=== PATIENT | male | born 1960 | race Caucasian/White ===

== ENCOUNTER 2017-10-14 11:35 | Emergency (ER) | payer MEDICAID, SELFPAY ==
[2017-10-14 11:38] VITALS: BP 161/102; PULSE 88; RESP 16; TEMP 36.8; O2SAT 97; BMI 25.9
[2017-10-14 11:49] VITALS: BP 137/112; PULSE 74; RESP 18; O2SAT 97
--- NOTE | 2017-10-14 11:53 | CT_ITS ---
STUDY: CT BRAIN WITHOUT CONTRAST REASON FOR EXAM: Male, 57 years old. Dyspnea. 3 month history of headaches and hypertension. RADIATION DOSAGE (If Supplied By Facility): CTDIvol = ( 44.99 ) mGy, DLP = ( 796.11 ) mGycm TECHNIQUE: Transaxial CT imaging of the brain was performed without administration of intravenous contrast material. Individualized dose optimization techniques were used for this CT. COMPARISON: None. FINDINGS: Normal soft tissue structures. Normal calvarium. Normal size ventricles and extra-axial spaces for the patient's age. Normal white matter tracts of the cerebral hemispheres. Normal basal ganglia and thalami. Normal brainstem. Normal cerebellum. There is no intracranial hemorrhage. There are no findings of an acute ischemic infarction. Small mucosal polyp or retention cyst in the anterior inferior aspect of the right maxillary sinus. CT/Brain/Head without Contrast IMPRESSION: Normal unenhanced CT scan of the brain. Electronically Signed: Kenrick Hector MD at 13:20 EST Tel [phone], Service support ,
[2017-10-14] MEDS: DiphenhydrAMINE 50 MG/ML Syringe 25 MG IV (12:11)
[2017-10-14] MEDS: Ketorolac 15 MG/ML Vial IV (12:11)
[2017-10-14] MEDS: proCHLORPERazine 10 MG/2 ML Vial IV (12:11)
[2017-10-14] MEDS: 0.9% Normal Saline 1,000 ML 1000 ML IV (12:11)
[2017-10-14 12:35] LABS: Carboxyhemoglobin Frac (CO) 1.3 % (0.0-1.5)
--- NOTE | 2017-10-14 14:29 | ED.DCSUM_ITS ---
- ER Visit Summary Date of Service: 10/14/17 Chief Complaint: [Headache] History of Present Illness: The patient is a 57 M [resents with a headache that started this morning. Patient currently rates his headache an 8 out of 10. Patient states that he has had similar headaches in the past. Patient states that he has been having headaches off and on for a couple years. Patient describes some nausea today and photophobia. Patient describes cough and feeling somewhat achy. Patient denies any fever. He denies any falls or head injuries. Denies any family history of brain tumors or aneurysms.] Physical Examination: [HEENT-PERRLA, EOMI. Cranial nerves II through XII grossly intact. TMs clear. Mucous membranes moist. No adenopathy. Cardiovascular-regular rate and rhythm without murmur or ectopy Lungs-clear to auscultation, chest wall stable without crepitus or subcu emphysema Abdomen-normoactive bowel sounds, soft, nontender, no rebound or rigidity, no peritoneal signs. Neuro lzgd-[id number]-npms and heel savage testing within normal limits, negative Romberg, negative pronator drift, fundi benign Extremities-intact ?4, normal range of motion, normal pulses, atraumatic] Test Results: [CT scan of the brain without contrast was normal. Influenza screen was negative. Carboxyhemoglobin was 1.3.] Emergency Department Course and Treatment: [Patient had a liter normal saline fluid bolus given as well as Compazine, Toradol, and Benadryl. His headache improved to a 2 out of 10.] Treatment Plan: [Patient will be referred to neurology on-call for follow-up.] Disposition: [Discharged to home in stable condition] Impression: [Headache-suspect migrainous cephalgia] This note was generated with [employer] dictation software. It may contain incorrect words, spelling, and punctuation that were not noted in review of the chart prior to signing ED Disposition - Plan for ED Patient: Chief Complaint: Headache Referrals: Carlos Asif MD [Primary Care Provider] -
--- NOTE | 2017-10-14 14:30 | ED.DEP ---
ED Disposition - Plan for ED Patient: Chief Complaint: Headache Instructions: ED Cephalgia Unspecified Referrals: Carlos Asif MD [Primary Care Provider] - 5-7 Days Kwadwo Jessica MD [STAFF PHYSICIAN] - 5-7 Days
[2017-10-14 14:41] VITALS: BP 143/107; PULSE 72; RESP 18; O2SAT 98
== END 2017-10-14 14:42 | disposition home or self-care (01) ==
LOC: ED 12:06
PROVIDERS: Emergency Provider Emergency Medicine; Family Provider Family Medicine; PCP Family Medicine
DX: G43.909 Migraine, unspecified, not intractable, without status migrainosus (principal); I10 Essential (primary) hypertension; R05 Cough; Z79.899 Other long term (current) drug therapy
CPT/HCPCS: 70450; 82375; 87804; 96361; 96374; 96375; 99284; J7030

== ENCOUNTER 2018-03-06 15:35 | Observation (INO) | payer MEDICAID, SELFPAY ==
[2018-03-06] VITALS (14 sets, daily range): BP systolic 105–165; BP diastolic 62–96; PULSE 54–79; RESP 16–22; TEMP 36.4–36.9; O2SAT 96–99; BMI 25.7; BMI 26.0
--- NOTE | 2018-03-06 15:47 | EKG12_ITS ---
Test Reason : CP Blood Pressure : / mmHG Vent. Rate : 062 BPM Atrial Rate : 062 BPM P-R Int : 152 ms QRS Dur : 088 ms QT Int : 420 ms P-R-T Axes : 047 -10 026 degrees QTc Int : 426 ms Normal sinus rhythm Inferior infarct , age undetermined Abnormal ECG Confirmed by JACKELINE VERMA, GEN ([id number]), clinical editor ZITA HENDRICKS ([id number]) on 03/12/2018 3:31:55 PM Referred By: NACHO Confirmed By:GEN VIVEROS MD
--- NOTE | 2018-03-06 15:50 | RAD_ITS ---
STUDY: X-RAY CHEST REASON FOR EXAM: Male, 57 years old. Acute onset chest pain and shortness of breath. Subsiding 30 minutes after use of inhaler for COPD. TECHNIQUE: Single AP portable upright view of the chest. COMPARISON: None. FINDINGS: The lungs are clear and expanded. There is no demonstrated pleural abnormality. Normal size heart. Normal mediastinum and taylor. Normal visualized pulmonary arteries. Normal visualized aortic arch. Mildly tortuous descending thoracic aorta. Normal visualized thoracic spine. Normal visualized ribs, clavicles, and shoulders. Soft tissue density superimposed on the lower thoracic spine and distal descending thoracic aorta may be a hiatal hernia. RAD/Chest 1 View (Portable) IMPRESSION: No acute cardiopulmonary disease. Question of small hiatal hernia. Electronically Signed: Yaw Palacio MD at 16:10 EDT , Service support ,
[2018-03-06 15:56] LABS: Absolute Lymphocyte Count 2.15 X10^3/ul (0.83-4.51); Basophil# 0.03 X10^3/uL; Basophil% 0.3 % (0-1); Eosinophils% 2.8 % (0-5); Hematocrit 43.1 % (40-54); Hemoglobin 14.9 g/dl (13.0-16.5); Lymphocyte # 2.15 X10^3/ul (4.0); Lymphocyte % 20.1 % (19-41); Mean Corp Hgb Conc 34.6 g/gl (32-36); Mean Corpuscular Hgb 31.9 pg (27.0-32.0); Mean Corpuscular Volume 92.3 fL (80-94); Mean Platelet Vol. 11.5 fl (6.2-12.0); Monocyte# 1.18 X10^3/uL; Neutrophil # 7.04 X10^3/uL (2.7-7.7); Neutrophil % 65.7 % (47-70); Platelet Count 181 K/mm3 (150-450); RBC Distribution Width CV 12.5 % (11.6-14.6); RBC Distribution Width SD 41.8 fl (35.1-43.9); Red Blood Count 4.67 M/mm3 (4.6-6.2); White Blood Count 10.7 K/mm3 (4.4-11.0)
[2018-03-06] MEDS: 0.9% Normal Saline 1,000 ML 150 ML IV ×2 (15:57→19:04)
[2018-03-06] MEDS: Aspirin 81 MG TAB.CHEW 324 MG PO (15:58)
[2018-03-06] MEDS: Ipratropium/Albuterol Sulfate 3 ML AMPUL.NEB INHALATION (15:59)
[2018-03-06 16:22] LABS: Anion Gap 8 (5-15); BUN 15 mg/dL (7-18); BUN/Creat Ratio 16.4 RATIO (10-20); Calcium,Total 8.2 mg/dL (8.5-10.1); Chloride 110 mmol/L (98-107); Creatinine, Serum 0.91 mg/dL (0.70-1.30); EST Glomerular Filtration Rate 90 mL/min (>60); Est Glom Filt Rate - Afr Amer 109 mL/min (>60); Estimated Creatinine Clearance 79.85 ml/min; Glucose 154 mg/dL (74-106); Potassium 3.9 mmol/L (3.5-5.1); Sodium Level 143 mmol/L (136-145)
[2018-03-06 16:30] LABS: POSITIVE COUNT NO; POSITIVE DIFFERENTIAL NO; POSITIVE MORPHOLOGY NO
--- NOTE | 2018-03-06 16:34 | ED.VISSUMM ---
- ER Visit Summary Date of Service: 03/06/18 Chief Complaint: [Chest pain] History of Present Illness: The patient is a 57 M [presents the emergency department chest discomfort that started 10 minutes prior to arrival in the emergency department. Patient states that he was at work standing in the shop when he developed chest discomfort that radiated into both arms. He describes it as achy. Patient states that the pain is actually started to improve a little bit and currently rates it a 3 out of 10. Patient did feel short of breath with it. He denies any nausea or vomiting. He denied any diaphoresis. Patient has not had discomfort like that before. Patient does have a history of COPD and hypertension however no cardiac history. Patient does not know his family history as he is a foster child.] Physical Examination: [HEENT-PERRLA, EOMI. Cranial nerves II through XII grossly intact. TMs clear. Mucous membranes moist. No adenopathy. Cardiovascular-regular rate and rhythm without murmur or ectopy Lungs-diminished breath sounds bilaterally which is some faint expiratory wheezes noted. No accessory muscle use or retractions. Abdomen-normoactive bowel sounds, soft, nontender, no rebound or rigidity, no peritoneal signs. Extremities-intact ?4, normal range of motion, normal pulses, atraumatic] Test Results: [EKG obtained on arrival shows sinus rhythm with ventricular rate of 62 bpm with old inferior wall infarct noted. CBC with differential was normal. Chemistries unremarkable. Troponin was less than 0.015. And chest x-ray showed nothing acute.] Emergency Department Course and Treatment: [Patient received aspirin in the emergency department as well as sublingual nitro which resolved his pain. Patient had an inch of Nitropaste placed to the anterior chest wall. Patient also received a DuoNeb aerosol.] Treatment Plan: [Patient will be admitted for further workup and evaluation of his chest pain] Disposition: [Admit] Impression: Chest pain-rule out acute coronary syndrome [] This note was generated with [employer] dictation software. It may contain incorrect words, spelling, and punctuation that were not noted in review of the chart prior to signing ED Disposition - Plan for ED Patient: Chief Complaint: Chest Pain Referrals: Carlos Asif MD [Primary Care Provider] -
[2018-03-06] MEDS: Nitroglycerin Oint 1 INCH PACKET TRANSDERM. (16:40)
--- NOTE | 2018-03-06 17:05 | HP.PCM_ITS ---
Problem List (1) Hypertension Status: Chronic (2) Depression Status: Acute History of Present Illness Date of Admission: 03/06/18 Chief Complaint: Chest pain This is a 57-year-old male with past medical history of essential hypertension and depression who presented to the emergency room due to midsternal chest pain that started while he was at work. He describes his pain as an ache , it did not radiate, it was associated with mild shortness of breath. He denies any palpitations, dizziness, rapid heartbeat, nausea or diaphoresis . He denies personal or family history of coronary artery disease. He states that he had a stress test several years ago and that was negative for ischemia. His workup in the emergency room is essentially unremarkable. We are placing him in the CDU to rule out acute coronary syndrome. Past Medical History Past Medical History (Chronic Problems): Chronic Problems Hypertension (Chronic) Allergies No Known Allergies Allergy (Verified 10/14/17 11:38) Home Medications: Ambulatory Orders Medication Instructions Recorded Metoprolol Tartrate [Lopressor 25 mg PO BID 10/14/17 (Beta Alma)] Duloxetine Hcl [Cymbalta] 20 mg PO DAILY 03/06/18 Smoking Status: Former smoker Review of Systems Comment: All Systems were reviewed with pertinent positives mentioned in the HPI above. VTE Information - Inpt Only VTE Present on Admission: No VTE Mechan Device Prophylaxis: SCD's VTE Pharm Prophylaxis ordered?: No Patient Problems: Active and Suspected Problems Depression (Acute) - Physical Exam General: Alert, Oriented x3 Oral: Moist Mucosa Neck: Supple, No JVD Lungs: Clear to auscultation, No wheeze, No rales Cardiovascular: Regular rate, Normal S1, Normal S2 Abdomen: Soft, Non Tender Extremities: No edema Neurological: Cranial nerves II-XII grossly intact, Motor Exam 5/5 strength throughout Vital Signs Temp Pulse Resp BP Pulse Ox 97.6 F L 73 16 127/87 H 96 03/06/18 15:36 03/06/18 16:42 03/06/18 16:42 03/06/18 16:42 03/06/18 16:42 Oxygen Delivery Method Room Air Weight: 72.121 kg Body Mass Index (BMI) 25.7 Laboratory Tests Past 24 Hrs 03/06/18 03/06/18 15:50 15:50 WBC 10.7 RBC 4.67 Hgb 14.9 Hct 43.1 MCV 92.3 MCH 31.9 MCHC 34.6 RDW 12.5 RDW Differential 41.8 Plt Count 181 MPV 11.5 Immature Gran % (Auto) 0.100 Neut % (Auto) 65.7 Lymph % (Auto) 20.1 [place] % (Auto) 11.0 H Eos % (Auto) 2.8 Baso % (Auto) 0.3 Absolute Neuts (auto) 7.0 Absolute Lymphs (auto) 2.15 Total Counted Not Reportable Sodium 143 Potassium 3.9 Chloride 110 H Carbon Dioxide 25.0 Anion Gap 8 BUN 15 Creatinine 0.91 Estim Creat Clear Calc 79.85 Est GFR (MDRD) Af Amer 109 Est GFR (MDRD) Non-Af 90 BUN/Creatinine Ratio 16.4 Glucose 154 H Calcium 8.2 L Troponin I < 0.015 Assessment/Plan All Active Problems Depression (Acute) 1. Chest pain; we will obtain serial cardiac enzymes and EKGs to rule out acute coronary syndrome, assuming negative cardiac enzymes we will schedule him for a stress test in the morning. 2. Hypertension; we will continue him on his metoprolol. 3. Depression; he is on Cymbalta which we will continue. 4. Obesity; weight loss recommended. 5. Early ambulation for DVT prophylaxis Code Visit OBSV E&M: 77398 Initial observation care L3
--- NOTE | 2018-03-06 17:48 | EKG12_ITS ---
Test Reason : CP Blood Pressure : / mmHG Vent. Rate : 066 BPM Atrial Rate : 066 BPM P-R Int : 166 ms QRS Dur : 086 ms QT Int : 428 ms P-R-T Axes : 056 -29 019 degrees QTc Int : 448 ms Normal sinus rhythm Low voltage QRS Borderline ECG Confirmed by JACKELINE VERMA, GEN ([id number]), editor index ZITA HENDRICKS ([id number]) on 03/12/2018 3:32:15 PM Referred By: NACHO Confirmed By:GEN VIVEROS MD
[2018-03-07] VITALS (8 sets, daily range): BP systolic 115–160; BP diastolic 68–91; PULSE 58–68; RESP 12–21; TEMP 36.7–37.2; O2SAT 97–98
[2018-03-07] MEDS: Metoprolol Tartrate 25 MG Tablet PO ×2 (00:10→09:57)
[2018-03-07] MEDS: 0.9% Normal Saline 1,000 ML 150 ML IV (01:56)
[2018-03-07] MEDS: Acetaminophen 325 MG Tablet 650 MG PO (03:38)
--- NOTE | 2018-03-07 05:55 | EKG12_ITS ---
Test Reason : AM EKG Blood Pressure : / mmHG Vent. Rate : 060 BPM Atrial Rate : 060 BPM P-R Int : 150 ms QRS Dur : 090 ms QT Int : 422 ms P-R-T Axes : 047 -10 031 degrees QTc Int : 422 ms Normal sinus rhythm Normal ECG When compared with ECG of 06-MAR-2018 15:41, MANUAL COMPARISON REQUIRED, DATA IS UNCONFIRMED Confirmed by JACKELINE VERMA, GEN ([id number]), sports editor ZITA HENDRICKS ([id number]) on 03/12/2018 3:58:52 PM Referred By: DR NOLASCO Confirmed By:GEN VIVEROS MD
[2018-03-07 07:11] LABS: Absolute Lymphocyte Count 2.22 X10^3/ul (0.83-4.51); Absolute Neutrophil Count 7.2 X10^3/uL (2.0-7.7); Basophil# 0.03 X10^3/uL; Basophil% 0.3 % (0-1); Eosinophil# 0.37 X10^3/uL; Eosinophils% 3.4 % (0-5); Hemoglobin 13.1 g/dl (13.0-16.5); Lymphocyte # 2.22 X10^3/ul (4.0); Lymphocyte % 20.2 % (19-41); Mean Corp Hgb Conc 34.5 g/gl (32-36); Mean Corpuscular Hgb 32.7 pg (27.0-32.0); Mean Corpuscular Volume 94.8 fL (80-94); Mean Platelet Vol. 11.8 fl (6.2-12.0); Monocyte# 1.11 X10^3/uL; Monocyte% 10.1 % (0-10); Neutrophil # 7.21 X10^3/uL (2.7-7.7); Neutrophil % 65.6 % (47-70); Platelet Count 153 K/mm3 (150-450); RBC Distribution Width CV 12.3 % (11.6-14.6); RBC Distribution Width SD 41.9 fl (35.1-43.9); Red Blood Count 4.01 M/mm3 (4.6-6.2)
[2018-03-07 07:15] LABS: POSITIVE COUNT NO; POSITIVE DIFFERENTIAL NO; POSITIVE MORPHOLOGY NO
[2018-03-07 07:18] LABS: International Normalized Ratio 1.1; Prothrombin Time (Protime)PT. 14.2 SECONDS (11.7-14.9)
[2018-03-07 07:19] LABS: Partial Thromboplast Time 31.5 Seconds (24.1-36.2)
[2018-03-07 07:51] LABS: Anion Gap 6 (5-15); BUN 14 mg/dL (7-18); Calcium,Total 7.9 mg/dL (8.5-10.1); Chloride 114 mmol/L (98-107); Creatinine, Serum 0.78 mg/dL (0.70-1.30); EST Glomerular Filtration Rate 109 mL/min (>60); Est Glom Filt Rate - Afr Amer 132 mL/min (>60); Estimated Creatinine Clearance 93.16 ml/min; Glucose 93 mg/dL (74-106); Potassium 3.6 mmol/L (3.5-5.1); Sodium Level 147 mmol/L (136-145)
--- NOTE | 2018-03-07 09:58 | STRESSREP ---
Stress Test Report Pharmacologic myocardial perfusion stress test. 57-year-old man with a history of chest pain. Stress protocol: Resting EKG demonstrates normal sinus rhythm with a rate of 56 bpm. Resting blood pressure is 168/90 mmHg. 0.4 mg of regadenoson was infused per usual protocol followed by rapid intravenous saline flush injection. Continuous EKG monitoring was performed. The patient maintained sinus rhythm throughout the recording. At rest there were no ST or T-wave changes noted suggest abnormal flow reserve at peak infusion no ST or T-wave changes were noted suggest abnormal flow reserve. The resting blood pressure was 176 of 100 mmHg with a final blood pressure 152/86 mmHg. No clinical angina was noted. Myocardial perfusion protocol. 12.0 mCi of technetium 99m sestamibi was injected at rest. 0.4 mg of regadenoson was infused per usual protocol peak infusion 36.0 mCi of technetium 99m sestamibi was injected stress images were obtained stress and rest images were reconstructed and compared in the short axis vertical long and horizontal long axis. Gated images were also obtained Perfusion SPECT analysis: Review of the stress images demonstrate normal uptake of tracer noted in all areas of myocardium. There is a small area however, of the distal anterior and apical wall with mild reduction in perfusion which appears to improve with rest suggesting a mild amount of distal anterior apical ischemia. Gated SPECT analysis: The gated ejection fraction is noted to be 74%. Conclusion: Resting hypertension. Mildly abnormal pharmacologic myocardial perfusion stress test with a small area of distal anterior apical ischemia. Preserved ejection fraction.
--- NOTE | 2018-03-07 11:11 | PCM.CONS.C ---
Reason for Consult Date of Consultation: 03/07/18 Reason for Consultation: Abnormal stress test and chest pain. History of Present Illness: The patient is a 57 year old M with no previous medical history but on anxiety disorder who presented to the emergency room with a complaint of chest discomfort. He says he was standing at his work room floor and then started experiencing some chest discomfort which went to both arms. He denies any nausea or diaphoresis though it was stated in the previous notes he has not had any palpitations he has had similar chest discomfort in the past. In the emergency room he was given sublingual nitroglycerin with improvement in the discomfort. He has otherwise not had any dizziness or diaphoresis near syncope or syncope he was scheduled for and underwent stress testing this morning his EKGs were noted to be normal but he had mild distal possible apical ischemia with no other territorial concern he was noted to be hypertensive as well. [] Past Medical History Allergies/Adverse Reactions: Allergies No Known Allergies Allergy (Verified 10/14/17 11:38) Home Medications: Ambulatory Orders Medication Instructions Recorded Metoprolol Tartrate [Lopressor 25 mg PO BID 10/14/17 (Beta Alma)] Duloxetine Hcl [Cymbalta] 20 mg PO DAILY 03/06/18 Past Medical History (Chronic Problems): Chronic Problems Hypertension (Chronic) Smoking Status: Former smoker Tobacco Use: Cigarettes Alcohol: None Drugs: None Review of Systems - Review of Systems General: Denies: Fever, Night Sweats, Fatigue Cardiovascular: Denies: Chest Discomfort, Shortness of Breath, Orthopnea, PND, Peripheral Edema, Palpitations, Lightheadedness, Dizziness, Near Syncope, Syncope Respiratory: Denies: Cough, Sputum Production, Hemoptysis Gastrointestinal: Denies: Hematemesis, Hematochezia, Melena Genitourinary: Denies: Dysuria, Hematuria Skin: Denies: Rash Subjectve: Pleasant gentleman in no apparent distress. Objective: Vital Signs Temp Pulse Resp BP Pulse Ox 98.0 F 67 12 160/91 H 98 03/07/18 09:53 03/07/18 09:57 03/07/18 09:53 03/07/18 09:53 03/07/18 09:53 Oxygen Delivery Method Room Air Weight: 162 lb 0.636 oz Body Mass Index (BMI) 26.0 Intake and Output for Last 24 Hours 03/05/18 03/06/1818 23:59 23:59 23:59 Intake Total 694 / 694 918 / 918 Balance 694 / 694 918 / 918 General: Awake, Alert, Oriented x 3 HEENT: PERRL, EOMI, Sclera Non Icteric Neck: Supple, Good ROM, No Lymph Node Enlargement Lungs: Clear to auscultation Cardiovascular: Regular Rhythm, Normal S1, Normal S2, No Murmurs, No Rubs, No Gallops Vascular: No Carotid Bruits, Normal Femoral Pulses, Normal Radial Pulses, Normal Dorsalis Pedal Pulse, Normal Posterior Tibial Pulses Abdomen: Bowel Sounds Present, Soft, Non Tender, No HSM, No Organomegaly Extremities: No Cyanosis, No Clubbing, No edema Neurological: No Focal Motor or Sensory Deficit 03/06/18 18:51: Troponin I < 0.015 03/06/18 21:48: Troponin I < 0.015 03/07/18 06:36: WBC 11.0, RBC 4.01 L, Hgb 13.1, Hct 38.0 L, MCV 94.8 H, MCH 32.7 H, MCHC 34.5, RDW 12.3, RDW Differential 41.9, Plt Count 153, MPV 11.8, Immature Gran % (Auto) 0.400, Neut % (Auto) 65.6, Lymph % (Auto) 20.2, [place] % (Auto) 10.1 H, Eos % (Auto) 3.4, Baso % (Auto) 0.3, Absolute Neuts (auto) 7.2, Total Counted Not Reportable 03/07/18 06:36: PT 14.2, INR 1.1, APTT 31.5 03/07/18 06:36: Sodium 147 H, Potassium 3.6, Chloride 114 H, Carbon Dioxide 27.0, Anion Gap 6, BUN 14, Creatinine 0.78, Est GFR (MDRD) Af Amer 132, Est GFR (MDRD) Non-Af 109, BUN/Creatinine Ratio 18.0, Glucose 93, Calcium 7.9 L Rhythm: EKG: ECHO: Stress Test: Cardiac Cath: PCI: CT Surgery: Holter monitor: EPS: PPM: CXR: Chest CT Scan: Assessment/Plan 1. Chest pain with abnormal stress test. He presents with chest pain with some atypical findings but not abnormal stress test which appears to be low risk. At this time he prefers to go home and be seen as an outpatient rather than wait 2 days to undergo a cardiac catheterization. My recommendation at this time would be as he is low risk to be put on aspirin, clopidogrel and a beta-alma and statin and he will have a follow-up evaluation in my office and further recommendations made. 2. Hypertension. He is likely hypertensive and we will start with the beta-alma and further recommendations made later on. Thank you for allowing me to participate in his care. A follow-up visit through my office will be arranged.
--- NOTE | 2018-03-07 11:25 | PCM.DC ---
- Discharge Diagnoses Current Active Problems: Current Active and Chronic Problems Hypertension (Chronic) Depression (Acute) You will use the following diet at home:: Cardiac Your food should be the consistency of: Regular Your liquids should be the consistency of: Regular/Thin Discharge Activity: - - activity as tolerated. Call your doctor if you observe: Shortness of breath, Chest pain Allergies/Adverse Reactions: Allergies No Known Allergies Allergy (Verified 10/14/17 11:38) Medications to take at Discharge Metoprolol Tartrate [Lopressor (beta liz)] 25 mg PO BID 10/14/17 Duloxetine Hcl [Cymbalta] 20 mg PO DAILY 03/06/18 Atorvastatin Calcium 80 mg PO DAILY #30 tab 03/07/18 Clopidogrel Bisulfate [Plavix] 75 mg PO DAILY #30 tab 03/07/18 The following prescriptions were given: Atorvastatin Calcium 80 mg PO DAILY #30 tab Clopidogrel Bisulfate [Plavix] 75 mg PO DAILY #30 tab Primary Care Physician: Carlos Asif MD [Primary Care Provider] - Within 2 Weeks Please Follow Up With: Mario Bartholomew MD - Cardiology When: 1-2 weeks Proposed Discharge Date: 03/07/18
--- NOTE | 2018-03-07 11:27 | PCM.DC.SUM ---
Discharge Date and Diagnosis - Problem List Patient Problems: Active and Suspected Problems Abnormal stress test (Acute) Chest pain (Acute) Depression (Acute) Date of Admission: 03/06/18 Date of Discharge: 03/07/18 - Primary Discharge Diagnosis Active and Suspected Problems Abnormal stress test (Acute) Chest pain (Acute) Depression (Acute) - Secondary Discharge Diagnosis Chronic Problems Hypertension (Chronic) Hospital Course and Treatment Imaging Results: 03/07/18 05:55 Nuclear Stress Test - Chemical [NM] Routine Procedures: Stress test Summary of Care Provided: The patient is a 57 year old M with midsternal chest pain. Patient said that he had the pain that became very anxious afterwards. Patient presented to the emergency room and his cardiac workup was performed. He underwent a chemical stress test that showed a small area of the distal anterior apical ischemia. Cardiology was consulted and patient expressed a desire to go home and follow up with cardiology as outpatient. Dr. Bartholomew was okay with that and I recommend patient continue with his metoprolol but also start Plavix and atorvastatin. Patient be discharged with a 75 mg Plavix as well as 80 mg of atorvastatin. Patient will follow up with cardiology next 1-2 weeks. Patient instructed to return to hospital if he has worsening chest pain or shortness of breath. [] Discharge Diet: Low fat/ Low Cholesterol Discharge Activity: - - activity as tolerated. Call your doctor if you observe: Shortness of breath, Chest pain Home Medications: Medications to take at Discharge Metoprolol Tartrate [Lopressor (beta liz)] 25 mg PO BID 10/14/17 Duloxetine Hcl [Cymbalta] 20 mg PO DAILY 03/06/18 Atorvastatin Calcium 80 mg PO DAILY #30 tab 03/07/18 Clopidogrel Bisulfate [Plavix] 75 mg PO DAILY #30 tab 03/07/18 Following Prescrptions Were Given to Patient: Atorvastatin Calcium 80 mg PO DAILY #30 tab Clopidogrel Bisulfate [Plavix] 75 mg PO DAILY #30 tab Primary Care Physician: Carlos Asif MD [Primary Care Provider] - Within 2 Weeks Please Follow Up With: Mario Bartholomew MD - Cardiology When: 1-2 weeks Disposition: Home Minutes spent on discharge:: 28 Patient Condition:: Fair Medical Necessity - Tobacco Use Smoking Status: Former smoker Tobacco Use: Cigarettes Meaningful Use Info Meaningful Use Diagnoses (Choose all that apply): None applicable Code Visit OBSV E&M: 27832 Observation care discharge
== END 2018-03-07 11:26 | disposition home or self-care (01) ==
LOC: ED 17:05 → PCU 17:46
PROVIDERS: Admitting Provider Internal Medicine; Emergency Provider Emergency Medicine; Family Provider Family Medicine; PCP Family Medicine
DX: R07.89 Other chest pain (principal); J44.9 Chronic obstructive pulmonary disease, unspecified; I10 Essential (primary) hypertension; Z79.899 Other long term (current) drug therapy; F32.9 Major depressive disorder, single episode, unspecified; Z87.891 Personal history of nicotine dependence; R94.39 Abnormal result of other cardiovascular function study; K21.9 Gastro-esophageal reflux disease without esophagitis
CPT/HCPCS: 36415; 71045; 78452; 80048; 84484; 85025; 85610; 85730; 93005; 93017; 94640; 96360; 96361; 99218; 99283; A9500; J7030; A4216; G0378; J2785

== ENCOUNTER 2018-06-08 22:50 | Emergency (ER) | payer MEDICAID, SELFPAY ==
[2018-06-08 22:50] VITALS: BP 125/91; PULSE 75; RESP 18; TEMP 36.6; O2SAT 97; BMI 25.8
--- NOTE | 2018-06-08 23:29 | EKG12_ITS ---
Test Reason : ABD PAIN Blood Pressure : / mmHG Vent. Rate : 065 BPM Atrial Rate : 065 BPM P-R Int : 170 ms QRS Dur : 096 ms QT Int : 418 ms P-R-T Axes : 085 -05 042 degrees QTc Int : 434 ms Normal sinus rhythm Normal ECG Confirmed by JACKELINE VERMA, GEN ([id number]), department editor ZITA HENDRICKS ([id number]) on 06/15/2018 3:24:55 PM Referred By: Radha Macario Confirmed By:GEN VIVEROS MD
--- NOTE | 2018-06-08 23:31 | ED.VISSUMM ---
- ER Visit Summary Date of Service: 06/08/18 Chief Complaint: Anxiety History of Present Illness: The patient is a 58 M who presents stating that he cannot cope anymore. Patient states these have always had depression and anxiety his entire life. 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 He states that about a month ago he was staying with a lady. He was under a great deal of stress and was hitting himself in the head with a hammer. He then took needles and tried to push them through his school only to find that the needles would bend. And then approximately 2 weeks ago out of desperation he took a bottle of aspirin. He states the next day he went to the crisis counseling center in light of them stating that he was feeling okay. He states he has been having some nausea and vomiting things that he eats except for oatmeal. He states that he has been seeing a counselor and has been set up to see psychiatry in a couple weeks. He finding that he cannot cope. He went to the [facility] and advised him to come here. He denies any change in urine production. He denies tinnitus. Physical Examination: Afebrile vital signs are stable Gen: Well-nourished well-developed Head: Normocephalic atraumatic Eyes: Perrl EOMI ENT: TMs clear no rhinorrhea moist mucous membranes Neck: Supple no lymphadenopathy no JVD nontender CVS: Regular rate rhythm no murmurs normal S1-S2 Respiratory: No distress clear to auscultation bilaterally chest nontender Abdomen: Soft nontender nondistended normal bowel sounds no masses Back: Nontender Extremity: Nontender no edema Skin: Normal color no rash Neuro: alert orientated ?3 CN II-XII intact normal strength sensation reflexes gait cerebellar Psych: Depressed and anxious Test Results: Psychiatric screening labs were obtained which were negative including salicylate level and a normal creatinine. Emergency Department Course and Treatment: Patient was assessed by crisis. He is not actively suicidal. He has multiple services including counseling job services and states he does have primary care. He states that he is taking an antidepressant and anxiolytic but cannot tell me what they are. Mr. Laboy from crisis has seen the patient. They are arranging close follow-up with him. Patient is adamant that he is not suicidal and that he is a Islam and that he does not wish to harm himself. Impression: 1. Depression and anxiety 2. Gastritis This note was generated with [employer] dictation software. It may contain incorrect words, spelling, and punctuation that were not noted in review of the chart prior to signing ED Disposition - Plan for ED Patient: Disposition: Home or Assisted Living Chief Complaint: Abd Pain Instructions: ED PUD Vs Gastritis Referrals: Isatu Anne [NON-STAFF] - Additional Instructions: New your omeprazole. Use Maalox for continued epigastric discomfort. Please arrange follow-up with your family doctor
--- NOTE | 2018-06-08 23:38 | ED.RN ---
pt denies suicide at this time. pt states I am depressed but not suicidal
[2018-06-09 00:23] LABS: Absolute Lymphocyte Count 2.59 X10^3/ul (0.83-4.51); Absolute Neutrophil Count 5.1 X10^3/uL (2.0-7.7); Basophil# 0.05 X10^3/uL; Basophil% 0.6 % (0-1); Eosinophil# 0.25 X10^3/uL; Eosinophils% 2.8 % (0-5); Hematocrit 40.4 % (40-54); Hemoglobin 14.5 g/dl (13.0-16.5); Lymphocyte # 2.59 X10^3/ul (4.0); Lymphocyte % 29.2 % (19-41); Mean Corp Hgb Conc 35.9 g/gl (32-36); Mean Corpuscular Hgb 32.6 pg (27.0-32.0); Mean Corpuscular Volume 90.8 fL (80-94); Monocyte# 0.89 X10^3/uL; Neutrophil # 5.08 X10^3/uL (2.7-7.7); Neutrophil % 57.3 % (47-70); Platelet Count 176 K/mm3 (150-450); RBC Distribution Width CV 12.4 % (11.6-14.6); Red Blood Count 4.45 M/mm3 (4.6-6.2); White Blood Count 8.9 K/mm3 (4.4-11.0)
[2018-06-09 00:24] LABS: POSITIVE COUNT NO; POSITIVE DIFFERENTIAL NO; POSITIVE MORPHOLOGY NO
[2018-06-09 00:46] LABS: ALB/GLOB Ratio 1.3 RATIO (0.9-2.4); AST(SGOT) 25 U/L (15-37); Alanine Aminotransfer ALT/SGPT 35 U/L (16-61); Albumin, Serum 3.9 g/dL (3.2-5.0); Alkaline Phosphatase 111 U/L (45-117); Anion Gap 8 (5-15); BUN 12 mg/dL (7-18); BUN/Creat Ratio 11.4 RATIO (10-20); Calcium,Total 8.5 mg/dL (8.5-10.1); Chloride 106 mmol/L (98-107); Creatinine, Serum 1.05 mg/dL (0.70-1.30); EST Glomerular Filtration Rate 77 mL/min (>60); Est Glom Filt Rate - Afr Amer 93 mL/min (>60); Estimated Creatinine Clearance 68.36 ml/min; Globulin 3.1 g/dL (2.2-4.2); Glucose 109 mg/dL (74-106); Potassium 3.1 mmol/L (3.5-5.1); Sodium Level 142 mmol/L (136-145); Thyroid Stim Hormone (TSH) 1.14 uIU/mL (0.358-3.74)
[2018-06-09 00:59] LABS: Acetaminophen (Tylenol) Level < 10.0 ug/mL (10.0-30.0); Alcohol, Blood (Medical)-Serum < 3.0 mg/dL; Salicylate < 1.7 mg/dL (2.8-20.0)
[2018-06-09 01:05] VITALS: RESP 18
[2018-06-09 01:06] LABS: Mucous, Urine 0 SEEN /hpf (<or=2+); Red Blood Cells-Urine 0 SEEN /hpf (0-5); Squamous Epithelial Cells - UA 0 SEEN /hpf (0-5)
[2018-06-09 01:07] LABS: Color, Urine Yellow (Yellow); Glucose, Dipstick Normal (Normal); Ketone-Dipstick Negative (Negative); Leukocyte Esterase-Dipstick 25 /ul (Negative); Nitrite-Dipstick Negative (Negative); Occult Blood-Urine Negative /ul (Negative); Protein-Dipstick Negative (Negative); Urine Bilirubin Dipstick Negative (Negative); Urine Clarity Clear (Clear); Urine Urobilinogen Normal (Normal)
[2018-06-09 01:18] LABS: Bacteria RARE /hpf (None Seen); White Blood Cells 0-5 SEEN /hpf (0-5)
[2018-06-09 01:28] LABS: Amphetamine Urine VISTA NEGATIVE (<1000 ng/mL); Barbiturate Urine VISTA NEGATIVE (< 200 ng/mL); Benzodiazepine Urine VISTA NEGATIVE (< 200 ng/mL); Cocaine Urine VISTA NEGATIVE (< 300 ng/mL); Ecstacy Urine VISTA NEGATIVE (< 500 ng/mL); Methadone Urine VISTA NEGATIVE (< 300 ng/mL); PCP Urine VISTA NEGATIVE (< 25 ng/mL); THC Urine VISTA NEGATIVE (< 50 ng/mL); Vista UDS pH Range 6
[2018-06-09 02:59] VITALS: RESP 18
== END 2018-06-09 03:00 | disposition home or self-care (01) ==
PROVIDERS: Emergency Provider Emergency Medicine; Referring Provider Nurse Practitioner Family
DX: F32.9 Major depressive disorder, single episode, unspecified (principal); F41.9 Anxiety disorder, unspecified; K29.70 Gastritis, unspecified, without bleeding; K21.9 Gastro-esophageal reflux disease without esophagitis; Z79.02 Long term (current) use of antithrombotics/antiplatelets; Z79.899 Other long term (current) drug therapy; Z87.891 Personal history of nicotine dependence
CPT/HCPCS: 36415; 80053; 80307; 80320; 80329; 81001; 84443; 85025; 93005; 99283; G0480

== ENCOUNTER 2018-09-18 01:58 | Emergency (ER) | payer MEDICAID, SELFPAY ==
[2018-09-18 01:58] VITALS: BMI 25.9
[2018-09-18 01:59] VITALS: BP 131/100; PULSE 90; RESP 19; TEMP 36.6; O2SAT 100; BMI 27.6
[2018-09-18 02:01] VITALS: BP 131/100; PULSE 98; RESP 20; TEMP 36.6; O2SAT 97
--- NOTE | 2018-09-18 02:08 | EKG12_ITS ---
Test Reason : SOB Blood Pressure : / mmHG Vent. Rate : 070 BPM Atrial Rate : 070 BPM P-R Int : 162 ms QRS Dur : 086 ms QT Int : 398 ms P-R-T Axes : 081 -28 043 degrees QTc Int : 429 ms Normal sinus rhythm Low voltage QRS Borderline ECG Confirmed by JACKELINE VERMA, GEN ([id number]), visual effects editor ZITA HENDRICKS ([id number]) on 09/22/2018 4:57:44 PM Referred By: MARCELO Confirmed By:GEN VIVEROS MD
--- NOTE | 2018-09-18 02:08 | RAD_ITS ---
HISTORY: PATIENT HAS A HX OF COPD AND IS SOB THAT WORSENED AT WORK THIS MORNING EXAM: XR Chest 2 Views: COMPARISON: 03/06/2018 FINDINGS: EKG leads in place. Mild hyperinflation. Right basilar asymmetric increased bronchovascular markings related to bronchitis or low-grade infiltrate. Normal heart size. Mild interstitial thickening compatible with chronic change. No vascular congestion or pleural effusion. No pneumothorax. The bony thorax appears intact. RAD/Chest PA and Lateral IMPRESSION: Mild hyperinflation. Right basilar asymmetric increased markings related to bronchitis, low-grade infiltrate, or possibly mild scarring. at 0255 Reported and signed by: Heri Maxwell MD Electronically Signed: Heri Maxwell, at 2:49 EST Tel , Service support ,
[2018-09-18 02:10] VITALS: O2SAT 98
--- NOTE | 2018-09-18 02:10 | ED.DCSUM_ITS ---
- ER Visit Summary Date of Service: 09/18/18 Chief Complaint: [] Shortness of breath with history of COPD History of Present Illness: The patient is a 58 M stated he was at [employer] scraping some tile at work. He got anxious when another 1 of his workers started throwing things. He said his anxiety kicks up he became more short of breath. He denies any fevers or coughs or other symptoms. He wanted to come in and get checked out. Denies any chest pain. History of atrial fibrillation in chest pain. He was seen in the emergency department and admitted in February of last year. He followed up with Dr. Bartholomew for chest pain. He decided not to have a heart cath. He has a chemical stress test that showed a distal anterior apical ischemic area that they are watching. He is on Plavix. Physical Examination: Vital signs reviewed General: Well-nourished well-developed Head: Normocephalic atraumatic Eyes: Pupils equal round and reactive to light extraocular movements intact ENT: TMs clear no hemotympanum no trauma Neck: Nontender full range of motion Cardiovascular: Regular rate rhythm no murmurs normal S1-S2 Respiratory: No distress clear to auscultation bilaterally chest nontender Abdomen: Soft nontender nondistended normal bowel sounds no masses Back: Nontender no CVA tenderness Extremities: Nontender active range of motion ?4 extremities no trauma Skin: Normal color no trauma Neuro alert oriented cranial nerves II through XII intact normal strength sensation reflexes Test Results: [] Emergency Department Course and Treatment: [] EKG chest x-ray and lab work obtained. Placed on nasal cannula oxygen. Lab work shows a CBC with a white count of 15.6 without left shift. Chemistry shows a chloride 108 creatinine 1.4. Troponin negative. Chest x-ray shows right basilar increased markings q uestionable bronchitis Treatment Plan: Discussed with the patient. He has no signs or symptoms really of a COPD exacerbation. He stated that he was bending over doing work and just became more short of breath as well as anxiety. He is resting comfortably currently. Satting normal with his pulse ox. I do not think he needs further treatments. Lungs are clear. I do not think he has had an acute coronary syndrome. His creatinine is slightly elevated. This could be from dehydration. He is going to drink more fluids today. I feel he can follow-up as an outpatient Disposition: [] Impression: [] Dyspnea?resolved This note was generated with [employer] dictation software. It may contain incorrect words, spelling, and punctuation that were not noted in review of the chart prior to signing ED Disposition - Plan for ED Patient: Chief Complaint: Shortness of Breath Referrals: [facility] Fidel,Isatu Anne [NON-STAFF] -
[2018-09-18 02:29] LABS: Absolute Lymphocyte Count 3.04 X10^3/ul (0.83-4.51); Absolute Neutrophil Count 10.7 X10^3/uL (2.0-7.7); Basophil# 0.04 X10^3/uL; Basophil% 0.3 % (0-1); Eosinophil# 0.35 X10^3/uL; Eosinophils% 2.2 % (0-5); Hematocrit 44.1 % (40-54); Lymphocyte # 3.04 X10^3/ul (4.0); Lymphocyte % 19.5 % (19-41); Mean Corpuscular Hgb 31.9 pg (27.0-32.0); Mean Corpuscular Volume 93.8 fL (80-94); Mean Platelet Vol. 11.3 fl (6.2-12.0); Monocyte# 1.42 X10^3/uL; Monocyte% 9.1 % (0-10); Neutrophil # 10.69 X10^3/uL (2.7-7.7); Neutrophil % 68.5 % (47-70); Platelet Count 192 K/mm3 (150-450); RBC Distribution Width CV 13.1 % (11.6-14.6); RBC Distribution Width SD 45.1 fl (35.1-43.9); White Blood Count 15.6 K/mm3 (4.4-11.0)
[2018-09-18 02:36] LABS: POSITIVE COUNT NO; POSITIVE DIFFERENTIAL NO; POSITIVE MORPHOLOGY NO
[2018-09-18 02:55] LABS: Anion Gap 10 (5-15); BUN 21 mg/dL (7-18); Calcium,Total 8.7 mg/dL (8.5-10.1); Chloride 108 mmol/L (98-107); EST Glomerular Filtration Rate 55 mL/min (>60); Est Glom Filt Rate - Afr Amer 67 mL/min (>60); Estimated Creatinine Clearance 51.27 ml/min; Glucose 116 mg/dL (74-106); Potassium 4.9 mmol/L (3.5-5.1); Sodium Level 142 mmol/L (136-145)
--- NOTE | 2018-09-18 03:13 | ED.DEP ---
ED Disposition - Plan for ED Patient: Disposition: Home or Assisted Living Chief Complaint: Shortness of Breath Instructions: ED Dyspnea Shortness of Breath Referrals: Isatu Hilario [NON-STAFF] -
[2018-09-18 03:21] VITALS: BP 128/60; PULSE 73; RESP 17; O2SAT 97
== END 2018-09-18 03:21 | disposition home or self-care (01) ==
PROVIDERS: Emergency Provider Emergency Medicine; Family Provider Family Medicine; PCP Family Medicine
DX: R06.00 Dyspnea, unspecified (principal); J44.9 Chronic obstructive pulmonary disease, unspecified; I10 Essential (primary) hypertension; F32.9 Major depressive disorder, single episode, unspecified; F41.9 Anxiety disorder, unspecified; Z79.02 Long term (current) use of antithrombotics/antiplatelets; Z79.899 Other long term (current) drug therapy; Z87.891 Personal history of nicotine dependence
CPT/HCPCS: 71046; 80048; 84484; 85025; 93005; 99285; A4216

== ENCOUNTER 2018-10-03 22:38 | Inpatient (IN) | payer MEDICAID, SELFPAY ==
[2018-10-03 22:39] VITALS: BP 144/100; PULSE 71; RESP 22; TEMP 36.1; O2SAT 96; BMI 27.8
--- NOTE | 2018-10-03 22:42 | ED.RN ---
CALLED FOR EKG PER RN REQUEST, PULLED OLD EKGS FOR
[2018-10-03 22:44] VITALS: O2SAT 99
--- NOTE | 2018-10-03 22:54 | EKG12_ITS ---
Test Reason : SOB Blood Pressure : / mmHG Vent. Rate : 069 BPM Atrial Rate : 069 BPM P-R Int : 174 ms QRS Dur : 084 ms QT Int : 438 ms P-R-T Axes : 090 071 151 degrees QTc Int : 469 ms Normal sinus rhythm Possible Left atrial enlargement Nonspecific ST abnormality Abnormal QRS-T angle, consider primary T wave abnormality Abnormal ECG Confirmed by GEN VIVEROS MD ([id number]), film editor ZITA HENDRICKS ([id number]) on 10/06/2018 2:08:05 PM Referred By: MINOR Confirmed By:GEN VIVEROS MD
[2018-10-03 22:55] VITALS: PULSE 71; RESP 25
--- NOTE | 2018-10-03 23:00 | RAD_ITS ---
STUDY: X-RAY CHEST REASON FOR EXAM: Male, 58 years old. Cough with shortness of breath TECHNIQUE: AP COMPARISON: 09/18/2018 FINDINGS: EKG leads project over the chest. The lungs are clear and expanded. There is no demonstrated pleural abnormality. Normal size heart. Normal mediastinum and taylor. Normal visualized pulmonary arteries. Normal visualized aortic arch and descending thoracic aorta. Normal visualized thoracic spine. Normal visualized ribs, clavicles, and shoulders. There is no demonstrated abnormality of the visualized soft tissue structures of the upper abdomen. RAD/Chest 1 View (Portable) IMPRESSION: Stable, nonacute portable x-ray examination of the chest. Electronically Signed: Joseph Hernandez MD at 23:18 EST , Service support ,
[2018-10-03] MEDS: Ipratropium/Albuterol Sulfate 3 ML AMPUL.NEB INHALATION (23:04)
[2018-10-03] MEDS: Albuterol 2.5 MG/3 ML VIAL.NEB. INHALATION (23:04)
[2018-10-03 23:05] VITALS: PULSE 70; RESP 22
[2018-10-03 23:11] LABS: Absolute Lymphocyte Count 3.15 X10^3/ul (0.83-4.51); Absolute Neutrophil Count 16.9 X10^3/uL (2.0-7.7); Basophil# 0.03 X10^3/uL; Basophil% 0.1 % (0-1); Eosinophil# 0.01 X10^3/uL; Hematocrit 45.8 % (40-54); Hemoglobin 15.1 g/dl (13.0-16.5); Lymphocyte # 3.15 X10^3/ul (4.0); Lymphocyte % 13.7 % (19-41); Mean Corpuscular Hgb 32.1 pg (27.0-32.0); Mean Corpuscular Volume 97.2 fL (80-94); Mean Platelet Vol. 11.7 fl (6.2-12.0); Monocyte% 12.6 % (0-10); Neutrophil # 16.89 X10^3/uL (2.7-7.7); Neutrophil % 73.2 % (47-70); Platelet Count 198 K/mm3 (150-450); RBC Distribution Width CV 13.3 % (11.6-14.6); RBC Distribution Width SD 46.5 fl (35.1-43.9); Red Blood Count 4.71 M/mm3 (4.6-6.2); White Blood Count 23.1 K/mm3 (4.4-11.0)
[2018-10-03 23:16] LABS: POSITIVE DIFFERENTIAL YES
[2018-10-03 23:17] LABS: Differential Indicated SCAN CRITERIA MET; POSITIVE COUNT NO; POSITIVE MORPHOLOGY NO
[2018-10-03] MEDS: 0.9% Normal Saline 1,000 ML 1000 ML IV (23:20)
[2018-10-03 23:21] VITALS: BP 137/79; PULSE 66; RESP 20; TEMP 36.7; O2SAT 97
[2018-10-03 23:27] LABS: Anion Gap 6 (5-15); BUN 21 mg/dL (7-18); BUN/Creat Ratio 18.9 RATIO (10-20); Chloride 112 mmol/L (98-107); Creatinine, Serum 1.11 mg/dL (0.70-1.30); EST Glomerular Filtration Rate 72 mL/min (>60); Est Glom Filt Rate - Afr Amer 87 mL/min (>60); Estimated Creatinine Clearance 64.66 ml/min; Glucose 81 mg/dL (74-106); Potassium 3.6 mmol/L (3.5-5.1); Sodium Level 146 mmol/L (136-145)
[2018-10-03 23:28] LABS: Lactic Acid 1.4 mmol/L (0.4-2.0)
--- NOTE | 2018-10-03 23:43 | ED.VISSUMM ---
- ER Visit Summary Date of Service: 10/03/18 Chief Complaint: Shortness of breath History of Present Illness: The patient is a 58 M who presents with shortness of breath and a bronchitis-like illness. He states symptoms initially began about 2 weeks ago with shortness of breath and productive cough congestion and rhinorrhea. He is no longer really producing much sputum. He states he acutely worsened tonight. He became diaphoretic felt hot his cheeks were red. He was coughing much harder and felt like he may vomit from coughing. He states his chest is sore with coughing but he does not otherwise have any chest pain. No vomiting. No diarrhea. Physical Examination: Blood pressure 144/100 respiratory rate 22 afebrile pulse ox 96% Patient is diaphoretic Moderate respiratory distress with increased work of breathing, speaking short sentences, severe inspiratory next Tory wheezing Heart regular rate and rhythm Abdomen soft nontender nondistended Alert Extremities nontender without edema Test Results: EKG shows normal sinus rhythm at a rate of 69 respiratory artifact. Chest x-ray was read as stable, nonacute. However recent x-ray was read as possible right basilar infiltrate. On my review of today's x-ray I am concerned for a right lower infiltrate. Labs notable for white blood cell count of 23.1. Lactic acid is normal. Blood cultures were sent. Troponin is 0.152. Emergency Department Course and Treatment: Workup as above. Patient was treated with albuterol and Atrovent aerosols placed on oxygen by nasal cannula. He is much improved on reevaluation. However he is still slightly tachypneic and has expiratory wheezing still. He denies any chest pain. His troponin is indeterminate. He denies any history of coronary disease. He does believe he has had a stress test in the past. He denies diabetes or hyperlipidemia. He is not a smoker. He was treated with IV Rocephin and azithromycin for the acquired pneumonia. Patient will be discussed with hospitalist and admitted. Treatment Plan: [] Disposition: Admit Impression: Community acquired pneumonia Indeterminate troponin This note was generated with [employer] dictation software. It may contain incorrect words, spelling, and punctuation that were not noted in review of the chart prior to signing ED Disposition - Plan for ED Patient: Chief Complaint: Shortness of Breath Referrals: Carlos Asif MD [Primary Care Provider] -
--- NOTE | 2018-10-03 23:49 | EKG12_ITS ---
Test Reason : REPEAT Blood Pressure : / mmHG Vent. Rate : 062 BPM Atrial Rate : 062 BPM P-R Int : 166 ms QRS Dur : 094 ms QT Int : 408 ms P-R-T Axes : 084 009 025 degrees QTc Int : 414 ms Normal sinus rhythm Normal ECG Confirmed by GEN VIVEROS MD ([id number]), general expeditor ZITA HENDRICKS ([id number]) on 10/06/2018 2:08:23 PM Referred By: NAKITA Confirmed By:GEN VIVEROS MD
[2018-10-03] MEDS: Ceftriaxone 1 GM/50 ML BAG IV (23:50)
[2018-10-03 23:51] VITALS: BP 118/80; PULSE 65; RESP 20; O2SAT 97
[2018-10-04] VITALS (22 sets, daily range): BP systolic 126–151; BP diastolic 70–96; PULSE 62–90; RESP 14–24; TEMP 36.5–37.3; O2SAT 95–100; BMI 26.4
[2018-10-04] MEDS: Aspirin 325 MG Tablet PO (00:21)
--- NOTE | 2018-10-04 00:55 | PCM.HP.STD ---
Problem List (1) COPD exacerbation Status: Acute (2) Acute bronchitis Status: Acute (3) History of cholecystectomy Status: Resolved (4) History of hernia surgery Status: Resolved (5) Abnormal stress test Status: Acute (6) Chest pain Status: Acute (7) Hypertension Status: Chronic (8) Depression Status: Chronic History of Present Illness Date of Admission: 10/04/18 Chief Complaint: Shortness of breath for 2 weeks fever today The patient is a 58 year old M with history of COPD about 40 years of smoking, 4 pack/day, not on home oxygen came to ER with progressive worsening of shortness of breath for 2 weeks to the point he is short of breath at rest. He also has wheezing, and had headache and subjective fever today. Patient denies chest pain but has mild chest congestion. In ED, found to have leukocytosis 23,000, lactic acid normal. Troponin 0 0.152. Vitals no fever. No tachycardia. Respiratory rate 20/min, pulse ox 97% on 2 L of oxygen. EKG shows normal sinus rhythm with possible left atrial enlargement and PVCs. Chest x-ray reported as no acute cardiopulmonary abnormality Past Medical History Past Medical History (Chronic Problems): Chronic Problems (Last Reviewed 03/13/18 @ 13:29 by Mario Bartholomew MD) Hypertension (Chronic) Depression (Chronic) Medical History: Medical History (Last Reviewed 03/13/18 @ 13:29 by Mario Bartholomew MD) Abnormal stress test (Acute) R94.39 Chest pain (Acute) R07.9 Hypertension (Chronic) I10 Depression (Acute) F32.9 Allergies No Known Allergies Allergy (Verified 10/03/18 22:38) Home Medications: Ambulatory Orders Medication Instructions Recorded propranolol 40 mg tablet 40 mg PO BID 03/13/18 Bupropion HCl [Bupropion HCl Sr] 300 mg PO DAILY 09/18/18 Mometasone/Formoterol [Dulera 200 13 gm IH DAILY 09/18/18 Mcg/5 Mcg Inhaler] Benzonatate [Tessalon Perle] 200 mg PO DAILY 10/03/18 Buspirone HCl 5 mg PO BID 10/03/18 Lansoprazole 15 mg PO BID 10/03/18 Oxcarbazepine 300 mg PO BID 10/03/18 Risperidone [Risperdal] 0.5 mg PO QHS 10/03/18 Surgical History: Surgical History (Last Reviewed 03/13/18 @ 13:29 by Mario Bartholomew MD) History of cholecystectomy (Resolved) Z90.49 History of hernia surgery (Resolved) Z98.890, Z87.19 Smoking Status: Former smoker - Quit in 2012. Started at the age of 16 and smoked 4 pack/day. Review of Systems Constitutional: Reports: Chills, Fever HEENT: Denies: Head Aches, Sinus Congestion, Sinus Drainage Cardiovascular: Reports: Chest Tightness. Denies: Chest Pain, Palpitations Respiratory: Reports: Shortness of Breath, Shortness of breath at rest, Shortness of breath upon exertion, Wheezing. Denies: Cough, Sputum production Gastrointestinal: Denies: Abdominal Pain, Nausea, Vomiting Genitourinary: Denies: Dysuria, Frequency, Hematuria, Hesitancy, Incontinence, Nocturia, Retention, Urgency Musculoskeletal: Denies: Joint Pain, Joint Tenderness Skin: Denies: Rash, Wounds Neurological: Denies: Numbness, Tingling, Focal weakness Psychiatric: Denies: Anxiety, Depression, Homicidal Ideations, Suicidal Ideations Hematologic/ Lymphatic: Denies: Easy Bruising, Easy Bleeding VTE Information - Inpt Only VTE Present on Admission: No VTE Mechan Device Prophylaxis: SCD's Patient Problems: Active and Suspected Problems (Last Reviewed 03/13/18 @ 13:29 by Mario Bartholomew MD) COPD exacerbation (Acute) Acute bronchitis (Acute) - Physical Exam General: Alert, Oriented x3, Cooperative HEENT: Atraumatic, PERRLA, EOMI, Normocephalic Oral: Dry Mucosa Neck: Supple, No JVD, Negative Carotid Bruits Lungs: Diminished - Air entry severely diminished, Rhonchi, Short of Breath, Tachypneic, Using Accessory Muscles, Wheezes Cardiovascular: Regular rate, Regular Rhythm, Normal S1, Normal S2, No murmurs Abdomen: Bowel Sounds Present, Soft, Non Tender Extremities: No edema, Capillary Refill Less than 3 Seconds Skin: No rashes, No breakdown Musculoskeletal: No Tenderness to Palpation of Joints or Extremities Neurological: Cranial nerves II-XII grossly intact Psych/Mental Status: Normal Affect, Appropriate Vital Signs Temp Pulse Resp BP Pulse Ox 97.7 F L 63 16 138/96 H 97 10/04/18 00:22 10/04/18 00:22 10/04/18 00:22 10/04/18 00:22 10/04/18 00:22 Oxygen Flow Rate (L/min) 2 Oxygen Delivery Method Nasal Cannula Weight: 172 lb 2.896 oz Body Mass Index (BMI) 27.8 Laboratory Tests Past 24 Hrs 10/03/18 10/03/18 10/03/18 22:45 22:45 22:45 WBC 23.1 H RBC 4.71 Hgb 15.1 Hct 45.8 MCV 97.2 H MCH 32.1 H MCHC 33.0 RDW 13.3 RDW Differential 46.5 H Plt Count 198 MPV 11.7 Immature Gran % (Auto) 0.400 Neut % (Auto) 73.2 H Lymph % (Auto) 13.7 L [place] % (Auto) 12.6 H Eos % (Auto) 0.0 Baso % (Auto) 0.1 Absolute Neuts (auto) 16.9 H Absolute Lymphs (auto) 3.15 Total Counted Not Reportable Diff Path Review January Sodium 146 H Potassium 3.6 Chloride 112 H Carbon Dioxide 28.0 Anion Gap 6 BUN 21 H Creatinine 1.11 Estim Creat Clear Calc 64.66 Est GFR (MDRD) Af Amer 87 Est GFR (MDRD) Non-Af 72 BUN/Creatinine Ratio 18.9 Glucose 81 Lactic Acid 1.4 Calcium 9.0 Troponin I 0.152 H Assessment/Plan All Active Problems (Last Reviewed 03/13/18 @ 13:29 by Mario Bartholomew MD) COPD exacerbation (Acute) Acute bronchitis (Acute) History of cholecystectomy (Resolved) History of hernia surgery (Resolved) Abnormal stress test (Acute) Chest pain (Acute) The patient is a 58 year old M with history of COPD about 40 years of smoking, 4 pack/day, not on home oxygen came to ER with progressive worsening of shortness of breath for 2 weeks to the point he is short of breath at rest. He also has wheezing, and had headache and subjective fever today. Patient denies chest pain but has mild chest congestion and URI with runny nose/coryza In ED, found to have leukocytosis 23,000, lactic acid normal. Troponin 0 0.152. Vitals no fever. No tachycardia. Respiratory rate 20/min, pulse ox 97% on 2 L of oxygen. EKG shows normal sinus rhythm with possible left atrial enlargement and PVCs. Chest x-ray reported as no acute cardiopulmonary abnormality 1. COPD exacerbation: Patient is being admitted in PCU. On COPD protocol with bronchodilator, Solu-Medrol, incentive spirometry and chest physiotherapy. 2. Acute bronchitis possible viral: Respiratory panel ordered. Sputum culture if he brings up phlegm. Urinary antigens ordered. Chest x-ray does not show consolidation. 3. Indeterminate troponin: Cycle cardiac enzymes. May be pulmonary in nature. Patient denies chest pain. Patient had a pharmacological nuclear stress test done in February 2018 reported as mildly abnormal with a small area of distal anterior apical ischemia. EF 74%. Stress test abnormality was thought to be low risk and patient was discharged home as per his preference and advised follow-up outpatient cardiac cath. Was discharged on aspirin, Plavix and beta-liz and statin. I do not see further cardiac cath in our records superolaterally patient in follow-up. 4. Other chronic comorbidities include hypertension, dyslipidemia and depression: Multiple comorbidities complicates the present care and expect difficult and delay recovery Home medication reconciliation done. This note was generated with [employer] dictation software. Every effort was made to ensure accuracy, however computerized optomechanical engineer mistakes may persist. Laboratory Results 10/03/18 22:45: WBC 23.1 H, RBC 4.71, Hgb 15.1, Hct 45.8, MCV 97.2 H, MCH 32.1 H, MCHC 33.0, RDW 13.3, RDW Differential 46.5 H, Plt Count 198, MPV 11.7, Immature Gran % (Auto) 0.400, Neut % (Auto) 73.2 H, Lymph % (Auto) 13.7 L, [place] % (Auto) 12.6 H, Eos % (Auto) 0.0, Baso % (Auto) 0.1, Absolute Neuts (auto) 16.9 H, Absolute Lymphs (auto) 3.15, Total Counted Not Reportable, Diff Path Review January10/03/18 22:45: Sodium 146 H, Potassium 3.6, Chloride 112 H, Carbon Dioxide 28.0, Anion Gap 6, BUN 21 H, Creatinine 1.11, Estim Creat Clear Calc 64.66, Est GFR (MDRD) Af Amer 87, Est GFR (MDRD) Non-Af 72, BUN/Creatinine Ratio 18.9, Glucose 81, Calcium 9.0, Troponin I 0.152 H 10/03/18 22:45: Lactic Acid 1.4 Clinical Impression(s) from Imaging Studies Chest X-Ray 10/03/18 23:00 IMPRESSION: Stable, nonacute portable x-ray examination of the chest. Code Visit Inpatient E&M: 14781 Init Hosp L3
--- NOTE | 2018-10-04 00:59 | HP.PCM_ITS ---
Problem List (1) COPD exacerbation Status: Acute (2) Acute bronchitis Status: Acute (3) History of cholecystectomy Status: Resolved (4) History of hernia surgery Status: Resolved (5) Abnormal stress test Status: Acute (6) Chest pain Status: Acute (7) Hypertension Status: Chronic (8) Depression Status: Chronic History of Present Illness Date of Admission: 10/04/18 Chief Complaint: Shortness of breath for 2 weeks fever today The patient is a 58 year old M with history of COPD about 40 years of smoking, 4 pack/day, not on home oxygen came to ER with progressive worsening of shortness of breath for 2 weeks to the point he is short of breath at rest. He also has wheezing, and had headache and subjective fever today. Patient denies chest pain but has mild chest congestion. In ED, found to have leukocytosis 23,000, lactic acid normal. Troponin 0 0.152. Vitals no fever. No tachycardia. Respiratory rate 20/min, pulse ox 97% on 2 L of oxygen. EKG shows normal sinus rhythm with possible left atrial enlargement and PVCs. Chest x-ray reported as no acute cardiopulmonary abnormality Past Medical History Past Medical History (Chronic Problems): Chronic Problems (Last Reviewed 03/13/18 @ 13:29 by Mario Bartholomew MD) Hypertension (Chronic) Depression (Chronic) Medical History: Medical History (Last Reviewed 03/13/18 @ 13:29 by Mario Bartholomew MD) Abnormal stress test (Acute) R94.39 Chest pain (Acute) R07.9 Hypertension (Chronic) I10 Depression (Acute) F32.9 Allergies No Known Allergies Allergy (Verified 10/03/18 22:38) Home Medications: Ambulatory Orders Medication Instructions Recorded propranolol 40 mg tablet 40 mg PO BID 03/13/18 Bupropion HCl [Bupropion HCl Sr] 300 mg PO DAILY 09/18/18 Mometasone/Formoterol [Dulera 200 13 gm IH DAILY 09/18/18 Mcg/5 Mcg Inhaler] Benzonatate [Tessalon Perle] 200 mg PO DAILY 10/03/18 Buspirone HCl 5 mg PO BID 10/03/18 Lansoprazole 15 mg PO BID 10/03/18 Oxcarbazepine 300 mg PO BID 10/03/18 Risperidone [Risperdal] 0.5 mg PO QHS 10/03/18 Surgical History: Surgical History (Last Reviewed 03/13/18 @ 13:29 by Mario Bartholomew MD) History of cholecystectomy (Resolved) Z90.49 History of hernia surgery (Resolved) Z98.890, Z87.19 Smoking Status: Former smoker - Quit in 2012. Started at the age of 16 and smoked 4 pack/day. Review of Systems Constitutional: Reports: Chills, Fever HEENT: Denies: Head Aches, Sinus Congestion, Sinus Drainage Cardiovascular: Reports: Chest Tightness. Denies: Chest Pain, Palpitations Respiratory: Reports: Shortness of Breath, Shortness of breath at rest, Shortness of breath upon exertion, Wheezing. Denies: Cough, Sputum production Gastrointestinal: Denies: Abdominal Pain, Nausea, Vomiting Genitourinary: Denies: Dysuria, Frequency, Hematuria, Hesitancy, Incontinence, Nocturia, Retention, Urgency Musculoskeletal: Denies: Joint Pain, Joint Tenderness Skin: Denies: Rash, Wounds Neurological: Denies: Numbness, Tingling, Focal weakness Psychiatric: Denies: Anxiety, Depression, Homicidal Ideations, Suicidal Ideations Hematologic/ Lymphatic: Denies: Easy Bruising, Easy Bleeding VTE Information - Inpt Only VTE Present on Admission: No VTE Mechan Device Prophylaxis: SCD's Patient Problems: Active and Suspected Problems (Last Reviewed 03/13/18 @ 13:29 by Mario Bartholomew MD) COPD exacerbation (Acute) Acute bronchitis (Acute) - Physical Exam General: Alert, Oriented x3, Cooperative HEENT: Atraumatic, PERRLA, EOMI, Normocephalic Oral: Dry Mucosa Neck: Supple, No JVD, Negative Carotid Bruits Lungs: Diminished - Air entry severely diminished, Rhonchi, Short of Breath, Tachypneic, Using Accessory Muscles, Wheezes Cardiovascular: Regular rate, Regular Rhythm, Normal S1, Normal S2, No murmurs Abdomen: Bowel Sounds Present, Soft, Non Tender Extremities: No edema, Capillary Refill Less than 3 Seconds Skin: No rashes, No breakdown Musculoskeletal: No Tenderness to Palpation of Joints or Extremities Neurological: Cranial nerves II-XII grossly intact Psych/Mental Status: Normal Affect, Appropriate Vital Signs Temp Pulse Resp BP Pulse Ox 97.7 F L 63 16 138/96 H 97 10/04/18 00:22 10/04/18 00:22 10/04/18 00:22 10/04/18 00:22 10/04/18 00:22 Oxygen Flow Rate (L/min) 2 Oxygen Delivery Method Nasal Cannula Weight: 172 lb 2.896 oz Body Mass Index (BMI) 27.8 Laboratory Tests Past 24 Hrs 10/03/18 10/03/18 10/03/18 22:45 22:45 22:45 WBC 23.1 H RBC 4.71 Hgb 15.1 Hct 45.8 MCV 97.2 H MCH 32.1 H MCHC 33.0 RDW 13.3 RDW Differential 46.5 H Plt Count 198 MPV 11.7 Immature Gran % (Auto) 0.400 Neut % (Auto) 73.2 H Lymph % (Auto) 13.7 L [place] % (Auto) 12.6 H Eos % (Auto) 0.0 Baso % (Auto) 0.1 Absolute Neuts (auto) 16.9 H Absolute Lymphs (auto) 3.15 Total Counted Not Reportable Diff Path Review January Sodium 146 H Potassium 3.6 Chloride 112 H Carbon Dioxide 28.0 Anion Gap 6 BUN 21 H Creatinine 1.11 Estim Creat Clear Calc 64.66 Est GFR (MDRD) Af Amer 87 Est GFR (MDRD) Non-Af 72 BUN/Creatinine Ratio 18.9 Glucose 81 Lactic Acid 1.4 Calcium 9.0 Troponin I 0.152 H Assessment/Plan All Active Problems (Last Reviewed 03/13/18 @ 13:29 by Mario Bartholomew MD) COPD exacerbation (Acute) Acute bronchitis (Acute) History of cholecystectomy (Resolved) History of hernia surgery (Resolved) Abnormal stress test (Acute) Chest pain (Acute) The patient is a 58 year old M with history of COPD about 40 years of smoking, 4 pack/day, not on home oxygen came to ER with progressive worsening of shortness of breath for 2 weeks to the point he is short of breath at rest. He also has wheezing, and had headache and subjective fever today. Patient denies chest pain but has mild chest congestion and URI with runny nose/coryza In ED, found to have leukocytosis 23,000, lactic acid normal. Troponin 0 0.152. Vitals no fever. No tachycardia. Respiratory rate 20/min, pulse ox 97% on 2 L of oxygen. EKG shows normal sinus rhythm with possible left atrial enlargement and PVCs. Chest x-ray reported as no acute cardiopulmonary abnormality 1. COPD exacerbation: Patient is being admitted in PCU. On COPD protocol with bronchodilator, Solu-Medrol, incentive spirometry and chest physiotherapy. 2. Acute bronchitis possible viral: Respiratory panel ordered. Sputum culture if he brings up phlegm. Urinary antigens ordered. Chest x-ray does not show consolidation. 3. Indeterminate troponin: Cycle cardiac enzymes. May be pulmonary in nature. Patient denies chest pain. Patient had a pharmacological nuclear stress test done in February 2018 reported as mildly abnormal with a small area of distal anterior apical ischemia. EF 74%. Stress test abnormality was thought to be low risk and patient was discharged home as per his preference and advised follow-up outpatient cardiac cath. Was discharged on aspirin, Plavix and beta- liz and statin. I do not see further cardiac cath in our records superolaterally patient in follow-up. 4. Other chronic comorbidities include hypertension, dyslipidemia and depression: Multiple comorbidities complicates the present care and expect difficult and delay recovery Home medication reconciliation done. This note was generated with [employer] dictation software. Every effort was made to ensure accuracy, however computerized workers compensation claims assistant mistakes may persist. Laboratory Results 10/03/18 22:45: WBC 23.1 H, RBC 4.71, Hgb 15.1, Hct 45.8, MCV 97.2 H, MCH 32.1 H , MCHC 33.0, RDW 13.3, RDW Differential 46.5 H, Plt Count 198, MPV 11.7, Immature Gran % (Auto) 0.400, Neut % (Auto) 73.2 H, Lymph % (Auto) 13.7 L, [place] % (Auto) 12.6 H, Eos % (Auto) 0.0, Baso % (Auto) 0.1, Absolute Neuts (auto) 16.9 H, Absolute Lymphs (auto) 3.15, Total Counted Not Reportable, Diff Path Review January10/03/18 22:45: Sodium 146 H, Potassium 3.6, Chloride 112 H, Carbon Dioxide 28.0, Anion Gap 6, BUN 21 H, Creatinine 1.11, Estim Creat Clear Calc 64.66, Est GFR (MDRD) Af Amer 87, Est GFR (MDRD) Non-Af 72, BUN/Creatinine Ratio 18.9, Glucose 81, Calcium 9.0, Troponin I 0.152 H 10/03/18 22:45: Lactic Acid 1.4 Clinical Impression(s) from Imaging Studies Chest X-Ray 10/03/18 23:00 IMPRESSION: Stable, nonacute portable x-ray examination of the chest. Code Visit Inpatient E&M: 96942 Init Hosp L3
[2018-10-04] MEDS: 0.9% Normal Saline 1,000 ML 100 ML IV (02:26)
[2018-10-04] MEDS: Enoxaparin 40 MG/0.4 ML Syringe SC (02:26)
[2018-10-04] MEDS: Ipratropium/Albuterol Sulfate 3 ML AMPUL.NEB INHALATION ×6 (03:04→22:45)
[2018-10-04] MEDS: Benzonatate 100 MG Capsule 200 MG PO ×3 (06:59→21:01)
[2018-10-04] MEDS: Famotidine 20 MG Tablet PO (07:05)
[2018-10-04] MEDS: buPROPion (XL) 300 MG TABLET.XL PO (08:13)
[2018-10-04] MEDS: Propranolol 40 MG Tablet PO ×2 (08:13→20:59)
[2018-10-04] MEDS: OXcarbazepine 300 MG Tablet PO ×2 (08:13→21:01)
[2018-10-04] MEDS: Pantoprazole Sodium 20 MG Tablet PO ×2 (08:13→21:00)
[2018-10-04] MEDS: busPIRone 5 MG Tablet PO ×2 (08:13→20:59)
[2018-10-04] MEDS: guaiFENesin 1,200 MG Tablet 1200 MG PO ×2 (08:14→21:00)
[2018-10-04 10:55] LABS: D-Dimer Quantitative (DVT/PE) 0.31 FEU/ug/m (0.27-0.49)
--- NOTE | 2018-10-04 12:20 | PCM.CONS.C ---
Problem List (1) Abnormal cardiac enzyme level Status: Acute (2) Chest pain Status: Acute (3) Hypertension Status: Chronic (4) Acute bronchitis Status: Acute Reason for Consult Date of Consultation: 10/04/18 History of Present Illness: The patient is a 58 year old White male who was referred for evaluation of abnormal cardiac enzymes, chest discomfort, superimposed upon hypertension, and concerns of acute bronchitis. He has been previously evaluated by Mario Bartholomew MD, of the [facility]. He has had evaluation in the past which has included a pharmacologic stress nuclear imaging study. This was performed on 03/07/2018. At that time per the report he had a mildly abnormal pharmacologic myocardial perfusion stress test with a small area of distal anterior apical ischemia was the gated LVEF of 74%. The patient elected not to proceed at that time with further evaluation with diagnostic cardiac catheterization. Thus he was treated medically. He had returned in March of 2018 for concerns of chest discomfort. Again he underwent cardiovascular evaluation/consultation. Again he wanted to continue medical management. He was asked have outpatient cardiovascular followup to consider cardiac catheterization. At the present time the patient states that he has been doing reasonably well until recently. He notes that he has had a cough without significant sputum production. He states he has had concerns of chest discomfort as well as being short of breath and dyspneic. He has had no obvious nausea, emesis, or diaphoresis. There has been no near syncope or syncope. He notes in the past he has had chest discomfort. In the past he has also had chest discomfort with involvement of both upper extremities. He was brought into the hospital for further evaluation. He has undergone troponin I levels which had been indeterminate. His ECG demonstrated sinus rhythm with low voltage QRS. He had no acute ECG changes. His chest x-ray reported no acute cardiopulmonary disease process. Based upon his recurrent symptoms and his indeterminate troponin I levels superimposed upon his previous abnormal pharmacologic stress nuclear imaging study cardiology was consulted to evaluate the patient for consideration of diagnostic cardiac catheterization. In the interim the patient has been placed on IV antibiotic therapy. [] Past Medical History Allergies/Adverse Reactions: Allergies No Known Allergies Allergy (Verified 10/03/18 22:38) Home Medications: Ambulatory Orders Medication Instructions Recorded propranolol 40 mg tablet 40 mg PO BID 03/13/18 Bupropion HCl [Bupropion HCl Sr] 300 mg PO DAILY 09/18/18 Mometasone/Formoterol [Dulera 200 13 gm IH DAILY 09/18/18 Mcg/5 Mcg Inhaler] Benzonatate [Tessalon Perle] 200 mg PO DAILY 10/03/18 Buspirone HCl 5 mg PO BID 10/03/18 Lansoprazole 15 mg PO BID 10/03/18 Oxcarbazepine 300 mg PO BID 10/03/18 Risperidone [Risperdal] 0.5 mg PO QHS 10/03/18 Past Medical History (Chronic Problems): Chronic Problems (Last Reviewed 03/13/18 @ 13:29 by Mario Bartholomew MD) Hypertension (Chronic) Depression (Chronic) Smoking Status: Former smoker - Quit in 2013. Started at the age of 16 and smoked 4 pack/day. Alcohol: None Drugs: None Review of Systems - Review of Systems General: Denies: Fever, Night Sweats, Fatigue Cardiovascular: Reports: Chest Discomfort, Shortness of Breath. Denies: Orthopnea, PND, Peripheral Edema, Palpitations, Lightheadedness, Dizziness, Near Syncope, Syncope Respiratory: Reports: Cough, Shortness of Breath. Denies: Sputum Production, Hemoptysis Gastrointestinal: Denies: Hematemesis, Hematochezia, Melena Genitourinary: Denies: Dysuria, Hematuria Skin: Denies: Rash Subjectve: This is a 58-year-old white male who appears to be resting reasonably comfortably at the moment in no acute distress. Objective: Vital Signs Temp Pulse Resp BP Pulse Ox 99.1 F 68 20 H 151/86 H 97 10/04/18 08:06 10/04/18 11:07 10/04/18 11:07 10/04/18 08:06 10/04/18 08:06 Oxygen Flow Rate (L/min) 1 Oxygen Delivery Method Nasal Cannula Weight: 163 lb 9.328 oz Body Mass Index (BMI) 26.4 Intake and Output for Last 24 Hours 10/02/18 10/03/18 10/04/18 23:59 23:59 23:59 Intake Total 810 / 810 Balance 810 / 810 General: Awake, Alert, Oriented x 3, Cooperative, No Acute Distress HEENT: Atraumatic, Normocephalic, PERRL, EOMI, Sclera Non Icteric Oral: Moist Mucosa Neck: Supple, Good ROM, No JVD Lungs: Rhonchi - Scattered Cardiovascular: Regular Rhythm, Normal S1, Normal S2 Abdomen: Bowel Sounds Present, Soft, Non Tender Extremities: No edema Psych/Mental Status: Appropriate 10/03/18 22:45: WBC 23.1 H, RBC 4.71, Hgb 15.1, Hct 45.8, MCV 97.2 H, MCH 32.1 H, MCHC 33.0, RDW 13.3, RDW Differential 46.5 H, Plt Count 198, MPV 11.7, Immature Gran % (Auto) 0.400, Neut % (Auto) 73.2 H, Lymph % (Auto) 13.7 L, [place] % (Auto) 12.6 H, Eos % (Auto) 0.0, Baso % (Auto) 0.1, Absolute Neuts (auto) 16.9 H, Total Counted Not Reportable 10/03/18 22:45: Sodium 146 H, Potassium 3.6, Chloride 112 H, Carbon Dioxide 28.0, Anion Gap 6, BUN 21 H, Creatinine 1.11, Est GFR (MDRD) Af Amer 87, Est GFR (MDRD) Non-Af 72, BUN/Creatinine Ratio 18.9, Glucose 81, Calcium 9.0, Troponin I 0.152 H 10/03/18 22:45: Lactic Acid 1.4 10/04/18 01:30: Troponin I 0.160 H 10/04/18 04:47: Troponin I 0.149 H 10/04/18 08:34: D-Dimer Quant (PE/DVT) 0.31 Rhythm:Sinus rhythm EKG:Sinus rhythm; low voltage QRS; no acute ECG changes Stress Test:As noted above CXR:As noted above Assessment/Plan 1. Abnormal troponin I levels At the present time the patient does have indeterminate troponin I levels. It is unclear whether this represents concerns of underlying cardiovascular status with concerns of an underlying acute coronary syndrome versus being a secondary type 2 event being brought out by his acute respiratory related illness. However he does have a history of cardiovascular risk factors which do include hypertension. He also has a history of an abnormal pharmacologic stress nuclear imaging study. This is reasonable to continue to monitor the patient, treat him medically is deemed appropriate, and consider further evaluation with diagnostic cardiac catheterization. 2. Chest pain He has had chest pain in the past and recently. His chest pain has waxed and waned. Again he does have cardiovascular risk factors and an abnormal pharmacologic stress nuclear imaging study. Thus he should be considered for diagnostic cardiac catheterization to further evaluate his coronary anatomy in an attempt to explain his symptoms and abnormal findings and whether or not he needs additional cardiac diagnostic studies/intervention, etc. 3. Hypertension His blood pressures were monitored. He will continue medical management. 4. Acute bronchitis He does present with findings thought compatible with acute respiratory related process. He is being evaluated by internal medicine. He is being treated which has included IV antibiotics. This note was generated using a voice recognition system and there may be incorrect words, spelling or punctuation that were not noted when reviewing the office note prior to saving.
[2018-10-04] MEDS: Clopidogrel Bisulfate 300 MG Tablet PO (12:43)
--- NOTE | 2018-10-04 12:55 | PCM.PN.HOSP ---
Patient Problems: Active and Suspected Problems (Last Reviewed 03/13/18 @ 13:29 by Mario Bartholomew MD) COPD exacerbation (Acute) Acute bronchitis (Acute) Abnormal cardiac enzyme level (Acute) Subjective: Breathing somewhat better. No chest pain. Vitals/I&O's: Vital Signs Temp Pulse Resp BP Pulse Ox 37.3 C 68 20 H 151/86 H 97 10/04/18 08:06 10/04/18 11:07 10/04/18 11:07 10/04/18 08:06 10/04/18 08:06 Oxygen Flow Rate (L/min) 1 Oxygen Delivery Method Nasal Cannula Weight: 74.2 kg Body Mass Index (BMI) 26.4 Intake and Output for Last 24 Hours 10/02/18 10/03/18 10/04/18 23:59 23:59 23:59 Intake Total 810 / 810 Balance 810 / 810 General: Alert, No apparent distress HEENT: Atraumatic, Normocephalic Oral: Moist Mucosa, No Gingival or Mucosal Lesions/ Ulcerations Neck: No Nodes, Thyroid Normal Size and Texture Lungs: Clear to auscultation, Diminished Cardiovascular: Regular rate, Regular Rhythm, Normal S1, Normal S2, No murmurs Abdomen: Bowel Sounds Present, Soft, Non Tender, Non-Distended, No Hepato-splenomegaly Extremities: No clubbing, No cyanosis Skin: No rashes, No breakdown Psych/Mental Status: Appropriate, Flat Affect Microbiology Past 72 Hours 10/04/18 03:15 Mucosa - Nasopharyngeal Respiratory Panel (PCR) - Final RSV B 10/04/18 02:15 Urine, Clean Catch Streptococcus pneumoniae Antigen (M - Final 10/04/18 02:15 Urine, Clean Catch Legionella Antigen - Final Laboratory Results 10/03/18 22:45: WBC 23.1 H, RBC 4.71, Hgb 15.1, Hct 45.8, MCV 97.2 H, MCH 32.1 H, MCHC 33.0, RDW 13.3, RDW Differential 46.5 H, Plt Count 198, MPV 11.7, Immature Gran % (Auto) 0.400, Neut % (Auto) 73.2 H, Lymph % (Auto) 13.7 L, [place] % (Auto) 12.6 H, Eos % (Auto) 0.0, Baso % (Auto) 0.1, Absolute Neuts (auto) 16.9 H, Absolute Lymphs (auto) 3.15, Total Counted Not Reportable, Diff Path Review January10/03/18 22:45: Sodium 146 H, Potassium 3.6, Chloride 112 H, Carbon Dioxide 28.0, Anion Gap 6, BUN 21 H, Creatinine 1.11, Estim Creat Clear Calc 64.66, Est GFR (MDRD) Af Amer 87, Est GFR (MDRD) Non-Af 72, BUN/Creatinine Ratio 18.9, Glucose 81, Calcium 9.0, Troponin I 0.152 H 10/03/18 22:45: Lactic Acid 1.4 10/04/18 01:30: Troponin I 0.160 H 10/04/18 04:47: Troponin I 0.149 H 10/04/18 08:34: D-Dimer Quant (PE/DVT) 0.31 Current Medications Acetaminophen (Tylenol) 650 mg PO Q4H PRN PRN PRN Reason: FEVER Al Hydroxide/Mg Hydroxide (Mylanta Ii) 30 ml PO Q6H PRN PRN PRN Reason: Gastric Burning Albuterol Sulfate (Ventolin Aerosols) 2.5 mg INHALATION Q2H PRN PRN PRN Reason: SHORTNESS OF BREATH Albuterol/Ipratropium (Duoneb) 3 ml INHALATION Q4H.RT [facility] Last Admin: 10/04/18 11:07 Dose: 3 ml Benzonatate (Tessalon Perle) 200 mg PO TID [facility] Last Admin: 10/04/18 06:59 Dose: 200 mg Bupropion HCl (Wellbutrin Xl) 300 mg PO DAILY [facility] Last Admin: 10/04/18 08:13 Dose: 300 mg Buspirone HCl (Buspar) 5 mg PO BID [facility] Last Admin: 10/04/18 08:13 Dose: 5 mg Clopidogrel Bisulfate (Plavix) 75 mg PO DAILY [facility] Docusate Sodium (Colace) 200 mg PO BID PRN PRN PRN Reason: Constipation Enoxaparin Sodium (Lovenox) 40 mg SC DAILY [facility] Last Admin: 10/04/18 02:26 Dose: 40 mg Famotidine (Pepcid) 20 mg PO BID [facility] Last Admin: 10/04/18 07:05 Dose: 20 mg Guaifenesin (Mucinex) 1,200 mg PO BID [facility] Last Admin: 10/04/18 08:14 Dose: 1,200 mg Azithromycin 500 mg/ Dextrose 255 mls @ 250 mls/hr IV Q24@2200 [facility] Stop: 10/06/18 23:02 Ceftriaxone Sodium (Rocephin) 1 gm in 50 mls @ 100 mls/hr IV Q24@2200 [facility] Methylprednisolone (Solu-Medrol) 40 mg IV Q8 [facility] Last Admin: 10/04/18 06:59 Dose: 40 mg Ondansetron HCl (Zofran) 4 mg IV Q8H PRN PRN PRN Reason: NAUSEA Oxcarbazepine (Trileptal) 300 mg PO BID [facility] Last Admin: 10/04/18 08:13 Dose: 300 mg Oxycodone HCl (Oxyir) 5 mg PO Q4H PRN PRN PRN Reason: Moderate Pain (pain scale 4-5) Pantoprazole Sodium (Protonix) 20 mg PO BID [facility] Last Admin: 10/04/18 08:13 Dose: 20 mg Polyethylene Glycol (Miralax) 17 gm PO DAILY [facility] Last Admin: 10/04/18 08:13 Dose: Not Given Propranolol HCl (Inderal) 40 mg PO BID [facility] Last Admin: 10/04/18 08:13 Dose: 40 mg Risperidone (Risperdal) 0.5 mg PO QHS [facility] Sodium Chloride () 5 - 15 ml IV UD PRN PRN Reason: SALINE FLUSH Zolpidem Tartrate (Ambien (Generic)) 5 mg PO QHS PRN PRN PRN Reason: SLEEP Medical Necessity - Tobacco Use Smoking Status: Former smoker - Quit in 2012. Started at the age of 16 and smoked 4 pack/day. Assessment/Plan All Active Problems (Last Reviewed 03/13/18 @ 13:29 by Mario Bartholomew MD) COPD exacerbation (Acute) Acute bronchitis (Acute) Abnormal cardiac enzyme level (Acute) History of cholecystectomy (Resolved) History of hernia surgery (Resolved) Abnormal stress test (Acute) Chest pain (Acute) 1. acute bronchitis +RSVB Continue steroids and BDs DC abx 2. AECOPD as above 3. Elevated troponins likely demand ischemia from above Known abnormal stress in past and was to have a cardiac cath as outpt, but never did Cardiology on consult. Continue medical mgmt for now. Further testing per cardiology. 4. DVT proph: LMWH. Code Visit Inpatient E&M: 72121 Subs Hosp L2
--- NOTE | 2018-10-04 12:58 | PN_ITS ---
Patient Problems: Active and Suspected Problems (Last Reviewed 03/13/18 @ 13:29 by Mario Bartholomew MD) COPD exacerbation (Acute) Acute bronchitis (Acute) Abnormal cardiac enzyme level (Acute) Subjective: Breathing somewhat better. No chest pain. Vitals/I&O's: Vital Signs Temp Pulse Resp BP Pulse Ox 37.3 C 68 20 H 151/86 H 97 10/04/18 08:06 10/04/18 11:07 10/04/18 11:07 10/04/18 08:06 10/04/18 08:06 Oxygen Flow Rate (L/min) 1 Oxygen Delivery Method Nasal Cannula Weight: 74.2 kg Body Mass Index (BMI) 26.4 Intake and Output for Last 24 Hours 10/02/18 10/03/18 10/04/18 23:59 23:59 23:59 Intake Total 810 / 810 Balance 810 / 810 General: Alert, No apparent distress HEENT: Atraumatic, Normocephalic Oral: Moist Mucosa, No Gingival or Mucosal Lesions/ Ulcerations Neck: No Nodes, Thyroid Normal Size and Texture Lungs: Clear to auscultation, Diminished Cardiovascular: Regular rate, Regular Rhythm, Normal S1, Normal S2, No murmurs Abdomen: Bowel Sounds Present, Soft, Non Tender, Non-Distended, No Hepato- splenomegaly Extremities: No clubbing, No cyanosis Skin: No rashes, No breakdown Psych/Mental Status: Appropriate, Flat Affect Microbiology Past 72 Hours 10/04/18 03:15 Mucosa - Nasopharyngeal Respiratory Panel (PCR) - Final RSV B 10/04/18 02:15 Urine, Clean Catch Streptococcus pneumoniae Antigen (M - Final 10/04/18 02:15 Urine, Clean Catch Legionella Antigen - Final Laboratory Results 10/03/18 22:45: WBC 23.1 H, RBC 4.71, Hgb 15.1, Hct 45.8, MCV 97.2 H, MCH 32.1 H , MCHC 33.0, RDW 13.3, RDW Differential 46.5 H, Plt Count 198, MPV 11.7, Immature Gran % (Auto) 0.400, Neut % (Auto) 73.2 H, Lymph % (Auto) 13.7 L, [place] % (Auto) 12.6 H, Eos % (Auto) 0.0, Baso % (Auto) 0.1, Absolute Neuts (auto) 16.9 H, Absolute Lymphs (auto) 3.15, Total Counted Not Reportable, Diff Path Review January10/03/18 22:45: Sodium 146 H, Potassium 3.6, Chloride 112 H, Carbon Dioxide 28.0, Anion Gap 6, BUN 21 H, Creatinine 1.11, Estim Creat Clear Calc 64.66, Est GFR (MDRD) Af Amer 87, Est GFR (MDRD) Non-Af 72, BUN/Creatinine Ratio 18.9, Glucose 81, Calcium 9.0, Troponin I 0.152 H 10/03/18 22:45: Lactic Acid 1.4 10/04/18 01:30: Troponin I 0.160 H 10/04/18 04:47: Troponin I 0.149 H 10/04/18 08:34: D-Dimer Quant (PE/DVT) 0.31 Current Medications Acetaminophen (Tylenol) 650 mg PO Q4H PRN PRN PRN Reason: FEVER Al Hydroxide/Mg Hydroxide (Mylanta Ii) 30 ml PO Q6H PRN PRN PRN Reason: Gastric Burning Albuterol Sulfate (Ventolin Aerosols) 2.5 mg INHALATION Q2H PRN PRN PRN Reason: SHORTNESS OF BREATH Albuterol/Ipratropium (Duoneb) 3 ml INHALATION Q4H.RT [facility] Last Admin: 10/04/18 11:07 Dose: 3 ml Benzonatate (Tessalon Perle) 200 mg PO TID [facility] Last Admin: 10/04/18 06:59 Dose: 200 mg Bupropion HCl (Wellbutrin Xl) 300 mg PO DAILY [facility] Last Admin: 10/04/18 08:13 Dose: 300 mg Buspirone HCl (Buspar) 5 mg PO BID [facility] Last Admin: 10/04/18 08:13 Dose: 5 mg Clopidogrel Bisulfate (Plavix) 75 mg PO DAILY [facility] Docusate Sodium (Colace) 200 mg PO BID PRN PRN PRN Reason: Constipation Enoxaparin Sodium (Lovenox) 40 mg SC DAILY [facility] Last Admin: 10/04/18 02:26 Dose: 40 mg Famotidine (Pepcid) 20 mg PO BID [facility] Last Admin: 10/04/18 07:05 Dose: 20 mg Guaifenesin (Mucinex) 1,200 mg PO BID [facility] Last Admin: 10/04/18 08:14 Dose: 1,200 mg Azithromycin 500 mg/ Dextrose 255 mls @ 250 mls/hr IV Q24@2200 [facility] Stop: 10/06/18 23:02 Ceftriaxone Sodium (Rocephin) 1 gm in 50 mls @ 100 mls/hr IV Q24@2200 [facility] Methylprednisolone (Solu-Medrol) 40 mg IV Q8 [facility] Last Admin: 10/04/18 06:59 Dose: 40 mg Ondansetron HCl (Zofran) 4 mg IV Q8H PRN PRN PRN Reason: NAUSEA Oxcarbazepine (Trileptal) 300 mg PO BID [facility] Last Admin: 10/04/18 08:13 Dose: 300 mg Oxycodone HCl (Oxyir) 5 mg PO Q4H PRN PRN PRN Reason: Moderate Pain (pain scale 4-5) Pantoprazole Sodium (Protonix) 20 mg PO BID [facility] Last Admin: 10/04/18 08:13 Dose: 20 mg Polyethylene Glycol (Miralax) 17 gm PO DAILY [facility] Last Admin: 10/04/18 08:13 Dose: Not Given Propranolol HCl (Inderal) 40 mg PO BID [facility] Last Admin: 10/04/18 08:13 Dose: 40 mg Risperidone (Risperdal) 0.5 mg PO QHS [facility] Sodium Chloride () 5 - 15 ml IV UD PRN PRN Reason: SALINE FLUSH Zolpidem Tartrate (Ambien (Generic)) 5 mg PO QHS PRN PRN PRN Reason: SLEEP Medical Necessity - Tobacco Use Smoking Status: Former smoker - Quit in 2012. Started at the age of 16 and smoked 4 pack/day. Assessment/Plan All Active Problems (Last Reviewed 03/13/18 @ 13:29 by Mario Bartholomew MD) COPD exacerbation (Acute) Acute bronchitis (Acute) Abnormal cardiac enzyme level (Acute) History of cholecystectomy (Resolved) History of hernia surgery (Resolved) Abnormal stress test (Acute) Chest pain (Acute) 1. acute bronchitis +RSVB Continue steroids and BDs DC abx 2. AECOPD as above 3. Elevated troponins likely demand ischemia from above Known abnormal stress in past and was to have a cardiac cath as outpt, but never did Cardiology on consult. Continue medical mgmt for now. Further testing per cardiology. 4. DVT proph: LMWH. Code Visit Inpatient E&M: 65236 Subs Hosp L2
[2018-10-04] MEDS: 0.9% NaCl Peripheral Flush Adult/Peds IV ×2 (14:33→21:02)
[2018-10-04] MEDS: guaiFENesin/Codeine 5 ML UDC PO ×2 (16:47→21:02)
[2018-10-04] MEDS: BENZOCAINE/MENTHOL 1 LOZENGE MUCOUS MEM ×2 (16:47→18:58)
[2018-10-04] MEDS: Acetaminophen 325 MG Tablet 650 MG PO (18:58)
[2018-10-04] MEDS: RisperiDONE 0.5 MG Tablet PO (20:59)
[2018-10-04] MEDS: Zolpidem Tartrate 5 MG Tablet PO (21:02)
[2018-10-05] VITALS (12 sets, daily range): BP systolic 118–152; BP diastolic 42–96; PULSE 62–86; RESP 18–24; TEMP 36.4–37; O2SAT 94–97
[2018-10-05] MEDS: Ipratropium/Albuterol Sulfate 3 ML AMPUL.NEB INHALATION ×3 (03:43→10:55)
--- NOTE | 2018-10-05 05:55 | EKG12_ITS ---
Test Reason : AM EKG Blood Pressure : / mmHG Vent. Rate : 064 BPM Atrial Rate : 064 BPM P-R Int : 162 ms QRS Dur : 092 ms QT Int : 404 ms P-R-T Axes : 069 -06 034 degrees QTc Int : 416 ms Normal sinus rhythm Low voltage QRS (limb leads) Confirmed by MARCUS VERMA, TRISTIN ([id number]), city editor ZITA HENDRICKS ([id number]) on 10/08/2018 8:32:00 AM Referred By: SHOBHA Confirmed By:TRISTIN VELAZQUEZ MD
[2018-10-05 06:02] LABS: International Normalized Ratio 1.1; Partial Thromboplast Time 26.8 Seconds (24.1-36.2); Prothrombin Time (Protime)PT. 13.8 SECONDS (11.7-14.9)
[2018-10-05] MEDS: Propranolol 40 MG Tablet PO (06:02)
[2018-10-05 06:03] LABS: Absolute Lymphocyte Count 1.31 X10^3/ul (0.83-4.51); Absolute Neutrophil Count 15.9 X10^3/uL (2.0-7.7); Hematocrit 37.8 % (40-54); Hemoglobin 12.8 g/dl (13.0-16.5); Lymphocyte # 1.31 X10^3/ul (4.0); Lymphocyte % 7.2 % (19-41); Mean Corp Hgb Conc 33.9 g/gl (32-36); Mean Corpuscular Hgb 32.7 pg (27.0-32.0); Mean Corpuscular Volume 96.4 fL (80-94); Mean Platelet Vol. 11.6 fl (6.2-12.0); Monocyte# 0.84 X10^3/uL; Monocyte% 4.6 % (0-10); Neutrophil # 15.89 X10^3/uL (2.7-7.7); Neutrophil % 87.7 % (47-70); Platelet Count 152 K/mm3 (150-450); RBC Distribution Width CV 12.9 % (11.6-14.6); RBC Distribution Width SD 43.9 fl (35.1-43.9); Red Blood Count 3.92 M/mm3 (4.6-6.2); White Blood Count 18.1 K/mm3 (4.4-11.0)
[2018-10-05] MEDS: Clopidogrel Bisulfate 75 MG Tablet PO (06:03)
[2018-10-05] MEDS: 0.9% NaCl Peripheral Flush Adult/Peds IV ×2 (06:03→14:14)
[2018-10-05] MEDS: Benzonatate 100 MG Capsule 200 MG PO ×2 (06:03→14:14)
[2018-10-05 06:15] LABS: POSITIVE COUNT NO; POSITIVE DIFFERENTIAL NO; POSITIVE MORPHOLOGY NO
[2018-10-05 06:25] LABS: Anion Gap 6 (5-15); BUN 17 mg/dL (7-18); BUN/Creat Ratio 19.2 RATIO (10-20); Calcium,Total 8.3 mg/dL (8.5-10.1); Chloride 109 mmol/L (98-107); Cholesterol 151 mg/dL (200); Creatinine, Serum 0.88 mg/dL (0.70-1.30); EST Glomerular Filtration Rate 94 mL/min (>60); Est Glom Filt Rate - Afr Amer 113 mL/min (>60); Estimated Creatinine Clearance 81.56 ml/min; Glucose 157 mg/dL (74-106); High Density Lipoprotein 41 mg/dL; Potassium 3.8 mmol/L (3.5-5.1); Sodium Level 142 mmol/L (136-145); Triglycerides 93 mg/dL; Very Low Density Lipoprotein 19 mg/dL (5-40)
[2018-10-05 06:56] LABS: Mucous, Urine 0 SEEN /hpf (<or=2+); Red Blood Cells-Urine 0 SEEN /hpf (0-5)
[2018-10-05 06:58] LABS: Color, Urine Yellow (Yellow); Glucose, Dipstick 50 mg/dl (Normal); Ketone-Dipstick Negative (Negative); Leukocyte Esterase-Dipstick Negative /ul (Negative); Nitrite-Dipstick Negative (Negative); Occult Blood-Urine Negative /ul (Negative); Protein-Dipstick Negative (Negative); Urine Bilirubin Dipstick Negative (Negative); Urine Clarity Clear (Clear); Urine Urobilinogen Normal (Normal); Urine pH 6.5 (5.0 - 8.0)
[2018-10-05 07:06] LABS: Bacteria RARE /hpf (None Seen); Squamous Epithelial Cells - UA 0-5 SEEN /hpf (0-5); White Blood Cells 0-5 SEEN /hpf (0-5)
--- NOTE | 2018-10-05 07:29 | PN.CARD_ITS ---
Subjectve: Patient seen and evaluated. Still coughing quite a bit Objective: Vital Signs Temp Pulse Resp BP Pulse Ox 97.8 F 65 18 140/96 H 94 10/05/18 04:00 10/05/18 06:44 10/05/18 06:44 10/05/18 04:00 10/05/18 06:44 Oxygen Flow Rate (L/min) 1 Oxygen Delivery Method Room Air Weight: 163 lb 9.328 oz Body Mass Index (BMI) 26.4 Intake and Output for Last 24 Hours 10/03/18 10/04/18 10/05/18 23:59 23:59 23:59 Intake Total 2652 / 2652 240 / 240 Output Total 300 / 300 Balance 2352 / 2352 240 / 240 General: Awake, Alert, Oriented x 3 HEENT: PERRL, EOMI, Sclera Non Icteric Neck: Supple, Good ROM, No Lymph Node Enlargement Lungs: Inspiratory Wheezes - Brad Cardiovascular: Regular Rhythm, Normal S1, Normal S2, No Murmurs, No Rubs, No Gallops Vascular: No Carotid Bruits, Normal Femoral Pulses, Normal Radial Pulses, Normal Dorsalis Pedal Pulse, Normal Posterior Tibial Pulses Abdomen: Bowel Sounds Present, Soft, Non Tender, No HSM, No Organomegaly Extremities: No Cyanosis, No Clubbing, No edema Musculoskeletal: No Erythema Skin: No Rashes Lymphatic: No Lymph Node Enlargement Neurological: No Focal Motor or Sensory Deficit 10/04/18 08:34: D-Dimer Quant (PE/DVT) 0.31 10/05/18 05:20: WBC 18.1 H, RBC 3.92 L, Hgb 12.8 L, Hct 37.8 L, MCV 96.4 H, MCH 32.7 H, MCHC 33.9, RDW 12.9, RDW Differential 43.9, Plt Count 152, MPV 11.6, Immature Gran % (Auto) 0.500, Neut % (Auto) 87.7 H, Lymph % (Auto) 7.2 L, [place] % (Auto) 4.6, Eos % (Auto) 0.0, Baso % (Auto) 0.0, Absolute Neuts (auto) 15.9 H, Total Counted Not Reportable 10/05/18 05:20: Sodium 142, Potassium 3.8, Chloride 109 H, Carbon Dioxide 27.0, Anion Gap 6, BUN 17, Creatinine 0.88, Est GFR (MDRD) Af Amer 113, Est GFR (MDRD) Non-Af 94, BUN/Creatinine Ratio 19.2, Glucose 157 H, Calcium 8.3 L, Triglycerides 93, Cholesterol 151, LDL Cholesterol 91, VLDL Cholesterol 19, HDL Cholesterol 41 10/05/18 05:20: PT 13.8, INR 1.1, APTT 26.8 10/05/18 06:22: Urine Color Yellow, Urine Clarity Clear, Urine pH 6.5, Ur Specific [place] 1.020, Urine Protein Negative, Urine Glucose (UA) 50 H, Urine Ketones Negative, Urine Occult Blood Negative, Urine Nitrite Negative, Urine Bilirubin Negative, Urine Urobilinogen Normal, Ur Leukocyte Esterase Negative, Urine RBC 0 SEEN, Urine WBC 0-5 SEEN Rhythm: EKG: ECHO: Stress Test: Cardiac Cath: PCI: CT Surgery: Holter monitor: EPS: PPM: CXR: Chest CT Scan: Medical Necessity - Tobacco Use Smoking Status: Former smoker - Quit in 2012. Started at the age of 16 and smoked 4 pack/day. Assessment/Plan 1. Abnormal troponin I levels At the present time the patient does have indeterminate troponin I levels. It is unclear whether this represents concerns of underlying cardiovascular status with concerns of an underlying acute coronary syndrome versus being a secondary type 2 event being brought out by his acute respiratory related illness. However he does have a history of cardiovascular risk factors which do include hypertension. He also has a history of an abnormal pharmacologic stress nuclear imaging study. This is reasonable to continue to monitor the patient, treat him medically is deemed appropriate, and consider further evaluation with diagnostic cardiac catheterization. * This will be performed when he is doing much better from his respiratory standpoint. He currently appears to have the RSV virus. 2. Chest pain He has had chest pain in the past and recently. His chest pain has waxed and waned. There is a lot of atypicality to the above. Again he does have cardiovascular risk factors and an abnormal pharmacologic stress nuclear imaging study. Thus he should be considered for diagnostic cardiac catheterization to further evaluate his coronary anatomy in an attempt to explain his symptoms and abnormal findings and whether or not he needs additional cardiac diagnostic studies/intervention, etc. 3. Hypertension His blood pressures were monitored. He will continue medical management. Thank you for allowing me to participate in the care of your patient. Please don't hesitate to call if any issues arise
--- NOTE | 2018-10-05 08:49 | CASEMGMT ---
According to the [facility] website, the following are in-network tertiary facilities: [facility], [place], [facility], [facility], [facility], [facility], and . Ramiro KENYON CM
[2018-10-05] MEDS: Famotidine 20 MG Tablet PO (09:43)
[2018-10-05] MEDS: busPIRone 5 MG Tablet PO (09:44)
[2018-10-05] MEDS: buPROPion (XL) 300 MG TABLET.XL PO (09:44)
[2018-10-05] MEDS: guaiFENesin 1,200 MG Tablet 1200 MG PO (09:44)
[2018-10-05] MEDS: OXcarbazepine 300 MG Tablet PO (09:44)
[2018-10-05] MEDS: Enoxaparin 40 MG/0.4 ML Syringe SC (09:44)
[2018-10-05] MEDS: Pantoprazole Sodium 20 MG Tablet PO (09:44)
[2018-10-05] MEDS: BENZOCAINE/MENTHOL 1 LOZENGE MUCOUS MEM ×2 (09:47→14:24)
[2018-10-05] MEDS: guaiFENesin/Codeine 5 ML UDC PO ×2 (09:47→14:24)
--- NOTE | 2018-10-05 10:50 | CASEMGMT ---
Addendum entered by Naz Palacios 10/05/18 11:08: As per Julianne, pt just moved into the snf last week. CARMINE Kwong, HAND I TUBE BENDER Original Note: SW met w/pt in room in regard to prior level of function and discharge plan. Pt confirms is living in a snf through [facility], gave this SW the number. Pt plans to return there at discharge. Pt actually drove himself here, he states his Jeep is in the parking lot. He states was not feeling well and panicked, drove himself here. Pt states is fully independent with ADL's, uses no DME. SW explained will call and let them know what is going on, pt agreeable. Pt confirms is his own decisionmaker, pt states has no family. Pt uses [facility]. SW called the number for the snf, is the wrong number. SW called [facility], spoke w/Julianne Murillo, who is in charge of the residential programs. She confirms pt is from the [facility] and pt can return at discharge, gave this SW the corrected number of [phone]. She states the snf may not even know he is here. She will call them to let them know what is going on. Julianne states at discharge to call her, and she will call the snf. SW will continue to follow, it is anticipated pt will return to snf at discharge. CARMINE Kwong, HAND I TUBE BENDER
--- NOTE | 2018-10-05 10:57 | PCM.PN.HOSP ---
Patient Problems: Active and Suspected Problems (Last Reviewed 03/13/18 @ 13:29 by Mario Bartholomew MD) COPD exacerbation (Acute) Acute bronchitis (Acute) Abnormal cardiac enzyme level (Acute) Subjective: Patient with no acute events overnight per self and per nursing report. He states that his respiratory status has not been improving with less coughing also still ongoing, less productive, improving shortness of breath, denies any current chest discomfort. Discussed current presentation and given acute pulmonary status with COPD exacerbation secondary to RSV decision for outpatient cardiac catheterization which he notes he discussed with a process improvement consultant as well and he is amenable. Given improvement patient notes being eager for discharge to home. Patient denies fevers, chills, nausea, emesis, abdominal pain, worsening or recurrent chest pain or dyspnea. Objective: Physical Examination: General: awake, alert, oriented x 3 and cooperative, seated upright in the bed in no apparent distress. Skin: normal color, turgor, no icterus, cyanosis. HEENT: AT/NC, EOMI, PERRLA, improved MMM. Lungs: Diminished breath sounds bilateral bases, improved to moderate effort, coughing with increased effort but dry, no rales, ronchi or wheezing. Heart: Regular rate and rhythm; no gallop, rub audible. Abdomen: soft, NTTP, ND, normal BS. Extremities: no cyanosis, clubbing, or edema. Neurological: patient awake, alert, oriented x 3; cognitive function intact; pupils equally reactive to light and accomodation; cranial nerves II-XII grossly normal, moving all 4 extremities, no focal deficits, strength, mildly to moderately globally decreased. Psychiatric: affect appears, mildly fatigued, no acute evidence of depressive or anxiety feelings. Vitals/I&O's: Vital Signs Temp Pulse Resp BP Pulse Ox 97.6 F L 66 18 118/42 L 96 10/05/18 09:38 10/05/18 10:55 10/05/18 10:55 10/05/18 09:38 10/05/18 09:38 Oxygen Flow Rate (L/min) 1 Oxygen Delivery Method Room Air Weight: 163 lb 9.328 oz Body Mass Index (BMI) 26.4 Intake and Output for Last 24 Hours 10/03/18 10/04/18 10/05/18 23:59 23:59 23:59 Intake Total 2652 / 2652 240 / 240 Output Total 300 / 300 Balance 2352 / 2352 240 / 240 Microbiology Past 72 Hours 10/04/18 03:15 Mucosa - Nasopharyngeal Respiratory Panel (PCR) - Final RSV B 10/04/18 02:15 Urine, Clean Catch Streptococcus pneumoniae Antigen (M - Final 10/04/18 02:15 Urine, Clean Catch Legionella Antigen - Final Laboratory Results 10/05/18 05:20: WBC 18.1 H, RBC 3.92 L, Hgb 12.8 L, Hct 37.8 L, MCV 96.4 H, MCH 32.7 H, MCHC 33.9, RDW 12.9, RDW Differential 43.9, Plt Count 152, MPV 11.6, Immature Gran % (Auto) 0.500, Neut % (Auto) 87.7 H, Lymph % (Auto) 7.2 L, [place] % (Auto) 4.6, Eos % (Auto) 0.0, Baso % (Auto) 0.0, Absolute Neuts (auto) 15.9 H, Absolute Lymphs (auto) 1.31, Total Counted Not Reportable 10/05/18 05:20: Sodium 142, Potassium 3.8, Chloride 109 H, Carbon Dioxide 27.0, Anion Gap 6, BUN 17, Creatinine 0.88, Estim Creat Clear Calc 81.56, Est GFR (MDRD) Af Amer 113, Est GFR (MDRD) Non-Af 94, BUN/Creatinine Ratio 19.2, Glucose 157 H, Calcium 8.3 L, Triglycerides 93, Cholesterol 151, LDL Cholesterol 91, VLDL Cholesterol 19, HDL Cholesterol 41 10/05/18 05:20: PT 13.8, INR 1.1, APTT 26.8 10/05/18 06:22: Urine Color Yellow, Urine Clarity Clear, Urine pH 6.5, Ur Specific [place] 1.020, Urine Protein Negative, Urine Glucose (UA) 50 H, Urine Ketones Negative, Urine Occult Blood Negative, Urine Nitrite Negative, Urine Bilirubin Negative, Urine Urobilinogen Normal, Ur Leukocyte Esterase Negative, Urine RBC 0 SEEN, Urine WBC 0-5 SEEN, Ur Squamous Epith Cells 0-5 SEEN, Urine Bacteria RARE, Urine Mucus 0 SEEN Current Medications Acetaminophen (Tylenol) 650 mg PO Q4H PRN PRN PRN Reason: FEVER Last Admin: 10/04/18 18:58 Dose: 650 mg Al Hydroxide/Mg Hydroxide (Mylanta Ii) 30 ml PO Q6H PRN PRN PRN Reason: Gastric Burning Albuterol Sulfate (Ventolin Aerosols) 2.5 mg INHALATION Q2H PRN PRN PRN Reason: SHORTNESS OF BREATH Albuterol/Ipratropium (Duoneb) 3 ml INHALATION Q4H.RT [facility] Last Admin: 10/05/18 10:55 Dose: 3 ml Benzonatate (Tessalon Perle) 200 mg PO TID [facility] Last Admin: 10/05/18 06:03 Dose: 200 mg Bupropion HCl (Wellbutrin Xl) 300 mg PO DAILY [facility] Last Admin: 10/05/18 09:44 Dose: 300 mg Buspirone HCl (Buspar) 5 mg PO BID [facility] Last Admin: 10/05/18 09:44 Dose: 5 mg Clopidogrel Bisulfate (Plavix) 75 mg PO DAILY [facility] Last Admin: 10/05/18 06:03 Dose: 75 mg Docusate Sodium (Colace) 200 mg PO BID PRN PRN PRN Reason: Constipation Enoxaparin Sodium (Lovenox) 40 mg SC DAILY [facility] Last Admin: 10/05/18 09:44 Dose: 40 mg Famotidine (Pepcid) 20 mg PO BID [facility] Last Admin: 10/05/18 09:43 Dose: 20 mg Guaifenesin (Mucinex) 1,200 mg PO BID [facility] Last Admin: 10/05/18 09:44 Dose: 1,200 mg Guaifenesin/Codeine Phosphate (Robitussin Ac) 5 - 10 ml PO Q4H PRN PRN PRN Reason: COUGH/CONGESTION Last Admin: 10/05/18 09:47 Dose: 10 ml Methylprednisolone (Solu-Medrol) 40 mg IV Q8 [facility] Last Admin: 10/05/18 06:02 Dose: 40 mg Ondansetron HCl (Zofran) 4 mg IV Q8H PRN PRN PRN Reason: NAUSEA Oxcarbazepine (Trileptal) 300 mg PO BID [facility] Last Admin: 10/05/18 09:44 Dose: 300 mg Oxycodone HCl (Oxyir) 5 mg PO Q4H PRN PRN PRN Reason: Moderate Pain (pain scale 4-5) Pantoprazole Sodium (Protonix) 20 mg PO BID [facility] Last Admin: 10/05/18 09:44 Dose: 20 mg Polyethylene Glycol (Miralax) 17 gm PO DAILY [facility] Last Admin: 10/05/18 09:45 Dose: Not Given Propranolol HCl (Inderal) 40 mg PO BID [facility] Last Admin: 10/05/18 06:02 Dose: 40 mg Risperidone (Risperdal) 0.5 mg PO QHS [facility] Last Admin: 10/04/18 20:59 Dose: 0.5 mg Sodium Chloride () 5 - 15 ml IV UD PRN PRN Reason: SALINE FLUSH Last Admin: 10/05/18 06:03 Dose: 10 ml Throat Lozenges (Cepacol Sore Throat Lozenge) 1 lozenge MUCOUS MEM Q2H PRN PRN PRN Reason: COUGH/CONGESTION Last Admin: 10/05/18 09:47 Dose: 1 lozenge Zolpidem Tartrate (Ambien (Generic)) 5 mg PO QHS PRN PRN PRN Reason: SLEEP Last Admin: 10/04/18 21:02 Dose: 5 mg Medical Necessity - Tobacco Use Smoking Status: Former smoker - Quit in 2012. Started at the age of 16 and smoked 4 pack/day. Assessment/Plan All Active Problems (Last Reviewed 03/13/18 @ 13:29 by Mario Bartholomew MD) COPD exacerbation (Acute) Acute bronchitis (Acute) Abnormal cardiac enzyme level (Acute) History of cholecystectomy (Resolved) History of hernia surgery (Resolved) Abnormal stress test (Acute) Chest pain (Acute) The patient is a 58 y/o M w/ PMHx: Anxiety and Depression/?Bipolar disorder, Overnight, History of Tobacco use, GERD, Suspected Chronic COPD, HTN, History of prior abnormal stress testing w/ chest pain who presents to the [facility] ED on 10/04/18 with history of ongoing dyspnea, cough, wheezing progressively worsening x 2 weeks w/ concurrent headache and subjective fevers of day of presentation. (1) Acute on chronic COPD exacerbation secondary to Acute RSV B Bronchitis: CXR w/ chronic changes, CBC on admission w/ WBC 23.1 with L shift. Admitted to PCU given concurrent elevated cardiac enzymes, maintained on oxygen with wean as tolerated to room air, continue ATC duonebs, PRN albuterol, IV methylprednisolone with prednisone transition upon discharge, HOB, IS parameters, deferred abx as suspected viral and respiratory viral panel w/ + RSV B, negative urine antigens, Bld Cx pending per ED. Oxygenation testing obtained and noted 94% on RA w/ exertion. Following clinical improvement outpatient recommendation for follow-up with pulmonary medicine to have PFT evaluation. (2) Chest pain with prior abnormal cardiac stress testing, indeterminate cardiac enzymes: Possibly demand ischemia, possible underlying coronary disease. EKG in ED cute evidence of ischemia, CXR w/ no acute findings however acute presentation with #1, initial trop 0.152. Maintained on a monitored bed with serial cardiac enzymes and EKGs w/ trop trend 0.152-->0.160-->0.149. FLP w/ TG 93, TChol 151, LFL 91, VLDL 19, HDL 41, statin added, maintained on home BB, addition asa, plavix per Cardiology. Given acute presentation #1, cleared for discharge to home per Cardiology with planned outpatient cardiac catheterization. ASA, NG, morphine. (3) Hypertension: Continue home regimen including propranolol, PRN hydralazine. (4) Form of tobacco use: From history quit in 2012 with a notable for pack per day since age 16, encouraged continued cessation. (5) Anxiety and Depression/? Bipolar disorder: Continue home bupropion, buspirone, oxcarbazepine, Risperdal regimen with continued outpatient therapy. Currently living in a long term secondary to underlying psychiatric disease. (6) GERD: PPI. (7) DVT prophylaxis: SCD, Lovenox.
--- NOTE | 2018-10-05 13:30 | PCM.DC ---
- Discharge Diagnoses Current Active Problems: Current Active and Chronic Problems (Last Reviewed 03/13/18 @ 13:29 by Mario Bartholomew MD) (1) Acute COPD exacerbation secondary to #2 (2) Acute bronchitis, RSV B (3) Abnormal cardiac enzyme level with prior history of abnormal stress testing (4) Chest pain suspected secondary to recent acute #1, #2; however w/ indeterminant cardiac enzymes and history of abnormal stress testing, possible underlying CAD (deferred cardiac catheterization secondary to his acute presentation #1, #2) (5) Hypertension (6) GERD (7) Depression and Anxiety You will use the following diet at home:: Cardiac Your food should be the consistency of: Regular Your liquids should be the consistency of: Regular/Thin Discharge Activity: - - No aggressive activity until re-evaluation per Cardiology and cleared in addition to completion of steroid taper. May resume sexual activity in: - - Avoid until resolution of acute pulmonary illness and clearance per Cardiology. Call your doctor if you observe: Fever of 101 or Higher, Inability to urinate, Inability to have a bowel movement, Shortness of breath, Dizziness, Fainting spells, Chest pain, Uncontrolled pain Instructions: What is COPD?, Acute Bronchitis, Caring for Your Inhaler, Using an Inhaler with a Spacer, Using an Inhaler Without a Spacer, Discharge Instructions: COPD, RSV (Respiratory Syncytial Virus) Additional Instructions: Please continue your steroid taper until completion. We recommendation follow-up with either your PCP or Pulmonary medicine as noted once current acute presentation has resolved for pulmonary function testing to assess for underlying chronic obstructive pulmonary disease (COPD). During your admission you had elevated cardiac enzymes which may be secondary to your acute pulmonary presentation; however, you had abnormal stress testing prior therefore concern for possible underlying coronary etiology. Cardiology will contact you outpatient to set up a cardiac catheterization once you are clinically improved. Please continue the recommended asa, plavix, statin regimen until you see them in follow-up and they alter this regimen otherwise. Allergies/Adverse Reactions: Allergies No Known Allergies Allergy (Verified 10/03/18 22:38) Medications to take at Discharge propranolol 40 mg tablet 40 mg PO BID 03/13/18 Bupropion HCl [Bupropion HCl Sr] 300 mg PO DAILY 09/18/18 Mometasone/Formoterol [Dulera 200 Mcg/5 Mcg Inhaler] 13 gm IH DAILY 09/18/18 Benzonatate [Tessalon Perle] 200 mg PO DAILY 10/03/18 Buspirone HCl 5 mg PO BID 10/03/18 Lansoprazole 15 mg PO BID 10/03/18 Oxcarbazepine 300 mg PO BID 10/03/18 Risperidone [Risperdal] 0.5 mg PO QHS 10/03/18 Albuterol IH (ProAir) [Proair Hfa] 1 puff INHALATION Q2H PRN PRN #1 inhaler 10/05/18 Aspirin [Aspirin, Baby] 81 mg PO DAILY@0800 #30 tab.chew 10/05/18 Atorvastatin Calcium [Lipitor] 40 mg PO QHS #30 tablet 10/05/18 Clopidogrel Bisulfate [Plavix] 75 mg PO DAILY #30 tablet 10/05/18 Guaifenesin [Mucinex] 1,200 mg PO BID #20 tablet 10/05/18 Prednisone 10 mg PO UD #30 tab 10/05/18 The following prescriptions were given: Albuterol IH (ProAir) [Proair Hfa] 1 puff INHALATION Q2H PRN PRN #1 inhaler PRN Reason: dyspnea, wheezing Aspirin [Aspirin, Baby] 81 mg PO DAILY@0800 #30 tab.chew Atorvastatin Calcium [Lipitor] 40 mg PO QHS #30 tablet Clopidogrel Bisulfate [Plavix] 75 mg PO DAILY #30 tablet Prednisone 10 mg PO UD #30 tab Guaifenesin [Mucinex] 1,200 mg PO BID #20 tablet Primary Care Physician: Carlos Asif MD [Primary Care Provider] - Please follow up with your Primary Care Physician in: Follow-up within 3-5 days to review admission. Test Results: Test results from this visit will be discussed in further detail at your follow-up appointment, if applicable. Please Follow Up With: Mario Bartholomew MD When: Cardiology office will contact you to arrange cardiac catheterization. Please Follow Up With: Ronnell Tyler DO When: Follow-up in 2-4 weeks to be evaluated for suspected COPD. Proposed Discharge Date: 10/05/18
--- NOTE | 2018-10-05 13:34 | DCINST_ITS ---
- Discharge Diagnoses Current Active Problems: Current Active and Chronic Problems (Last Reviewed 03/13/18 @ 13:29 by Mario Bartholomew MD) (1) Acute COPD exacerbation secondary to #2 (2) Acute bronchitis, RSV B (3) Abnormal cardiac enzyme level with prior history of abnormal stress testing (4) Chest pain suspected secondary to recent acute #1, #2; however w/ indeterminant cardiac enzymes and history of abnormal stress testing, possible underlying CAD (deferred cardiac catheterization secondary to his acute presentation #1, #2) (5) Hypertension (6) GERD (7) Depression and Anxiety You will use the following diet at home:: Cardiac Your food should be the consistency of: Regular Your liquids should be the consistency of: Regular/Thin Discharge Activity: - - No aggressive activity until re-evaluation per Cardiology and cleared in addition to completion of steroid taper. May resume sexual activity in: - - Avoid until resolution of acute pulmonary illness and clearance per Cardiology. Call your doctor if you observe: Fever of 101 or Higher, Inability to urinate, Inability to have a bowel movement, Shortness of breath, Dizziness, Fainting spells, Chest pain, Uncontrolled pain Instructions: What is COPD?, Acute Bronchitis, Caring for Your Inhaler, Using an Inhaler with a Spacer, Using an Inhaler Without a Spacer, Discharge Instructions: COPD, RSV (Respiratory Syncytial Virus) Additional Instructions: Please continue your steroid taper until completion. We recommendation follow-up with either your PCP or Pulmonary medicine as noted o nce current acute presentation has resolved for pulmonary function testing to assess for underlying chronic obstructive pulmonary disease (COPD). During your admission you had elevated cardiac enzymes which may be secondary to your acute pulmonary presentation; however, you had abnormal stress testing prior therefore concern for possible underlying coronary etiology. Cardiology will contact you o utpatient to set up a cardiac catheterization once you are clinically improved. Please continue the recommended asa, plavix, statin regimen until you see them in follow-up and they alter this regimen otherwise. Allergies/Adverse Reactions: Allergies No Known Allergies Allergy (Verified 10/03/18 22:38) Medications to take at Discharge propranolol 40 mg tablet 40 mg PO BID 03/13/18 Bupropion HCl [Bupropion HCl Sr] 300 mg PO DAILY 09/18/18 Mometasone/Formoterol [Dulera 200 Mcg/5 Mcg Inhaler] 13 gm IH DAILY 09/18/18 Benzonatate [Tessalon Perle] 200 mg PO DAILY 10/03/18 Buspirone HCl 5 mg PO BID 10/03/18 Lansoprazole 15 mg PO BID 10/03/18 Oxcarbazepine 300 mg PO BID 10/03/18 Risperidone [Risperdal] 0.5 mg PO QHS 10/03/18 Albuterol IH (ProAir) [Proair Hfa] 1 puff INHALATION Q2H PRN PRN #1 inhaler 10/05/18 Aspirin [Aspirin, Baby] 81 mg PO DAILY@0800 #30 tab.chew 10/05/18 Atorvastatin Calcium [Lipitor] 40 mg PO QHS #30 tablet 10/05/18 Clopidogrel Bisulfate [Plavix] 75 mg PO DAILY #30 tablet 10/05/18 Guaifenesin [Mucinex] 1,200 mg PO BID #20 tablet 10/05/18 Prednisone 10 mg PO UD #30 tab 10/05/18 The following prescriptions were given: Albuterol IH (ProAir) [Proair Hfa] 1 puff INHALATION Q2H PRN PRN #1 inhaler PRN Reason: dyspnea, wheezing Aspirin [Aspirin, Baby] 81 mg PO DAILY@0800 #30 tab.chew Atorvastatin Calcium [Lipitor] 40 mg PO QHS #30 tablet Clopidogrel Bisulfate [Plavix] 75 mg PO DAILY #30 tablet Prednisone 10 mg PO UD #30 tab Guaifenesin [Mucinex] 1,200 mg PO BID #20 tablet Primary Care Physician: Carlos Asif MD [Primary Care Provider] - Please follow up with your Primary Care Physician in: Follow-up within 3-5 days to review admission. Test Results: Test results from this visit will be discussed in further detail at your follow- up appointment, if applicable. Please Follow Up With: Mario Bartholomew MD When: Cardiology office will contact you to arrange cardiac catheterization. Please Follow Up With: Ronnell Tyler DO When: Follow-up in 2-4 weeks to be evaluated for suspected COPD. Proposed Discharge Date: 10/05/18
--- NOTE | 2018-10-05 13:34 | PCM.DC.SUM ---
Discharge Date and Diagnosis - Problem List Patient Problems: Active and Suspected Problems (Last Reviewed 03/13/18 @ 13:29 by Mario Bartholomew MD) COPD exacerbation (Acute) Acute bronchitis (Acute) Abnormal cardiac enzyme level (Acute) Date of Admission: 10/04/18 Date of Discharge: 10/05/18 - Primary Discharge Diagnosis Active and Suspected Problems (Last Reviewed 03/13/18 @ 13:29 by Mario Bartholomew MD) (1) Acute COPD exacerbation (2) Acute bronchitis, RSV B (3) Abnormal cardiac enzyme level with prior history of abnormal stress testing (4) Chest pain suspected secondary to recent acute #1, #2; however w/ indeterminant cardiac enzymes and history of abnormal stress testing, possible underlying CAD (deferred cardiac catheterization secondary to his acute presentation #1, #2) (5) Hypertension (6) GERD (7) Depression and Anxiety/?Bipolar disorder - Secondary Discharge Diagnosis Chronic Problems (Last Reviewed 03/13/18 @ 13:29 by Mario Bartholomew MD) Hypertension (Chronic) Depression (Chronic) Hospital Course and Treatment Cardiology Dr. Bartholomew Operations: None Procedures: EKG Summary of Care Provided: The patient is a 58 y/o M w/ PMHx: Anxiety and Depression/?Bipolar disorder, Overnight, History of Tobacco use, GERD, Suspected Chronic COPD, HTN, History of prior abnormal stress testing w/ chest pain who presents to the [facility] ED on 10/04/18 with history of ongoing dyspnea, cough, wheezing progressively worsening x 2 weeks w/ concurrent headache and subjective fevers of day of presentation. CXR w/ chronic changes, CBC on admission w/ WBC 23.1 with L shift. Admitted to PCU given concurrent elevated cardiac enzymes, maintained on oxygen with wean as tolerated to room air, continue ATC duonebs, PRN albuterol, IV methylprednisolone with prednisone transition upon discharge, HOB, IS parameters, deferred abx as suspected viral and respiratory viral panel w/ + RSV B, negative urine antigens, Bld Cx pending per ED. Oxygenation testing obtained and noted 94% on RA w/ exertion. Following clinical improvement outpatient recommendation for follow-up with pulmonary medicine to have PFT evaluation. Chest pain with prior abnormal cardiac stress testing, indeterminate cardiac enzymes, possibly demand ischemia, possible underlying coronary disease. EKG in ED cute evidence of ischemia, CXR w/ no acute findings however acute presentation with #1, initial trop 0.152. Maintained on a monitored bed with serial cardiac enzymes and EKGs w/ trop trend 0.152-->0.160-->0.149. FLP w/ TG 93, TChol 151, LFL 91, VLDL 19, HDL 41, statin added, maintained on home BB, addition asa, plavix per Cardiology. Given acute presentation #1, cleared for discharge to home per Cardiology with planned outpatient cardiac catheterization. Patient clinically improved, cleared per Cardiology therefore discharged to home with recommended PCP, Cardiology and Pulmonary follow-up. Patient Problems: Active and Suspected Problems (Last Reviewed 03/13/18 @ 13:29 by Mario Bartholomew MD) COPD exacerbation (Acute) Acute bronchitis (Acute) Abnormal cardiac enzyme level (Acute) - Physical Exam Vital Signs Temp Pulse Resp BP Pulse Ox 97.6 F L 69 18 118/42 L 96 10/05/18 09:38 10/05/18 11:01 10/05/18 10:55 10/05/18 09:38 10/05/18 09:38 Oxygen Flow Rate (L/min) 1 Oxygen Delivery Method Room Air Weight: 163 lb 9.328 oz Body Mass Index (BMI) 26.4 Intake and Output for Last 24 Hours 10/03/18 10/04/18 10/05/18 23:59 23:59 23:59 Intake Total 2652 / 2652 600 / 600 Output Total 300 / 300 Balance 2352 / 2352 600 / 600 Microbiology Past 72 Hours 10/04/18 03:15 Respiratory Panel (PCR) - Final Mucosa - Nasopharyngeal RSV B 10/04/18 02:15 Streptococcus pneumoniae Antigen (M - Final Urine, Clean Catch 10/04/18 02:15 Legionella Antigen - Final Urine, Clean Catch Laboratory Tests Past 24 Hrs 10/05/18 10/05/18 10/05/18 05:20 05:20 05:20 WBC 18.1 H RBC 3.92 L Hgb 12.8 L Hct 37.8 L MCV 96.4 H MCH 32.7 H MCHC 33.9 RDW 12.9 RDW Differential 43.9 Plt Count 152 MPV 11.6 Immature Gran % (Auto) 0.500 Neut % (Auto) 87.7 H Lymph % (Auto) 7.2 L [place] % (Auto) 4.6 Eos % (Auto) 0.0 Baso % (Auto) 0.0 Absolute Neuts (auto) 15.9 H Absolute Lymphs (auto) 1.31 Total Counted Not Reportable PT 13.8 INR 1.1 APTT 26.8 Sodium 142 Potassium 3.8 Chloride 109 H Carbon Dioxide 27.0 Anion Gap 6 BUN 17 Creatinine 0.88 Estim Creat Clear Calc 81.56 Est GFR (MDRD) Af Amer 113 Est GFR (MDRD) Non-Af 94 BUN/Creatinine Ratio 19.2 Glucose 157 H Calcium 8.3 L Triglycerides 93 Cholesterol 151 LDL Cholesterol 91 VLDL Cholesterol 19 HDL Cholesterol 41 Urine Color Urine Clarity Urine pH Ur Specific [place] Urine Protein Urine Glucose (UA) Urine Ketones Urine Occult Blood Urine Nitrite Urine Bilirubin Urine Urobilinogen Ur Leukocyte Esterase Urine RBC Urine WBC Ur Squamous Epith Cells Urine Bacteria Urine Mucus 10/05/18 06:22 WBC RBC Hgb Hct MCV MCH MCHC RDW RDW Differential Plt Count MPV Immature Gran % (Auto) Neut % (Auto) Lymph % (Auto) [place] % (Auto) Eos % (Auto) Baso % (Auto) Absolute Neuts (auto) Absolute Lymphs (auto) Total Counted PT INR APTT Sodium Potassium Chloride Carbon Dioxide Anion Gap BUN Creatinine Estim Creat Clear Calc Est GFR (MDRD) Af Amer Est GFR (MDRD) Non-Af BUN/Creatinine Ratio Glucose Calcium Triglycerides Cholesterol LDL Cholesterol VLDL Cholesterol HDL Cholesterol Urine Color Yellow Urine Clarity Clear Urine pH 6.5 Ur Specific [place] 1.020 Urine Protein Negative Urine Glucose (UA) 50 H Urine Ketones Negative Urine Occult Blood Negative Urine Nitrite Negative Urine Bilirubin Negative Urine Urobilinogen Normal Ur Leukocyte Esterase Negative Urine RBC 0 SEEN Urine WBC 0-5 SEEN Ur Squamous Epith Cells 0-5 SEEN Urine Bacteria RARE Urine Mucus 0 SEEN Home Medications: Medications to take at Discharge propranolol 40 mg tablet 40 mg PO BID 03/13/18 Bupropion HCl [Bupropion HCl Sr] 300 mg PO DAILY 09/18/18 Mometasone/Formoterol [Dulera 200 Mcg/5 Mcg Inhaler] 13 gm IH DAILY 09/18/18 Benzonatate [Tessalon Perle] 200 mg PO DAILY 10/03/18 Buspirone HCl 5 mg PO BID 10/03/18 Lansoprazole 15 mg PO BID 10/03/18 Oxcarbazepine 300 mg PO BID 10/03/18 Risperidone [Risperdal] 0.5 mg PO QHS 10/03/18 Albuterol IH (ProAir) [Proair Hfa] 1 puff INHALATION Q2H PRN PRN #1 inhaler 10/05/18 Aspirin [Aspirin, Baby] 81 mg PO DAILY@0800 #30 tab.chew 10/05/18 Atorvastatin Calcium [Lipitor] 40 mg PO QHS #30 tablet 10/05/18 Clopidogrel Bisulfate [Plavix] 75 mg PO DAILY #30 tablet 10/05/18 Guaifenesin [Mucinex] 1,200 mg PO BID #20 tablet 10/05/18 Prednisone 10 mg PO UD #30 tab 10/05/18 Following Prescrptions Were Given to Patient: Albuterol IH (ProAir) [Proair Hfa] 1 puff INHALATION Q2H PRN PRN #1 inhaler PRN Reason: dyspnea, wheezing Aspirin [Aspirin, Baby] 81 mg PO DAILY@0800 #30 tab.chew Atorvastatin Calcium [Lipitor] 40 mg PO QHS #30 tablet Clopidogrel Bisulfate [Plavix] 75 mg PO DAILY #30 tablet Prednisone 10 mg PO UD #30 tab Guaifenesin [Mucinex] 1,200 mg PO BID #20 tablet Primary Care Physician: Carlos Asif MD [Primary Care Provider] - Patient Instructions: Acute Bronchitis, What is COPD?, Caring for Your Inhaler, Using an Inhaler with a Spacer, Using an Inhaler Without a Spacer, RSV (Respiratory Syncytial Virus), Discharge Instructions: COPD Disposition: Home Minutes spent on discharge:: 35 Patient Condition:: Fair Medical Necessity - Tobacco Use Smoking Status: Former smoker - Quit in 2012. Started at the age of 16 and smoked 4 pack/day. Meaningful Use Info Meaningful Use Diagnoses (Choose all that apply): None applicable Code Visit Inpatient E&M: 74722 Disch Hosp
--- NOTE | 2018-10-05 13:35 | CASEMGMT ---
Patient is ready for discharge. LOS called Julianne Murillo with [facility] and left her a voice mail letting her know about patient's discharge today. Abi GOOD MSW
--- NOTE | 2018-10-05 17:00 | NURSING ---
All documentation done by Student reviewed and/or done with this RN and found to be accurate and correct.
[2018-10-07 09:15] LABS: Pathologist Review Reviewed
== END 2018-10-05 17:22 | disposition home or self-care (01) | DRG 144 ==
LOC: ED 23:04 → PCU 10-04 00:38
PROVIDERS: Internal Medicine Cardiovascular Disease; Admitting Provider Internal Medicine; Emergency Provider Emergency Medicine; Family Provider Family Medicine; PCP Family Medicine; Visit Provider Family Medicine
DX: J20.5 Acute bronchitis due to respiratory syncytial virus (principal); J44.0 Chronic obstructive pulmonary disease with (acute) lower respiratory infection; J44.1 Chronic obstructive pulmonary disease with (acute) exacerbation; F41.9 Anxiety disorder, unspecified; F31.9 Bipolar disorder, unspecified; K21.9 Gastro-esophageal reflux disease without esophagitis; I10 Essential (primary) hypertension; R74.8 Abnormal levels of other serum enzymes; R07.9 Chest pain, unspecified; I25.10 Atherosclerotic heart disease of native coronary artery without angina pectoris; Z87.891 Personal history of nicotine dependence
CPT/HCPCS: 36415; 71045; 80048; 80061; 81001; 83605; 84484; 85025; 85379; 85610; 85730; 87040; 87449; 87633; 93005; 94640; 94667; 94668; 99282; J7030; A4216

== ENCOUNTER 2018-10-06 03:28 | Observation (INO) | payer MEDICAID, SELFPAY ==
[2018-10-04 01:09] VITALS: BMI 26.4
[2018-10-06] VITALS (22 sets, daily range): BP systolic 136–178; BP diastolic 86–113; PULSE 58–73; RESP 16–28; TEMP 36.2–36.8; O2SAT 95–100; BMI 25.8; BMI 27.3
--- NOTE | 2018-10-06 03:35 | RAD_ITS ---
STUDY: X-RAY CHEST REASON FOR EXAM: Male, 58 years old. Chronic shortness of breath. TECHNIQUE: PA and lateral views of the chest. COMPARISON: October 03, 2018. FINDINGS: Cardiac monitoring leads are present. The lungs are expanded and hyperexpanded. There is mild prominence of bronchovascular markings. There is no demonstrated pleural abnormality. There is mild cardiac enlargement. Normal mediastinum and taylor. Normal visualized pulmonary arteries. Normal visualized aortic arch and descending thoracic aorta. Normal visualized thoracic spine. Normal visualized ribs, clavicles, and shoulders. There is no demonstrated abnormality of the visualized soft tissue structures of the upper abdomen. RAD/Chest PA and Lateral IMPRESSION: No radiographic evidence of acute cardiopulmonary disease. Electronically Signed: Martha Sheth MD at 4:41 EST , Service support ,
--- NOTE | 2018-10-06 03:37 | EKG12_ITS ---
Test Reason : SOB Blood Pressure : / mmHG Vent. Rate : 062 BPM Atrial Rate : 062 BPM P-R Int : 142 ms QRS Dur : 088 ms QT Int : 404 ms P-R-T Axes : 046 001 024 degrees QTc Int : 410 ms Normal sinus rhythm Poor R wave progression Confirmed by MARCUS VERMA, TRISTIN ([id number]), deputy editor in chief ZITA HENDRICKS ([id number] on 10/08/2018 8:19:57 AM Referred By: SANDRA Confirmed By:TRISTIN VELAZQUEZ MD
[2018-10-06] MEDS: Ipratropium/Albuterol Sulfate 3 ML AMPUL.NEB INHALATION ×6 (03:39→21:56)
[2018-10-06] MEDS: Albuterol 2.5 MG/3 ML VIAL.NEB. INHALATION ×3 (03:39→04:47)
[2018-10-06 03:40] LABS: Bedside Glucose 103 mg/dL (70-110)
[2018-10-06 03:54] LABS: Absolute Lymphocyte Count 3.08 X10^3/ul (0.83-4.51); Absolute Neutrophil Count 23.8 X10^3/uL (2.0-7.7); Basophil# 0.03 X10^3/uL; Basophil% 0.1 % (0-1); Eosinophil# 0.01 X10^3/uL; Hematocrit 42.9 % (40-54); Hemoglobin 14.8 g/dl (13.0-16.5); Lymphocyte # 3.08 X10^3/ul (4.0); Lymphocyte % 10.4 % (19-41); Mean Corp Hgb Conc 34.5 g/gl (32-36); Mean Corpuscular Hgb 32.9 pg (27.0-32.0); Mean Corpuscular Volume 95.3 fL (80-94); Mean Platelet Vol. 11.8 fl (6.2-12.0); Monocyte# 2.37 X10^3/uL; Neutrophil # 23.75 X10^3/uL (2.7-7.7); Neutrophil % 80.7 % (47-70); Platelet Count 194 K/mm3 (150-450); RBC Distribution Width CV 13.4 % (11.6-14.6); RBC Distribution Width SD 46.1 fl (35.1-43.9); White Blood Count 29.5 K/mm3 (4.4-11.0)
[2018-10-06 03:55] LABS: Differential Indicated SCAN CRITERIA MET; POSITIVE COUNT NO; POSITIVE DIFFERENTIAL YES; POSITIVE MORPHOLOGY YES
[2018-10-06 03:59] LABS: Anion Gap 10 (5-15); BUN 21 mg/dL (7-18); BUN/Creat Ratio 22.2 RATIO (10-20); Calcium,Total 9.1 mg/dL (8.5-10.1); Chloride 108 mmol/L (98-107); Creatinine, Serum 0.95 mg/dL (0.70-1.30); EST Glomerular Filtration Rate 86 mL/min (>60); Est Glom Filt Rate - Afr Amer 105 mL/min (>60); Estimated Creatinine Clearance 75.55 ml/min; Glucose 108 mg/dL (74-106); Potassium 3.9 mmol/L (3.5-5.1); Sodium Level 144 mmol/L (136-145)
[2018-10-06 04:20] LABS: Anisocytosis 1+; Differential Comment SCAN; Macrocytosis 1+; Polychromasia 1+
[2018-10-06 04:21] LABS: NRBC Flagged by Analyzer 0.1 % (0-5); Platelet Estimate ADEQUATE (ADEQ); Platelet Morphology LARGE
[2018-10-06 04:22] LABS: Absolute Nucleated RBC Count 0.03 10^3/uL (0-5)
--- NOTE | 2018-10-06 04:23 | ED.DCSUM_ITS ---
- ER Visit Summary Date of Service: 10/06/18 Chief Complaint: [shortness of breath] History of Present Illness: The patient is a 58 M [presents with wheezing and shortness of breath. He was just hospitalized and discharged several hours ago. He has not yet filled his breathing treatment or steroid prescriptions. He states he was treated for pneumonia while he was in the hospital. He denies any chest pain currently but had it earlier this evening he states. He speaks in short sentences and has wheezing on examination at bedside. He has no other complaints.] Physical Examination: [General: The patient appears well and in no apparent distress. Patient is resting comfortably on cart. Skin: Warm, dry, no pallor noted. No rash. Head: Normocephalic, atraumatic Neck: Supple, nontender. No JVD. ENT: Moist mucus membranes, pharynx within normal limits. Cardiovascular: Regular Rate and Rhythm, no gallups or rubs Respiratory: Patient is in no distress, no accessory muscle use, lungs have diffuse wheezing to auscultation, no rales or rhonchi Musculoskeletal: normal ROM, no deformity, no tenderness, no swelling. 2+ radial and DP pulses symmetric. GI: No tenderness to palpation, no masses appreciated. No rebound, guarding, or rigidity noted. Neurological: A&O, normal strength and sensation. GCS 15. Psychiatric: Cooperative] Test Results: [] Emergency Department Course and Treatment: [I reviewed patient's recent hospitalization records. EKG shows normal sinus rhythm with a rate of 62, no acute ischemic changes or arrhythmia. Normal intervals. No heart block. Patient had leukocytosis at 29.5. This is increased from his prior recent hospitalization blood work. Patient was treated with steroids. Patient was given DuoNeb and albuterol breathing treatments. Chest x-ray shows no acute pro cess. On reevaluation patient did complain of heaviness in his chest and repeat EKG was obtained that shows sinus rhythm with a rate of 62, again no acute ischemic changes or arrhythmia. Normal intervals. No heart blocks. Patient continues to have mild respiratory distress and wheezing. He was given further breathing treatments. At this time I feel he requires readmission for further evaluation. Leukocytosis likely due to recent steroid therapy. He was given oral aspirin. Patient discussed with hospitalist, Dr. Maldonado, who is agreeable with admission to PCU. Patient admitted in stable condition. ] Treatment Plan: [see above] Disposition: [Admission, stable condition] Impression: [Chest Pain, COPD Exacerbation, Leukocytosis ] This note was generated with [employer] dictation software. It may contain incorrect words, spelling, and punctuation that were not noted in review of the chart prior to signing ED Disposition - Plan for ED Patient: Chief Complaint: Shortness of Breath Referrals: Carlos Asif MD [Primary Care Provider] -
--- NOTE | 2018-10-06 04:38 | EKG12_ITS ---
Test Reason : REPEAT Blood Pressure : / mmHG Vent. Rate : 062 BPM Atrial Rate : 062 BPM P-R Int : 160 ms QRS Dur : 090 ms QT Int : 418 ms P-R-T Axes : 061 -09 011 degrees QTc Int : 424 ms Normal sinus rhythm Poor R wave progression Confirmed by MARCUS VERMA, TRISTIN ([id number]), editor farm journal ZITA HENDRICKS ([id number]) on 10/08/2018 8:20:18 AM Referred By: SANDRA Confirmed By:TRISTIN VELAZQUEZ MD
[2018-10-06] MEDS: Aspirin 325 MG Tablet PO (04:49)
--- NOTE | 2018-10-06 05:34 | HP.PCM_ITS ---
Problem List (1) COPD exacerbation Status: Acute (2) Abnormal cardiac enzyme level Status: Acute (3) History of cholecystectomy Status: Resolved (4) History of hernia surgery Status: Resolved (5) Abnormal stress test Status: Acute (6) Chest pain Status: Acute (7) Hypertension Status: Chronic (8) Depression Status: Chronic History of Present Illness Date of Admission: 10/06/18 Chief Complaint: chest pain , short of breath The patient is a 58 year old male patient returns to the ER following discharge from the hospital with complaint of chest pain and shortness of breath. The patient did not get prescribed medications at discharge including steroids. He states he woke up at 3:00 am and was unable to catch his breath and was clutching his chest in pain. He had an abnormal stress test with indeterminant Troponin levels and planned for outpatient heart catheterization. This was confounded by an exacerbation of COPD. He responded to breathing treatments in the ER and is now able to maintain his SPO2 at 98% on room air despite an audible wheeze. He feels when he experienced the cold air outside at discharge he had more trouble with breathing. His Troponin is currently 0.04 and he will be admitted to PCU. Past Medical History Past Medical History (Chronic Problems): Chronic Problems (Last Reviewed 03/13/18 @ 13:29 by Mario Bartholomew MD) Hypertension (Chronic) Depression (Chronic) Medical History: Medical History (Last Reviewed 03/13/18 @ 13:29 by Mario Bartholomew MD) Abnormal stress test (Acute) R94.39 Chest pain (Acute) R07.9 Hypertension (Chronic) I10 Depression (Chronic) F32.9 Allergies No Known Allergies Allergy (Verified 10/03/18 22:38) Home Medications: Ambulatory Orders Medication Instructions Recorded propranolol 40 mg tablet 40 mg PO BID 03/13/18 Bupropion HCl [Bupropion HCl Sr] 300 mg PO DAILY 09/18/18 Mometasone/Formoterol [Dulera 200 13 gm IH DAILY 09/18/18 Mcg/5 Mcg Inhaler] Benzonatate [Tessalon Perle] 200 mg PO DAILY 10/03/18 Buspirone HCl 5 mg PO BID 10/03/18 Lansoprazole 15 mg PO BID 10/03/18 Oxcarbazepine 300 mg PO BID 10/03/18 Risperidone [Risperdal] 0.5 mg PO QHS 10/03/18 Albuterol IH (ProAir) [Proair Hfa] 1 puff INHALATION Q2H PRN PRN #1 10/05/18 inhaler Aspirin [Aspirin, Baby] 81 mg PO DAILY@0800 #30 tab.chew 10/05/18 Atorvastatin Calcium [Lipitor] 40 mg PO QHS #30 tablet 10/05/18 Clopidogrel Bisulfate [Plavix] 75 mg PO DAILY #30 tablet 10/05/18 Guaifenesin [Mucinex] 1,200 mg PO BID #20 tablet 10/05/18 Prednisone 10 mg PO UD #30 tab 10/05/18 Surgical History: Surgical History (Last Reviewed 03/13/18 @ 13:29 by Mario Bartholomew MD) History of cholecystectomy (Resolved) Z90.49 History of hernia surgery (Resolved) Z98.890, Z87.19 Smoking Status: Former smoker - *Family History Maternal History Items: No pertinent history Review of Systems Constitutional: Denies: Chills, Fever, Weight Change HEENT: Denies: Head Aches, Sinus Congestion, Sinus Drainage Cardiovascular: Reports: Chest Pain. Denies: Palpitations Respiratory: Reports: Shortness of breath at rest. Denies: Cough, Sputum production Gastrointestinal: Denies: Abdominal Pain, Nausea, Vomiting Genitourinary: Denies: Dysuria Musculoskeletal: Denies: Joint Pain, Joint Tenderness Skin: Denies: Rash, Wounds Neurological: Denies: Numbness, Tingling, Focal weakness Psychiatric: Denies: Anxiety, Depression, Homicidal Ideations, Suicidal Ideations Hematologic/ Lymphatic: Denies: Easy Bruising, Easy Bleeding VTE Information - Inpt Only VTE Present on Admission: No VTE Mechan Device Prophylaxis: None VTE Pharm Prophylaxis ordered?: Yes - Physical Exam General: Alert, Oriented x3, Cooperative HEENT: Atraumatic, Normocephalic Neck: Supple Lungs: Normal air movement, No rhonchi, No rales, Wheezes Cardiovascular: Regular rate, Normal S1, Normal S2, No murmurs Abdomen: Bowel Sounds Present, Soft, Non Tender Extremities: No edema, Capillary Refill Less than 3 Seconds Skin: No rashes Musculoskeletal: No Tenderness to Palpation of Joints or Extremities Neurological: Neuro grossly intact Psych/Mental Status: Normal Affect, Appropriate Vital Signs Temp Pulse Resp BP Pulse Ox 97.7 F L 65 22 H 141/90 H 98 10/06/18 05:16 10/06/18 05:16 10/06/18 05:16 10/06/18 05:16 10/06/18 05:16 Oxygen Delivery Method Room Air Weight: 160 lb Body Mass Index (BMI) 25.8 Finger Stick Blood Glucose 103 Laboratory Tests Past 24 Hrs 10/06/18 10/06/18 10/06/18 03:40 03:40 03:40 WBC 29.5 H RBC 4.50 L Hgb 14.8 Hct 42.9 MCV 95.3 H MCH 32.9 H MCHC 34.5 RDW 13.4 RDW Differential 46.1 H Plt Count 194 MPV 11.8 Immature Gran % (Auto) 0.800 Neut % (Auto) 80.7 H Lymph % (Auto) 10.4 L [place] % (Auto) 8.0 Eos % (Auto) 0.0 Baso % (Auto) 0.1 Absolute Neuts (auto) 23.8 H Absolute Lymphs (auto) 3.08 Total Counted Not Reportable Nucleated RBC % 0.1 Differential Comment SCAN Diff Path Review May foll Platelet Estimate ADEQUATE Plt Morphology Comment LARGE Polychromasia 1+ Anisocytosis 1+ Macrocytosis 1+ Absolute Retic 0.03 Sodium 144 Potassium 3.9 Chloride 108 H Carbon Dioxide 26.0 Anion Gap 10 BUN 21 H Creatinine 0.95 Estim Creat Clear Calc 75.55 Est GFR (MDRD) Af Amer 105 Est GFR (MDRD) Non-Af 86 BUN/Creatinine Ratio 22.2 H Glucose 108 H Calcium 9.1 Troponin I 0.044 POC Glucose 10/06/18 03:36 POC Glucose 103 Assessment/Plan All Active Problems (Last Reviewed 03/13/18 @ 13:29 by Mario Bartholomew MD) COPD exacerbation (Acute) Acute bronchitis (Acute) Abnormal cardiac enzyme level (Acute) History of cholecystectomy (Resolved) History of hernia surgery (Resolved) Abnormal stress test (Acute) Chest pain (Acute) Chronic Problems (Last Reviewed 03/13/18 @ 13:29 by Mario Bartholomew MD) Hypertension (Chronic) Depression (Chronic) Plan 1. COPD/ Shortness of breath-- continue solumedrol 40mg IV q 8hrs, duoneb inh q 4hrs prn 2. Chest Pain- cycle cardiac markers, case discussed with Dr. Bartholomew who would prefer to perform heart Catheterization when respiratory status is improved (this may be after discharge, as an outpatient depending on his progress), nitroglycerin, oxygen and aspirin per routine 3. continue routine medications for stable conditions 4. DVT prophylaxis-- LMWH Code Visit Inpatient E&M: 44696 Init Hosp L3
[2018-10-06] MEDS: Enoxaparin 40 MG/0.4 ML Syringe SC (08:07)
[2018-10-06] MEDS: guaiFENesin 1,200 MG Tablet 1200 MG PO ×2 (08:08→21:27)
[2018-10-06] MEDS: Propranolol 40 MG Tablet PO ×2 (08:08→21:27)
[2018-10-06] MEDS: Pantoprazole Sodium 20 MG Tablet PO ×2 (08:08→21:27)
[2018-10-06] MEDS: busPIRone 5 MG Tablet PO ×2 (08:08→21:27)
[2018-10-06] MEDS: OXcarbazepine 300 MG Tablet PO ×2 (08:08→21:27)
[2018-10-06] MEDS: Clopidogrel Bisulfate 75 MG Tablet PO (08:08)
[2018-10-06] MEDS: Benzonatate 100 MG Capsule 200 MG PO (08:08)
[2018-10-06] MEDS: buPROPion (XL) 300 MG TABLET.XL PO (08:08)
[2018-10-06] MEDS: Lisinopril 5 MG Tablet PO (10:29)
--- NOTE | 2018-10-06 10:58 | CASEMGMT ---
LOS called Julianne Murillo at [facility] and left her a voice mail letting her know patient is back in the hospital. Abi GOOD MSW
--- NOTE | 2018-10-06 11:17 | CASEMGMT ---
Pt did not fill scripts when discharged yesterday. Call to [facility] and they state that pt has $0 co-pay for all scripts that were prescribed yesterday. Sangita VILLASENOR aware, voices understanding. Ramiro KENYON CM
--- NOTE | 2018-10-06 12:19 | PN_ITS ---
Subjective: Pt complains of ongoing SOB at rest and exertion. He is stable off O2. No CP. No LE edema. No fever or chills. Occasional cough with occasional yellow sputum production. He is requesting home nebulizer, but he is also concerned about becoming homeless again and that his current living situation is only temporary. Per SW/CM his prescriptions are ready and require no copay. - Physical Exam General: Alert, Oriented x3, Cooperative HEENT: Atraumatic, PERRLA, EOMI, Normocephalic Neck: Supple, No JVD, Negative Carotid Bruits Lungs: Wheezes Cardiovascular: Regular rate, No murmurs Abdomen: Bowel Sounds Present, Soft, Non Tender Extremities: No edema, Capillary Refill Less than 3 Seconds Skin: No rashes, No breakdown Musculoskeletal: No Tenderness to Palpation of Joints or Extremities Neurological: Cranial nerves II-XII grossly intact Psych/Mental Status: Normal Affect, Appropriate, Alert and oriented to time, place, person, mood and affect Vital Signs Temp Pulse Resp BP Pulse Ox 98.1 F 68 18 136/86 H 95 10/06/18 08:04 10/06/18 11:27 10/06/18 11:27 10/06/18 10:29 10/06/18 08:04 Oxygen Delivery Method Room Air Weight: 169 lb 12.095 oz Body Mass Index (BMI) 27.3 Finger Stick Blood Glucose 103 Laboratory Tests Past 24 Hrs 10/06/18 10/06/18 10/06/18 03:40 03:40 03:40 WBC 29.5 H RBC 4.50 L Hgb 14.8 Hct 42.9 MCV 95.3 H MCH 32.9 H MCHC 34.5 RDW 13.4 RDW Differential 46.1 H Plt Count 194 MPV 11.8 Immature Gran % (Auto) 0.800 Neut % (Auto) 80.7 H Lymph % (Auto) 10.4 L [place] % (Auto) 8.0 Eos % (Auto) 0.0 Baso % (Auto) 0.1 Absolute Neuts (auto) 23.8 H Absolute Lymphs (auto) 3.08 Total Counted Not Reportable Nucleated RBC % 0.1 Differential Comment SCAN Diff Path Review May foll Platelet Estimate ADEQUATE Plt Morphology Comment LARGE Polychromasia 1+ Anisocytosis 1+ Macrocytosis 1+ Absolute Retic 0.03 Sodium 144 Potassium 3.9 Chloride 108 H Carbon Dioxide 26.0 Anion Gap 10 BUN 21 H Creatinine 0.95 Estim Creat Clear Calc 75.55 Est GFR (MDRD) Af Amer 105 Est GFR (MDRD) Non-Af 86 BUN/Creatinine Ratio 22.2 H Glucose 108 H Calcium 9.1 Troponin I 0.044 10/06/18 10/06/18 06:30 09:35 WBC RBC Hgb Hct MCV MCH MCHC RDW RDW Differential Plt Count MPV Immature Gran % (Auto) Neut % (Auto) Lymph % (Auto) [place] % (Auto) Eos % (Auto) Baso % (Auto) Absolute Neuts (auto) Absolute Lymphs (auto) Total Counted Nucleated RBC % Differential Comment Diff Path Review Platelet Estimate Plt Morphology Comment Polychromasia Anisocytosis Macrocytosis Absolute Retic Sodium Potassium Chloride Carbon Dioxide Anion Gap BUN Creatinine Estim Creat Clear Calc Est GFR (MDRD) Af Amer Est GFR (MDRD) Non-Af BUN/Creatinine Ratio Glucose Calcium Troponin I 0.056 H 0.048 H POC Glucose 10/06/18 03:36 POC Glucose 103 Medical Necessity - Tobacco Use Smoking Status: Former smoker Assessment/Plan All Active Problems (Last Reviewed 03/13/18 @ 13:29 by Mario Bartholomew MD) COPD exacerbation (Acute) Acute bronchitis (Acute) Abnormal cardiac enzyme level (Acute) History of cholecystectomy (Resolved) History of hernia surgery (Resolved) Abnormal stress test (Acute) Chest pain (Acute) 1. Acute COPD exacerbation 2/2 RSVB viral bronchitis - flu neg. Continue steroids, aerosols, IS. CXR negative 2. Elevated troponin - cardiology would like to do o/p cath when respiratory status has stabilized. 3. HTN - added low dose OVIDIO. Continue aspirin, statin, Plavix, propranolol 4. Depression - risperdal, wellbutrin, oxcarbazepine. DVT ppx: Lovenox DC planning: will need close cardiology f/u / o/p cath. There is a concern that the patient will be losing his home living situation and may end up almost again. Patient is also requesting nebulizer for discharge home. Will discuss with case management, munitions worker to make appropriate arrangements. Per case management and social workers his medications at discharge will be available with no co-pay. This patient was seen by Agapito Muñoz PA-C under the supervision of Doctor Sherri.
--- NOTE | 2018-10-06 14:05 | CASEMGMT ---
SW spoke with patient per his request. He said he was talking to someone earlier and she told him that he has to get his medications filled before d/c. He said the people at the long-term told him to have meds switched to [place]. Someone from the long-term will supervisor picking crew his meds tomorrow at 9am. He also asked about getting a nebulizer. LOS told him physician can write a prescription for one for him. Abi GOOD MSW
[2018-10-06] MEDS: RisperiDONE 0.5 MG Tablet PO (21:27)
[2018-10-06] MEDS: Atorvastatin Calcium 40 MG Tablet PO (21:27)
[2018-10-06] MEDS: 0.9% NaCl Peripheral Flush Adult/Peds IV ×2 (21:27→22:40)
[2018-10-06] MEDS: Ondansetron 4 MG/2 ML Vial IV (22:41)
[2018-10-07] VITALS (10 sets, daily range): BP systolic 129–153; BP diastolic 74–94; PULSE 59–69; RESP 16–22; TEMP 36.2–36.8; O2SAT 93–96
[2018-10-07] MEDS: 0.9% NaCl Peripheral Flush Adult/Peds IV ×2 (05:31→13:41)
[2018-10-07 06:48] LABS: Absolute Lymphocyte Count 1.86 X10^3/ul (0.83-4.51); Absolute Neutrophil Count 16.9 X10^3/uL (2.0-7.7); Basophil# 0.02 X10^3/uL; Basophil% 0.1 % (0-1); Hematocrit 39.7 % (40-54); Hemoglobin 13.4 g/dl (13.0-16.5); Lymphocyte # 1.86 X10^3/ul (4.0); Lymphocyte % 9.2 % (19-41); Mean Corp Hgb Conc 33.8 g/gl (32-36); Mean Corpuscular Hgb 31.9 pg (27.0-32.0); Mean Corpuscular Volume 94.5 fL (80-94); Mean Platelet Vol. 11.9 fl (6.2-12.0); Monocyte# 1.36 X10^3/uL; Monocyte% 6.7 % (0-10); Neutrophil # 16.89 X10^3/uL (2.7-7.7); Neutrophil % 83.2 % (47-70); Platelet Count 177 K/mm3 (150-450); RBC Distribution Width CV 12.9 % (11.6-14.6); RBC Distribution Width SD 43.2 fl (35.1-43.9); White Blood Count 20.3 K/mm3 (4.4-11.0)
[2018-10-07 06:53] LABS: POSITIVE COUNT NO; POSITIVE DIFFERENTIAL NO; POSITIVE MORPHOLOGY NO
[2018-10-07 07:16] LABS: Anion Gap 7 (5-15); BUN 22 mg/dL (7-18); BUN/Creat Ratio 24.5 RATIO (10-20); Calcium,Total 8.2 mg/dL (8.5-10.1); Chloride 106 mmol/L (98-107); EST Glomerular Filtration Rate 92 mL/min (>60); Est Glom Filt Rate - Afr Amer 111 mL/min (>60); Estimated Creatinine Clearance 79.75 ml/min; Glucose 115 mg/dL (74-106); Sodium Level 140 mmol/L (136-145)
[2018-10-07] MEDS: Ipratropium/Albuterol Sulfate 3 ML AMPUL.NEB INHALATION (07:53)
--- NOTE | 2018-10-07 08:49 | CASEMGMT ---
Addendum entered by Monik Campbell 10/07/18 12:37: Phone call to [facility]illo [facility] at [facility] and notified of pt d/c today. [employer] Original Note: Social Work Spoke with insurance case manager at [facility] and discussed medication concerns. CM will picking supervisor prescriptions from [place] this morning. [employer]
[2018-10-07] MEDS: Aspirin 81 MG TAB.CHEW PO (09:02)
[2018-10-07] MEDS: Pantoprazole Sodium 20 MG Tablet PO (09:02)
[2018-10-07] MEDS: Enoxaparin 40 MG/0.4 ML Syringe SC (09:28)
[2018-10-07] MEDS: Clopidogrel Bisulfate 75 MG Tablet PO (09:28)
[2018-10-07 09:29] LABS: Pathologist Review Reviewed
[2018-10-07] MEDS: busPIRone 5 MG Tablet PO (09:29)
[2018-10-07] MEDS: buPROPion (XL) 300 MG TABLET.XL PO (09:29)
[2018-10-07] MEDS: guaiFENesin 1,200 MG Tablet 1200 MG PO (09:30)
[2018-10-07] MEDS: Propranolol 40 MG Tablet PO (09:30)
[2018-10-07] MEDS: OXcarbazepine 300 MG Tablet PO (09:30)
[2018-10-07] MEDS: Lisinopril 5 MG Tablet PO (09:30)
[2018-10-07] MEDS: Benzonatate 100 MG Capsule 200 MG PO (09:39)
--- NOTE | 2018-10-07 11:22 | DCINST_ITS ---
You will use the following diet at home:: Cardiac Your food should be the consistency of: Regular Your liquids should be the consistency of: Regular/Thin Discharge Activity: Return to Normal Activity Allergies/Adverse Reactions: Allergies No Known Allergies Allergy (Verified 10/03/18 22:38) Medications to take at Discharge propranolol 40 mg tablet 40 mg PO BID 03/13/18 Bupropion HCl [Bupropion HCl Sr] 300 mg PO DAILY 09/18/18 Mometasone/Formoterol [Dulera 200 Mcg/5 Mcg Inhaler] 13 gm IH DAILY 09/18/18 Benzonatate [Tessalon Perle] 200 mg PO DAILY 10/03/18 Buspirone HCl 5 mg PO BID 10/03/18 Lansoprazole 15 mg PO BID 10/03/18 Oxcarbazepine 300 mg PO BID 10/03/18 Risperidone [Risperdal] 0.5 mg PO QHS 10/03/18 Albuterol IH (ProAir) [Proair Hfa] 1 puff INHALATION Q2H PRN PRN #1 inhaler 10/05/18 Aspirin [Aspirin, Baby] 81 mg PO DAILY@0800 #30 tab.chew 10/05/18 Atorvastatin Calcium [Lipitor] 40 mg PO QHS #30 tablet 10/05/18 Clopidogrel Bisulfate [Plavix] 75 mg PO DAILY #30 tablet 10/05/18 Guaifenesin [Mucinex] 1,200 mg PO BID #20 tablet 10/05/18 Prednisone 10 mg PO UD #30 tab 10/05/18 Ipratropium/Albuterol Sulfate [Duoneb] 3 ml INHALATION Q6H #120 ampul.neb 10/07/18 Lisinopril [Zestril] 5 mg PO DAILY #30 tablet 10/07/18 The following prescriptions were given: Ipratropium/Albuterol Sulfate [Duoneb] 3 ml INHALATION Q6H #120 ampul.neb Lisinopril [Zestril] 5 mg PO DAILY #30 tablet Primary Care Physician: Carlos Asif MD [Primary Care Provider] - Please follow up with your Primary Care Physician in: 1-2 weeks Test Results: Test results from this visit will be discussed in further detail at your follow- up appointment, if applicable. Please Follow Up With: Julito Alberto MD When: They will call to set up appointment Proposed Discharge Date: 10/07/18
--- NOTE | 2018-10-07 13:49 | PCM.DC.SUM ---
Discharge Date and Diagnosis Date of Admission: 10/06/18 Date of Discharge: 10/07/18 - Primary Discharge Diagnosis Acute COPD exacerbation CAD with elevated troponin, indeterminate Hypertension Hyperlipidemia Depression - Secondary Discharge Diagnosis Chronic Problems (Last Reviewed 03/13/18 @ 13:29 by Mario Bartholomew MD) Hypertension (Chronic) Depression (Chronic) Hospital Course and Treatment Operations: None Procedures: None Summary of Care Provided: Hospital course: The patient is a 58 year old M S medical history of depression, hypertension, hyperlipidemia, COPD, who presented to the emergency room after being discharged from the ER for COPD exacerbation. The patient left the hospital and became more short of breath with the cold air. Patient also recently had an abnormal stress test with an indeterminate troponin level and outpatient heart catheterization was planned. He represented to the emergency room with indeterminate troponins and very short of breath with increased wheezing. He was admitted to the PCU with COPD exacerbation. Respiratory panel was evaluated and demonstrated RSV B infection. His scientific director was contacted who recommended that the heart catheterization be considered after his respiratory status has stabilized as an outpatient. Patient was given aerosols, oxygen, steroids, and supportive care. He responded well to this therapy. He was able to be weaned off of oxygen. His blood pressure was uncontrolled here and low-dose lisinopril was added with good results. As he had worsening of underlying pulmonary disease and poor response to prior medications a nebulizer with DuoNeb's was ordered for him at discharge, which should also help optimize his respiratory status in preparation for his heart catheterization. He did not require home-going oxygen. He was discharged home in stable condition. His senior living was going to corn picker his medications for him. He will follow-up with cardiology as an outpatient, they will contact him to set up his heart catheterization. He will also need to follow-up with his PCP in 1-2 weeks. This patient was seen by Agapito Muñoz PA-C under the supervision of Doctor Sherri. [] - Physical Exam General: Alert, Oriented x3, Cooperative HEENT: Atraumatic, PERRLA, EOMI, Normocephalic Neck: Supple, No JVD, Negative Carotid Bruits Lungs: Diminished Cardiovascular: Regular rate, No murmurs Abdomen: Bowel Sounds Present, Soft, Non Tender Extremities: No edema, Capillary Refill Less than 3 Seconds Skin: No rashes, No breakdown Musculoskeletal: No Tenderness to Palpation of Joints or Extremities Neurological: Cranial nerves II-XII grossly intact Psych/Mental Status: Normal Affect, Appropriate, Alert and oriented to time, place, person, mood and affect Vital Signs Temp Pulse Resp BP Pulse Ox 97.5 F L 61 20 H 129/74 H 95 10/07/18 13:43 10/07/18 13:43 10/07/18 13:43 10/07/18 13:43 10/07/18 13:43 Oxygen Delivery Method Room Air Weight: 169 lb 12.095 oz Body Mass Index (BMI) 27.3 Finger Stick Blood Glucose 103 Intake and Output for Last 24 Hours 10/05/18 10/06/18 10/07/18 23:59 23:59 23:59 Intake Total 240 / 240 Balance 240 / 240 Laboratory Tests Past 24 Hrs 10/06/18 10/07/18 10/07/18 03:40 06:00 06:00 WBC 20.3 H RBC 4.20 L Hgb 13.4 Hct 39.7 L MCV 94.5 H MCH 31.9 MCHC 33.8 RDW 12.9 RDW Differential 43.2 Plt Count 177 MPV 11.9 Immature Gran % (Auto) 0.800 Neut % (Auto) 83.2 H Lymph % (Auto) 9.2 L [place] % (Auto) 6.7 Eos % (Auto) 0.0 Baso % (Auto) 0.1 Absolute Neuts (auto) 16.9 H Absolute Lymphs (auto) 1.86 Total Counted Not Reportable Diff Path Review Reviewed Sodium 140 Potassium 4.0 Chloride 106 Carbon Dioxide 27.0 Anion Gap 7 BUN 22 H Creatinine 0.90 Estim Creat Clear Calc 79.75 Est GFR (MDRD) Af Amer 111 Est GFR (MDRD) Non-Af 92 BUN/Creatinine Ratio 24.5 H Glucose 115 H Calcium 8.2 L Discharge Diet: Low fat/ Low Cholesterol, 2000 mg Sodium Diet Discharge Activity: Return to Normal Activity Home Medications: Medications to take at Discharge propranolol 40 mg tablet 40 mg PO BID 03/13/18 Bupropion HCl [Bupropion HCl Sr] 300 mg PO DAILY 09/18/18 Mometasone/Formoterol [Dulera 200 Mcg/5 Mcg Inhaler] 13 gm IH DAILY 09/18/18 Benzonatate [Tessalon Perle] 200 mg PO DAILY 10/03/18 Buspirone HCl 5 mg PO BID 10/03/18 Lansoprazole 15 mg PO BID 10/03/18 Oxcarbazepine 300 mg PO BID 10/03/18 Risperidone [Risperdal] 0.5 mg PO QHS 10/03/18 Albuterol IH (ProAir) [Proair Hfa] 1 puff INHALATION Q2H PRN PRN #1 inhaler 10/05/18 Aspirin [Aspirin, Baby] 81 mg PO DAILY@0800 #30 tab.chew 10/05/18 Atorvastatin Calcium [Lipitor] 40 mg PO QHS #30 tablet 10/05/18 Clopidogrel Bisulfate [Plavix] 75 mg PO DAILY #30 tablet 10/05/18 Guaifenesin [Mucinex] 1,200 mg PO BID #20 tablet 10/05/18 Prednisone 10 mg PO UD #30 tab 10/05/18 Ipratropium/Albuterol Sulfate [Duoneb] 3 ml INHALATION Q6H #120 ampul.neb 10/07/18 Lisinopril [Zestril] 5 mg PO DAILY #30 tablet 10/07/18 Following Prescrptions Were Given to Patient: Ipratropium/Albuterol Sulfate [Duoneb] 3 ml INHALATION Q6H #120 ampul.neb Lisinopril [Zestril] 5 mg PO DAILY #30 tablet Primary Care Physician: Carlos Asif MD [Primary Care Provider] - Please follow up with your Primary Care Physician in: 1-2 weeks Please Follow Up With: Julito Alberto MD When: They will call to set up appointment Disposition: senior living Minutes spent on discharge:: 35 Patient Condition:: Stable Medical Necessity - Tobacco Use Smoking Status: Former smoker Meaningful Use Info Meaningful Use Diagnoses (Choose all that apply): None applicable
--- NOTE | 2018-10-07 13:54 | DS.PCM_ITS ---
Discharge Date and Diagnosis Date of Admission: 10/06/18 Date of Discharge: 10/07/18 - Primary Discharge Diagnosis Acute COPD exacerbation CAD with elevated troponin, indeterminate Hypertension Hyperlipidemia Depression - Secondary Discharge Diagnosis Chronic Problems (Last Reviewed 03/13/18 @ 13:29 by Mario Bartholomew MD) Hypertension (Chronic) Depression (Chronic) Hospital Course and Treatment Operations: None Procedures: None Summary of Care Provided: Hospital course: The patient is a 58 year old M S medical history of depression, hypertension, hy perlipidemia, COPD, who presented to the emergency room after being discharged from the ER for COPD exacerbation. The patient left the hospital and became more short of breath with the cold air. Patient also recently had an abnormal stress test with an indeterminate troponin level and outpatient heart catheterization was planned. He represented to the emergency room with indeterminate troponins and very short of breath with increased wheezing. He was admitted to the PCU with COPD exacerbation. Respiratory panel was evaluated and demonstrated RSV B infection. His director of research center was contacted who recommended that the heart catheterization be considered after his respiratory status has stabilized as an outpatient. Patient was given aerosols, oxygen, steroids, and supportive care. He responded well to this therapy. He was able to be weaned off of oxygen. His blood pressure was uncontrolled here and low- dose lisinopril was added with good results. As he had worsening of underlying pulmonary disease and poor response to prior medications a nebulizer with DuoNeb's was ordered for him at discharge, which should also help optimize his respiratory status in preparation for his heart catheterization. He did not require home-going oxygen. He was discharged home in stable condition. His [facility] was going to chicken picker his medications for him. He will follow-up with cardiology as an outpatient, they will contact him to set up his heart catheterization. He will also need to follow-up with his PCP in 1-2 weeks. This patient was seen by Agapito Muñoz PA-C under the supervision of Doctor Sherri. [] - Physical Exam General: Alert, Oriented x3, Cooperative HEENT: Atraumatic, PERRLA, EOMI, Normocephalic Neck: Supple, No JVD, Negative Carotid Bruits Lungs: Diminished Cardiovascular: Regular rate, No murmurs Abdomen: Bowel Sounds Present, Soft, Non Tender Extremities: No edema, Capillary Refill Less than 3 Seconds Skin: No rashes, No breakdown Musculoskeletal: No Tenderness to Palpation of Joints or Extremities Neurological: Cranial nerves II-XII grossly intact Psych/Mental Status: Normal Affect, Appropriate, Alert and oriented to time, place, person, mood and affect Vital Signs Temp Pulse Resp BP Pulse Ox 97.5 F L 61 20 H 129/74 H 95 10/07/18 13:43 10/07/18 13:43 10/07/18 13:43 10/07/18 13:43 10/07/18 13:43 Oxygen Delivery Method Room Air Weight: 169 lb 12.095 oz Body Mass Index (BMI) 27.3 Finger Stick Blood Glucose 103 Intake and Output for Last 24 Hours 10/05/18 10/06/18 10/07/18 23:59 23:59 23:59 Intake Total 240 / 240 Balance 240 / 240 Laboratory Tests Past 24 Hrs 10/06/18 10/07/18 10/07/18 03:40 06:00 06:00 WBC 20.3 H RBC 4.20 L Hgb 13.4 Hct 39.7 L MCV 94.5 H MCH 31.9 MCHC 33.8 RDW 12.9 RDW Differential 43.2 Plt Count 177 MPV 11.9 Immature Gran % (Auto) 0.800 Neut % (Auto) 83.2 H Lymph % (Auto) 9.2 L [place] % (Auto) 6.7 Eos % (Auto) 0.0 Baso % (Auto) 0.1 Absolute Neuts (auto) 16.9 H Absolute Lymphs (auto) 1.86 Total Counted Not Reportable Diff Path Review Reviewed Sodium 140 Potassium 4.0 Chloride 106 Carbon Dioxide 27.0 Anion Gap 7 BUN 22 H Creatinine 0.90 Estim Creat Clear Calc 79.75 Est GFR (MDRD) Af Amer 111 Est GFR (MDRD) Non-Af 92 BUN/Creatinine Ratio 24.5 H Glucose 115 H Calcium 8.2 L Discharge Diet: Low fat/ Low Cholesterol, 2000 mg Sodium Diet Discharge Activity: Return to Normal Activity Home Medications: Medications to take at Discharge propranolol 40 mg tablet 40 mg PO BID 03/13/18 Bupropion HCl [Bupropion HCl Sr] 300 mg PO DAILY 09/18/18 Mometasone/Formoterol [Dulera 200 Mcg/5 Mcg Inhaler] 13 gm IH DAILY 09/18/18 Benzonatate [Tessalon Perle] 200 mg PO DAILY 10/03/18 Buspirone HCl 5 mg PO BID 10/03/18 Lansoprazole 15 mg PO BID 10/03/18 Oxcarbazepine 300 mg PO BID 10/03/18 Risperidone [Risperdal] 0.5 mg PO QHS 10/03/18 Albuterol IH (ProAir) [Proair Hfa] 1 puff INHALATION Q2H PRN PRN #1 inhaler 10/05/18 Aspirin [Aspirin, Baby] 81 mg PO DAILY@0800 #30 tab.chew 10/05/18 Atorvastatin Calcium [Lipitor] 40 mg PO QHS #30 tablet 10/05/18 Clopidogrel Bisulfate [Plavix] 75 mg PO DAILY #30 tablet 10/05/18 Guaifenesin [Mucinex] 1,200 mg PO BID #20 tablet 10/05/18 Prednisone 10 mg PO UD #30 tab 10/05/18 Ipratropium/Albuterol Sulfate [Duoneb] 3 ml INHALATION Q6H #120 ampul.neb 10/07/18 Lisinopril [Zestril] 5 mg PO DAILY #30 tablet 10/07/18 Following Prescrptions Were Given to Patient: Ipratropium/Albuterol Sulfate [Duoneb] 3 ml INHALATION Q6H #120 ampul.neb Lisinopril [Zestril] 5 mg PO DAILY #30 tablet Primary Care Physician: Carlos Asif MD [Primary Care Provider] - Please follow up with your Primary Care Physician in: 1-2 weeks Please Follow Up With: Julito Alberto MD When: They will call to set up appointment Disposition: [facility] Minutes spent on discharge:: 35 Patient Condition:: Stable Medical Necessity - Tobacco Use Smoking Status: Former smoker Meaningful Use Info Meaningful Use Diagnoses (Choose all that apply): None applicable
== END 2018-10-07 11:22 | disposition home or self-care (01) ==
LOC: ED 04:07 → PCU 05:27
PROVIDERS: Physician Assistant; Admitting Provider Family Medicine; Emergency Provider Emergency Medicine; Family Provider Family Medicine; PCP Family Medicine; Visit Provider Family Medicine
DX: J44.0 Chronic obstructive pulmonary disease with (acute) lower respiratory infection (principal); J20.5 Acute bronchitis due to respiratory syncytial virus; J44.1 Chronic obstructive pulmonary disease with (acute) exacerbation; R40.2410 Glasgow coma scale score 13-15, unspecified time; R94.39 Abnormal result of other cardiovascular function study; I10 Essential (primary) hypertension; F32.9 Major depressive disorder, single episode, unspecified; Z79.899 Other long term (current) drug therapy; Z79.82 Long term (current) use of aspirin; Z91.14 Patient's other noncompliance with medication regimen; Z79.02 Long term (current) use of antithrombotics/antiplatelets; Z87.891 Personal history of nicotine dependence; F41.9 Anxiety disorder, unspecified; K21.9 Gastro-esophageal reflux disease without esophagitis
CPT/HCPCS: 36415; 71046; 80048; 82962; 84484; 85025; 93005; 94640; 96372; 96374; 96375; 96376; 97802; 99218; 99284; A4216; G0378; J2405

== ENCOUNTER 2018-11-25 08:57 | Emergency (ER) | payer MEDICAID, SELFPAY ==
[2018-10-06 06:09] VITALS: BMI 27.3
[2018-11-25 08:58] VITALS: BP 151/101; PULSE 88; RESP 16; TEMP 36.8; O2SAT 97; BMI 28.3
--- NOTE | 2018-11-25 09:14 | ED.VISSUMM ---
- ER Visit Summary Date of Service: 11/25/18 Chief Complaint: Abdominal pain History of Present Illness: The patient is a 58 M who presents with abdominal pain and vomiting that began this morning. Patient states his pain is diffuse across his abdomen. Patient states he had an emesis this morning which he thought may have been black. Patient denies any coffee-ground emesis. Patient denies any melena or hematochezia. Patient denies any fevers or chills. Patient denies any radiation of the pain. Patient states nothing seems to make the pain better or worse. Patient has a history of GERD and hiatal hernia. Physical Examination: Vital signs are stable. Patient is afebrile. Patient is in no acute distress. Oral mucosa is pink and moist. Neck is supple. Trachea is midline. There is no JVD noted. Heart was regular rate and rhythm. Lungs are clear and equal bilateral. Abdomen is soft. Bowel sounds are hypoactive. There is diffuse tenderness. There is no rebound or guarding noted. Cranial nerves II through XII are intact. There are no focal motor or sensory deficits noted. Emergency Department Course and Treatment: Patient was given IV fluids, morphine, and Zofran. CBC, comprehensive metabolic profile, and lipase were obtained. There is a mild leukocytosis of 14.2. Hemoglobin was normal. CT scan of the abdomen and pelvis was obtained. There is a hiatal hernia but no acute intra-abdominal pathology noted. Patient was still complaining of abdominal pain. Patient was given a dose of Bentyl here. Patient was given a prescription for Zofran. Patient was instructed to follow-up with his primary care physician in 5-7 days. Patient understood and was agreeable with the plan. All questions were answered. Disposition: Discharge home Impression: Abdominal pain This note was generated with [employer] dictation software. It may contain incorrect words, spelling, and punctuation that were not noted in review of the chart prior to signing ED Disposition - Plan for ED Patient: Disposition: Home or Assisted Living Diagnosis: Abdominal pain Instructions: ED Abdominal Pain Unkn Cause Prescriptions: Ondansetron [Zofran Odt] 4 mg PO Q8H PRN PRN #10 tab PRN Reason: Nausea Referrals: Carlos Asif MD [Primary Care Provider] -
[2018-11-25] MEDS: Ondansetron 4 MG/2 ML Vial IV (09:30)
[2018-11-25] MEDS: 0.9% Normal Saline 1,000 ML 1000 ML IV (09:30)
[2018-11-25 09:47] LABS: Absolute Neutrophil Count 12.7 X10^3/uL (2.0-7.7); Basophil# 0.01 X10^3/uL; Basophil% 0.1 % (0-1); Eosinophil# 0.08 X10^3/uL; Eosinophils% 0.6 % (0-5); Hematocrit 47.8 % (40-54); Hemoglobin 16.2 g/dl (13.0-16.5); Lymphocyte % 2.8 % (19-41); Mean Corp Hgb Conc 33.9 g/gl (32-36); Mean Corpuscular Hgb 31.8 pg (27.0-32.0); Mean Corpuscular Volume 93.9 fL (80-94); Mean Platelet Vol. 12.6 fl (6.2-12.0); Monocyte# 1.04 X10^3/uL; Monocyte% 7.3 % (0-10); Neutrophil # 12.67 X10^3/uL (2.7-7.7); Neutrophil % 89.1 % (47-70); Platelet Count 114 K/mm3 (150-450); RBC Distribution Width CV 12.7 % (11.6-14.6); RBC Distribution Width SD 42.4 fl (35.1-43.9); Red Blood Count 5.09 M/mm3 (4.6-6.2); White Blood Count 14.2 K/mm3 (4.4-11.0)
[2018-11-25 09:48] LABS: Differential Indicated SCAN CRITERIA MET; POSITIVE COUNT NO; POSITIVE DIFFERENTIAL YES; POSITIVE MORPHOLOGY NO
[2018-11-25 09:52] LABS: ALB/GLOB Ratio 1.2 RATIO (0.9-2.4); AST(SGOT) 24 U/L (15-37); Alanine Aminotransfer ALT/SGPT 27 U/L (16-61); Alkaline Phosphatase 168 U/L (45-117); Anion Gap 7 (5-15); BUN 16 mg/dL (7-18); BUN/Creat Ratio 16.2 RATIO (10-20); Calcium,Total 8.5 mg/dL (8.5-10.1); Chloride 105 mmol/L (98-107); Creatinine, Serum 0.99 mg/dL (0.70-1.30); EST Glomerular Filtration Rate 82 mL/min (>60); Est Glom Filt Rate - Afr Amer 99 mL/min (>60); Estimated Creatinine Clearance 69.89 ml/min; Globulin 3.3 g/dL (2.2-4.2); Glucose 153 mg/dL (74-106); Lipase 158 U/L (73-393); Potassium 3.9 mmol/L (3.5-5.1); Protein, Total 7.3 g/dL (6.4-8.2); Sodium Level 141 mmol/L (136-145)
[2018-11-25 10:01] VITALS: TEMP 37.1
--- NOTE | 2018-11-25 10:40 | CT_ITS ---
STUDY: CT ABDOMEN AND PELVIS WITHOUT CONTRAST REASON FOR EXAM: Male, 58 years old. Abdominal pain and vomiting RADIATION DOSAGE (If Supplied By Facility): CTDIvol = ( 10.65 ) mGy, DLP = ( 492.03 ) mGycm TECHNIQUE: Transaxial images were obtained from the dome of the diaphragm to the symphysis pubis without oral contrast, and without intravenous contrast. Sagittal and coronal images were reconstructed. Individualized dose optimization techniques were used for this CT. COMPARISON: None. FINDINGS: Lack of intravenous contrast limits evaluation of abdominal and pelvic organs. The visualized lung bases are unremarkable. The visualized portions of the heart are within normal limits. Normal liver. There are surgical clips in the gallbladder fossa consistent with a prior cholecystectomy. Normal spleen. Normal pancreas. Normal bilateral adrenal glands. There is a horseshoe kidney. There is a moderate hiatal hernia. Normal small intestine. Normal colon. The appendix is visualized and appears normal. There is trace atherosclerotic calcification of the abdominal aorta, without a demonstrated aneurysm. Normal inferior vena cava. Normal retroperitoneum. Urinary bladder is under distended, limiting evaluation Normal abdominal wall. Normal osseous structures. CT/Abdomen/Pelvis without Cont IMPRESSION: No acute abdominal or pelvic pathology. Moderate hiatal hernia. Electronically Signed: Albert Tam, at 11:25 EDT Tel , Service support ,
[2018-11-25] MEDS: Lansoprazole 15 MG Capsule.DR 30 MG PO (11:37)
[2018-11-25 11:39] VITALS: BP 144/107; PULSE 83; RESP 18; TEMP 37.1; O2SAT 96
[2018-11-25] MEDS: Dicyclomine 10 MG Capsule 20 MG PO (13:15)
[2018-11-25 13:18] VITALS: BP 142/86; PULSE 93; RESP 16; O2SAT 95
== END 2018-11-25 13:19 | disposition home or self-care (01) ==
PROVIDERS: Emergency Provider Emergency Medicine; Family Provider Family Medicine; PCP Family Medicine
DX: R10.9 Unspecified abdominal pain (principal); R11.2 Nausea with vomiting, unspecified; K44.9 Diaphragmatic hernia without obstruction or gangrene; K21.9 Gastro-esophageal reflux disease without esophagitis; J44.9 Chronic obstructive pulmonary disease, unspecified; I10 Essential (primary) hypertension; F32.9 Major depressive disorder, single episode, unspecified; Z79.02 Long term (current) use of antithrombotics/antiplatelets; Z79.82 Long term (current) use of aspirin; Z79.899 Other long term (current) drug therapy
CPT/HCPCS: 74176; 80053; 83690; 85025; 96361; 96374; 99284; J7030; J2405

== ENCOUNTER → 2019-11-02 07:41 | Outpatient (CLI) | payer MEDICAID, SELFPAY ==
[2018-12-17 10:16] VITALS: BMI 27.2
[2019-11-02 08:17] VITALS: BP 141/93; PULSE 91; RESP 28; TEMP 37.3; O2SAT 93; BMI 28.3
[2019-11-02 08:51] VITALS: BP 134/91; PULSE 86; RESP 22; O2SAT 93
--- NOTE | 2019-11-02 09:04 | NURSING ---
UPON INITIAL EXAMINATION PT IS JITTERY AND SLIGHTLY ANXIOUS. PT DID NOT TAKE MORNING MEDICATIONS, BUT DID BRING HIS PILL PACK WITH HIM. PT SHOWED CHANTALE GOMEZ THAT HE HAS BEEN HOLDING HIS ASPIRIN X5 DAYS. PT STATES I HAVEN'T BEEN TAKING THAT BIG WHITE ONE CHANTALE GOMEZ LOOKED AT PILL PACK WHICH SHOWED PT'S ASPIRIN AT 81MG WHICH DID NOT CORRELATE WITH LARGE WHITE PILL, BUT RATHER A SMALLER LIGHT ORANGE ONE. CHANTALE GOMEZ TOOK PT'S PILL PACK, WITH CONSENT OF PATIENT TO PHARMACY TO EVALUATE WHICH MEDICATION PT HAS NOT TAKEN FOR 5 DAYS. WITH CLINICAL PHARMACOLOGY SOFTWARE, USING MARKINGS ON THE PILL IT WAS DETERMINED THAT PATIENT STOPPED TAKING HIS LITHIUM AND HAS CONTINUED TAKING BABY ASPIRIN. CHANTALE GOMEZ TO CALL PT'S PRIMARY TO SEE IF PATIENT CAN RESTART 450MG LITHIUM CARBONATE. PT IS AWARE.
[2019-11-02 09:21] VITALS: BP 145/98; PULSE 85; RESP 20; O2SAT 93
[2019-11-02 09:28] LABS: Hematocrit 45.2 % (40-54); Hemoglobin 14.6 g/dL (13.0-16.5); Mean Corp Hgb Conc 32.3 g/dL (32-36); Mean Corpuscular Hgb 29.6 pg (27.0-32.0); Mean Corpuscular Volume 91.5 fL (80-94); Mean Platelet Vol. 12.5 fl (6.2-12.0); Platelet Count 217 K/mm3 (150-450); RBC Distribution Width CV 12.4 % (11.6-14.6); Red Blood Count 4.94 M/mm3 (4.6-6.2); White Blood Count 10.9 K/mm3 (4.4-11.0)
[2019-11-02 09:36] VITALS: BP 156/94; PULSE 86; RESP 27; O2SAT 93
[2019-11-02 09:41] LABS: International Normalized Ratio 1.2; Prothrombin Time (Protime)PT. 14.9 SECONDS (11.7-14.9)
[2019-11-02 09:42] LABS: Partial Thromboplast Time 31.8 Seconds (24.1-36.2)
[2019-11-02 09:51] VITALS: BP 146/87; PULSE 85; RESP 30; O2SAT 94
--- NOTE | 2019-11-02 10:54 | NURSING ---
CHANTALE GOMEZ CALLED DR. MORRIS'S OFFICE TO SEE IF PT COULD CONTINUE 450MG LITHIUM AND IF IT IS OK FOR PT TO STOP TAKING 81MG ASPIRIN. CHANTALE GOMEZ ALSO CALLED [facility] AND LEFT A MESSAGE ASKING FOR A CALL BACK. WHILE WAITING FOR CALLS BACK, DR. VAZQUEZ SPOKE WITH PT AND INFORMED HIM WE WOULD NOT BE ABLE TO DO THE BIOPSY TODAY DUE TO PT BEING ON [address] DR[address] VAZQUEZ ALSO STATED HE WOULD LIKE TO TALK WITH [facility] PRIOR TO DOING LUNG BIOPSY BECAUSE HE BELIEVES THERE IS AN ESOPHAGEAL MASS THAT SHOULD BE BIOPSIED FIRST. CHANTALE GOMEZ IS AT THE BEDSIDE WHILE DR. VAZQUEZ IS TALKING WITH PATIENT. PT IS CONTINUALLY INVOLUNTARILY SHAKING. PT AWARE WE ARE WAITING FOR CALLS BACK FROM DR OFFICES. DUE TO BIOPSY BEING CANCELLED, PT GIVEN YOGURT AND DIET MILLIE AND IS GIVEN HIS HOME MEDICATIONS TO TAKE EXCEPT HIS LITHIUM. THERE HAVE BEEN MULTIPLE ATTEMPTS TO CONTACT THE [facility], DR. NAIK. DR. NAIK'S OFFICE GAVE DR. GUZMAN'S NUMBER TO ATTEMPT TO CONNECT DR. VAZQUEZ WITH A [facility] HE COULD SPEAK WITH. DR. VAZQUEZ LEFT A MESSAGE FOR DR. GUZMAN TO RETURN. DR. MORRIS'S OFFICE CALLED AND INFORMED CHANTALE GOMEZ THAT PT IS ABLE TO TAKE HIS 450MG LITHIUM AND STOP HIS 81MG ASA. CHANTALE GOMEZ HAD GONE OVER WHICH PILLS WERE LITHIUM AND ASPIRIN PRIOR TO GIVING HIM HIS HOME MEDICATIONS. NURSE FROM [facility] ALSO CALLED BACK AND INFORMED PT DID TAKE HIS LITHIUM PRIOR TO DISCHARGE. PT ASSISTED TO CAR IN WHEELCHAIR AT APPROX 1000. PT HAD MULTIPLE EPISODES OF COUGHING AFTER EATING OR DRINKING, CHANTALE GOMEZ ASKED IF PT WOULD LIKE TO BE SEEN IN ED. PT DENIED. PT TOLD TO GO TO ED IF HE HAS WORSENING DIFFICULTY.
== END ==
PROVIDERS: PCP Family Medicine
DX: R91.8 Other nonspecific abnormal finding of lung field (principal); R06.02 Shortness of breath; Z53.8 Procedure and treatment not carried out for other reasons
CPT/HCPCS: 36415; 85027; 85610; 85730

== ENCOUNTER 2019-11-04 14:47 | Inpatient (IN) | payer MEDICAID, SELFPAY ==
[2019-11-02 08:17] VITALS: BMI 28.3
[2019-11-04] VITALS (12 sets, daily range): BP systolic 108–134; BP diastolic 64–84; PULSE 87–96; RESP 18–28; TEMP 36.4–37.3; O2SAT 93–96; BMI 25.9; BMI 26.6; BMI 26.7
--- NOTE | 2019-11-04 14:50 | RAD_ITS ---
EXAM DESCRIPTION: PORTABLE AP CHEST CLINICAL HISTORY: 59 years Male, cough, sob x months, copd, bronchitis, htn cough, sob x months, copd, bronchitis, htn COMPARISON: Previous CT scan of the lung bases obtained on 01/25/2019 and previous chest x-ray obtained on 10/06/2018 FINDINGS: The thorax is intact. The heart and mediastinum appear to be within normal limits. Extensive cannonball type pulmonary lesions are noted throughout the lungs bilaterally which previously were not seen on the prior chest obtained on 10/06/[address] scan of the lung bases obtained on 11/25/2018. These findings are most consistent with extensive pulmonary metastasis. RAD/Chest 1 View (Portable) IMPRESSION: Extensive pulmonary metastasis are identified. Electronically Signed: Jose Malave, at 15:44 EST Tel , Service support ,
--- NOTE | 2019-11-04 14:50 | EKG12_ITS ---
Test Reason : SOB CP Blood Pressure : / mmHG Vent. Rate : 089 BPM Atrial Rate : 089 BPM P-R Int : 136 ms QRS Dur : 084 ms QT Int : 358 ms P-R-T Axes : 076 044 043 degrees QTc Int : 435 ms Normal sinus rhythm Low voltage QRS (Limb Leads) Poor R wave progression Confirmed by MARCUS VERMA, TRISTIN ([id number]), make up editor ZITA HENDRICKS ([id number]) on 11/08/2019 10:50:43 AM Referred By: ESVIN Confirmed By:TRISTIN VELAZQUEZ MD
--- NOTE | 2019-11-04 15:21 | EKG12_ITS ---
Test Reason : SOB Blood Pressure : / mmHG Vent. Rate : 110 BPM Atrial Rate : 110 BPM P-R Int : 118 ms QRS Dur : 086 ms QT Int : 326 ms P-R-T Axes : 071 053 041 degrees QTc Int : 441 ms Sinus tachycardia Low voltage QRS (Limb Leads) Poor R- wave progression Inferior infarct , age undetermined , cannot be excluded Abnormal ECG Confirmed by MARCUS VERMA, TRISTIN ([id number]), book editor YARON VALADEZ ([id number]) on 11/10/2019 1:26:17 PM Referred By: OLIVIA Confirmed By:TRISTIN VELAZQUEZ MD
[2019-11-04] MEDS: Ipratropium/Albuterol Sulfate 3 ML AMPUL.NEB INHALATION ×2 (15:33→23:09)
[2019-11-04] MEDS: Albuterol 2.5 MG/3 ML VIAL.NEB. INHALATION ×3 (15:33→15:55)
--- NOTE | 2019-11-04 15:41 | ED.DCSUM_ITS ---
- ER Visit Summary Date of Service: 11/04/19 Chief Complaint: Shortness of breath History of Present Illness: The patient is a 59 M presenting with shortness of breath. He states the shortness of breath has been ongoing for several months but has been progressively worsening. He also has had a cough for over 2 months. He states the cough is nonproductive. He denies fever. Denies chest pain. He was seen by a director critical care who told him that she has concerns for cancer. He states he had a lung biopsy scheduled this week that was canceled. Patient states that he was not feeling well or breathing well and that is why they canceled the lung biopsy. He states he was told to come to the ED for admi ssion to tune up his COPD so he can arrange the lung biopsy. He also states he has a endoscopy scheduled for Friday. It is felt that he likely has esophageal cancer with pulmonary mets. Physical Examination: Vitals are stable. Patient is afebrile. Alert no acute distress. HEENT exam is unremarkable. Neck is supple. Lungs are diminished bilaterally. Heart is regular rate and rhythm. Abdomen is soft nontender nondistended. Extremities are unremarkable. Skin is warm and dry. No focal neurologic deficit. Remainder of exam is unremarkable. Emergency Department Course and Treatment: Patient was given Solu-Medrol IV. He was given albuterol, Atrovent aerosols. EKG is sinus rate of 89 with no acute ischemic changes. Chest x-ray shows extensive pulmonary metastases. CBC, chemistries unremarkable. Troponin is negative. D-dimer is elevated. Due to elevated d-dimer, CTA chest was obtained and shows no pulmonary embolism. Innumerable pulmonary metastases. Metastatic mediastinal lymphadenopathy. Upper abdominal retrograde lymphadenopathy. With ambulation patient became very dyspneic, his pulse ox went from 96 to 91%. Discussed with the hospitalist for admission. Disposition: Admission Impression: COPD exacerbation, pulmonary metastases This note was generated with [employer] dictation software. It may contain incorrect words, spelling, and punctuation that were not noted in review of the chart prior to signing ED Disposition - Plan for ED Patient: Referrals: Carlos Asif MD [Primary Care Provider] -
[2019-11-04 15:46] LABS: Absolute Lymphocyte Count 0.73 X10^3/uL (0.83-4.51); Absolute Neutrophil Count 8.8 X10^3/uL (2.0-7.7); Basophil# 0.04 X10^3/uL; Basophil% 0.4 % (0-1); Eosinophil# 0.13 X10^3/uL; Eosinophils% 1.2 % (0-5); Hematocrit 44.3 % (40-54); Lymphocyte # 0.73 X10^3/ul (4.0); Lymphocyte % 6.7 % (19-41); Mean Corp Hgb Conc 31.6 g/dL (32-36); Mean Corpuscular Hgb 28.8 pg (27.0-32.0); Mean Corpuscular Volume 91.2 fL (80-94); Mean Platelet Vol. 12.2 fl (6.2-12.0); Monocyte# 1.16 X10^3/uL; Monocyte% 10.6 % (0-10); NRBC Flagged by Analyzer 0 % (0-5); Neutrophil # 8.81 X10^3/uL (2.7-7.7); Neutrophil % 80.6 % (47-70); Platelet Count 225 K/mm3 (150-450); RBC Distribution Width CV 12.3 % (11.6-14.6); RBC Distribution Width SD 40.8 fl (35.1-43.9); Red Blood Count 4.86 M/mm3 (4.6-6.2); White Blood Count 10.9 K/mm3 (4.4-11.0)
[2019-11-04 15:56] LABS: Anion Gap 6 (5-15); BUN 14 mg/dL (7-18); BUN/Creat Ratio 12.1 RATIO (10-20); Calcium,Total 9.3 mg/dL (8.5-10.1); Chloride 107 mmol/L (98-107); Creatinine, Serum 1.16 mg/dL (0.70-1.30); EST Glomerular Filtration Rate 68 mL/min (>60); Est Glom Filt Rate - Afr Amer 83 mL/min (>60); Estimated Creatinine Clearance 58.91 ml/min; Glucose 83 mg/dL (74-106); Potassium 3.5 mmol/L (3.5-5.1); Sodium Level 141 mmol/L (136-145)
[2019-11-04] MEDS: MethylPREDNISolone 125 MG/2 ML Vial IV (16:12)
[2019-11-04 16:22] LABS: D-Dimer Quantitative (DVT/PE) 4.54 FEU/ug/m (0.27-0.49)
--- NOTE | 2019-11-04 16:23 | CT_ITS ---
STUDY: CTA CHEST REASON FOR EXAM: Male, 59 years old. Elevated d-dimer, cough RADIATION DOSAGE (If Supplied By Facility): CTDIvol = ( 9.39 ) mGy, DLP = ( 412.45 ) mGycm TECHNIQUE: The examination was performed with the intravenous administration of IV 100mL Isovue-370. Post-processing of the angiographic images was performed, with multiplanar reformation and 3D reconstruction. Individualized dose optimization techniques were used for this CT. COMPARISON: None. FINDINGS: There is no acute or chronic pulmonary embolism. Aorta is of normal caliber. There are innumerable pulmonary metastases. There is extensive mediastinal lymphadenopathy. Cardiac chambers are normal in size and shape. There is no pulmonary edema, pneumothorax. There is a minor left pleural effusion. Osseous structures are intact. There is hiatal hernia. There is retroperitoneal upper periaortic lymphadenopathy. CT/CTA Chest W/WO Contrast IMPRESSION: 1. No pulmonary embolism 2. Innumerable pulmonary metastases. 3. Metastatic mediastinal lymphadenopathy. 4. Upper abdominal retrograde lymphadenopathy. Electronically Signed: Cayetano Carrillo, at 17:09 EST Tel , Service support ,
--- NOTE | 2019-11-04 19:23 | HP.PCM_ITS ---
Problem List (1) COPD exacerbation Status: Acute (2) History of cholecystectomy Status: Resolved (3) History of hernia surgery Status: Resolved (4) Abnormal stress test Status: Resolved (5) Hypertension Status: Chronic (6) Depression Status: Chronic History of Present Illness Date of Admission: 11/04/19 Chief Complaint: Shortness of breath, cough. The patient is a 59 year old M who presents emergency room due to ongoing shortness of breath and cough. Patient reports this is been ongoing for several months. He went to undergo lung biopsy for lung metastasis and this was unable to be performed due to persistent coughing. Patient is a very poor historian. He states at some point over the past few months he has been on prednisone which did not help his symptoms. He denies fever, chills. He denies productive cough. Patient reports he is following with [facility] pulmonary medicine who ordered lung biopsy due to recent finding of pulmonary metastasis. He has a past medical history of chronic COPD, hypertension, former tobacco use, anxiety, depr ession, bipolar disorder, GERD. Past Medical History Past Medical History (Chronic Problems): Chronic Problems (Last Reviewed 12/17/18 @ 10:[address] Mario Bartholomew MD) Hypertension (Chronic) Depression (Chronic) Medical History: Medical History (Last Reviewed 12/17/18 @ 10:[address] Mario Bartholomew MD) Abnormal stress test (Acute) R94.39 Chest pain (Acute) R07.9 Hypertension (Chronic) I10 Depression (Chronic) F32.9 Allergies No Known Allergies Allergy (Verified 11/04/19 14:47) Home Medications: Ambulatory Orders Medication Instructions Recorded Mometasone/Formoterol [Dulera 200 13 gm IH DAILY 09/18/18 Mcg-5 Mcg Inhaler] Buspirone HCl 5 mg PO TID 10/03/18 Oxcarbazepine 300 mg PO BID 10/03/18 lithium carbonate 450 mg 450 mg PO DAILY tab 12/17/18 tablet,extended release omeprazole 40 mg capsule,delayed 40 mg PO BID cap 12/17/18 release Albuterol Sulfate [Ventolin Hfa] 1 puff INHALATION Q4H PRN 11/04/19 Aspirin [Aspirin, Baby] 81 mg PO DAILY@0800 11/04/19 Atorvastatin Calcium [Lipitor] 40 mg PO QHS 11/04/19 Ipratropium/Albuterol Sulfate 3 ml INHALATION Q6H 11/04/19 [Duoneb] Lisinopril [Zestril] 5 mg PO DAILY 11/04/19 Tiotropium [place] [Spiriva 1 puff INHALATION BID 11/04/19 Respimat] Trihexyphenidyl HCl 2 mg PO TID 11/04/19 Venlafaxine HCl [Venlafaxine HCl 150 mg PO DAILY 11/04/19 ER] Surgical History: Surgical History (Last Reviewed 12/17/18 @ 10:[address] Mario Bartholomew MD) History of cholecystectomy (Resolved) Z90.49 History of hernia surgery (Resolved) Z98.890, Z87.19 Surgical History: - - Hernia repair Psychiatric History: Anxiety, Depression Lives: Alone Smoking Status: Former smoker Alcohol: None Drugs: None - *Family History Maternal History Items: - - Denies known maternal medical history-foster child. Paternal History Items: - - Denies known biological paternal history-foster child. Review of Systems Constitutional: Denies: Chills, Fever, Weight Change HEENT: Denies: Head Aches, Sinus Congestion, Sinus Drainage Cardiovascular: Denies: Chest Pain, Palpitations Respiratory: Reports: Cough, Shortness of Breath Gastrointestinal: Denies: Abdominal Pain, Nausea, Vomiting Genitourinary: Denies: Dysuria Musculoskeletal: Denies: Joint Pain, Joint Tenderness Skin: Denies: Rash, Wounds Neurological: Denies: Numbness, Tingling, Focal weakness Psychiatric: Reports: Anxiety, Depression. Denies: Homicidal Ideations, Suicidal Ideations Hematologic/ Lymphatic: Denies: Easy Bruising, Easy Bleeding VTE Information - Inpt Only VTE Present on Admission: No VTE Mechan Device Prophylaxis: None VTE Pharm Prophylaxis ordered?: Yes - Physical Exam Vitals/I&O's: Vital Signs Temp Pulse Resp BP Pulse Ox 99.2 F H 93 28 H 134/84 H 96 11/04/19 17:19 11/04/19 17:19 11/04/19 17:19 11/04/19 17:19 11/04/19 17:19 Oxygen Flow Rate (L/min) 2 Oxygen Delivery Method Nasal Cannula Weight: 156 lb 1.396 oz Body Mass Index (BMI) 25.9 Finger Stick Blood Glucose 103 General: Alert, Oriented x3, Cooperative HEENT: Atraumatic, PERRLA, EOMI, Normocephalic Oral: Dry Mucosa Neck: Supple, No JVD, Negative Carotid Bruits Lungs: Diminished, Wheezes Cardiovascular: Regular rate, Regular Rhythm, Normal S1, Normal S2, No murmurs Abdomen: Bowel Sounds Present, Soft, Non Tender, Non-Distended Extremities: No clubbing, No cyanosis, No edema, Capillary Refill Less than 3 Seconds Skin: No rashes, No breakdown Musculoskeletal: No Tenderness to Palpation of Joints or Extremities Neurological: Cranial nerves II-XII grossly intact, Neuro grossly intact Psych/Mental Status: Normal Affect, Appropriate Laboratory Results 11/04/19 15:34: WBC 10.9, RBC 4.86, Hgb 14.0, Hct 44.3, MCV 91.2, MCH 28.8, MCHC 31.6 L, RDW Std Deviation 40.8, RDW Coeff of Willi 12.3, Plt Count 225, MPV 12.2 H , Immature Gran % (Auto) 0.500, Neut % (Auto) 80.6 H, Lymph % (Auto) 6.7 L, [place] % (Auto) 10.6 H, Eos % (Auto) 1.2, Baso % (Auto) 0.4, Absolute Neuts (auto) 8.8 H, Absolute Lymphs (auto) 0.73 L, Nucleated RBC % 0 11/04/19 15:34: Sodium 141, Potassium 3.5, Chloride 107, Carbon Dioxide 28.0, Anion Gap 6, BUN 14, Creatinine 1.16, Estim Creat Clear Calc 58.91, Est GFR (MDRD) Af Amer 83, Est GFR (MDRD) Non-Af 68, BUN/Creatinine Ratio 12.1, Glucose 83, Calcium 9.3, Troponin I < 0.015 11/04/19 15:34: D-Dimer Quant (PE/DVT) 4.54 H* Assessment/Plan All Active Problems (Last Reviewed 12/17/18 @ 10:[address] Mario Bartholomew MD) COPD exacerbation (Acute) History of cholecystectomy (Resolved) History of hernia surgery (Resolved) Abnormal stress test (Resolved) 1. Acute exacerbation of COPD-chest x-ray with lung metastasis, otherwise no acute process. Obtain respiratory panel. IV Solu-Medrol. Albuterol and DuoNeb aerosols. Continue supplement oxygen to maintain O2 at or above 90%. Ambulatory pulse ox prior to discharge. 2. Lung metastasis-lung biopsy scheduled for today however patient had taken aspirin and also had significant cough. Outpatient EGD scheduled as well given concern for primary distal esophageal cancer with lung metastasis. Chest CTA and admission shows innumerable pulmonary metastasis, metastatic mediastinal lymphadenopathy and upper abdominal retrograde lymphadenopathy. Continue outpatient evaluation as scheduled. 3. Hypertension-stable, continue lisinopril regimen. 4. History of tobacco use-encouraged continued cessation. 5. Anxiety/depression/bipolar disorder-continue bupropion, venlafaxine, oxcarbazepine, lithium regimen. 6. GERD-continue PPI. 7. Hyperlipidemia-continue statin. DVT prophylaxis-Lovenox subcu This patient was seen by JESSICA Rowland under the supervision of Dr. Polanco.
[2019-11-04] MEDS: 0.9% Normal Saline 1,000 ML 100 ML IV (21:45)
[2019-11-04] MEDS: busPIRone 5 MG Tablet PO (21:46)
[2019-11-04] MEDS: CLARIFY ORDER NOTE ×2 (21:47)
[2019-11-04] MEDS: OXcarbazepine 300 MG Tablet PO (21:47)
[2019-11-04] MEDS: Pantoprazole Sodium 40 MG Tablet PO (21:48)
[2019-11-04] MEDS: Atorvastatin Calcium 40 MG Tablet PO (21:48)
[2019-11-05] VITALS (7 sets, daily range): BP systolic 106–141; BP diastolic 68–79; PULSE 71–99; RESP 16–24; TEMP 36.6; O2SAT 89–95
[2019-11-05] MEDS: guaiFENesin 10 ML UDC (200MG/10ML) 20 ML PO (03:53)
[2019-11-05] MEDS: busPIRone 5 MG Tablet PO ×2 (05:35→13:46)
[2019-11-05] MEDS: Ipratropium/Albuterol Sulfate 3 ML AMPUL.NEB INHALATION ×3 (05:59→15:54)
[2019-11-05 08:03] LABS: Absolute Lymphocyte Count 0.27 X10^3/uL (0.83-4.51); Absolute Neutrophil Count 12.2 X10^3/uL (2.0-7.7); Eosinophil# 0.25 X10^3/uL; Eosinophils% 1.9 % (0-5); Hematocrit 43.1 % (40-54); Hemoglobin 13.7 g/dL (13.0-16.5); Lymphocyte # 0.27 X10^3/ul (4.0); Mean Corp Hgb Conc 31.8 g/dL (32-36); Mean Corpuscular Hgb 28.8 pg (27.0-32.0); Mean Corpuscular Volume 90.5 fL (80-94); Mean Platelet Vol. 12.3 fl (6.2-12.0); Monocyte# 0.45 X10^3/uL; Monocyte% 3.4 % (0-10); NRBC Flagged by Analyzer 0 % (0-5); Neutrophil # 12.24 X10^3/uL (2.7-7.7); Neutrophil % 92.5 % (47-70); POSITIVE DIFFERENTIAL YES; POSITIVE MORPHOLOGY YES; Platelet Count 225 K/mm3 (150-450); RBC Distribution Width CV 12.3 % (11.6-14.6); RBC Distribution Width SD 40.5 fl (35.1-43.9); Red Blood Count 4.76 M/mm3 (4.6-6.2); White Blood Count 13.2 K/mm3 (4.4-11.0)
[2019-11-05 08:30] LABS: Anion Gap 11 (5-15); BUN 20 mg/dL (7-18); BUN/Creat Ratio 16.3 RATIO (10-20); Calcium,Total 9.5 mg/dL (8.5-10.1); Chloride 111 mmol/L (98-107); Creatinine, Serum 1.23 mg/dL (0.70-1.30); EST Glomerular Filtration Rate 64 mL/min (>60); Est Glom Filt Rate - Afr Amer 77 mL/min (>60); Estimated Creatinine Clearance 53.48 ml/min; Glucose 159 mg/dL (74-106); Potassium 3.5 mmol/L (3.5-5.1); Sodium Level 144 mmol/L (136-145)
[2019-11-05 08:35] LABS: Differential Indicated SCAN CRITERIA MET
[2019-11-05] MEDS: Pantoprazole Sodium 40 MG Tablet PO (08:39)
[2019-11-05] MEDS: Lisinopril 5 MG Tablet PO (08:39)
[2019-11-05] MEDS: OXcarbazepine 300 MG Tablet PO (08:39)
[2019-11-05] MEDS: Venlafaxine XR 150 MG Capsule PO (08:40)
[2019-11-05 08:58] LABS: Differential Comment SCANNED; Platelet Estimate ADEQUATE (ADEQ); Platelet Morphology LARGE
--- NOTE | 2019-11-05 11:50 | CASEMGMT ---
RN JEREMIE SALESPERSON PETS AND PET SUPPLIES CM to room to meet with patient for initial transition planning/care coordination assessment. RN JEREMIE introduced self and role at [facility]. Pt voices understanding and consents to assessment at this time. Pt resting in bed. Kylee Estrada, @ bedside. Pt is A/O at this time. Care providers, pharmacy, and demographics verified/updated at this time. PCP: Dr Asif Specialists: Has been seing Dr Kim--ceramic artist. States he would like to switch to a different ceramic artist and would like to see Dr Tyler. INFORMATION SYSTEMS PROJECT MANAGER CM, Sara Sanchez made aware. Dr Joseph--psychiatrist. Pt states he also goes to the counseling center. Preferred Pharmacy: [facility] Insurance: [employer] Prescription Benefit: Yes Living Will/HPOA: does not have LW or HCPOA . Interested in more information and would like to talk with SW to complete paperwork. Provided information on advanced directives. Also given Social Service rac card with number to call if chooses in the future to utilize [facility] social work for advanced directive completion, in case SW is unable to meet with him prior to discharge. Pt voices understanding. Abi MADISON, made aware. LNOK: He states wishes to have his Kylee estrada, listed as personnel research scientist. has 5 children, but states, They don't want to have anything to do with me. Living Arrangements: Lives alone in [facility]. has 12-15 stairs to go up to get to his apartment and this has been becoming more difficult d/t breathing issues. Transportation: Pt states drives self and states no transportation concerns at this time. He states he is aware of transportation through [facility] and has used them in the past but does not like to d/t an incident he had in the past. DME: has the following DME: nebulizer. Does not have home O2. States if needs O2 @ d/c, would like [employer]. Pt states no need for further DME at this time. HHC/SNF: No history of either and denies needs. Pt wishes to return home at discharge. CM to follow for home oxygen needs and any further discharge planning/needs. Pt voices no further concerns/needs at this time. Advised pt to ask for CM if any further questions/concerns/needs arise. Voices understanding. Pt states he is frustrated and voices anxiety over being told recently that he may have cancer. Pt stated, I just need to know. They keep throwing cancer in my face and it makes me nervous. It's taking too long to find out. It's the waiting. Pt states he used to stay at a half-way until about 6-8 months ago. Pt states he goes to the counseling center and his Project Analyst is Brendan. PLAN: Home CM to follow for any home O2 needs. SW referral for AD Nara PETERSONN RN CM
[2019-11-05] MEDS: Aspirin 81 MG TAB.CHEW PO (12:20)
--- NOTE | 2019-11-05 12:22 | CASEMGMT ---
Call to Dr. Asif's CM, Dory, at this time in regards to pt. She states that she is not currently following pt but this RN CM advised her that CM should follow pt at this time. She states that she is aware of pt as the radiologist at [place] [facility] attempted to switch pt from a lung biopsy to EGD yesterday as pt kept coughing/was SOB and was unable to get biopsy at that time. She states that Dr. Back tried to write order for EGD and that pt does not currently have a assembler metal building through [facility] at this time. Dayana VILLA and Dr Tyler updated on all at this time, voice understanding. Pt had expressed to Skip KENYON CM that he would like to switch pulmonologists at this time from Dr. Huynh, so Dr. Tyler consulted at this time. Ramiro KENYON CM
--- NOTE | 2019-11-05 13:41 | CON.PCM_ITS ---
Reason for Consult Date of Consultation: 11/05/19 Reason for Consultation: Concern for metastatic lung CA History of Present Illness: The patient is a 59-year-old male, with a history as outlined below, who presented to the emergency department on November 04 with shortness of breath. The patient is currently followed by Dr. Huynh of pulmonary medicine at [facility]. The patient has an apparent history of COPD of unknown severity. He is currently being worked up on an outpatient basis for suspected metastatic lung cancer. The patient had been scheduled for a CT-guided lung biopsy. However, that procedure was aborted, as the patient never discontinued his home aspirin regimen. On presentation to the emergency department, the patient was noted to be afebrile and hemodynamically stable. He was maintaining appropriate oxygen saturations on room air. Laboratory evaluation revealed no evidence of a leukocytosis. Chemistry profile was unremarkable. D-dimer was elevated to 4.54. Therefore, a CTA chest was obtained which revealed innumerable pulmonary metastatic lesions bilaterally along with evidence of mediastinal lymphadenopathy. The patient was subsequently admitted to the hospital, where he has been maintained on scheduled bronchodilators and IV steroids. His breathing quality is essentially at its baseline. Past Medical History Past Medical History (Chronic Problems): Chronic Problems (Last Reviewed 12/17/18 @ 10:[address] Mario Bartholomew MD) Hypertension (Chronic) Depression (Chronic) Medical History: Medical History (Last Reviewed 12/17/18 @ 10:[address] Mario Bartholomew MD) Hypertension (Chronic) I10 Depression (Chronic) F32.9 Abnormal stress test (Resolved) R94.39 Allergies No Known Allergies Allergy (Verified 11/04/19 14:47) Home Medications: Ambulatory Orders Medication Instructions Recorded Mometasone/Formoterol [Dulera 200 13 gm IH DAILY 09/18/18 Mcg-5 Mcg Inhaler] Buspirone HCl 5 mg PO BID 10/03/18 Oxcarbazepine 300 mg PO BID 10/03/18 lithium carbonate 450 mg 450 mg PO DAILY tab 12/17/18 tablet,extended release omeprazole 40 mg capsule,delayed 40 mg PO BID cap 12/17/18 release Albuterol Sulfate [Ventolin Hfa] 1 puff INHALATION Q4H PRN 11/04/19 Aspirin [Aspirin, Baby] 81 mg PO DAILY@0800 02/27/20 Atorvastatin Calcium [Lipitor] 40 mg PO QHS 11/04/19 Ipratropium/Albuterol Sulfate 3 ml INHALATION Q6H 11/04/19 [Duoneb] Lisinopril [Zestril] 5 mg PO DAILY 11/04/19 Tiotropium [place] [Spiriva 1 puff INHALATION BID 11/04/19 Respimat] Trihexyphenidyl HCl 2 mg PO TID 11/04/19 Venlafaxine HCl [Venlafaxine HCl 150 mg PO DAILY 11/04/19 ER] Surgical History: Surgical History (Last Reviewed 12/17/18 @ 10:[address] Mario Bartholomew MD) History of cholecystectomy (Resolved) Z90.49 History of hernia surgery (Resolved) Z98.890, Z87.19 Surgical History: - - Hernia repair Psychiatric History: Anxiety, Depression Lives: Alone Smoking Status: Former smoker Alcohol: None Drugs: None - *Family History Maternal History Items: - - Denies known maternal medical history-foster child. Paternal History Items: - - Denies known biological paternal history-foster child. Review of Systems Constitutional: Reports: Malaise, Fatigue Eyes: Denies: Blurred vision, Double vision HEENT: Denies: Head Aches, Sinus Congestion, Sinus Drainage Cardiovascular: Denies: Chest Pain, Palpitations Respiratory: Reports: Cough, Shortness of Breath Gastrointestinal: Denies: Abdominal Pain, Nausea, Vomiting Genitourinary: Denies: Dysuria Musculoskeletal: Denies: Joint Pain, Joint Tenderness Skin: Denies: Rash, Wounds Neurological: Reports: Tremor. Denies: Focal weakness, Numbness, Tingling Psychiatric: Reports: Anxiety. Denies: Depression, Homicidal Ideations, Suicidal Ideations Hematologic/ Lymphatic: Denies: Easy Bruising, Easy Bleeding Objective: The patient's most recent lab work, culture data and imaging studies have all been personally reviewed. - Physical Exam Vitals/I&O's: Vital Signs Temp Pulse Resp BP Pulse Ox 97.9 F 90 16 141/79 H 94 11/05/19 08:34 11/05/19 10:48 11/05/19 10:48 11/05/19 08:34 11/05/19 12:22 Oxygen Flow Rate (L/min) 2 Oxygen Delivery Method Room Air Weight: 155 lb 10.342 oz Body Mass Index (BMI) 26.6 Finger Stick Blood Glucose 103 Intake and Output for Last 24 Hours 11/03/19 11/04/19 11/05/19 23:59 23:59 23:59 Intake Total 423.33 / 423.33 1166.67 / 1166.67 Balance 423.33 / 423.33 1166.67 / 1166.67 General: Alert, Cooperative, No apparent distress HEENT: Atraumatic, Normocephalic Oral: No Gingival or Mucosal Lesions/ Ulcerations Neck: Supple, No Nodes, Trachea Midline Lungs: No rhonchi, No wheeze, No rales, Diminished Cardiovascular: Regular rate, Regular Rhythm, Normal S1, Normal S2 Abdomen: Bowel Sounds Present, Soft, Non Tender Extremities: No clubbing, No cyanosis, No edema Skin: No breakdown Musculoskeletal: No Tenderness to Palpation of Joints or Extremities Lymphatic: No Cervical, Supraclavicular, or Inguinal Adenopathy Neurological: Neuro grossly intact Psych/Mental Status: Anxious Labs (Last 48 Hours) 11/04/19 11/04/19 11/04/19 15:34 15:34 15:34 WBC 10.9 RBC 4.86 Hgb 14.0 Hct 44.3 MCV 91.2 MCH 28.8 MCHC 31.6 L RDW Std Deviation 40.8 RDW Coeff of Willi 12.3 Plt Count 225 MPV 12.2 H Immature Gran % (Auto) 0.500 Neut % (Auto) 80.6 H Lymph % (Auto) 6.7 L [place] % (Auto) 10.6 H Eos % (Auto) 1.2 Baso % (Auto) 0.4 Absolute Neuts (auto) 8.8 H Absolute Lymphs (auto) 0.73 L Nucleated RBC % 0 Differential Comment Platelet Estimate Plt Morphology Comment D-Dimer Quant (PE/DVT) 4.54 H* Sodium 141 Potassium 3.5 Chloride 107 Carbon Dioxide 28.0 Anion Gap 6 BUN 14 Creatinine 1.16 Estim Creat Clear Calc 58.91 Est GFR (MDRD) Af Amer 83 Est GFR (MDRD) Non-Af 68 BUN/Creatinine Ratio 12.1 Glucose 83 Calcium 9.3 Troponin I < 0.015 11/05/19 11/05/19 07:40 07:40 WBC 13.2 H RBC 4.76 Hgb 13.7 Hct 43.1 MCV 90.5 MCH 28.8 MCHC 31.8 L RDW Std Deviation 40.5 RDW Coeff of Willi 12.3 Plt Count 225 MPV 12.3 H Immature Gran % (Auto) 0.200 Neut % (Auto) 92.5 H Lymph % (Auto) 2.0 L [place] % (Auto) 3.4 Eos % (Auto) 1.9 Baso % (Auto) 0.0 Absolute Neuts (auto) 12.2 H Absolute Lymphs (auto) 0.27 L Nucleated RBC % 0 Differential Comment SCANNED Platelet Estimate ADEQUATE Plt Morphology Comment LARGE D-Dimer Quant (PE/DVT) Sodium 144 Potassium 3.5 Chloride 111 H Carbon Dioxide 22.0 Anion Gap 11 BUN 20 H Creatinine 1.23 Estim Creat Clear Calc 53.48 Est GFR (MDRD) Af Amer 77 Est GFR (MDRD) Non-Af 64 BUN/Creatinine Ratio 16.3 Glucose 159 H Calcium 9.5 Troponin I Microbiology 11/04/19 Unknown Sputum, Expectorated/Coughed Gram Stain - Final 11/04/19 Unknown Sputum, Expectorated/Coughed Respiratory Culture - Preliminary Appears to be normal respiratory krystal. Further studies to follow. Clinical Impression(s) from Imaging Studies Chest X-Ray 11/04/19 14:50 IMPRESSION: Extensive pulmonary metastasis are identified. Electronically Signed: Jose Malave, at 15:44 EST Tel , Service support , Chest CTA 11/04/19 16:23 IMPRESSION: 1. No pulmonary embolism 2. Innumerable pulmonary metastases. 3. Metastatic mediastinal lymphadenopathy. 4. Upper abdominal retrograde lymphadenopathy. Electronically Signed: Cayetano Carrillo, at 17:09 EST Tel , Service support , Current Medications Acetaminophen (Tylenol) 650 mg PO Q6H PRN PRN PRN Reason: Pain Score 1-10/Temp > 100.7 F Al Hydroxide/Mg Hydroxide (Mylanta Ii) 30 ml PO Q6H PRN PRN PRN Reason: Gastric Burning Albuterol Sulfate (Ventolin Aerosols) 2.5 mg INHALATION Q2H PRN PRN PRN Reason: Shortness of Breath/Wheezing Albuterol/Ipratropium (Duoneb) 3 ml INHALATION Q4HWA.RT [facility] Last Admin: 11/05/19 10:48 Dose: 3 ml Documented by: Aspirin (Aspirin, Baby) 81 mg PO DAILY@0800 [facility] Last Admin: 11/05/19 12:20 Dose: 81 mg Documented by: Atorvastatin Calcium (Lipitor) 40 mg PO QHS [facility] Last Admin: 11/04/19 21:48 Dose: 40 mg Documented by: Buspirone HCl (Buspar) 5 mg PO TID [facility] Last Admin: 11/05/19 05:35 Dose: 5 mg Documented by: Enoxaparin Sodium (Lovenox) 40 mg SC DAILY [facility] Last Admin: 11/05/19 08:41 Dose: Not Given Documented by: Glucagon () 1 mg IM .X1 PRN PRN Reason: Hypoglycemia Guaifenesin (Robitussin) 20 ml PO Q4H PRN PRN PRN Reason: COUGH Last Admin: 11/05/19 03:53 Dose: 20 ml Documented by: Sodium Chloride () 250 mls @ 15 mls/hr IV .[id number] PRN PRN Reason: Saline Flush Sodium Chloride () 250 mls @ 15 mls/hr IV .[id number] PRN PRN Reason: Additional IVPB Infusion Dextrose (Dextrose 10%-Water) 250 mls @ 999 mls/hr IV .Q16M PRN; Protocol PRN Reason: HYPOGLYCEMIA Lisinopril (Zestril) 5 mg PO DAILY [facility] Last Admin: 11/05/19 08:39 Dose: 5 mg Documented by: Sutter Carbonate (Eskalith Cr) 450 mg PO DAILY [facility] Last Admin: 11/05/19 10:29 Dose: 450 mg Documented by: Magnesium Hydroxide (Milk Of Magnesia) 30 ml PO DAILY PRN PRN PRN Reason: Constipation Melatonin (Melatonin) 3 mg PO QHS PRN PRN PRN Reason: INSOMNIA Methylprednisolone (Solu-Medrol) 40 mg IV Q8 [facility] Last Admin: 11/05/19 05:35 Dose: 40 mg Documented by: Morphine Sulfate () 2 mg IV Q3H PRN PRN PRN Reason: Pain Score 6-10/10 Ondansetron HCl (Zofran) 4 mg IV Q8H PRN PRN PRN Reason: NAUSEA/VOMITING Oxcarbazepine (Trileptal) 300 mg PO BID [facility] Last Admin: 11/05/19 08:39 Dose: 300 mg Documented by: Oxycodone HCl (Oxyir) 5 mg PO Q4H PRN PRN PRN Reason: Pain Score 4-5/10 Pantoprazole Sodium (Protonix) 40 mg PO BID [facility] Last Admin: 11/05/19 08:39 Dose: 40 mg Documented by: Prochlorperazine Edisylate (Compazine Iv) 5 mg IV Q4H PRN PRN PRN Reason: Breakthrough nausea/vomiting Psyllium Hydrophilic Mucilloid (Metamucil) 1 packet PO DAILY PRN PRN PRN Reason: Constipation Senna/Docusate Sodium (Senokot-S, Brittany-Colace) 2 tablet PO BID PRN PRN PRN Reason: Constipation Sodium Chloride () 10 - 40 ml IV UD PRN PRN Reason: SALINE FLUSH Throat Lozenges (Cepacol Sore Throat Lozenge) 1 lozenge MUCOUS MEM Q2H PRN PRN PRN Reason: SORE THROAT Trihexyphenidyl HCl (Trihexyphenidyl Hcl) 2 mg PO TID [facility] Venlafaxine HCl (Effexor Xr) 150 mg PO DAILY [facility] Last Admin: 11/05/19 08:40 Dose: 150 mg Documented by: Assessment/Plan All Active Problems (Last Reviewed 12/17/18 @ 10:[address] Mario Bartholomew MD) COPD exacerbation (Acute) History of cholecystectomy (Resolved) History of hernia surgery (Resolved) Abnormal stress test (Resolved) RECOMMENDATIONS: 1. Continue bronchodilators and steroids. 2. Okay for discharge from my perspective. 3. Please schedule the patient for a follow-up office visit in the pulmonary medicine clinic next week. IMPRESSIONS: 1. Concern for metastatic lung cancer The findings noted on CTA chest are most consistent with a non-pulmonary primary malignancy with metastatic disease to the lungs. The patient was initially going to be scheduled for an outpatient CT-guided lung biopsy. However, that procedure was canceled due to the patient taking his aspirin. At this time, the patient's breathing quality is stable and he is suitable for discharge. I would recommend that he follow-up in the pulmonary medicine clinic next week, at which time we can help facilitate additional work-up of his suspected metastatic disease. Options for additional work-up include mediastinal lymph node sampling via EBUS versus percutaneous lung biopsy. We will also need to obtain the patient's pulmonary records from [facility] as well. This note was generated with Jibestream dictation software. It may contain incorrect words, spelling, and punctuation that were not noted in checking the note before signing. Code Visit Inpatient E&M: 42680 Init Hosp L2
[2019-11-05] MEDS: TRIHEXYPHENIDYL HCL 2 MG TABLET PO (13:46)
--- NOTE | 2019-11-05 14:40 | DCINST_ITS ---
You will use the following diet at home:: No restrictions Discharge Activity: Return to Normal Activity Call your doctor if you observe: Shortness of breath, Dizziness, Fainting spells, Chest pain Additional Instructions: Discontinue home aspirin regimen going forward. Allergies/Adverse Reactions: Allergies No Known Allergies Allergy (Verified 11/04/19 14:47) Medications to take at Discharge Mometasone/Formoterol [Dulera 200 Mcg-5 Mcg Inhaler] 13 gm IH DAILY 09/18/18 Buspirone HCl 5 mg PO BID 10/03/18 Oxcarbazepine 300 mg PO BID 10/03/18 lithium carbonate 450 mg tablet,extended release 450 mg PO DAILY tab 12/17/18 omeprazole 40 mg capsule,delayed release 40 mg PO BID cap 12/17/18 Albuterol Sulfate [Ventolin Hfa] 1 puff INHALATION Q4H PRN 11/04/19 Atorvastatin Calcium [Lipitor] 40 mg PO QHS 11/04/19 Ipratropium/Albuterol Sulfate [Duoneb] 3 ml INHALATION Q6H 11/04/19 Lisinopril [Zestril] 5 mg PO DAILY 11/04/19 Tiotropium [place] [Spiriva Respimat] 1 puff INHALATION BID 11/04/19 Trihexyphenidyl HCl 2 mg PO TID 11/04/19 Venlafaxine HCl [Venlafaxine HCl ER] 150 mg PO DAILY 11/04/19 Prednisone See Taper PO DAILY #30 tab 11/05/19 The following prescriptions were given: Prednisone See Taper PO DAILY #30 tab Transmission Status: Pending to [facility] [place] - [id number] Primary Care Physician: Carlos Asif MD [Primary Care Provider] - Please follow up with your Primary Care Physician in: 1 Week Test Results: Test results from this visit will be discussed in further detail at your follow- up appointment, if applicable. Please Follow Up With: Yanira Abbott NP-C When: Next week Proposed Discharge Date: 11/05/19
--- NOTE | 2019-11-05 14:43 | CASEMGMT ---
Social Work Completed Advanced Directives with pt. Pt named Kylee alejandre, as BRAIN. Copy placed in the chart. Martha Jones, social work advertising internship Dana Sheets MSW ENVIRONMENTAL EPIDEMIOLOGIST
--- NOTE | 2019-11-05 14:44 | DS.PCM_ITS ---
<Sujata Corado - Last Filed: 11/05/19 14:49> Discharge Date and Diagnosis Date of Admission: 11/04/19 Date of Discharge: 11/05/19 - Primary Discharge Diagnosis 1. Acute exacerbation of COPD 2. Lung metastasis 3. Hypertension 4. History of tobacco use 5. Anxiety/depression/bipolar disorder 6. GERD 7. Hyperlipidemia - Secondary Discharge Diagnosis Chronic Problems (Last Reviewed 12/17/18 @ 10:[address] Mario Bartholomew MD) Hypertension (Chronic) Depression (Chronic) Hospital Course and Treatment Imaging Results: Diagnostic Data Chest X-Ray 11/04/19 14:50 IMPRESSION: Extensive pulmonary metastasis are identified. Electronically Signed: Jose Malave, at 15:44 EST Tel , Service support , Chest CTA 11/04/19 16:23 IMPRESSION: 1. No pulmonary embolism 2. Innumerable pulmonary metastases. 3. Metastatic mediastinal lymphadenopathy. 4. Upper abdominal retrograde lymphadenopathy. Electronically Signed: Cayetano Carrillo, at 17:09 EST Tel , Service support , Dr. Tyler- Pulmonary medicine Operations: None Procedures: None Summary of Care Provided: The patient is a 59 year old M admitted 11/04/2019 due to shortness of breath and cough. 1. Acute exacerbation of COPD-chest x-ray with lung metastasis, otherwise no acute process. Respiratory panel negative. Prednisone taper at discharge. Continue home aerosol regimen. Ambulatory pulse ox completed and patient did not require further supplemental oxygen. Continue outpatient follow-up with pulmonary medicine as noted below. 2. Lung metastasis-lung biopsy scheduled for 11/04 however patient had taken aspirin and also had significant cough. Concern for primary distal esophageal cancer with lung metastasis. Chest CTA and admission shows innumerable pulmona ry metastasis, metastatic mediastinal lymphadenopathy and upper abdominal retrograde lymphadenopathy. Patient requested to transition from F pulmonary medicine to Dr. Tyler. Dr. Tyler consulted during admission. Patient will follow-up with Yanira Abbott NP next week to facilitate additional work-up and appropriate biopsy. Aspirin discontinued at discharge. 3. Hypertension-stable, continue lisinopril regimen. 4. History of tobacco use-encouraged continued cessation. 5. Anxiety/depression/bipolar disorder-continue bupropion, venlafaxine, oxcarbazepine, lithium regimen. 6. GERD-continue PPI. 7. Hyperlipidemia-continue statin. General: Alert, Oriented x3, Cooperative HEENT: Atraumatic, PERRLA, EOMI, Normocephalic Oral: Dry Mucosa Neck: Supple, No JVD, Negative Carotid Bruits Lungs: Diminished, Wheezes Cardiovascular: Regular rate, Regular Rhythm, Normal S1, Normal S2, No murmurs Abdomen: Bowel Sounds Present, Soft, Non Tender, Non-Distended Extremities: No clubbing, No cyanosis, No edema, Capillary Refill Less than 3 Seconds Skin: No rashes, No breakdown Musculoskeletal: No Tenderness to Palpation of Joints or Extremities Neurological: Cranial nerves II-XII grossly intact, Neuro grossly intact Psych/Mental Status: Normal Affect, Appropriate Patient seen and examined prior to discharge. Physical assessment as noted above. Patient is stable for discharge with follow up recommendations as noted above. This patient was seen by JESSICA Rowland under the supervision of Dr. Payton. - Physical Exam Vitals/I&O's: Vital Signs Temp Pulse Resp BP Pulse Ox 97.9 F 90 16 141/79 H 94 11/05/19 08:34 11/05/19 10:48 11/05/19 10:48 11/05/19 08:34 11/05/19 12:22 Oxygen Flow Rate (L/min) 2 Oxygen Delivery Method Room Air Weight: 155 lb 10.342 oz Body Mass Index (BMI) 26.6 Finger Stick Blood Glucose 103 Intake and Output for Last 24 Hours 11/03/19 11/04/19 11/05/19 23:59 23:59 23:59 Intake Total 423.33 / 423.33 1166.67 / 1166.67 Balance 423.33 / 423.33 1166.67 / 1166.67 Microbiology Past 72 Hours 11/04/19 20:00 Mucosa - Nasopharyngeal Respiratory Panel (PCR) - Final 11/04/19 Unknown Sputum, Expectorated/Coughed Gram Stain - Final 11/04/19 Unknown Sputum, Expectorated/Coughed Respiratory Culture - Preliminary Appears to be normal respiratory krystal. Further studies to follow. Laboratory Results 11/04/19 15:34: WBC 10.9, RBC 4.86, Hgb 14.0, Hct 44.3, MCV 91.2, MCH 28.8, MCHC 31.6 L, RDW Std Deviation 40.8, RDW Coeff of Willi 12.3, Plt Count 225, MPV 12.2 H , Immature Gran % (Auto) 0.500, Neut % (Auto) 80.6 H, Lymph % (Auto) 6.7 L, [place] % (Auto) 10.6 H, Eos % (Auto) 1.2, Baso % (Auto) 0.4, Absolute Neuts (auto) 8.8 H, Absolute Lymphs (auto) 0.73 L, Nucleated RBC % 0 11/04/19 15:34: Sodium 141, Potassium 3.5, Chloride 107, Carbon Dioxide 28.0, Anion Gap 6, BUN 14, Creatinine 1.16, Estim Creat Clear Calc 58.91, Est GFR (MDRD) Af Amer 83, Est GFR (MDRD) Non-Af 68, BUN/Creatinine Ratio 12.1, Glucose 83, Calcium 9.3, Troponin I < 0.015 11/04/19 15:34: D-Dimer Quant (PE/DVT) 4.54 H* 11/05/19 07:40: Sodium 144, Potassium 3.5, Chloride 111 H, Carbon Dioxide 22.0, Anion Gap 11, BUN 20 H, Creatinine 1.23, Estim Creat Clear Calc 53.48, Est GFR (MDRD) Af Amer 77, Est GFR (MDRD) Non-Af 64, BUN/Creatinine Ratio 16.3, Glucose 159 H, Calcium 9.5 11/05/19 07:40: WBC 13.2 H, RBC 4.76, Hgb 13.7, Hct 43.1, MCV 90.5, MCH 28.8, MCHC 31.8 L, RDW Std Deviation 40.5, RDW Coeff of Willi 12.3, Plt Count 225, MPV 12.3 H, Immature Gran % (Auto) 0.200, Neut % (Auto) 92.5 H, Lymph % (Auto) 2.0 L , [place] % (Auto) 3.4, Eos % (Auto) 1.9, Baso % (Auto) 0.0, Absolute Neuts (auto) 12.2 H, Absolute Lymphs (auto) 0.27 L, Nucleated RBC % 0, Differential Comment SCANNED, Platelet Estimate ADEQUATE, Plt Morphology Comment LARGE Current Medications Acetaminophen (Tylenol) 650 mg PO Q6H PRN PRN PRN Reason: Pain Score 1-10/Temp > 100.7 F Al Hydroxide/Mg Hydroxide (Mylanta Ii) 30 ml PO Q6H PRN PRN PRN Reason: Gastric Burning Albuterol Sulfate (Ventolin Aerosols) 2.5 mg INHALATION Q2H PRN PRN PRN Reason: Shortness of Breath/Wheezing Albuterol/Ipratropium (Duoneb) 3 ml INHALATION Q4HWA.RT [facility] Last Admin: 11/05/19 10:48 Dose: 3 ml Documented by: Atorvastatin Calcium (Lipitor) 40 mg PO QHS [facility] Last Admin: 11/04/19 21:48 Dose: 40 mg Documented by: Buspirone HCl (Buspar) 5 mg PO TID [facility] Last Admin: 11/05/19 13:46 Dose: 5 mg Documented by: Enoxaparin Sodium (Lovenox) 40 mg SC DAILY [facility] Last Admin: 11/05/19 08:41 Dose: Not Given Documented by: Glucagon () 1 mg IM .X1 PRN PRN Reason: Hypoglycemia Guaifenesin (Robitussin) 20 ml PO Q4H PRN PRN PRN Reason: COUGH Last Admin: 11/05/19 03:53 Dose: 20 ml Documented by: Sodium Chloride () 250 mls @ 15 mls/hr IV .[id number] PRN PRN Reason: Saline Flush Sodium Chloride () 250 mls @ 15 mls/hr IV .[id number] PRN PRN Reason: Additional IVPB Infusion Dextrose (Dextrose 10%-Water) 250 mls @ 999 mls/hr IV .Q16M PRN; Protocol PRN Reason: HYPOGLYCEMIA Lisinopril (Zestril) 5 mg PO DAILY [facility] Last Admin: 11/05/19 08:39 Dose: 5 mg Documented by: Occidental Carbonate (Eskalith Cr) 450 mg PO DAILY [facility] Last Admin: 11/05/19 10:29 Dose: 450 mg Documented by: Magnesium Hydroxide (Milk Of Magnesia) 30 ml PO DAILY PRN PRN PRN Reason: Constipation Melatonin (Melatonin) 3 mg PO QHS PRN PRN PRN Reason: INSOMNIA Methylprednisolone (Solu-Medrol) 40 mg IV Q8 [facility] Last Admin: 11/05/19 13:46 Dose: 40 mg Documented by: Morphine Sulfate () 2 mg IV Q3H PRN PRN PRN Reason: Pain Score 6-10/10 Ondansetron HCl (Zofran) 4 mg IV Q8H PRN PRN PRN Reason: NAUSEA/VOMITING Oxcarbazepine (Trileptal) 300 mg PO BID [facility] Last Admin: 11/05/19 08:39 Dose: 300 mg Documented by: Oxycodone HCl (Oxyir) 5 mg PO Q4H PRN PRN PRN Reason: Pain Score 4-5/10 Pantoprazole Sodium (Protonix) 40 mg PO BID [facility] Last Admin: 11/05/19 08:39 Dose: 40 mg Documented by: Prochlorperazine Edisylate (Compazine Iv) 5 mg IV Q4H PRN PRN PRN Reason: Breakthrough nausea/vomiting Psyllium Hydrophilic Mucilloid (Metamucil) 1 packet PO DAILY PRN PRN PRN Reason: Constipation Senna/Docusate Sodium (Senokot-S, Brittany-Colace) 2 tablet PO BID PRN PRN PRN Reason: Constipation Sodium Chloride () 10 - 40 ml IV UD PRN PRN Reason: SALINE FLUSH Throat Lozenges (Cepacol Sore Throat Lozenge) 1 lozenge MUCOUS MEM Q2H PRN PRN PRN Reason: SORE THROAT Trihexyphenidyl HCl (Trihexyphenidyl Hcl) 2 mg PO TID [facility] Last Admin: 11/05/19 13:46 Dose: 2 mg Documented by: Venlafaxine HCl (Effexor Xr) 150 mg PO DAILY [facility] Last Admin: 11/05/19 08:40 Dose: 150 mg Documented by: Discharge Diet: No Restrictions Discharge Activity: Return to Normal Activity Call your doctor if you observe: Shortness of breath, Dizziness, Fainting spells, Chest pain Home Medications: Medications to take at Discharge Mometasone/Formoterol [Dulera 200 Mcg-5 Mcg Inhaler] 13 gm IH DAILY 09/18/18 Buspirone HCl 5 mg PO BID 10/03/18 Oxcarbazepine 300 mg PO BID 10/03/18 lithium carbonate 450 mg tablet,extended release 450 mg PO DAILY tab 12/17/18 omeprazole 40 mg capsule,delayed release 40 mg PO BID cap 12/17/18 Albuterol Sulfate [Ventolin Hfa] 1 puff INHALATION Q4H PRN 11/04/19 Atorvastatin Calcium [Lipitor] 40 mg PO QHS 11/04/19 Ipratropium/Albuterol Sulfate [Duoneb] 3 ml INHALATION Q6H 11/04/19 Lisinopril [Zestril] 5 mg PO DAILY 11/04/19 Tiotropium M[place] [Spiriva Respimat] 1 puff INHALATION BID 11/04/19 Trihexyphenidyl HCl 2 mg PO TID 11/04/19 Venlafaxine HCl [Venlafaxine HCl ER] 150 mg PO DAILY 11/04/19 Prednisone See Taper PO DAILY #30 tab 11/05/19 Following Prescrptions Were Given to Patient: Prednisone See Taper PO DAILY #30 tab Transmission Status: Received by [facility] - [place] - [address] Primary Care Physician: Carlos Asif MD [Primary Care Provider] - Please follow up with your Primary Care Physician in: 1 Week Please Follow Up With: Yanira Abbott NP-C When: Next week Disposition: Home Minutes spent on discharge:: 5 Patient Condition:: Stable Medical Necessity - Tobacco Use Smoking Status: Former smoker Meaningful Use Info Meaningful Use Diagnoses (Choose all that apply): None applicable <Guillermo Payton - Last Filed: 11/05/19 16:59> Discharge Date and Diagnosis - Secondary Discharge Diagnosis Chronic Problems (Last Reviewed 12/17/18 @ 10:[address] Mario Bartholomew MD) Hypertension (Chronic) Depression (Chronic) Hospital Course and Treatment Summary of Care Provided: This patient was seen in conjunction with JESSICA Rowland . I have independently interviewed and examined the patient and reviewed pertinent historical, laboratory, and other data. Please refer to JESSICA Rowland note for details of this patient's presentation, findings, and recommendations. I have reviewed JESSICA Rowland note and concur with documented findings. In brief, patient is a-year-old gentleman with lymphadenopathy in the chest thought to be secondary to metastatic disease currently undergoing evaluation as an outpatient admitted with shortness of breath. An assessment of COPD with acute exacerbation was made admitted to monitored bed where patient was managed per protocol. Patient condition did stabilize subsequently discharged home to follow-up with PCP Hospital course; as documented above - Physical Exam Vitals/I&O's: Vital Signs Temp Pulse Resp BP Pulse Ox 97.9 F 89 20 H 138/76 H 91 11/05/19 14:34 11/05/19 14:34 11/05/19 14:34 11/05/19 14:34 11/05/19 14:34 Oxygen Flow Rate (L/min) 2 Oxygen Delivery Method Room Air Weight: 70.6 kg Body Mass Index (BMI) 26.6 Finger Stick Blood Glucose 103 Intake and Output for Last 24 Hours 11/03/19 11/04/19 11/05/19 23:59 23:59 23:59 Intake Total 423.33 / 423.33 1166.67 / 1166.67 Balance 423.33 / 423.33 1166.67 / 1166.67 Microbiology Past 72 Hours 11/04/19 20:00 Mucosa - Nasopharyngeal Respiratory Panel (PCR) - Final 11/04/19 Unknown Sputum, Expectorated/Coughed Gram Stain - Final 11/04/19 Unknown Sputum, Expectorated/Coughed Respiratory Culture - Preliminary Appears to be normal respiratory krystal. Further studies to follow. Laboratory Results 11/05/19 07:40: Sodium 144, Potassium 3.5, Chloride 111 H, Carbon Dioxide 22.0, Anion Gap 11, BUN 20 H, Creatinine 1.23, Estim Creat Clear Calc 53.48, Est GFR (MDRD) Af Amer 77, Est GFR (MDRD) Non-Af 64, BUN/Creatinine Ratio 16.3, Glucose 159 H, Calcium 9.5 11/05/19 07:40: WBC 13.2 H, RBC 4.76, Hgb 13.7, Hct 43.1, MCV 90.5, MCH 28.8, MCHC 31.8 L, RDW Std Deviation 40.5, RDW Coeff of Willi 12.3, Plt Count 225, MPV 12.3 H, Immature Gran % (Auto) 0.200, Neut % (Auto) 92.5 H, Lymph % (Auto) 2.0 L , [place] % (Auto) 3.4, Eos % (Auto) 1.9, Baso % (Auto) 0.0, Absolute Neuts (auto) 12.2 H, Absolute Lymphs (auto) 0.27 L, Nucleated RBC % 0, Differential Comment SCANNED, Platelet Estimate ADEQUATE, Plt Morphology Comment LARGE Code Visit Inpatient E&M: 44433 Disch Hosp
== END 2019-11-05 16:27 | disposition home or self-care (01) | DRG 140 ==
LOC: ED 15:51 → PCU 18:45
PROVIDERS: Admitting Provider Family Medicine; Emergency Provider Emergency Medicine; PCP Family Medicine; Visit Provider Internal Medicine
DX: J44.1 Chronic obstructive pulmonary disease with (acute) exacerbation (principal); C78.00 Secondary malignant neoplasm of unspecified lung; C15.9 Malignant neoplasm of esophagus, unspecified; I10 Essential (primary) hypertension; E78.5 Hyperlipidemia, unspecified; K21.9 Gastro-esophageal reflux disease without esophagitis; F31.9 Bipolar disorder, unspecified; F41.9 Anxiety disorder, unspecified; Z79.82 Long term (current) use of aspirin; Z79.899 Other long term (current) drug therapy; Z87.891 Personal history of nicotine dependence
CPT/HCPCS: 36415; 71045; 71275; 80048; 84484; 85025; 85027; 85379; 85610; 85730; 87070; 87205; 87633; 93005; 94640; 94760; 97802; 99251; 99285; J7030; Q9967; A4216; G0463

== ENCOUNTER 2019-11-08 09:05 | Inpatient (IN) | payer MEDICAID, SELFPAY ==
[2019-11-04 19:34] VITALS: BMI 26.6
[2019-11-08] VITALS (50 sets, daily range): BP systolic 69–234; BP diastolic 54–138; PULSE 52–124; RESP 12–72; TEMP 35.3–37.5; O2SAT 89–100; BMI 25.0; BMI 25.6; BMI 25.7
--- NOTE | 2019-11-08 09:15 | RAD_ITS ---
STUDY: X-RAY CHEST REASON FOR EXAM: Male, 59 years old. Extremely SOB, mets TECHNIQUE: Single AP portable view of the chest. COMPARISON: Comparison is made with prior examination dated November 04, 2019. FINDINGS: EKG electrodes are seen. Once again, multiple bilateral pulmonary nodules are seen with areas of confluence. There is no demonstrated pleural abnormality. Normal size heart. Soft tissue prominence is seen along the left paraspinal region. The patient is known to have a mass in the distal esophagus. Prominence of the left superior mediastinum suggestive of adenopathy. Normal visualized pulmonary arteries. Normal visualized aortic arch and descending thoracic aorta. Normal visualized thoracic spine. Normal visualized ribs, clavicles, and shoulders. There is no demonstrated abnormality of the visualized soft tissue structures of the upper abdomen. RAD/Chest 1 View (Portable) IMPRESSION: Stable examination demonstrating multiple bilateral pulmonary nodules as well as a left paraspinal mass. This corresponds to thickening of the esophagus as seen on the recent CT scan of the chest. Electronically Signed: Kenrick Hector, at 9:42 EST , Service support ,
[2019-11-08] MEDS: Ipratropium/Albuterol Sulfate 3 ML AMPUL.NEB INHALATION ×4 (09:24→23:30)
[2019-11-08] MEDS: MethylPREDNISolone 125 MG/2 ML Vial IV (09:24)
--- NOTE | 2019-11-08 09:26 | CT_ITS ---
STUDY: CTA CHEST REASON FOR EXAM: Male, 59 years old. PT UNRESPONSIVE, ACUTE RESP DISTRESS, HX OF LUNG CA RADIATION DOSAGE (If Supplied By Facility): CTDIvol = ( 12.36 ) mGy, DLP = ( 585.28 ) mGycm TECHNIQUE: The examination was performed with the intravenous administration of 100ML [id number]. Post-processing of the angiographic images was performed, with multiplanar reformation and 3D reconstruction. Individualized dose optimization techniques were used for this CT. COMPARISON: Comparison is made with prior examination dated November 04, 2019. FINDINGS: An endotracheal tube is seen. Normal enhancement of the main pulmonary artery and right and left pulmonary arteries. Normal enhancement of the bilateral peripheral pulmonary arteries. There is no demonstrated pulmonary embolism. Normal thoracic aorta and visualized great vessels. There is no demonstrated aortic dissection. There is a small pericardial effusion. Stable mediastinal lymphadenopathy and right hilar lymphadenopathy. Normal visualized trachea and bronchi. The lungs are well expanded. Once again, there is evidence of diffuse bilateral pulmonary metastasis involving both lungs. This is unchanged. Normal pleura. Normal chest wall structures. There are degenerative changes of thoracic spine. Periaortic lymphadenopathy in the upper abdomen. Diffuse circumferential thickening of the distal esophagus extending into the gastroesophageal junction. Hypodense nodule seen in the superior aspect of the right lobe of the liver suggestive of a hepatic metastasis. CT/CTA Chest W/WO Contrast IMPRESSION: Essentially stable examination with diffuse bilateral pulmonary metastasis, mediastinal and right hilar lymphadenopathy. Diffuse circumferential wall thickening of the distal esophagus extending to the gastroesophageal junction suggestive of esophageal carcinoma. Hepatic metastasis. Retroperitoneal lymphadenopathy. Electronically Signed: Kenrick Hector, at 10:06 EST , Service support ,
--- NOTE | 2019-11-08 09:30 | CPS ---
Patient placed on BiPAP. Tranfsferred to Trauma Room 2 for intubation. Patient did not tolerate the BiPAP well, saying he was Suffocating. Intubation done at 0939.
[2019-11-08] MEDS: Etomidate 20 MG/10 ML Vial IV (09:35)
[2019-11-08 09:36] LABS: Absolute Lymphocyte Count 0.77 X10^3/uL (0.83-4.51); Basophil# 0.05 X10^3/uL; Basophil% 0.3 % (0-1); Eosinophil# 0.04 X10^3/uL; Eosinophils% 0.2 % (0-5); Hematocrit 44.9 % (40-54); Hemoglobin 14.4 g/dL (13.0-16.5); Lymphocyte # 0.77 X10^3/ul (4.0); Lymphocyte % 4.8 % (19-41); Mean Corp Hgb Conc 32.1 g/dL (32-36); Mean Corpuscular Volume 90.3 fL (80-94); Mean Platelet Vol. 12.1 fl (6.2-12.0); Monocyte# 1.93 X10^3/uL; NRBC Flagged by Analyzer 0 % (0-5); Neutrophil # 12.96 X10^3/uL (2.7-7.7); Neutrophil % 80.4 % (47-70); POSITIVE COUNT YES; POSITIVE DIFFERENTIAL YES; POSITIVE MORPHOLOGY YES; Platelet Count 241 K/mm3 (150-450); RBC Distribution Width CV 12.6 % (11.6-14.6); RBC Distribution Width SD 41.5 fl (35.1-43.9); Red Blood Count 4.97 M/mm3 (4.6-6.2); White Blood Count 16.1 K/mm3 (4.4-11.0)
[2019-11-08 09:37] LABS: Differential Indicated SCAN CRITERIA MET
[2019-11-08] MEDS: Rocuronium Bromide 50 MG/5 ML Vial 100 MG IV (09:37)
--- NOTE | 2019-11-08 09:38 | ED.RN ---
AT 0938 PT GIVEN 0.1MG OF EPINEPHRINE IV PUSH. THIS ORDER COULD NOT BE ORDERED IN THE MAR, PER PHARMACY.
--- NOTE | 2019-11-08 09:44 | NURSING ---
0935 20 MG ETOMIDATE GIVEN. 37 100 MG CHRIS GIVEN. 38 1 CC EPI GIVEN. [address]
[2019-11-08 09:49] LABS: D-Dimer Quantitative (DVT/PE) 14.82 FEU/ug/m (0.27-0.49)
[2019-11-08 09:50] LABS: Anion Gap 8 (5-15); BUN 16 mg/dL (7-18); BUN/Creat Ratio 14.2 RATIO (10-20); Calcium,Total 9.2 mg/dL (8.5-10.1); Chloride 108 mmol/L (98-107); Creatinine, Serum 1.13 mg/dL (0.70-1.30); EST Glomerular Filtration Rate 70 mL/min (>60); Est Glom Filt Rate - Afr Amer 85 mL/min (>60); Estimated Creatinine Clearance 60.47 ml/min; Glucose 129 mg/dL (74-106); Potassium 3.9 mmol/L (3.5-5.1); Sodium Level 140 mmol/L (136-145)
[2019-11-08] MEDS: Propofol 10MG/Ml 1,000 MG/100 ML Bottle 4.1 MG CONT INF (09:56)
[2019-11-08 09:57] LABS: Platelet Morphology LARGE
[2019-11-08 09:58] LABS: Platelet Estimate ADEQUATE (ADEQ)
[2019-11-08 10:16] LABS: Base Excess 3 mmol/L (-2 to +2); Bicarbonate 29.1 mmol/L (22-26); Blood Gas Specimen Type ART; FI02 50; Mode A-C; O2 Delivery Device Vent; PEEP 12; PO2 132 mmHG (75-100); RR 16; SITE L Brachial; SO2 99 % (95-99); Time Given 1002; Total Carbon Dioxide 31 mmol/L; Vt 350; pCO2 55.7 mmHg (35-45); pH 7.33 (7.35-7.45)
--- NOTE | 2019-11-08 10:37 | ED.VIS.DYS ---
History of Present Illness Chief Complaint: Shortness of Breath Informant: Patient, Spouse/S.O. Narrative: Patient presenting for evaluation due to respiratory distress. Patient had a recent hospital admission due to a COPD exacerbation, he was concomitantly diagnosed as having metastatic cancer was discharged on Friday. Patient reports that he has been short of breath the entire weekend, and is presenting to the emergency department in respiratory distress. Additional history was unable to be obtained secondary to the patient's level of illness. Past Medical History - Allergies and Home Meds Allergies/Adverse Reactions: Allergies No Known Allergies Allergy (Verified 11/04/19 14:47) Primary Care Physician: Carlos Asif MD [Primary Care Provider] - Past Medical History: - - COPD, metastatic cancer Surgical History: - - Hernia repair Smoking Status: Former smoker - Family History Maternal Family History: Reports: - - Denies known maternal medical history-foster child. Paternal Family History: Reports: - - Denies known biological paternal history-foster child. Review of Systems ROS: Unable to Obtain - Secondary to respiratory distress Physical Exam Vital Signs/Narrative: Vital Signs Temp Pulse Resp BP Pulse Ox 11/08/19 10:15 87 18 172/109 H 95 11/08/19 10:13 103 H 18 94 11/08/19 10:06 120 H 16 234/138 H 92 11/08/19 10:04 123 H 16 234/138 H 91 11/08/19 09:56 109 H 16 197/99 H 97 11/08/19 09:27 96.9 F L 117 H 28 H 119/77 94 11/08/19 09:07 96.9 F L 117 H 28 H 119/77 94 General: Well nourished, Well developed, Acute Distress, - - Diaphoretic, grunting, and respiratory distress Head: Normocephalic, Atraumatic Eyes: Perrl, EOMI ENT: Moist mucous membranes Neck: Supple, Nontender, No JVD Cardiovascular: Regular rhythm, No murmurs, Tachycardia, - - 2+ radial pulses Respiratory: - - Patient is profoundly tachypneic, but does not have significantly abnormal lung sounds. No retractions. Very shallow respirations. Abdomen: Soft, Nontender, Nondistended Extremities: Nontender, No edema Skin: Normal color, - - Diaphoretic Neurological: Alert, Normal Strength, Normal Sensation Diagnostic/Tx/Re-eval Chest X-Ray - ED: 1 View, Read by ED Physician, Read by Radiologist, - - Extensive metastatic disease to the lungs, unchanged from prior study - EKG Initial EKG Interpretation: - - Sinus tachycardia with a rate of 110. Isoelectric ST segments normal T waves. No evidence of acute ischemia or arrhythmia. Inferior Q waves are noted. - Medical Decision Making Patient presented in respiratory distress. He was initially trialed on a DuoNeb breathing treatments, but did not derive any improvement. He was placed on BiPAP and was unable to tolerate this. Due to the patient's level of respiratory distress and clear lung sounds of concern for the possibility of pulmonary embolism due to his cancer and recent hospital admission. Patient was taken to the resuscitation bay, and was medicated with etomidate and rocuronium, and was intubated. Direct laryngoscopy was performed with a 7.5 ET tube that was advanced to 23 cm at the teeth with good color change and bilateral breath sounds. Patient's due to his level of concern for the possibility of cardiovascular collapse was empirically given fluids as well as a dose of push dose epinephrine, 1 cc of 10% epinephrine. Patient had some ventricular ectopy and short runs of V. tach, but did not require defibrillation or antiarrhythmics. Patient was found to have a leukocytosis and an elevated d-dimer. EKG did not show any ischemic changes. CT angiogram of the chest demonstrated the patient's cancer, but did not show any evidence of PE. Patient actually started to become hypertensive and required doses of labetalol. He was placed on propofol drip. Patient will be admitted to the intensive care unit Procedures Procedure(s): Endotracheal intubation: Patient was medicated with etomidate and rocuronium. Direct laryngoscopy was performed using a Dash 3 blade. 7.5 ET tube was visualized past the cords and was secured at 23 cm at the teeth with good color change and bilateral breath sounds. Disposition: Admit to ICU Critical care time (excluding procedures): 30-74 minutes ED Disposition - Plan for ED Patient: Disposition: Acute Care Hospital [facility] Diagnosis: Respiratory failure, Lung metastases
--- NOTE | 2019-11-08 11:05 | RAD_ITS ---
STUDY: X-RAY - ABDOMEN/PELVIS REASON FOR EXAM: Male, 59 years old. OG PLACEMENT TECHNIQUE: Single AP view of the abdomen / pelvis. COMPARISON: None. FINDINGS: The tip of the orogastric tube is in the proximal portion of the body of the stomach just distal to the gastroesophageal junction. Once again, diffuse pulmonary nodules. RAD/Abdomen Single View IMPRESSION: The tip of the orogastric tube is in the body of the stomach just distal to the gastroesophageal junction. Once again, diffuse bilateral pulmonary nodules. Electronically Signed: Kenrick Hector, at 11:31 EST , Service support ,
--- NOTE | 2019-11-08 11:05 | RAD_ITS ---
STUDY: X-RAY CHEST REASON FOR EXAM: Male, 59 years old. Respiratory failure, ET tube placement TECHNIQUE: Single AP portable view of the chest. COMPARISON: None. FINDINGS: The tip of the endotracheal tube is at 3.1 cm proximal to the kylah. EKG electrodes are seen. An orogastric tube is seen with the tip below the left hemidiaphragm. Diffuse bilateral pulmonary nodules. RAD/Chest 1 View (Portable) IMPRESSION: The tip of the endotracheal tube is at 3.1 cm proximal to the kylah. The tip of the orogastric tube is inferior to the left hemidiaphragm. Diffuse bilateral pulmonary nodules. Electronically Signed: Kenrick Hector, at 11:32 EST , Service support ,
[2019-11-08] MEDS: Midazolam 2 MG/2 ML Syringe 4 MG IV (11:28)
[2019-11-08] MEDS: Lactated Ringers 1,000 ML 75 ML IV (12:50)
[2019-11-08] MEDS: fentaNYL drip 100 ML 5 MCG IV (13:04)
--- NOTE | 2019-11-08 13:11 | PCM.NTREPORT ---
Nutrition Therapy Report - History Nutrition Services has been consulted to:: Manage enteral nutrition Current diet / nutrition support order:: NPO - Anthropometric Measurements Height:: 5 ft 5 in Weight:: 69.9 kg Body Mass Index (BMI):: 25.6 - Relevant Labs Relevant Labs:: WBC 16.1 K/mm3 (4.4-11.0) H 11/08/19 09:25 MPV 12.1 fl (6.2-12.0) H 11/08/19 09:25 Immature Gran % (Auto) 2.300 % (0.0-0.9) H 11/08/19 09:25 Neut % (Auto) 80.4 % (47-70) H 11/08/19 09:25 Lymph % (Auto) 4.8 % (19-41) L 11/08/19 09:25 [place] % (Auto) 12.0 % (0-10) H 11/08/19 09:25 Absolute Neuts (auto) 13.0 X10^3/uL (2.0-7.7) H 11/08/19 09:25 Absolute Lymphs (auto) 0.77 X10^3/uL (0.83-4.51) L 11/08/19 09:25 D-Dimer Quant (PE/DVT) 14.82 FEU/ug/m (0.27-0.49) H* 11/08/19 09:25 Chloride 108 mmol/L (98-107) H 11/08/19 09:25 Glucose 129 mg/dL (74-106) H 11/08/19 09:25 - Assessment Food / Nutrition-Related History:: Consulted for TF - pt sedated and on vent - Nutrition Diagnosis Problem / Etiology / Signs & Symptoms (PES):: Pt with inadequate oral intake r/t sedated and on vent AEB NPO status Evidence of Malnutrition Exists:: No - Nutrition Intervention Nutrition Prescription:: [id number] thom / day ; 65-75 gm pro / day - Food / Nutrient Delivery Interventions Summary of nutrition intervention:: Pt currently sedated and on vent. Is NPO day #1 - may benefit from enteral nutrition support to help prevent decline in pt nutritional status. Rec Vital AF 1.2 at goal rate 60 cc/hr with 100 cc H2O flush every 4 hours. Vital AF 1.2 can be a sole source of nutrition and is a peptide based advanced formula with ingredients to help manage inflammation and promote GI tolerance. [ End ] Nutrition support ordered as / adjusted to:: Rec Vital AF 1.2 at goal rate 60 cc/hr with 100 cc H2O flush every 4 hours to provide ~1727 thom / 108 gm pro / 1767 cc free water / day. Would start tf at 20 cc/hr and increase by 20 cc/hr every 6-8 hrs as pt tolerates until goal rate achieved. Nutrition education provided?: No - MNT Monitoring Further MNT monitoring and evaluation required?: Yes MNT Follow-up in:: 1-2 days
[2019-11-08 13:38] LABS: Phosphorus 2.2 mg/dL (2.5-4.9)
[2019-11-08 13:39] LABS: AST(SGOT) 47 U/L (15-37); Alanine Aminotransfer ALT/SGPT 35 U/L (16-61); Albumin, Serum 2.8 g/dL (3.2-5.0); Alkaline Phosphatase 161 U/L (45-117); Bilirubin, Direct 0.33 mg/dL (0.00-0.30); Globulin 4.3 g/dL (2.2-4.2); Magnesium 2.4 mg/dL (1.6-2.6); Protein, Total 7.1 g/dL (6.4-8.2)
[2019-11-08] MEDS: Lactated Ringers 1,000 ML 999 ML IV ×2 (13:45→19:17)
--- NOTE | 2019-11-08 13:53 | CON.PCM_ITS ---
Problem List (1) Respiratory failure Status: Acute Qualifiers: Chronicity: acute on chronic Respiratory failure complication: hypoxia Qualified Code(s): J96.21 - Acute and chronic respiratory failure with hypoxia (2) Lung metastases Status: Suspected Qualifiers: Laterality: unspecified laterality Qualified Code(s): C78.00 - Secondary malignant neoplasm of unspecified lung (3) History of cholecystectomy Status: Resolved (4) History of hernia surgery Status: Resolved (5) Hypertension Status: Chronic Qualifiers: Hypertension type: essential hypertension Qualified Code(s): I10 - Essential (primary) hypertension (6) Depression Status: Chronic Qualifiers: Depression Type: major depressive disorder Major depression recurrence: recurrent Active/Remission status: remission status unspecified Qualified Code(s): F33.9 - Major depressive disorder, recurrent, unspecified Reason for Consult Date of Consultation: 11/08/19 Reason for Consultation: Respiratory failure History of Present Illness: The patient is a 59 year old M, with past medical history listed below, who presented to [facility] on 11/08/2019 secondary to worsening respiratory distress. Patient reportedly was recently hospitalized due to a COPD exacerbation. During that evaluation, patient was suspected of having meta static cancer and was discharged for outpatient follow-up. Patient has reportedly been short of breath since discharge. In the ER, patient was initially trialed on aerosol therapy without improvement. Patient was placed on BiPAP therapy and was unable to tolerate. There was some concern for pulmonary embolism and patient was intubated using rapid sequence with a 7.5 endotracheal tube. Patient was empirically given fluids along with epinephrine and had some short runs of V. tach. Patient did not receive defibrillation or antiarrhythmics. Laboratory work-up showed a leukocytosis and elevated d-dimer. CT angio demonstrated persistence of multiple nodules throughout the chest, but no pulmonary emboli. Patient was given labetalol secondary to becoming hypertensive and was admitted to the intensive care unit on a propofol drip. Unable to obtain review of systems secondary to acute status and lack of family at the bedside. Patient reportedly has not discussed with his family about his recent concerns for cancer. Current discussion states the patient had been suspected of a possible esophageal tumor, but this has not been confirmed by biopsy at this time. Patient is reportedly estranged from his children, but does have a fianc?. Past Medical History Past Medical History (Chronic Problems): Chronic Problems (Last Reviewed 12/17/18 @ 10:[address] Mario Bartholomew MD) Hypertension (Chronic) Depression (Chronic) Medical History: Medical History (Last Reviewed 12/17/18 @ 10:[address] Mario Bartholomew MD) Hypertension (Chronic) I10 Depression (Chronic) F32.9 Abnormal stress test (Resolved) R94.39 Allergies No Known Allergies Allergy (Verified 11/04/19 14:47) Home Medications: Ambulatory Orders Medication Instructions Recorded Mometasone/Formoterol [Dulera 200 13 gm IH DAILY 09/18/18 Mcg-5 Mcg Inhaler] Buspirone HCl 5 mg PO TID 10/03/18 Oxcarbazepine 300 mg PO BID 10/03/18 lithium carbonate 450 mg 450 mg PO DAILY tab 12/17/18 tablet,extended release omeprazole 40 mg capsule,delayed 40 mg PO BID cap 12/17/18 release Albuterol Sulfate [Ventolin Hfa] 1 puff INHALATION Q4H PRN 11/04/19 Atorvastatin Calcium [Lipitor] 40 mg PO QHS 11/04/19 Ipratropium/Albuterol Sulfate 3 ml INHALATION Q6H 11/04/19 [Duoneb] Lisinopril [Zestril] 5 mg PO DAILY 11/04/19 Tiotropium [place] [Spiriva 1 puff INHALATION BID 11/04/19 Respimat] Trihexyphenidyl HCl 2 mg PO TID 11/04/19 Venlafaxine HCl [Venlafaxine HCl 150 mg PO DAILY 11/04/19 ER] Prednisone See Taper PO DAILY #30 tab 11/05/19 Aspirin [Aspirin, Baby] 81 mg PO DAILY@0800 11/08/19 Surgical History: Surgical History (Last Reviewed 12/17/18 @ 10:[address] Mario Bartholomew MD) History of cholecystectomy (Resolved) Z90.49 History of hernia surgery (Resolved) Z98.890, Z87.19 Surgical History: - - Hernia repair Psychiatric History: Anxiety, Depression Smoking Status: Former smoker - *Family History Maternal History Items: - - Denies known maternal medical history-foster child. Paternal History Items: - - Denies known biological paternal history-foster child. Review of Systems Unable to obtain accurate/complete ROS d/t: Intubated and sedated Patient Problems: Active and Suspected Problems (Last Reviewed 12/17/18 @ 10:[address] Mario Bartholomew MD) Respiratory failure (Acute) Lung metastases (Suspected) Objective: Imaging was personally reviewed. No PE was noted, but patient does have multiple subcentimeter and centimeter masses noted in bilateral lungs. Patient reportedly has similar type findings as an outpatient with [facility]. Patient has been seen by Dr. Bartholomew as an outpatient and was recently taken off of antiplatelet therapy. - Physical Exam Vitals/I&O's: Vital Signs Temp Pulse Resp BP Pulse Ox 37.4 C H 60 19 H 133/87 H 95 11/08/19 11:45 11/08/19 13:27 11/08/19 13:27 11/08/19 11:45 11/08/19 13:27 Oxygen Delivery Method Mechanical Ventilator Weight: 69.9 kg Body Mass Index (BMI) 25.6 Finger Stick Blood Glucose 103 Intake and Output for Last 24 Hours 11/06/19 11/07/19 11/08/19 23:59 23:59 23:59 Intake Total 10.80 / 10.80 Balance 10.80 / 10.80 General: - - Intubated and sedated. Good vent synchrony noted. HEENT: Atraumatic, PERRLA, EOMI, Normocephalic, - - No scleral icterus or injection noted Oral: Moist Mucosa, No Gingival or Mucosal Lesions/ Ulcerations, - - Significant oral secretions appreciated Neck: Supple, No JVD, No Nodes, Trachea Midline Lungs: No wheeze, No rales, Diminished, Rhonchi - Left base Cardiovascular: Regular rate, Regular Rhythm, Normal S1, Normal S2, No murmurs, No rub noted, No Gallop Abdomen: Bowel Sounds Present, Soft, Non Tender, Non-Distended Extremities: No clubbing, No cyanosis, No edema, Capillary Refill Less than 3 Seconds Skin: No rashes, No breakdown Musculoskeletal: No Tenderness to Palpation of Joints or Extremities Lymphatic: No Cervical, Supraclavicular, or Inguinal Adenopathy Neurological: Neuro grossly intact - Appropriate movement of all 4 extremities with stimulation. Sensation appears to be intact. No facial droop appreciated. Psych/Mental Status: Flat Affect Microbiology Past 72 Hours 11/08/19 13:00 Urine Catheter - Catheter Streptococcus pneumoniae Antigen (M - Final 11/08/19 13:00 Urine Catheter - Catheter Legionella Antigen - Final 11/08/19 10:02 Mucosa - Nose Influenza Types A,B Direct FA (LORI) - Final Laboratory Results 11/08/19 09:25: WBC 16.1 H, RBC 4.97, Hgb 14.4, Hct 44.9, MCV 90.3, MCH 29.0, MCHC 32.1, RDW Std Deviation 41.5, RDW Coeff of Willi 12.6, Plt Count 241, MPV 12.1 H, Immature Gran % (Auto) 2.300 H, Neut % (Auto) 80.4 H, Lymph % (Auto) 4.8 L, [place] % (Auto) 12.0 H, Eos % (Auto) 0.2, Baso % (Auto) 0.3, Absolute Neuts (auto) 13.0 H, Absolute Lymphs (auto) 0.77 L, Nucleated RBC % 0, Diff Path Review May , Platelet Estimate ADEQUATE, Plt Morphology Comment LARGE 11/08/19 09:25: D-Dimer Quant (PE/DVT) 14.82 H* 11/08/19 09:25: Sodium 140, Potassium 3.9, Chloride 108 H, Carbon Dioxide 24.0, Anion Gap 8, BUN 16, Creatinine 1.13, Estim Creat Clear Calc 60.47, Est GFR (MDRD) Af Amer 85, Est GFR (MDRD) Non-Af 70, BUN/Creatinine Ratio 14.2, Glucose 129 H, Calcium 9.2, Troponin I 0.027 11/08/19 09:25: Magnesium 2.4, Total Bilirubin 1.00, Direct Bilirubin 0.33 H, AST 47 H, ALT 35, Alkaline Phosphatase 161 H, Total Protein 7.1, Albumin 2.8 L, Globulin 4.3 H 11/08/19 09:25: Phosphorus 2.2 L 11/08/19 10:08: Specimen Type ART, Sample Site L Brachial, pH 7.33 L, Bicarbon ate Actual 29.1 H, POC Total CO2 31, Base Excess 3 H, O2 Saturation 99, O2 % 50, ABG pCO2 55.7 H, ABG pO2 132 H, Respiration Rate 16, O2 Delivery Device Vent, Vent Mode A-C, Tidal Volume 350, POC PEEP 12, Blood Gas Notified Whom ED MD, Blood Gas Notified Time 1002 11/08/19 12:55: Lactic Acid 2.0 11/08/19 13:00: MRSA (PCR) Pending Current Medications Albuterol/Ipratropium (Duoneb) 3 ml INHALATION Q4H.RT ASAEL Enoxaparin Sodium (Lovenox) 40 mg SC DAILY ASAEL Propofol (Diprivan) 1,000 mg in 100 mls @ 4.082 mls/hr CONT INF .Q12H ASAEL; Protocol Last Titration: 11/08/19 12:05 Dose: 10 mcg/kg/min, 4.1 mls/hr Documented by: Sodium Chloride () 1,000 mls @ 120 mls/hr IV .[id number] ASAEL Piperacillin Sod/Tazobactam (Sod 3.375 gm/ Sodium Chloride) 50 mls @ 12.5 mls/hr IV Q8 ASAEL Sodium Chloride () 250 mls @ 15 mls/hr IV .[id number] PRN PRN Reason: Saline Flush Sodium Chloride () 250 mls @ 15 mls/hr IV .[id number] PRN PRN Reason: Additional IVPB Infusion Fentanyl () 100 mls @ 5 mls/hr IV UD ASAEL; Protocol Last Admin: 11/08/19 13:04 Dose: 50 mcg/hr, 5 mls/hr Documented by: Lactated Ringer's () 1,000 mls @ 75 mls/hr IV .[id number] ASAEL Sodium Chloride () 10 - 40 ml IV UD PRN PRN Reason: SALINE FLUSH Clinical Impression(s) from Imaging Studies Chest X-Ray 11/08/19 09:15 IMPRESSION: Stable examination demonstrating multiple bilateral pulmonary nodules as well as a left paraspinal mass. This corresponds to thickening of the esophagus as seen on the recent CT scan of the chest. Electronically Signed: Kenrick Hector, at 9:42 EST , Service support , Chest CTA 11/08/19 09:26 IMPRESSION: Essentially stable examination with diffuse bilateral pulmonary metastasis, mediastinal and right hilar lymphadenopathy. Diffuse circumferential wall thickening of the distal esophagus extending to the gastroesophageal junction suggestive of esophageal carcinoma. Hepatic metastasis. Retroperitoneal lymphadenopathy. Electronically Signed: Kenrick Joneslashellcristofer, at 10:06 EST , Service support , Chest X-Ray 11/08/19 11:05 IMPRESSION: The tip of the endotracheal tube is at 3.1 cm proximal to the kylah. The tip of the orogastric tube is inferior to the left hemidiaphragm. Diffuse bilateral pulmonary nodules. Electronically Signed: Kenrick Lovealeksandr, at 11:32 EST , Service support , KUB X-Ray 11/08/19 11:05 IMPRESSION: The tip of the orogastric tube is in the body of the stomach just distal to the gastroesophageal junction. Once again, diffuse bilateral pulmonary nodules. Electronically Signed: Kenrick Krunal, at 11:31 EST , Service support , Assessment/Plan Active and Suspected Problems (Last Reviewed 12/17/18 @ 10:[address] Mario Bartholomew MD) Respiratory failure (Acute) Lung metastases (Suspected) RECOMMENDATIONS: 1. Initiate broad-spectrum antibiotics, steroids and bronchodilators 2. Review CT scan with radiology and possible upper endoscopy 3. Panculture. Sepsis protocol 4. Wean PEEP as tolerated 5. Possible need for central line IMPRESSIONS: 1. Acute hypoxic respiratory failure secondary to possible pneumonia Patient does have some rhonchi at the left base. Interpretation of the CT scan is difficult given multiple nodules consistent with a non-pulmonary primary malignancy. Patient does not have a PE noted on CT scan. Reasonable to initiate healthcare associated antibiotics, steroids and bronchodilators at this time. Continue to wean PEEP as tolerated. Spontaneous awakening and breathing trials per protocol. Okay to add fentanyl drip if necessary to help with ventilator synchrony. 2. Probable metastatic cancer Exact etiology is unclear at this time. Patient does have multiple pulmonary nodules in a pattern consistent with metastatic disease. Patient reportedly did have some thickening of the esophagus. Confirmation of metastatic disease may change goals of therapy. 3. Nonsustained V. tach Patient did have some episodes of nonsustained V. tach following epinephrine in the ER. We will continue with telemetry. Would hold off on amiodarone at this time. Patient does have a cardiac history and has seen Dr. Bartholomew in the past. 4. Probable severe sepsis Patient has been noted to have leukocytosis and tachypnea. Panculture has been ordered. We will bolus as indicated. Cannot exclude the need for pressor therapy. Initiate empiric healthcare associated antibiotics. Obtain MRSA nasal swab. If positive, initiation of vancomycin would be appropriate. 5. Hypertension/hyperlipidemia/COPD/possible psychiatric illness Complicates care, management, recovery and prognosis. Patient does have lithium on his outpatient medications indicating possible bipolar disorder. This cannot be confirmed at this time. Hold antihypertensive medications given concern for hypotension. Patient is on omeprazole twice daily, but no history of GI bleed at this time. TIME: 45 minutes critical care time spent addressing patient's acute hypoxic respiratory failure, possible severe sepsis, review of all data and collaboration with care team (12:15 PM to 2:15 PM) Code Visit 9xxxx: [id number] Critical care first hour
--- NOTE | 2019-11-08 14:55 | PCM.CONS.GEN ---
Reason for Consult Date of Consultation: 11/08/19 History of Present Illness: The patient is a 59 year old M initially was found to have multiple masses in bilateral lungs and was planning to get a CT-guided biopsy however he came into the ER due to shortness of breath. Patient is currently intubated in the ICU. CT of the chest shows multiple lung masses likely metastatic along with a possible distal esophageal thickening. Patient is intubated and sedated unable to provide history. Patient significant other is his person of contact according to his physical optics teacher as he is estranged from his kids. Significant other, Kylee, states that patient would like a biopsy has he previously wanted 1 of his lung masses, EGD requested. Past Medical History Past Medical History (Chronic Problems): Chronic Problems (Last Reviewed 12/17/18 @ 10:[address] Mario Bartholomew MD) Hypertension (Chronic) Depression (Chronic) Medical History: Medical History (Last Reviewed 12/17/18 @ 10:[address] Mario Bartholomew MD) Hypertension (Chronic) I10 Depression (Chronic) F32.9 Abnormal stress test (Resolved) R94.39 Allergies No Known Allergies Allergy (Verified 11/04/19 14:47) Home Medications: Ambulatory Orders Medication Instructions Recorded Mometasone/Formoterol [Dulera 200 13 gm IH DAILY 09/18/18 Mcg-5 Mcg Inhaler] Buspirone HCl 5 mg PO TID 10/03/18 Oxcarbazepine 300 mg PO BID 10/03/18 lithium carbonate 450 mg 450 mg PO DAILY tab 12/17/18 tablet,extended release omeprazole 40 mg capsule,delayed 40 mg PO BID cap 12/17/18 release Albuterol Sulfate [Ventolin Hfa] 1 puff INHALATION Q4H PRN 11/04/19 Atorvastatin Calcium [Lipitor] 40 mg PO QHS 11/04/19 Ipratropium/Albuterol Sulfate 3 ml INHALATION Q6H 11/04/19 [Duoneb] Lisinopril [Zestril] 5 mg PO DAILY 11/04/19 Tiotropium [place] [Spiriva 1 puff INHALATION BID 11/04/19 Respimat] Trihexyphenidyl HCl 2 mg PO TID 11/04/19 Venlafaxine HCl [Venlafaxine HCl 150 mg PO DAILY 11/04/19 ER] Prednisone See Taper PO DAILY #30 tab 11/05/19 Aspirin [Aspirin, Baby] 81 mg PO DAILY@0800 11/08/19 Surgical History: Surgical History (Last Reviewed 12/17/18 @ 10:[address] Mario Bartholomew MD) History of cholecystectomy (Resolved) Z90.49 History of hernia surgery (Resolved) Z98.890, Z87.19 Surgical History: - - Hernia repair Psychiatric History: Anxiety, Depression Smoking Status: Former smoker - *Family History Maternal History Items: - - Denies known maternal medical history-foster child. Paternal History Items: - - Denies known biological paternal history-foster child. Review of Systems Unable to obtain accurate/complete ROS d/t: Patient intubated and sedated and unable to obtain Patient Problems: Active and Suspected Problems (Last Reviewed 12/17/18 @ 10:[address] Mario Bartholomew MD) Respiratory failure (Acute) Lung metastases (Suspected) - Physical Exam Vitals/I&O's: Vital Signs Temp Pulse Resp BP Pulse Ox 99.3 F H 60 19 H 133/87 H 95 11/08/19 11:45 11/08/19 13:27 11/08/19 13:27 11/08/19 11:45 11/08/19 13:27 Oxygen Delivery Method Mechanical Ventilator Weight: 154 lb 1.65 oz Body Mass Index (BMI) 25.6 Finger Stick Blood Glucose 103 Intake and Output for Last 24 Hours 11/06/19 11/07/19 11/08/19 23:59 23:59 23:59 Intake Total 79.55 / 79.55 Balance 79.55 / 79.55 General: - - Sedated HEENT: - - ET tube in place Lungs: Clear to auscultation - Anteriorly Cardiovascular: Regular rate Abdomen: Soft, Non-Distended Extremities: No clubbing, No cyanosis Neurological: - - Sedated Microbiology Past 72 Hours 11/08/19 13:00 Urine Catheter - Catheter Streptococcus pneumoniae Antigen (M - Final 11/08/19 13:00 Urine Catheter - Catheter Legionella Antigen - Final 11/08/19 10:02 Mucosa - Nose Influenza Types A,B Direct FA (LORI) - Final Laboratory Results 11/08/19 09:25: WBC 16.1 H, RBC 4.97, Hgb 14.4, Hct 44.9, MCV 90.3, MCH 29.0, MCHC 32.1, RDW Std Deviation 41.5, RDW Coeff of Willi 12.6, Plt Count 241, MPV 12.1 H, Immature Gran % (Auto) 2.300 H, Neut % (Auto) 80.4 H, Lymph % (Auto) 4.8 L, [place] % (Auto) 12.0 H, Eos % (Auto) 0.2, Baso % (Auto) 0.3, Absolute Neuts (auto) 13.0 H, Absolute Lymphs (auto) 0.77 L, Nucleated RBC % 0, Diff Path Review May foll, Platelet Estimate ADEQUATE, Plt Morphology Comment LARGE 11/08/19 09:25: D-Dimer Quant (PE/DVT) 14.82 H* 11/08/19 09:25: Sodium 140, Potassium 3.9, Chloride 108 H, Carbon Dioxide 24.0, Anion Gap 8, BUN 16, Creatinine 1.13, Estim Creat Clear Calc 60.47, Est GFR (MDRD) Af Amer 85, Est GFR (MDRD) Non-Af 70, BUN/Creatinine Ratio 14.2, Glucose 129 H, Calcium 9.2, Troponin I 0.027 11/08/19 09:25: Magnesium 2.4, Total Bilirubin 1.00, Direct Bilirubin 0.33 H, AST 47 H, ALT 35, Alkaline Phosphatase 161 H, Total Protein 7.1, Albumin 2.8 L, Globulin 4.3 H 11/08/19 09:25: Phosphorus 2.2 L 11/08/19 10:08: Specimen Type ART, Sample Site L Brachial, pH 7.33 L, Bicarbonate Actual 29.1 H, POC Total CO2 31, Base Excess 3 H, O2 Saturation 99, O2 % 50, ABG pCO2 55.7 H, ABG pO2 132 H, Respiration Rate 16, O2 Delivery Device Vent, Vent Mode A-C, Tidal Volume 350, POC PEEP 12, Blood Gas Notified Whom ED , Blood Gas Notified Time 1002 11/08/19 12:55: Lactic Acid 2.0 11/08/19 13:00: MRSA (PCR) Pending Current Medications Albuterol/Ipratropium (Duoneb) 3 ml INHALATION Q4H.RT ASAEL Last Admin: 11/08/19 14:37 Dose: 3 ml Documented by: Enoxaparin Sodium (Lovenox) 40 mg SC DAILY ASAEL Propofol (Diprivan) 1,000 mg in 100 mls @ 4.082 mls/hr CONT INF .Q12H ASAEL; Protocol Last Titration: 11/08/19 12:05 Dose: 10 mcg/kg/min, 4.1 mls/hr Documented by: Piperacillin Sod/Tazobactam (Sod 3.375 gm/ Sodium Chloride) 50 mls @ 12.5 mls/hr IV Q8 ASAEL Last Admin: 11/08/19 14:15 Dose: 12.5 mls/hr Documented by: Sodium Chloride () 250 mls @ 15 mls/hr IV .[id number] PRN PRN Reason: Saline Flush Sodium Chloride () 250 mls @ 15 mls/hr IV .[id number] PRN PRN Reason: Additional IVPB Infusion Fentanyl () 100 mls @ 5 mls/hr IV UD ASAEL; Protocol Last Admin: 11/08/19 13:04 Dose: 50 mcg/hr, 5 mls/hr Documented by: Lactated Ringer's () 1,000 mls @ 75 mls/hr IV .[id number] ASAEL Last Infusion: 11/08/19 14:53 Dose: 75 mls/hr Documented by: Lactated Ringer's () 1,000 mls @ 999 mls/hr IV .Q1H1M ASAEL Stop: 11/08/19 15:10 Last Admin: 11/08/19 13:45 Dose: 999 mls/hr Documented by: Sodium Chloride () 10 - 40 ml IV UD PRN PRN Reason: SALINE FLUSH Assessment/Plan All Active Problems (Last Reviewed 12/17/18 @ 10:[address] Mario Bartholomew MD) COPD exacerbation (Acute) Respiratory failure (Acute) History of cholecystectomy (Resolved) History of hernia surgery (Resolved) Abnormal stress test (Resolved) 59-year-old male with likely metastatic disease throughout the lungs and lower esophageal thickening/mass seen on CT request for EGD for diagnosis I have discussed the above with the patient. I have offered the patient EGD for evaluation. I have explained the risks/benefits of the procedure and described the procedure. I have discussed the risks with the patient, including but not limited to: infection, bleeding, perforation of the GI tract requiring emergency surgery, inability to complete the procedure, injury to any internal organs, complications of anesthesia, etc. - the patient's significant other, Kylee, understands and agrees to proceed. Pt currently intubated on the vent patient's missing persons investigator through his physical optics teacher is Kyleeterrence Shay who is his significant other as he is estranged from his kids. Did discuss the procedure with her including risk and she was agreeable to proceed. Yue Barker M.D. Pager: [phone] [facility] [address] [place] [address], [facility], [address] [place] [address] Office: [phone] Code Visit Inpatient E&M: 50854 Init Hosp L2
--- NOTE | 2019-11-08 15:42 | HP.PCM_ITS ---
Problem List (1) Respiratory failure Status: Acute Qualifiers: Chronicity: acute on chronic Respiratory failure complication: hypoxia Qualified Code(s): J96.21 - Acute and chronic respiratory failure with hypoxia History of Present Illness Date of Admission: 11/08/19 Chief Complaint: Acute hypoxic and hypercapnic respiratory failure The patient is a 59 year old M presented to the emergency room at [facility] with chief complaint of shortness of breath, patient was in respiratory distress and was intubated shortly after being seen in the emergency room. Review of systems was unobtainable from the patient due to the fact that he is now on the ventilator. Information obtained for this history and physical is obtained from the medical record. Labs were obtained, white blood cell count was elevated at 16.1, d-dimer was elevated at 14.82, chemistry profile was unremarkable, lactic acid was 2. Patient's blood gas on the vent shows a pH of 7.33, PCO2 of 55.7, PO2 of 132- this is on a vent setting of 50% oxygen. Patient had a CTA of his chest which showed no evidence of pulmonary emboli, widespread metastases were noted on CTA. Circumferential thickening of the distal esophagus was noted to be present. There is also a nodule noted in the superior aspect of the right lobe of the liver suggestive of hepatic metastases. Patient was transferred to ICU, he will be seen by critical care, due to the abnormality of the distal esophagus, I have consulted general surgery to perform an EGD if possible so that we can have a diagnosis. I went over things with the patient's significant other and she has consented to the EGD on the patient, patient is estranged from his children and does not talk with them. Past Medical History Past Medical History (Chronic Problems): Chronic Problems (Last Reviewed 12/17/18 @ 10:[address] Mario Bartholomew MD) Hypertension (Chronic) Depression (Chronic) Medical History: Medical History (Last Reviewed 12/17/18 @ 10:[address] Mario Bartholomew MD) Hypertension (Chronic) I10 Depression (Chronic) F32.9 Abnormal stress test (Resolved) R94.39 Allergies No Known Allergies Allergy (Verified 11/04/19 14:47) Home Medications: Ambulatory Orders Medication Instructions Recorded Mometasone/Formoterol [Dulera 200 13 gm IH DAILY 09/18/18 Mcg-5 Mcg Inhaler] Buspirone HCl 5 mg PO TID 10/03/18 Oxcarbazepine 300 mg PO BID 10/03/18 lithium carbonate 450 mg 450 mg PO DAILY tab 12/17/18 tablet,extended release omeprazole 40 mg capsule,delayed 40 mg PO BID cap 12/17/18 release Albuterol Sulfate [Ventolin Hfa] 1 puff INHALATION Q4H PRN 11/04/19 Atorvastatin Calcium [Lipitor] 40 mg PO QHS 11/04/19 Ipratropium/Albuterol Sulfate 3 ml INHALATION Q6H 11/04/19 [Duoneb] Lisinopril [Zestril] 5 mg PO DAILY 11/04/19 Tiotropium [place] [Spiriva 1 puff INHALATION BID 11/04/19 Respimat] Trihexyphenidyl HCl 2 mg PO TID 11/04/19 Venlafaxine HCl [Venlafaxine HCl 150 mg PO DAILY 11/04/19 ER] Prednisone See Taper PO DAILY #30 tab 11/05/19 Aspirin [Aspirin, Baby] 81 mg PO DAILY@0800 11/08/19 Surgical History: Surgical History (Last Reviewed 12/17/18 @ 10:[address] Mario Bartholomew MD) History of cholecystectomy (Resolved) Z90.49 History of hernia surgery (Resolved) Z98.890, Z87.19 Surgical History: - - Hernia repair Psychiatric History: Anxiety, Bipolar, Depression Lives: Spouse/ Significant Other Smoking Status: Former smoker Tobacco Use: Non-smoker Alcohol: None Drugs: None - *Family History Maternal History Items: - - Denies known maternal medical history-foster child. Paternal History Items: - - Denies known biological paternal history-foster child. Review of Systems Comment: Only on the ventilator at this time and is under sedation. VTE Information - Inpt Only VTE Present on Admission: No VTE Mechan Device Prophylaxis: None VTE Pharm Prophylaxis ordered?: Yes Patient Problems: Active and Suspected Problems (Last Reviewed 12/17/18 @ 10:[address] Mario Bartholomew MD) Respiratory failure (Acute) Lung metastases (Suspected) - Physical Exam Vitals/I&O's: Vital Signs Temp Pulse Resp BP Pulse Ox 99.3 F H 59 L 20 H 133/87 H 97 11/08/19 11:45 11/08/19 14:35 11/08/19 14:35 11/08/19 11:45 11/08/19 14:35 Oxygen Delivery Method Mechanical Ventilator Weight: 69.9 kg Body Mass Index (BMI) 25.6 Finger Stick Blood Glucose 103 Intake and Output for Last 24 Hours 11/06/19 11/07/19 11/08/19 23:59 23:59 23:59 Intake Total 1079.55 / 1079.55 Balance 1079.55 / 1079.55 General: - - Patient is sedated and on the ventilator at this time HEENT: Atraumatic, Normocephalic Oral: Moist Mucosa Neck: Supple, No JVD, Negative Carotid Bruits, Trachea Midline, Thyroid Normal Size and Texture Lungs: Clear to auscultation, Normal air movement, No rhonchi, No wheeze, No rales Cardiovascular: Regular rate, Regular Rhythm, Normal S1, Normal S2, No murmurs, PMI Normal, No rub noted Abdomen: Bowel Sounds Present, Soft, Non Tender, Non-Distended Extremities: No clubbing, No cyanosis, No edema, Capillary Refill Less than 3 Seconds Skin: No rashes, No breakdown Neurological: Cranial nerves II-XII grossly intact, Neuro grossly intact Psych/Mental Status: - - Patient is sedated and on the ventilator at this time Microbiology Past 72 Hours 11/08/19 13:00 Urine Catheter - Catheter Streptococcus pneumoniae Antigen (M - Final 11/08/19 13:00 Urine Catheter - Catheter Legionella Antigen - Final 11/08/19 10:02 Mucosa - Nose Influenza Types A,B Direct FA (LORI) - Final Laboratory Results 11/08/19 09:25: WBC 16.1 H, RBC 4.97, Hgb 14.4, Hct 44.9, MCV 90.3, MCH 29.0, MCHC 32.1, RDW Std Deviation 41.5, RDW Coeff of Willi 12.6, Plt Count 241, MPV 12.1 H, Immature Gran % (Auto) 2.300 H, Neut % (Auto) 80.4 H, Lymph % (Auto) 4.8 L, [place] % (Auto) 12.0 H, Eos % (Auto) 0.2, Baso % (Auto) 0.3, Absolute Neuts (auto) 13.0 H, Absolute Lymphs (auto) 0.77 L, Nucleated RBC % 0, Diff Path Review May foll, Platelet Estimate ADEQUATE, Plt Morphology Comment LARGE 11/08/19 09:25: D-Dimer Quant (PE/DVT) 14.82 H* 11/08/19 09:25: Sodium 140, Potassium 3.9, Chloride 108 H, Carbon Dioxide 24.0, Anion Gap 8, BUN 16, Creatinine 1.13, Estim Creat Clear Calc 60.47, Est GFR (MDRD) Af Amer 85, Est GFR (MDRD) Non-Af 70, BUN/Creatinine Ratio 14.2, Glucose 129 H, Calcium 9.2, Troponin I 0.027 11/08/19 09:25: Magnesium 2.4, Total Bilirubin 1.00, Direct Bilirubin 0.33 H, AST 47 H, ALT 35, Alkaline Phosphatase 161 H, Total Protein 7.1, Albumin 2.8 L, Globulin 4.3 H 11/08/19 09:25: Phosphorus 2.2 L 11/08/19 10:08: Specimen Type ART, Sample Site L Brachial, pH 7.33 L, Bicarbonate Actual 29.1 H, POC Total CO2 31, Base Excess 3 H, O2 Saturation 99, O2 % 50, ABG pCO2 55.7 H, ABG pO2 132 H, Respiration Rate 16, O2 Delivery Device Vent, Vent Mode A-C, Tidal Volume 350, POC PEEP 12, Blood Gas Notified Whom ED MD, Blood Gas Notified Time 1002 11/08/19 12:55: Lactic Acid 2.0 11/08/19 13:00: MRSA (PCR) Pending Current Medications Albuterol/Ipratropium (Duoneb) 3 ml INHALATION Q4H.RT ASAEL Last Admin: 11/08/19 14:37 Dose: 3 ml Documented by: Enoxaparin Sodium (Lovenox) 40 mg SC DAILY ASAEL Propofol (Diprivan) 1,000 mg in 100 mls @ 4.082 mls/hr CONT INF .Q12H ASAEL; Protocol Last Titration: 11/08/19 12:05 Dose: 10 mcg/kg/min, 4.1 mls/hr Documented by: Piperacillin Sod/Tazobactam (Sod 3.375 gm/ Sodium Chloride) 50 mls @ 12.5 mls/hr IV Q8 ASAEL Last Admin: 11/08/19 14:15 Dose: 12.5 mls/hr Documented by: Sodium Chloride () 250 mls @ 15 mls/hr IV .[id number] PRN PRN Reason: Saline Flush Sodium Chloride () 250 mls @ 15 mls/hr IV .[id number] PRN PRN Reason: Additional IVPB Infusion Fentanyl () 100 mls @ 5 mls/hr IV UD ASAEL; Protocol Last Admin: 11/08/19 13:04 Dose: 50 mcg/hr, 5 mls/hr Documented by: Lactated Ringer's () 1,000 mls @ 75 mls/hr IV .[id number] ASAEL Last Infusion: 11/08/19 14:53 Dose: 75 mls/hr Documented by: Sodium Chloride () 10 - 40 ml IV UD PRN PRN Reason: SALINE FLUSH Assessment/Plan All Active Problems (Last Reviewed 12/17/18 @ 10:[address] Mario Bartholomew MD) COPD exacerbation (Acute) Respiratory failure (Acute) History of cholecystectomy (Resolved) History of hernia surgery (Resolved) Abnormal stress test (Resolved) #1 acute combined respiratory failure-etiology unclear at this point, patient was admitted to ICU, he will be seen by critical care, I placed the patient on Zosyn out of concern for healthcare acquired pneumonia. 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 #3 probable severe sepsis-again patient was placed on Zosyn and blood cultures were obtained. #4 bipolar disorder #5 hyperlipidemia #6 chronic obstructive pulmonary disease Code Visit Inpatient E&M: 60959 Init Hosp L3
--- NOTE | 2019-11-08 16:02 | CHAPLAIN ---
Type of Pastoral Visit _x__ Initial Visit ___ Follow-up Visit ___ On-call Visit ___ General Patient Visit ___ Spiritual Assessment ___ Family Conference ___ Bereavement ___ Rapid Response ___ Code Blue ___ Other (describe below) Pastoral Care Referral From ___ Patient _x__ Family _x__ Nurse _x__ Physician ___ Coal Hauler Operator ___ Fruit Washer ___ Other (describe below) Sacrament/Intervention _x__ Active listening ___ Anointing ___ Mosque ___ Bereavement ___ Communion ___ [place] exploration ___ ___ Life review _x__ Prayer ___ Reconciliation ___ Sacrament of Sick _x__ Supportive presence ___ Wedding ___ Other (describe below) Pastoral Comments patient is on ventilator; DR has just been with SO and family to tell them more of diagnosis; SO is tearful and requests prayer;
[2019-11-08 16:28] LABS: M R Staph aureus DNA By PCR Negative (Negative); Probe Check PASS; Specimen Processing Control PASS
[2019-11-08 17:08] LABS: Reflex Lactate? Y
[2019-11-08] MEDS: fentaNYL drip 100 ML 15 MCG IV (19:53)
[2019-11-08] MEDS: Propofol 10MG/Ml 1,000 MG/100 ML Bottle 10.2 MG CONT INF (19:54)
[2019-11-08] MEDS: 0.9% Saline Lock 10 ML Syringe IV (21:01)
[2019-11-08] MEDS: Hydrocortisone Sod Succinate 100 MG/2 ML Vial IV (21:01)
[2019-11-08] MEDS: Chlorhexidine 15 ML PO (21:39)
[2019-11-09] VITALS (36 sets, daily range): BP systolic 75–118; BP diastolic 54–72; PULSE 18–100; RESP 17–27; TEMP 35.7–36.9; O2SAT 61–98
--- NOTE | 2019-11-09 | IMM_PTH ---
PATIENT: NIKKO TATE LOC: ICU U#:[id number] AGE/SX: 59/M ROOM: ICU05 RE11/08/[address]: Dr. Guillermo Payton MD : 1960 BED: 1 DIS: 11/15/2019 SPEC #: [id number] RECD: 11/10/19 15:24 STATUS: SUMA REClaudia #: [id number] VAISHNAVI: 11/09/19 00:[address]: Yue Barker DEPT: IMMUNOHISTOCHEMISTRY RECD BY: Shameka Alvarado ENTERED: 11/10/19 15:26 SP TYPE: IMMUNO OTHR DR: MD Dr. Carlos Wheatley MD Dr. Mark Tereletsky, Tissues: C - Gastric mucous membrane Procedures: RCC (add) NAPSIN A (add) CK20 (add) CK5-6 (add) CK7 (add) CK8 (add) HEP PAR (add) TTF1 (add) Pankeratin (add) P40 (add) PSAP (add) HER-2-EBENEZER (initial) PHYSICIAN & [address] [address] SPECIMEN INFORMATION: Tissue Source: C - GE junction biopsy Clinical Info: Esophageal mass Specimen Number: [id number] CPT code: 62395, 57218 x11 METHODOLOGY: Deparaffinized sections of prefer/formalin-fixed tissue or PAP/DQ stained slides are incubated with monoclonal/polyclonal antibodies/oligonucleotide probes. Localization is made via biotin free immunoperoxidase method. Appropriate controls are performed and reacted as expected. Results on target cell population are indicated in the following table: RESULTS: ANTIBODY / CLONE RESULT Block C Her-2neu (CB11) negative (0) AE1-3 (AE1/AE3/PCK26) positive CK7 (OV-TL12/30) positive CK8 (74wnneD00) positive CK20 (KS20.8) positive, focal TTF-1 (8G7G3/1) negative Napsin A (Rabbit Polyclonal) negative HepPar (OCh1E5) negative RCC (PN-15) negative PSAP (PASE/4LJ) negative CK5-6 (D5 & 1684) positive, focal P40 (BC28) positive, focal These tests were developed and their performance characteristics determined by [facility]. They may not have been cleared or approved by the U.S. Food and Drug Administration. The FDA has determined that such clearance or approval is not necessary. The above immunohistochemical/dualISH markers are ordered and reviewed by the Pathologist. INTERPRETATION: C. 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 SJ:zully 11/11/19
--- NOTE | 2019-11-09 | ESO_PTH ---
PATIENT: NIKKO TATE LOC: [facility] U#:[id number] AGE/SX: 59/M ROOM: ICU05 RE11/08/[address]: Dr. Guillermo Payton MD : 1960 BED: 1 DIS: 11/15/2019 SPEC #: [id number] RECD: 11/09/19 11:11 STATUS: SUMA LEXII #: [id number] VAISHNAVI: 11/09/19 00:[address]: Yue Barker DEPT: SURGICAL PATHOLOGY RECD BY: Shameka Alvarado ENTERED: 11/09/19 11:50 SP TYPE: LINDA FRANKLIN DR: MD Dr. Carlos Wheatley MD Dr. Mark Tereletsky, DO Tissues: A - Esophagus, NOS B - Esophagus, NOS C - Gastric mucous membrane D - Esophageal mucous membrane Procedures: Frozen Section (charge) Surgery Specimen Level IV HEADER [place] [place] DIAGNOSIS: Esophageal mass TISSUE SUBMITTED: A - Distal esophageal mass/GE junction, FS, B - Mid esophageal mass biopsy, FS, C - Permanent, GE junction biopsy, D - Permanent, mid esophageal biopsy FROZEN SECTION DIAGNOSIS A. Distal esophageal mass, biopsy: Poorly differentiated carcinoma. B. Mid esophagus, biopsy: Poorly differentiated carcinoma. SJ:zully 11/09/19 MICROSCOPIC DIAGNOSIS A. Distal esophageal mass, biopsy: Non small cell carcinoma, favor, poorly differentiated adenocarcinoma with focal squamoid features. B. Mid esophagus, biopsy: Non small cell carcinoma, favor, poorly differentiated adenocarcinoma with focal squamoid features. C. GE junction, biopsy: Non small cell carcinoma, favor, poorly differentiated adenocarcinoma with focal squamoid features. See comment. D. Mid esophagus, biopsy: Non small cell carcinoma, favor, poorly differentiated adenocarcinoma with focal squamoid features. SJ:zully 11/10/19 COMMENT A. B. C & D. The tumor shows similar morphologic features in all four specimens. C. Immunohistochemistry ([id number]) supports the above diagnosis. Molelcular studies on the tumor can be performed if clinically indicated, please notify the laboratory, if they are needed. MICROSCOPIC DESCRIPTION Slides are reviewed. GROSS DESCRIPTION A - Received fresh for frozen section diagnosis labeled with the patient's name is a specimen designated distal esophageal mass. The specimen consists of multiple irregular fragments of thurman soft tissue that in aggregate measure 0.3 x 0.3 x 0.1 cm. The entire specimen is submitted for frozen section diagnosis in one cassette. B - Received fresh for frozen section diagnosis labeled with the patient's name is a specimen designated mid esophagus biopsy. The specimen consists of two irregular fragments of thurman soft tissue that in aggregate measure 0.3 x 0.2 x 0.1 cm. The entire specimen is submitted for frozen section diagnosis in one cassette. C - Received in fixative is one container labeled with the patient's name and designated GE junction biopsy. The specimen consists of multiple irregular fragments of light thurman soft tissue that in aggregate measure 1 x 0.5 x 0.1 cm. The specimen is totally submitted in one cassette. D - Received in fixative is one container labeled with the patient's name and designated mid esophagus biopsy. The specimen consists of multiple irregular fragments of light thurman soft tissue that in aggregate measure 0.5 x 0.3 x 0.1 cm. The specimen is totally submitted in one cassette. / SJ:rg 11/09/19 TC:0 CPT: 46898 x4, 72573 x2
[2019-11-09] MEDS: Lactated Ringers 1,000 ML 999 ML IV (02:15)
[2019-11-09] MEDS: Propofol 10MG/Ml 1,000 MG/100 ML Bottle 10.2 MG CONT INF (02:25)
[2019-11-09] MEDS: fentaNYL drip 100 ML 15 MCG IV (02:25)
[2019-11-09] MEDS: Lactated Ringers 1,000 ML 75 ML IV ×2 (02:28→14:42)
[2019-11-09] MEDS: Ipratropium/Albuterol Sulfate 3 ML AMPUL.NEB INHALATION ×6 (03:30→22:09)
[2019-11-09 04:06] LABS: Anion Gap 7 (5-15); BUN 33 mg/dL (7-18); BUN/Creat Ratio 24.8 RATIO (10-20); Chloride 113 mmol/L (98-107); Creatinine, Serum 1.33 mg/dL (0.70-1.30); EST Glomerular Filtration Rate 58 mL/min (>60); Est Glom Filt Rate - Afr Amer 70 mL/min (>60); Estimated Creatinine Clearance 51.38 ml/min; Glucose 148 mg/dL (74-106); Potassium 4.3 mmol/L (3.5-5.1); Sodium Level 148 mmol/L (136-145)
[2019-11-09 04:12] LABS: Absolute Lymphocyte Count 0.37 X10^3/uL (0.83-4.51); Absolute Neutrophil Count 13.5 X10^3/uL (2.0-7.7); Basophil# 0.01 X10^3/uL; Basophil% 0.1 % (0-1); Hematocrit 39.9 % (40-54); Hemoglobin 12.4 g/dL (13.0-16.5); Lymphocyte # 0.37 X10^3/ul (4.0); Lymphocyte % 2.5 % (19-41); Mean Corp Hgb Conc 31.1 g/dL (32-36); Mean Corpuscular Hgb 29.5 pg (27.0-32.0); Mean Corpuscular Volume 94.8 fL (80-94); Mean Platelet Vol. 12.7 fl (6.2-12.0); Monocyte# 0.94 X10^3/uL; Monocyte% 6.3 % (0-10); NRBC Flagged by Analyzer 0 % (0-5); Neutrophil # 13.52 X10^3/uL (2.7-7.7); Neutrophil % 90.7 % (47-70); POSITIVE DIFFERENTIAL YES; Platelet Count 178 K/mm3 (150-450); RBC Distribution Width CV 12.7 % (11.6-14.6); Red Blood Count 4.21 M/mm3 (4.6-6.2); White Blood Count 14.9 K/mm3 (4.4-11.0)
[2019-11-09 04:14] LABS: Differential Indicated SCAN CRITERIA MET
[2019-11-09] MEDS: Hydrocortisone Sod Succinate 100 MG/2 ML Vial IV ×3 (05:37→20:56)
[2019-11-09] MEDS: 0.9% Saline Lock 10 ML Syringe IV ×2 (05:39→11:29)
[2019-11-09] MEDS: TITRATION PARAMETER CHANGE 1 EACH IV (05:54)
--- NOTE | 2019-11-09 08:11 | PN_ITS ---
Subjective: Patient did okay overnight. Patient did receive multiple LR boluses secondary to hypotension, but pressors have not had to be initiated. Patient was placed on fentanyl in addition to the propofol. Patient continues to not follow commands, but does wake up to verbal stimuli. General: No apparent distress, Disoriented, Non-Cooperative, - - Good vent synchrony when resting HEENT: Atraumatic, PERRLA, EOMI, Normocephalic, - - No scleral icterus or injection noted Oral: Moist Mucosa, No Gingival or Mucosal Lesions/ Ulcerations Neck: Supple, No JVD, No Nodes, Trachea Midline Lungs: No rhonchi, No wheeze, No rales, Diminished, - - Symmetric expansion. Cardiovascular: Regular rate, Regular Rhythm, Normal S1, Normal S2, No murmurs, No rub noted, No Gallop Abdomen: Bowel Sounds Present, Soft, Non Tender, Non-Distended Extremities: No clubbing, No cyanosis, No edema, Capillary Refill Less than 3 Seconds Skin: No rashes, No breakdown Musculoskeletal: No Tenderness to Palpation of Joints or Extremities Lymphatic: No Cervical, Supraclavicular, or Inguinal Adenopathy Neurological: Cranial nerves II-XII grossly intact, Neuro grossly intact Psych/Mental Status: Flat Affect Vital Signs Temp Pulse Resp BP Pulse Ox 36.2 C L 57 L 18 80/54 L 98 11/09/19 05:00 11/09/19 07:00 11/09/19 07:00 11/09/19 07:00 11/09/19 07:00 Oxygen Delivery Method Mechanical Ventilator Weight: 71.3 kg Body Mass Index (BMI) 25.6 Finger Stick Blood Glucose 103 Intake and Output for Last 24 Hours 11/07/19 11/08/19 11/09/19 23:59 23:59 23:59 Intake Total 2505.30 / 2605.30 2466.57 / 2466.57 Output Total 550 / 550 525 / 525 Balance 1955.30 / 2055.30 1941.57 / 1941.57 Labs (Last 48 Hours) 11/08/19 11/08/19 11/08/19 09:25 09:25 09:25 WBC 16.1 H RBC 4.97 Hgb 14.4 Hct 44.9 MCV 90.3 MCH 29.0 MCHC 32.1 RDW Std Deviation 41.5 RDW Coeff of Willi 12.6 Plt Count 241 MPV 12.1 H Immature Gran % (Auto) 2.300 H Neut % (Auto) 80.4 H Lymph % (Auto) 4.8 L Major % (Auto) 12.0 H Eos % (Auto) 0.2 Baso % (Auto) 0.3 Absolute Neuts (auto) 13.0 H Absolute Lymphs (auto) 0.77 L Nucleated RBC % 0 Differential Comment Diff Path Review May foll Platelet Estimate ADEQUATE Plt Morphology Comment LARGE D-Dimer Quant (PE/DVT) 14.82 H* Specimen Type Sample Site pH Bicarbonate Actual POC Total CO2 Base Excess O2 Saturation O2 % ABG pCO2 ABG pO2 Respiration Rate O2 Delivery Device Vent Mode Tidal Volume POC PEEP Blood Gas Notified Whom Blood Gas Notified Time Sodium 140 Potassium 3.9 Chloride 108 H Carbon Dioxide 24.0 Anion Gap 8 BUN 16 Creatinine 1.13 Estim Creat Clear Calc 60.47 Est GFR (MDRD) Af Amer 85 Est GFR (MDRD) Non-Af 70 BUN/Creatinine Ratio 14.2 Glucose 129 H Lactic Acid Calcium 9.2 Phosphorus Magnesium Total Bilirubin Direct Bilirubin AST ALT Alkaline Phosphatase Troponin I 0.027 Total Protein Albumin Globulin MRSA (PCR) 11/08/19 11/08/19 11/08/19 09:25 09:25 10:08 WBC RBC Hgb Hct MCV MCH MCHC RDW Std Deviation RDW Coeff of Willi Plt Count MPV Immature Gran % (Auto) Neut % (Auto) Lymph % (Auto) Major % (Auto) Eos % (Auto) Baso % (Auto) Absolute Neuts (auto) Absolute Lymphs (auto) Nucleated RBC % Differential Comment Diff Path Review Platelet Estimate Plt Morphology Comment D-Dimer Quant (PE/DVT) Specimen Type ART Sample Site L Brachial pH 7.33 L Bicarbonate Actual 29.1 H POC Total CO2 31 Base Excess 3 H O2 Saturation 99 O2 % 50 ABG pCO2 55.7 H ABG pO2 132 H Respiration Rate 16 O2 Delivery Device Vent Vent Mode A-C Tidal Volume 350 POC PEEP 12 Blood Gas Notified Whom ED MD Blood Gas Notified Time 1002 Sodium Potassium Chloride Carbon Dioxide Anion Gap BUN Creatinine Estim Creat Clear Calc Est GFR (MDRD) Af Amer Est GFR (MDRD) Non-Af BUN/Creatinine Ratio Glucose Lactic Acid Calcium Phosphorus 2.2 L Magnesium 2.4 Total Bilirubin 1.00 Direct Bilirubin 0.33 H AST 47 H ALT 35 Alkaline Phosphatase 161 H Troponin I Total Protein 7.1 Albumin 2.8 L Globulin 4.3 H MRSA (PCR) 11/08/19 11/08/19 11/09/19 12:55 13:00 03:35 WBC RBC Hgb Hct MCV MCH MCHC RDW Std Deviation RDW Coeff of Willi Plt Count MPV Immature Gran % (Auto) Neut % (Auto) Lymph % (Auto) Major % (Auto) Eos % (Auto) Baso % (Auto) Absolute Neuts (auto) Absolute Lymphs (auto) Nucleated RBC % Differential Comment Diff Path Review Platelet Estimate Plt Morphology Comment D-Dimer Quant (PE/DVT) Specimen Type Sample Site pH Bicarbonate Actual POC Total CO2 Base Excess O2 Saturation O2 % ABG pCO2 ABG pO2 Respiration Rate O2 Delivery Device Vent Mode Tidal Volume POC PEEP Blood Gas Notified Whom Blood Gas Notified Time Sodium 148 H Potassium 4.3 Chloride 113 H Carbon Dioxide 28.0 Anion Gap 7 BUN 33 H Creatinine 1.33 H Estim Creat Clear Calc 51.38 Est GFR (MDRD) Af Amer 70 Est GFR (MDRD) Non-Af 58 L BUN/Creatinine Ratio 24.8 H Glucose 148 H Lactic Acid 2.0 Calcium 9.0 Phosphorus Magnesium Total Bilirubin Direct Bilirubin AST ALT Alkaline Phosphatase Troponin I Total Protein Albumin Globulin MRSA (PCR) Negative 11/09/19 03:40 WBC 14.9 H RBC 4.21 L Hgb 12.4 L Hct 39.9 L MCV 94.8 H MCH 29.5 MCHC 31.1 L RDW Std Deviation 44.0 H RDW Coeff of Willi 12.7 Plt Count 178 MPV 12.7 H Immature Gran % (Auto) 0.400 Neut % (Auto) 90.7 H Lymph % (Auto) 2.5 L Major % (Auto) 6.3 Eos % (Auto) 0.0 Baso % (Auto) 0.1 Absolute Neuts (auto) 13.5 H Absolute Lymphs (auto) 0.37 L Nucleated RBC % 0 Differential Comment Diff Path Review Platelet Estimate Plt Morphology Comment D-Dimer Quant (PE/DVT) Specimen Type Sample Site pH Bicarbonate Actual POC Total CO2 Base Excess O2 Saturation O2 % ABG pCO2 ABG pO2 Respiration Rate O2 Delivery Device Vent Mode Tidal Volume POC PEEP Blood Gas Notified Whom Blood Gas Notified Time Sodium Potassium Chloride Carbon Dioxide Anion Gap BUN Creatinine Estim Creat Clear Calc Est GFR (MDRD) Af Amer Est GFR (MDRD) Non-Af BUN/Creatinine Ratio Glucose Lactic Acid Calcium Phosphorus Magnesium Total Bilirubin Direct Bilirubin AST ALT Alkaline Phosphatase Troponin I Total Protein Albumin Globulin MRSA (PCR) Microbiology 11/08/19 13:25 Mucosa - Nasopharyngeal Respiratory Panel (PCR) - Final 11/08/19 13:00 Urine Catheter - Catheter Streptococcus pneumoniae Antigen (M - Final 11/08/19 13:00 Urine Catheter - Catheter Legionella Antigen - Final 11/08/19 10:02 Mucosa - Nose Influenza Types A,B Direct FA (LORI) - Final Clinical Impression(s) from Imaging Studies Chest X-Ray 11/08/19 09:15 IMPRESSION: Stable examination demonstrating multiple bilateral pulmonary nodules as well as a left paraspinal mass. This corresponds to thickening of the esophagus as seen on the recent CT scan of the chest. Electronically Signed: Kenrick Hector, at 9:42 EST , Service support , Chest CTA 11/08/19 09:26 IMPRESSION: Essentially stable examination with diffuse bilateral pulmonary metastasis, mediastinal and right hilar lymphadenopathy. Diffuse circumferential wall thickening of the distal esophagus extending to the gastroesophageal junction suggestive of esophageal carcinoma. Hepatic metastasis. Retroperitoneal lymphadenopathy. Electronically Signed: Kenrick Hector, at 10:06 EST , Service support , Chest X-Ray 11/08/19 11:05 IMPRESSION: The tip of the endotracheal tube is at 3.1 cm proximal to the kylah. The tip of the orogastric tube is inferior to the left hemidiaphragm. Diffuse bilateral pulmonary nodules. Electronically Signed: Kenrick Hector at 11:32 EST , Service support , KUB X-Ray 11/08/19 11:05 IMPRESSION: The tip of the orogastric tube is in the body of the stomach just distal to the gastroesophageal junction. Once again, diffuse bilateral pulmonary nodules. Electronically Signed: Kenrick Hector, at 11:31 EST , Service support , Medical Necessity - Tobacco Use Smoking Status: Former smoker Tobacco Use: Non-smoker Assessment/Plan All Active Problems (Last Reviewed 12/17/18 @ 10:[address] Mario Bartholomew MD) COPD exacerbation (Acute) Respiratory failure (Acute) History of cholecystectomy (Resolved) History of hernia surgery (Resolved) Abnormal stress test (Resolved) RECOMMENDATIONS: 1. Continue broad-spectrum antibiotics, steroids and bronchodilators 2. Upper endoscopy later today 3. Possible placement of central line for pressors if aggressive measures requested 4. Wean PEEP as tolerated 5. Possible need for central line IMPRESSIONS: 1. Acute hypoxic respiratory failure secondary to possible pneumonia Patient does have some rhonchi at the left base. Interpretation of the CT scan is difficult given multiple nodules consistent with a non-pulmonary primary malignancy. Patient does not have a PE noted on CT scan. Reasonable to continue healthcare associated antibiotics, steroids and bronchodilators at this time. Continue to wean PEEP as tolerated. Spontaneous awakening and breathing trials per protocol. Continue propofol and fentanyl for ventilator synchrony. 2. Probable metastatic cancer Exact etiology is unclear at this time. Patient does have multiple pulmonary nodules in a pattern consistent with metastatic disease. Patient to have an upper endoscopy later today for evaluation. Confirmation of metastatic disease may change goals of therapy. 3. Nonsustained V. tach Patient did have some episodes of nonsustained V. tach following epinephrine in the ER. We will continue with telemetry. Would hold off on amiodarone at this time. Patient does have a cardiac history and has seen Dr. Bartholomew in the past. 4. Probable severe sepsis Patient has been noted to have leukocytosis and tachypnea. Panculture has been ordered. We will bolus as indicated. Cannot exclude the need for pressor therapy, especially if patient is to have aggressive measures. Continue empiric healthcare associated antibiotics. 5. Hypertension/hyperlipidemia/COPD/possible psychiatric illness Complicates care, management, recovery and prognosis. Patient does have lithium on his outpatient medications indicating possible bipolar disorder. This cannot be confirmed at this time. Hold antihypertensive medications given concern for hypotension. Patient is on omeprazole twice daily, but no history of GI bleed at this time. Addendum 1519: Requested to provide conscious sedation for endoscopy earlier today. At appr oximately 1045, patient was given 10 mg of etomidate. Patient had 2 additional doses of 5 mg of etomidate for a total of 20 mg of etomidate in addition to propofol and fentanyl drips. Patient's blood pressure tolerated well. Endoscopy was suggestive of possible malignancy. Biopsies were sent for frozen section. TIME: 80 minutes critical care time spent addressing patient's acute hypoxic respiratory failure, possible severe sepsis, review of all data and collaboration with care team (6 AM to 7 AM, 10 AM to 12 PM) Code Visit 9xxxx: [id number] Critical care first hour Multi Select Codes - Hospitalists' Procedures Procedures: 53735 Critial Care Addl 30 Min
--- NOTE | 2019-11-09 08:36 | PCM.PN.SRG ---
Patient Problems: Active and Suspected Problems (Last Reviewed 12/17/18 @ 10:[address] Mario Bartholomew MD) Respiratory failure (Acute) Lung metastases (Suspected) Subjective: Patient intubated and sedated - Physical Exam Vitals/I&O's: Vital Signs Temp Pulse Resp BP Pulse Ox 97.1 F L 57 L 18 80/54 L 98 11/09/19 05:00 11/09/19 07:00 11/09/19 07:00 11/09/19 07:00 11/09/19 07:00 Oxygen Delivery Method Mechanical Ventilator Weight: 157 lb 3.033 oz Body Mass Index (BMI) 25.6 Finger Stick Blood Glucose 103 Intake and Output for Last 24 Hours 11/07/19 11/08/19 11/09/19 23:59 23:59 23:59 Intake Total 2505.30 / 2605.30 2466.57 / 2466.57 Output Total 550 / 550 525 / 525 Balance 1955.30 / 2055.30 1941.57 / 1941.57 General: - - Intubated and sedated HEENT: - - ET tube in place Abdomen: Soft, Non-Distended Microbiology Past 72 Hours 11/08/19 13:25 Mucosa - Nasopharyngeal Respiratory Panel (PCR) - Final 11/08/19 13:00 Urine Catheter - Catheter Streptococcus pneumoniae Antigen (M - Final 11/08/19 13:00 Urine Catheter - Catheter Legionella Antigen - Final 11/08/19 10:02 Mucosa - Nose Influenza Types A,B Direct FA (LORI) - Final Laboratory Results 11/08/19 09:25: WBC 16.1 H, RBC 4.97, Hgb 14.4, Hct 44.9, MCV 90.3, MCH 29.0, MCHC 32.1, RDW Std Deviation 41.5, RDW Coeff of Willi 12.6, Plt Count 241, MPV 12.1 H, Immature Gran % (Auto) 2.300 H, Neut % (Auto) 80.4 H, Lymph % (Auto) 4.8 L, Emmons % (Auto) 12.0 H, Eos % (Auto) 0.2, Baso % (Auto) 0.3, Absolute Neuts (auto) 13.0 H, Absolute Lymphs (auto) 0.77 L, Nucleated RBC % 0, Diff Path Review May foll, Platelet Estimate ADEQUATE, Plt Morphology Comment LARGE 11/08/19 09:25: D-Dimer Quant (PE/DVT) 14.82 H* 11/08/19 09:25: Sodium 140, Potassium 3.9, Chloride 108 H, Carbon Dioxide 24.0, Anion Gap 8, BUN 16, Creatinine 1.13, Estim Creat Clear Calc 60.47, Est GFR (MDRD) Af Amer 85, Est GFR (MDRD) Non-Af 70, BUN/Creatinine Ratio 14.2, Glucose 129 H, Calcium 9.2, Troponin I 0.027 11/08/19 09:25: Magnesium 2.4, Total Bilirubin 1.00, Direct Bilirubin 0.33 H, AST 47 H, ALT 35, Alkaline Phosphatase 161 H, Total Protein 7.1, Albumin 2.8 L, Globulin 4.3 H 11/08/19 09:25: Phosphorus 2.2 L 11/08/19 10:08: Specimen Type ART, Sample Site L Brachial, pH 7.33 L, Bicarbonate Actual 29.1 H, POC Total CO2 31, Base Excess 3 H, O2 Saturation 99, O2 % 50, ABG pCO2 55.7 H, ABG pO2 132 H, Respiration Rate 16, O2 Delivery Device Vent, Vent Mode A-C, Tidal Volume 350, POC PEEP 12, Blood Gas Notified Whom ED , Blood Gas Notified Time 1002 11/08/19 12:55: Lactic Acid 2.0 11/08/19 13:00: MRSA (PCR) Negative 11/09/19 03:35: Sodium 148 H, Potassium 4.3, Chloride 113 H, Carbon Dioxide 28.0, Anion Gap 7, BUN 33 H, Creatinine 1.33 H, Estim Creat Clear Calc 51.38, Est GFR (MDRD) Af Amer 70, Est GFR (MDRD) Non-Af 58 L, BUN/Creatinine Ratio 24.8 H, Glucose 148 H, Calcium 9.0 11/09/19 03:40: WBC 14.9 H, RBC 4.21 L, Hgb 12.4 L, Hct 39.9 L, MCV 94.8 H, MCH 29.5, MCHC 31.1 L, RDW Std Deviation 44.0 H, RDW Coeff of Willi 12.7, Plt Count 178, MPV 12.7 H, Immature Gran % (Auto) 0.400, Neut % (Auto) 90.7 H, Lymph % (Auto) 2.5 L, Emmons % (Auto) 6.3, Eos % (Auto) 0.0, Baso % (Auto) 0.1, Absolute Neuts (auto) 13.5 H, Absolute Lymphs (auto) 0.37 L, Nucleated RBC % 0, Differential Comment Current Medications Albuterol/Ipratropium (Duoneb) 3 ml INHALATION Q4H.RT [facility] Last Admin: 11/09/19 06:47 Dose: 3 ml Documented by: Chlorhexidine Gluconate () 15 ml PO BID [facility] Last Admin: 11/08/19 21:39 Dose: 15 ml Documented by: Chlorhexidine Gluconate () 1 each TOPICAL DAILY [facility] Hydrocortisone Sodium Succinate (Solu-Cortef) 100 mg IV Q8 [facility] Last Admin: 11/09/19 05:37 Dose: 100 mg Documented by: Propofol (Diprivan) 1,000 mg in 100 mls @ 4.278 mls/hr CONT INF .Q12H [facility]; Protocol Last Titration: 11/09/19 07:20 Dose: 15 mcg/kg/min, 6.4 mls/hr Documented by: Piperacillin Sod/Tazobactam (Sod 3.375 gm/ Sodium Chloride) 50 mls @ 12.5 mls/hr IV Q8 [facility] Last Admin: 11/09/19 05:37 Dose: 12.5 mls/hr Documented by: Sodium Chloride () 250 mls @ 15 mls/hr IV .[id number] PRN PRN Reason: Saline Flush Sodium Chloride () 250 mls @ 15 mls/hr IV .[id number] PRN PRN Reason: Additional IVPB Infusion Fentanyl () 100 mls @ 5 mls/hr IV UD [facility]; Protocol Last Titration: 11/09/19 07:00 Dose: 150 mcg/hr, 15 mls/hr Documented by: Lactated Ringer's () 1,000 mls @ 75 mls/hr IV .[id number] [facility] Last Infusion: 11/09/19 05:44 Dose: 75 mls/hr Documented by: Pantoprazole Sodium 40 mg/ (Sodium Chloride) 110 mls @ 330 mls/hr IV Q12 [facility] Last Infusion: 11/08/19 21:20 Dose: Infused Documented by: Sodium Chloride () 10 - 40 ml IV UD PRN PRN Reason: SALINE FLUSH Last Admin: 11/09/19 05:39 Dose: 20 ml Documented by: Medical Necessity - Tobacco Use Smoking Status: Former smoker Tobacco Use: Non-smoker Assessment/Plan All Active Problems (Last Reviewed 12/17/18 @ 10:[address] Mario Bartholomew MD) COPD exacerbation (Acute) Respiratory failure (Acute) History of cholecystectomy (Resolved) History of hernia surgery (Resolved) Abnormal stress test (Resolved) 59-year-old male with likely metastatic disease throughout the lungs and lower esophageal mass request for EGD for diagnosis Plan for EGD with biopsy today about 11 AM. Yue Barker M.D. Pager: [phone] [facility] [address] [place] [address], [address] [place] [address] Office: [phone]
[2019-11-09] MEDS: fentaNYL drip 100 ML 20 MCG IV (08:53)
[2019-11-09] MEDS: Propofol 10MG/Ml 1,000 MG/100 ML Bottle 10.7 MG CONT INF (09:03)
[2019-11-09] MEDS: Etomidate 20 MG/10 ML Vial 10 MG IV (10:54)
[2019-11-09] MEDS: Etomidate 20 MG/10 ML Vial 5 MG IV (11:08)
[2019-11-09] MEDS: CHLORHEXIDINE GLUC 2% CLOTH 1 EACH TOWELETTE TOPICAL (11:23)
[2019-11-09] MEDS: QUEtiapine 25 MG Tablet 50 MG GT (11:29)
[2019-11-09] MEDS: Venlafaxine HCl 75 MG Tablet GT ×2 (11:30→20:55)
--- NOTE | 2019-11-09 11:38 | SUR.OPER ---
PROCEDURE DONE AT BEDSIDE IN ICU. DR. MORGAN PRESENT. ADZING AND BORING MACHINE FEEDER PRESENT.
--- NOTE | 2019-11-09 11:43 | OP.CCLET_ITS ---
11/09/2019 Carlos Asif Re : Upper GI endoscopy procedure for Emanuel Rosado Laya This procedure was performed on Saturday, November 09, 2019. My impressions and recommendations are as follows: Impressions : - Friable (with contact bleeding), ulcerated mucosa in the esophagus. Biopsied. 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 Biopsied. - Small hiatal hernia. - No gross lesions in the stomach. - Normal examined duodenum. - Z-line abnormal, 40 cm from the incisors. Recommendations : - Continue present medications. My findings are described in the full procedure note, which is enclosed. If I can be of further assistance, please feel free to contact me at Doctor phone number(s): , Work: . Sincerely, MD Yue Castañeda MD 11/09/2019 11:43:03 AM This report has been signed electronically.
--- NOTE | 2019-11-09 11:43 | OP.EGD_ITS ---
Patient Name: Emanuel Harris Procedure Date: 11/09/2019 10:46 AM Date of : 1960 Age: 59 Procedure: Upper GI endoscopy Indications: Abnormal CT of the GI tract Providers: Yue Barker MD Medicines: Monitored Anesthesia Care Patient Profile: This is a 59 year old male. Complications: No immediate complications. Procedure: Pre-Anesthesia Assessment: - Prior to the procedure, a History and Physical was performed, and patient medications and allergies were reviewed. The patient's tolerance of previous anesthesia was also reviewed. The risks and benefits of the procedure and the sedation options and risks were discussed with the patient. All questions were answered, and informed consent was obtained. Prior Anticoagulants: The patient has taken no previous anticoagulant or antiplatelet agents. ASA Grade Assessment: Per Eligibility Clerk. After reviewing the risks and benefits, the patient was deemed in satisfactory condition to undergo the procedure. After obtaining informed consent, the endoscope was passed under direct vision. Throughout the procedure, the patient's blood pressure, pulse, and oxygen saturations were monitored continuously. The gastroscope was introduced through the mouth, and advanced to the second part of duodenum. The upper GI endoscopy was accomplished without difficulty. The patient tolerated the procedure well. Scope In: 10:53:58 AM Scope Out: 11:15:01 AM Total Procedure Duration Time 0 hours 21 minutes 3 seconds Findings: Circumferential for about 5 cm in length severe mucosal changes characterized by friability (with contact bleeding) and ulceration were found at the gastroesophageal junction. Biopsies were taken with a cold forceps for histology. A medium-sized, fungating mass was found in the mid esophagus, 27 cm from the incisors. The mass was non-obstructing and partially circumferential (involving one-third of the lumen circumference). Biopsies were taken with a cold forceps for histology. A small hiatal hernia was present. No gross lesions were noted in the cardia, in the gastric fundus, in the gastric body and in the gastric antrum. The examined duodenum was normal. The Z-line was abnormal and was found 40 cm from the incisors. Impression: - Friable (with contact bleeding), ulcerated mucosa in the esophagus. Biopsied. 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 Biopsied. - Small hiatal hernia. - No gross lesions in the stomach. - Normal examined duodenum. - Z-line abnormal, 40 cm from the incisors. Recommendation: - Continue present medications. Procedure Code(s): --- Professional --- 02989, Esophagogastroduodenoscopy, flexible, transoral; with biopsy, single or multiple Diagnosis Code(s): --- Professional --- K22.8, Other specified diseases of esophagus K22.10, Ulcer of esophagus without bleeding D49.0, Neoplasm of unspecified behavior of digestive system K44.9, Diaphragmatic hernia without obstruction or gangrene R93.3, Abnormal findings on diagnostic imaging of other parts of digestive tract CPT copyright 2017 [employer]. All rights reserved. The codes documented in this report are preliminary and upon restaurant worker review may be revised to meet current compliance requirements. MD Yue Castañeda MD 11/09/2019 11:43:03 AM This report has been signed electronically. Number of Addenda: 0 Note Initiated On: 11/09/2019 10:46 AM
[2019-11-09] MEDS: Chlorhexidine 15 ML PO ×2 (11:44→20:54)
[2019-11-09] MEDS: fentaNYL drip 100 ML 17.5 MCG IV (14:00)
--- NOTE | 2019-11-09 14:24 | CASEMGMT ---
Social Work SW met with pt, significant other Kylee Shay and Kylee's mother in pt room. Pt is currently on ventilator and not communicating. Per Kylee, pt return home from the hospital on Friday and did not feel well over the weekend. He lives alone in a second floor apartment but went to Kylee's home different times over the weekend. 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 Kylee would like pt to return to her home upon discharge from the hospital and she will be able to care for pt after discharge. SW inquired about pt children. Per Kylee, pt has two ex wives and five children. Pt has reached out to the children in the past but they are not interested in a relationship with him. Kylee further states that pt has made me promise not to call the children if he would get sick. LOS explained next of kin and Kylee continues to state she cannot give information on pt children and would not want to betray promise to pt. Kylee does state pt has a son Nabil Harris and daughter Sujata Harris but she does not have contact information on them and is not certain of where they live. During admission last week, it is documented by two different workers that pt requested Kylee Shay be salesperson wigs. SW will continue to follow to assist in completing Advance Directives and offer support when pt is able. [employer]
--- NOTE | 2019-11-09 15:05 | CHAPLAIN ---
Type of Pastoral Visit ___ Initial Visit _x__ Follow-up Visit ___ On-call Visit ___ General Patient Visit ___ Spiritual Assessment ___ Family Conference ___ Bereavement ___ Rapid Response ___ Code Blue ___ Other (describe below) Pastoral Care Referral From ___ Patient _x__ Family ___ Nurse ___ Physician ___ Cover Seamer ___ Appliance Service Technician ___ Other (describe below) Sacrament/Intervention _x__ Active listening ___ Anointing ___ Islam ___ Bereavement ___ Communion ___ Whitley exploration ___ ___ Life review _x__ Prayer ___ Reconciliation ___ Sacrament of Sick _x__ Supportive presence ___ Wedding ___ Other (describe below) Pastoral Comments patient remains intubated and unresponsive; SO and her family with pt; offer of support to those present; SO requests prayer and expresses hope for a miracle
--- NOTE | 2019-11-09 16:23 | PCM.PROGNOTE ---
Patient Problems: Active and Suspected Problems (Last Reviewed 12/17/18 @ 10:[address] 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 Relayed this to the patient's significant other and I asked her to think about what course she would want with the patient-I asked her what we should do if his heart stopped, she could not make a decision she states that he is not wanted chemo in the past if he ever had cancer but she states he might change his mind I feel that she is uncomfortable making any code decisions so the patient will remain a full code at this time. - Physical Exam Vitals/I&O's: Vital Signs Temp Pulse Resp BP Pulse Ox 97.9 F 66 18 100/59 L 95 11/09/19 15:00 11/09/19 15:00 11/09/19 15:00 11/09/19 15:00 11/09/19 15:00 Oxygen Delivery Method Mechanical Ventilator Weight: 71.3 kg Body Mass Index (BMI) 25.6 Finger Stick Blood Glucose 103 Intake and Output for Last 24 Hours 11/07/19 11/08/19 11/09/19 23:59 23:59 23:59 Intake Total 2505.30 / 2605.30 3605.45 / 3605.45 Output Total 550 / 550 700 / 700 Balance 1954.30 / 2054. 2905.45 / 2905.45 General: No apparent distress, Well developed, Well nourished HEENT: Atraumatic, Normocephalic Oral: Moist Mucosa Neck: Supple, No JVD, Trachea Midline, Thyroid Normal Size and Texture Lungs: Clear to auscultation, Normal air movement, No rhonchi, No wheeze Cardiovascular: Regular rate, Regular Rhythm, Normal S1, Normal S2, No murmurs Abdomen: Bowel Sounds Present, Soft, Non Tender, Non-Distended Extremities: No edema, Capillary Refill Less than 3 Seconds Skin: No rashes, No breakdown Neurological: Cranial nerves II-XII grossly intact, - - Patient is sedated and on the ventilator Psych/Mental Status: - - Patient is sedated and on the ventilator Microbiology Past 72 Hours 11/08/19 13:00 Urine Catheter - Catheter Urine Culture - Preliminary Culture exhibits no growth. 11/09/19 03:35 Sputum, Induced/Lukens Gram Stain - Final 11/08/19 13:25 Mucosa - Nasopharyngeal Respiratory Panel (PCR) - Final 11/08/19 13:00 Urine Catheter - Catheter Streptococcus pneumoniae Antigen (M - Final 11/08/19 13:00 Urine Catheter - Catheter Legionella Antigen - Final 11/08/19 10:02 Mucosa - Nose Influenza Types A,B Direct FA (LORI) - Final Laboratory Results 11/08/19 13:00: MRSA (PCR) Negative 11/09/19 03:35: Sodium 148 H, Potassium 4.3, Chloride 113 H, Carbon Dioxide 28.0, Anion Gap 7, BUN 33 H, Creatinine 1.33 H, Estim Creat Clear Calc 51.38, Est GFR (MDRD) Af Amer 70, Est GFR (MDRD) Non-Af 58 L, BUN/Creatinine Ratio 24.8 H, Glucose 148 H, Calcium 9.0 11/09/19 03:40: WBC 14.9 H, RBC 4.21 L, Hgb 12.4 L, Hct 39.9 L, MCV 94.8 H, MCH 29.5, MCHC 31.1 L, RDW Std Deviation 44.0 H, RDW Coeff of Willi 12.7, Plt Count 178, MPV 12.7 H, Immature Gran % (Auto) 0.400, Neut % (Auto) 90.7 H, Lymph % (Auto) 2.5 L, [place] % (Auto) 6.3, Eos % (Auto) 0.0, Baso % (Auto) 0.1, Absolute Neuts (auto) 13.5 H, Absolute Lymphs (auto) 0.37 L, Nucleated RBC % 0, Differential Comment Current Medications Albuterol/Ipratropium (Duoneb) 3 ml INHALATION Q4H.RT ASAEL Last Admin: 11/09/19 15:00 Dose: 3 ml Documented by: Chlorhexidine Gluconate () 15 ml PO BID ASAEL Last Admin: 11/09/19 11:44 Dose: 15 ml Documented by: Chlorhexidine Gluconate () 1 each TOPICAL DAILY [facility] Last Admin: 11/09/19 11:23 Dose: 1 each Documented by: Hydrocortisone Sodium Succinate (Solu-Cortef) 100 mg IV Q8 [facility] Last Admin: 11/09/19 14:17 Dose: 100 mg Documented by: Propofol (Diprivan) 1,000 mg in 100 mls @ 4.278 mls/hr CONT INF .Q12H [facility]; Protocol Last Titration: 11/09/19 14:45 Dose: 20 mcg/kg/min, 8.6 mls/hr Documented by: Piperacillin Sod/Tazobactam (Sod 3.375 gm/ Sodium Chloride) 50 mls @ 12.5 mls/hr IV Q8 [facility] Last Admin: 11/09/19 14:17 Dose: 12.5 mls/hr Documented by: Sodium Chloride () 250 mls @ 15 mls/hr IV .[id number] PRN PRN Reason: Saline Flush Sodium Chloride () 250 mls @ 15 mls/hr IV .[id number] PRN PRN Reason: Additional IVPB Infusion Fentanyl () 100 mls @ 5 mls/hr IV UD [facility]; Protocol Last Admin: 11/09/19 14:00 Dose: 175 mcg/hr, 17.5 mls/hr Documented by: Lactated Ringer's () 1,000 mls @ 75 mls/hr IV .[id number] [facility] Last Admin: 11/09/19 14:42 Dose: 75 mls/hr Documented by: Pantoprazole Sodium 40 mg/ (Sodium Chloride) 110 mls @ 330 mls/hr IV Q12 [facility] Last Infusion: 11/09/19 12:12 Dose: Infused Documented by: Sodium Chloride () 10 - 40 ml IV UD PRN PRN Reason: SALINE FLUSH Last Admin: 11/09/19 11:29 Dose: 40 ml Documented by: Venlafaxine HCl (Effexor) 75 mg GT BID [facility] Last Admin: 11/09/19 11:30 Dose: 75 mg Documented by: Medical Necessity - Tobacco Use Smoking Status: Former smoker Tobacco Use: Non-smoker Assessment/Plan All Active Problems (Last Reviewed 12/17/18 @ 10:[address] Mario Bartholomew MD) COPD exacerbation (Acute) Respiratory failure (Acute) History of cholecystectomy (Resolved) History of hernia surgery (Resolved) Abnormal stress test (Resolved) #1 acute combined respiratory failure-etiology unclear at this point, is on the ventilator at this time #2 widespread pulmonary metastases-it appears that the etiology of his pulmonary metastases is from esophageal cancer, prognosis is dismal, it is my opinion that the patient's significant other will need some time to process this, I do not think she is ready to give permission to stop treatment. #3 probable severe sepsis-patient is on Zosyn #4 bipolar disorder #5 hyperlipidemia #6 chronic obstructive pulmonary disease Code Visit Inpatient E&M: 55284 Subs Hosp L2
[2019-11-09] MEDS: Propofol 10MG/Ml 1,000 MG/100 ML Bottle 6.4 MG CONT INF (17:34)
[2019-11-09] MEDS: Vital AF 1.2 Cal Liquid 1,000 ML 60 ML GT (18:17)
[2019-11-09] MEDS: fentaNYL drip 100 ML 12.5 MCG IV (21:12)
[2019-11-10] VITALS (35 sets, daily range): BP systolic 109–156; BP diastolic 67–92; PULSE 74–108; RESP 16–22; TEMP 36.8–37.3; O2SAT 95–97
[2019-11-10] MEDS: Ipratropium/Albuterol Sulfate 3 ML AMPUL.NEB INHALATION ×6 (03:22→23:30)
[2019-11-10] MEDS: Propofol 10MG/Ml 1,000 MG/100 ML Bottle 6.4 MG CONT INF (03:47)
[2019-11-10] MEDS: Lactated Ringers 1,000 ML 75 ML IV (03:47)
[2019-11-10] MEDS: TITRATION PARAMETER CHANGE 1 EACH IV (04:16)
--- NOTE | 2019-11-10 04:20 | NURSING ---
Paused propofol for 5 minutes. Pt became alert, not following commands, thrashing in bed. HR 120's, Resps 30's. Failed SAT.
[2019-11-10 04:23] LABS: Absolute Lymphocyte Count 0.54 X10^3/uL (0.83-4.51); Absolute Neutrophil Count 18.4 X10^3/uL (2.0-7.7); Basophil# 0.02 X10^3/uL; Basophil% 0.1 % (0-1); Hematocrit 40.3 % (40-54); Hemoglobin 12.3 g/dL (13.0-16.5); Lymphocyte # 0.54 X10^3/ul (4.0); Lymphocyte % 2.6 % (19-41); Mean Corp Hgb Conc 30.5 g/dL (32-36); Mean Platelet Vol. 12.6 fl (6.2-12.0); Monocyte# 1.56 X10^3/uL; Monocyte% 7.5 % (0-10); NRBC Flagged by Analyzer 0 % (0-5); Neutrophil # 18.39 X10^3/uL (2.7-7.7); Neutrophil % 88.9 % (47-70); POSITIVE DIFFERENTIAL YES; POSITIVE MORPHOLOGY YES; Platelet Count 178 K/mm3 (150-450); RBC Distribution Width CV 12.8 % (11.6-14.6); RBC Distribution Width SD 44.7 fl (35.1-43.9); Red Blood Count 4.24 M/mm3 (4.6-6.2); White Blood Count 20.7 K/mm3 (4.4-11.0)
[2019-11-10 04:25] LABS: Differential Indicated SCAN CRITERIA MET
[2019-11-10 04:30] LABS: Anion Gap 4 (5-15); BUN 37 mg/dL (7-18); BUN/Creat Ratio 31.1 RATIO (10-20); Calcium,Total 8.3 mg/dL (8.5-10.1); Chloride 116 mmol/L (98-107); Creatinine, Serum 1.19 mg/dL (0.70-1.30); EST Glomerular Filtration Rate 66 mL/min (>60); Est Glom Filt Rate - Afr Amer 80 mL/min (>60); Estimated Creatinine Clearance 57.42 ml/min; Glucose 155 mg/dL (74-106); Potassium 4.1 mmol/L (3.5-5.1); Sodium Level 150 mmol/L (136-145)
[2019-11-10] MEDS: fentaNYL drip 100 ML 12.5 MCG IV (05:12)
[2019-11-10] MEDS: Hydrocortisone Sod Succinate 100 MG/2 ML Vial IV ×3 (06:17→22:22)
--- NOTE | 2019-11-10 07:41 | PN_ITS ---
Subjective: Patient did okay overnight. Patient did have an endoscopy yesterday and frozen sections were consistent with poorly differentiated esophageal cancer. [place]? is requesting aggressive measures as of yesterday. Patient was unable to tolerate a spontaneous awakening trial this morning, so no spontaneous breathing trial was attempted. General: - - Intubated and sedated. RASS -3. HEENT: Atraumatic, PERRLA, EOMI, Normocephalic, - - Slight scleral injection without icterus Oral: Moist Mucosa, No Gingival or Mucosal Lesions/ Ulcerations Neck: Supple, No JVD, No Nodes, Trachea Midline Lungs: No rhonchi, No wheeze, No rales, Diminished, - - Symmetric expansion. Cardiovascular: Normal S1, Normal S2, No murmurs, No rub noted, No Gallop, Tachycardic Abdomen: Bowel Sounds Present, Soft, Non Tender, Non-Distended Extremities: No clubbing, No cyanosis, Capillary Refill Less than 3 Seconds, Edema - Trace lower extremity Skin: - - No change compared to previous Musculoskeletal: No Tenderness to Palpation of Joints or Extremities Lymphatic: No Cervical, Supraclavicular, or Inguinal Adenopathy Neurological: Cranial nerves II-XII grossly intact, Neuro grossly intact, Motor Exam 5/5 strength throughout Psych/Mental Status: Flat Affect Vital Signs Temp Pulse Resp BP Pulse Ox 37.2 C 89 18 117/67 96 11/10/19 07:00 11/10/19 07:00 11/10/19 07:00 11/10/19 07:00 11/10/19 07:00 Oxygen Delivery Method Mechanical Ventilator Weight: 71.6 kg Body Mass Index (BMI) 25.6 Finger Stick Blood Glucose 103 Intake and Output for Last 24 Hours 11/08/19 11/09/19 11/10/19 23:59 23:59 23:59 Intake Total 2505.30 / 2605.30 4582.63 / 4890.63 1367.97 / 1367.97 Output Total 550 / 550 975 / 1225 515 / 515 Balance 1955.30 / 2055.30 3607.63 / 3665.63 852.97 / 852.97 Labs (Last 48 Hours) 11/08/19 11/08/19 11/08/19 09:25 09:25 09:25 WBC 16.1 H RBC 4.97 Hgb 14.4 Hct 44.9 MCV 90.3 MCH 29.0 MCHC 32.1 RDW Std Deviation 41.5 RDW Coeff of Willi 12.6 Plt Count 241 MPV 12.1 H Immature Gran % (Auto) 2.300 H Neut % (Auto) 80.4 H Lymph % (Auto) 4.8 L [place] % (Auto) 12.0 H Eos % (Auto) 0.2 Baso % (Auto) 0.3 Absolute Neuts (auto) 13.0 H Absolute Lymphs (auto) 0.77 L Nucleated RBC % 0 Differential Comment Diff Path Review May foll Platelet Estimate ADEQUATE Plt Morphology Comment LARGE D-Dimer Quant (PE/DVT) 14.82 H* Specimen Type Sample Site pH Bicarbonate Actual POC Total CO2 Base Excess O2 Saturation O2 % ABG pCO2 ABG pO2 Respiration Rate O2 Delivery Device Vent Mode Tidal Volume POC PEEP Blood Gas Notified Whom Blood Gas Notified Time Sodium 140 Potassium 3.9 Chloride 108 H Carbon Dioxide 24.0 Anion Gap 8 BUN 16 Creatinine 1.13 Estim Creat Clear Calc 60.47 Est GFR (MDRD) Af Amer 85 Est GFR (MDRD) Non-Af 70 BUN/Creatinine Ratio 14.2 Glucose 129 H Lactic Acid Calcium 9.2 Phosphorus Magnesium Total Bilirubin Direct Bilirubin AST ALT Alkaline Phosphatase Troponin I 0.027 Total Protein Albumin Globulin MRSA (PCR) 11/08/19 11/08/19 11/08/19 09:25 09:25 10:08 WBC RBC Hgb Hct MCV MCH MCHC RDW Std Deviation RDW Coeff of Willi Plt Count MPV Immature Gran % (Auto) Neut % (Auto) Lymph % (Auto) [place] % (Auto) Eos % (Auto) Baso % (Auto) Absolute Neuts (auto) Absolute Lymphs (auto) Nucleated RBC % Differential Comment Diff Path Review Platelet Estimate Plt Morphology Comment D-Dimer Quant (PE/DVT) Specimen Type ART Sample Site L Brachial pH 7.33 L Bicarbonate Actual 29.1 H POC Total CO2 31 Base Excess 3 H O2 Saturation 99 O2 % 50 ABG pCO2 55.7 H ABG pO2 132 H Respiration Rate 16 O2 Delivery Device Vent Vent Mode A-C Tidal Volume 350 POC PEEP 12 Blood Gas Notified Whom ED MD Blood Gas Notified Time 1002 Sodium Potassium Chloride Carbon Dioxide Anion Gap BUN Creatinine Estim Creat Clear Calc Est GFR (MDRD) Af Amer Est GFR (MDRD) Non-Af BUN/Creatinine Ratio Glucose Lactic Acid Calcium Phosphorus 2.2 L Magnesium 2.4 Total Bilirubin 1.00 Direct Bilirubin 0.33 H AST 47 H ALT 35 Alkaline Phosphatase 161 H Troponin I Total Protein 7.1 Albumin 2.8 L Globulin 4.3 H MRSA (PCR) 11/08/19 11/08/19 11/09/19 12:55 13:00 03:35 WBC RBC Hgb Hct MCV MCH MCHC RDW Std Deviation RDW Coeff of Willi Plt Count MPV Immature Gran % (Auto) Neut % (Auto) Lymph % (Auto) [place] % (Auto) Eos % (Auto) Baso % (Auto) Absolute Neuts (auto) Absolute Lymphs (auto) Nucleated RBC % Differential Comment Diff Path Review Platelet Estimate Plt Morphology Comment D-Dimer Quant (PE/DVT) Specimen Type Sample Site pH Bicarbonate Actual POC Total CO2 Base Excess O2 Saturation O2 % ABG pCO2 ABG pO2 Respiration Rate O2 Delivery Device Vent Mode Tidal Volume POC PEEP Blood Gas Notified Whom Blood Gas Notified Time Sodium 148 H Potassium 4.3 Chloride 113 H Carbon Dioxide 28.0 Anion Gap 7 BUN 33 H Creatinine 1.33 H Estim Creat Clear Calc 51.38 Est GFR (MDRD) Af Amer 70 Est GFR (MDRD) Non-Af 58 L BUN/Creatinine Ratio 24.8 H Glucose 148 H Lactic Acid 2.0 Calcium 9.0 Phosphorus Magnesium Total Bilirubin Direct Bilirubin AST ALT Alkaline Phosphatase Troponin I Total Protein Albumin Globulin MRSA (PCR) Negative 11/09/19 11/10/19 11/10/19 03:40 04:00 04:00 WBC 14.9 H 20.7 H RBC 4.21 L 4.24 L Hgb 12.4 L 12.3 L Hct 39.9 L 40.3 MCV 94.8 H 95.0 H MCH 29.5 29.0 MCHC 31.1 L 30.5 L RDW Std Deviation 44.0 H 44.7 H RDW Coeff of Willi 12.7 12.8 Plt Count 178 178 MPV 12.7 H 12.6 H Immature Gran % (Auto) 0.400 0.900 Neut % (Auto) 90.7 H 88.9 H Lymph % (Auto) 2.5 L 2.6 L [place] % (Auto) 6.3 7.5 Eos % (Auto) 0.0 0.0 Baso % (Auto) 0.1 0.1 Absolute Neuts (auto) 13.5 H 18.4 H Absolute Lymphs (auto) 0.37 L 0.54 L Nucleated RBC % 0 0 Differential Comment Diff Path Review May foll Platelet Estimate Plt Morphology Comment D-Dimer Quant (PE/DVT) Specimen Type Sample Site pH Bicarbonate Actual POC Total CO2 Base Excess O2 Saturation O2 % ABG pCO2 ABG pO2 Respiration Rate O2 Delivery Device Vent Mode Tidal Volume POC PEEP Blood Gas Notified Whom Blood Gas Notified Time Sodium 150 H Potassium 4.1 Chloride 116 H Carbon Dioxide 30.0 Anion Gap 4 L BUN 37 H Creatinine 1.19 Estim Creat Clear Calc 57.42 Est GFR (MDRD) Af Amer 80 Est GFR (MDRD) Non-Af 66 BUN/Creatinine Ratio 31.1 H Glucose 155 H Lactic Acid Calcium 8.3 L Phosphorus Magnesium Total Bilirubin Direct Bilirubin AST ALT Alkaline Phosphatase Troponin I Total Protein Albumin Globulin MRSA (PCR) Microbiology 11/08/19 12:40 Blood Culture (Wb) #2 - Right Forearm Blood Culture - Preliminary No growth in 48 hours. 11/08/19 12:28 Blood Culture (Wb) - Anticubital Left Blood Culture - Preliminary No growth in 48 hours. 11/08/19 13:00 Urine Catheter - Catheter Urine Culture - Preliminary Culture exhibits no growth. 11/09/19 03:35 Sputum, Induced/Lukens Gram Stain - Final 11/08/19 13:25 Mucosa - Nasopharyngeal Respiratory Panel (PCR) - Final 11/08/19 13:00 Urine Catheter - Catheter Streptococcus pneumoniae Antigen (M - Final 11/08/19 13:00 Urine Catheter - Catheter Legionella Antigen - Final 11/08/19 10:02 Mucosa - Nose Influenza Types A,B Direct FA (LORI) - Final Medical Necessity - Tobacco Use Smoking Status: Former smoker Tobacco Use: Non-smoker Assessment/Plan All Active Problems (Last Reviewed 12/17/18 @ 10:[address] Mario Bartholomew MD) COPD exacerbation (Acute) Respiratory failure (Acute) History of cholecystectomy (Resolved) History of hernia surgery (Resolved) Abnormal stress test (Resolved) RECOMMENDATIONS: 1. Continue broad-spectrum antibiotics, steroids and bronchodilators 2. Reinitiate baseline antipsychotic medications 3. Place PICC line if central access is required 4. Possible transition to Precedex therapy tomorrow if still unable to tolerate spontaneous awakening trial 5. Increase free water flushes IMPRESSIONS: 1. Acute hypoxic respiratory failure secondary to possible pneumonia Patient does have some rhonchi at the left base initially. Interpretation of the CT scan is difficult given multiple nodules consistent with a non- pulmonary primary malignancy. Patient does not have a PE noted on CT scan. Reasonable to continue healthcare associated antibiotics, steroids and bronchodilators at this time. Continue to wean PEEP as tolerated. Spontaneous awakening and breathing trials per protocol. Continue propofol and fentanyl for ventilator synchrony. Will initiate baseline antipsychotic medications. If p atient continues to not tolerate spontaneous awakening trial, transition to Precedex therapy can be attempted tomorrow. 2. Probable metastatic esophageal cancer Exact etiology is unclear at this time. Patient does have multiple pulmonary nodules in a pattern consistent with metastatic disease. It does not appear that confirmation of metastatic disease may change goals of therapy. 3. Nonsustained V. tach Patient did have some episodes of nonsustained V. tach following epinephrine in the ER. We will continue with telemetry. Would hold off on amiodarone at this time. Patient does have a cardiac history and has seen Dr. Bartholomew in the past. 4. Probable severe sepsis Patient has been noted to have leukocytosis and tachypnea. Panculture has been ordered. We will bolus as indicated. Cannot exclude the need for pressor therapy, especially if patient is to have aggressive measures. Continue empiric healthcare associated antibiotics. 5. Hypertension/hyperlipidemia/COPD/possible psychiatric illness Complicates care, management, recovery and prognosis. Patient does have lithium on his outpatient medications indicating possible bipolar disorder. Reinitiate baseline antipsychotic medications. Hold antihypertensive medications given concern for hypotension. TIME: 33 minutes critical care time spent addressing patient's acute hypoxic respiratory failure, possible severe sepsis, review of all data and collaboration with care team (6:30 AM to 7:30 AM) Code Visit 9xxxx: [id number] Critical care first hour
--- NOTE | 2019-11-10 10:11 | CASEMGMT ---
CHANTALE CHAO NOTE: On 11/05/19, while CHANTALE CHAO in room with pt for assessment, pt expressed desire for his fiance, Kylee Shay, to be his Healthcare POA. Pt is currently intubated. Once pt is able to complete written AD, SW to meet with pt to assist with completing form. Nara PETERSONN CHANTALE CHAO
[2019-11-10] MEDS: Lithium Carbonate 150 MG Capsule 450 MG GT (10:12)
[2019-11-10] MEDS: Venlafaxine HCl 75 MG Tablet GT ×2 (10:12→22:24)
[2019-11-10] MEDS: Chlorhexidine 15 ML PO ×2 (10:13→22:20)
[2019-11-10 10:20] LABS: Pathologist Review Reviewed
[2019-11-10] MEDS: OXcarbazepine 300 MG Tablet GT (11:20)
[2019-11-10] MEDS: CHLORHEXIDINE GLUC 2% CLOTH 1 EACH TOWELETTE TOPICAL (11:20)
[2019-11-10] MEDS: Propofol 10MG/Ml 1,000 MG/100 ML Bottle 12.9 MG CONT INF ×2 (11:27→17:54)
[2019-11-10] MEDS: fentaNYL drip 100 ML 15 MCG IV ×2 (12:48→19:25)
[2019-11-10] MEDS: TRIHEXYPHENIDYL HCL 2 MG TABLET PO ×2 (13:53→18:00)
--- NOTE | 2019-11-10 15:51 | CHAPLAIN ---
Type of Pastoral Visit ___ Initial Visit _x__ Follow-up Visit ___ On-call Visit ___ General Patient Visit ___ Spiritual Assessment ___ Family Conference ___ Bereavement ___ Rapid Response ___ Code Blue ___ Other (describe below) Pastoral Care Referral From ___ Patient _x__ Family ___ Nurse ___ Physician ___ Granite Setter ___ Weight Analyst ___ Other (describe below) Sacrament/Intervention ___ Active listening ___ Anointing ___ Latter Day ___ Bereavement ___ Communion ___ Whitley exploration ___ ___ Life review _x__ Prayer ___ Reconciliation ___ Sacrament of Sick _x__ Supportive presence ___ Wedding ___ Other (describe below) Pastoral Comments
--- NOTE | 2019-11-10 15:54 | CASEMGMT ---
Social Work Pt verbally expressed desire for Kylee alejandre, to be pts POA for health care on 11/04/2019. Once pt is off vent, will complete written Advanced Directives. Martha Jones, Social Work partner marketing intern Dana Sheets, CLINICAL EDUCATOR DEVELOPMENT EDITOR
--- NOTE | 2019-11-10 16:35 | PCM.PROGNOTE ---
Patient Problems: Active and Suspected Problems (Last Reviewed 12/17/18 @ 10:[address] Mario Bartholomew MD) Respiratory failure (Acute) Lung metastases (Suspected) Subjective: Seen and examined today, he remains sedated and on the ventilator. Pulmonary medicine changed his antibiotic coverage today to vancomycin, he had MRSA in the sputum. Patient is white blood cell count is elevated more than yesterday, he has however on IV corticosteroids. - Physical Exam Vitals/I&O's: Vital Signs Temp Pulse Resp BP Pulse Ox 99.1 F 82 18 133/83 H 96 11/10/19 16:00 11/10/19 16:00 11/10/19 16:00 11/10/19 16:00 11/10/19 16:00 Oxygen Delivery Method Mechanical Ventilator Weight: 71.6 kg Body Mass Index (BMI) 25.6 Finger Stick Blood Glucose 103 Intake and Output for Last 24 Hours 11/08/19 11/09/19 11/10/19 23:59 23:59 23:59 Intake Total 2505.30 / 2605.30 4582.63 / 4890.63 3176.91 / 3176.91 Output Total 550 / 550 975 / 1225 815 / 815 Balance 1955.30 / 5.30 3607.63 / 3665.63 2361.91 / 2361.91 General: No apparent distress, Well developed HEENT: Atraumatic, Normocephalic Oral: Moist Mucosa Neck: Supple, No JVD, Trachea Midline, Thyroid Normal Size and Texture Lungs: Clear to auscultation, Normal air movement, No rhonchi, No wheeze, No rales Cardiovascular: Regular rate, Regular Rhythm, Normal S1, Normal S2, No murmurs, PMI Normal, No rub noted Abdomen: Bowel Sounds Present, Soft, Non Tender, Non-Distended, No hernias noted Extremities: No clubbing, No cyanosis, No edema, Capillary Refill Less than 3 Seconds Skin: No rashes Neurological: Cranial nerves II-XII grossly intact, - - Patient is sedated and on the ventilator Psych/Mental Status: - - Patient is sedated and on the ventilator Microbiology Past 72 Hours 11/09/19 03:35 Sputum, Induced/Lukens Gram Stain - Final 11/09/19 03:35 Sputum, Induced/Lukens Respiratory Culture - Preliminary Staphylococcus aureus 11/08/19 13:00 Urine Catheter - Catheter Urine Culture - Final Culture exhibits no growth. 11/08/19 12:40 Blood Culture (Wb) #2 - Right Forearm Blood Culture - Preliminary No growth in 48 hours. 11/08/19 12:28 Blood Culture (Wb) - Anticubital Left Blood Culture - Preliminary No growth in 48 hours. 11/08/19 13:25 Mucosa - Nasopharyngeal Respiratory Panel (PCR) - Final 11/08/19 13:00 Urine Catheter - Catheter Streptococcus pneumoniae Antigen (M - Final 11/08/19 13:00 Urine Catheter - Catheter Legionella Antigen - Final 11/08/19 10:02 Mucosa - Nose Influenza Types A,B Direct FA (LORI) - Final Laboratory Results 11/08/19 09:25: Diff Path Review Reviewed 11/10/19 04:00: WBC 20.7 H, RBC 4.24 L, Hgb 12.3 L, Hct 40.3, MCV 95.0 H, MCH 29.0, MCHC 30.5 L, RDW Std Deviation 44.7 H, RDW Coeff of Willi 12.8, Plt Count 178, MPV 12.6 H, Immature Gran % (Auto) 0.900, Neut % (Auto) 88.9 H, Lymph % (Auto) 2.6 L, [place] % (Auto) 7.5, Eos % (Auto) 0.0, Baso % (Auto) 0.1, Absolute Neuts (auto) 18.4 H, Absolute Lymphs (auto) 0.54 L, Nucleated RBC % 0, Differential Comment , Diff Path Review January11/10/19 04:00: Sodium 150 H, Potassium 4.1, Chloride 116 H, Carbon Dioxide 30.0, Anion Gap 4 L, BUN 37 H, Creatinine 1.19, Estim Creat Clear Calc 57.42, Est GFR (MDRD) Af Amer 80, Est GFR (MDRD) Non-Af 66, BUN/Creatinine Ratio 31.1 H, Glucose 155 H, Calcium 8.3 L Current Medications Albuterol/Ipratropium (Duoneb) 3 ml INHALATION Q4H.RT ASAEL Last Admin: 11/10/19 15:00 Dose: 3 ml Documented by: Chlorhexidine Gluconate () 15 ml PO BID ASAEL Last Admin: 11/10/19 10:13 Dose: 15 ml Documented by: Chlorhexidine Gluconate () 1 each TOPICAL DAILY [facility] Last Admin: 11/10/19 11:20 Dose: 1 each Documented by: Hydrocortisone Sodium Succinate (Solu-Cortef) 100 mg IV Q8 [facility] Last Admin: 11/10/19 13:53 Dose: 100 mg Documented by: Propofol (Diprivan) 1,000 mg in 100 mls @ 4.296 mls/hr CONT INF .Q12H [facility]; Protocol Last Titration: 11/10/19 16:00 Dose: 30 mcg/kg/min, 12.9 mls/hr Documented by: Sodium Chloride () 250 mls @ 15 mls/hr IV .[id number] PRN PRN Reason: Saline Flush Sodium Chloride () 250 mls @ 15 mls/hr IV .[id number] PRN PRN Reason: Additional IVPB Infusion Fentanyl () 100 mls @ 5 mls/hr IV UD [facility]; Protocol Last Titration: 11/10/19 16:00 Dose: 150 mcg/hr, 15 mls/hr Documented by: Pantoprazole Sodium 40 mg/ (Sodium Chloride) 110 mls @ 330 mls/hr IV Q12 [facility] Last Infusion: 11/10/19 10:40 Dose: Infused Documented by: Enteral Nutritional Formula (Vital Af 1.2 [place] Liquid) 1,000 mls @ 60 mls/hr GT .[id number] [facility] Last Admin: 11/10/19 10:14 Dose: Not Given Documented by: Vancomycin IV Pharmacy to Dose (1 ea/ Sodium Chloride) 500 mls @ 250 mls/hr IV X1 PRN; Protocol PRN Reason: Rx to Dose Vancomycin HCl (Vancomycin) 1,000 mg in 200 mls @ 200 mls/hr IV X1 ONE Stop: 11/10/19 17:14 [place] Carbonate ([place] Carbonate) 450 mg GT DAILY [facility] Last Admin: 11/10/19 10:12 Dose: 450 mg Documented by: Oxcarbazepine (Trileptal) 300 mg GT DAILY [facility] Last Admin: 11/10/19 11:20 Dose: 300 mg Documented by: Senna/Docusate Sodium (Senokot-S, Brittany-Colace) 2 tablet PO BID PRN PRN Reason: Constipation Sodium Chloride () 10 - 40 ml IV UD PRN PRN Reason: SALINE FLUSH Last Admin: 11/09/19 11:29 Dose: 40 ml Documented by: Trihexyphenidyl HCl (Trihexyphenidyl Hcl) 2 mg PO TIDCM [facility] Last Admin: 11/10/19 13:53 Dose: 2 mg Documented by: Venlafaxine HCl (Effexor) 75 mg GT BID [facility] Last Admin: 11/10/19 10:12 Dose: 75 mg Documented by: Medical Necessity - Tobacco Use Smoking Status: Former smoker Tobacco Use: Non-smoker Assessment/Plan All Active Problems (Last Reviewed 12/17/18 @ 10:[address] Mario Bartholomew MD) COPD exacerbation (Acute) Respiratory failure (Acute) History of cholecystectomy (Resolved) History of hernia surgery (Resolved) Abnormal stress test (Resolved) #1 acute combined respiratory failure-etiology unclear at this point, is on the ventilator at this time #2 widespread pulmonary metastases-it appears that the etiology of his pulmonary metastases is from poorly differentiated adeno carcinoma esophageal cancer, prognosis is dismal, it is my opinion that the patient's significant other will need some time to process this, I do not think she is ready to give permission to stop treatment. #3 probable severe sepsis-patient is on vancomycin at this time #4 bipolar disorder-patient's bipolar medications have been restarted by pulmonary medicine #5 hyperlipidemia #6 chronic obstructive pulmonary disease #7 probable MRSA pneumonia-patient is currently on vancomycin Code Visit Inpatient E&M: 91531 Subs Hosp L2
[2019-11-10] MEDS: Vancomycin IV 1,000 MG/200 ML BAG 200 MG IV (16:54)
[2019-11-10] MEDS: Vital AF 1.2 Cal Liquid 1,000 ML 60 ML GT (16:57)
--- NOTE | 2019-11-10 18:22 | PCM.RX.CS ---
Consult Pharmacy has been consulted to manage selected antiobiotic: Vancomycin Type of Consult: New start Suspected Infection: Sepsis Prior Doses of Antibiotics Received/Current Regimen: None Labs: Sodium 150 mmol/L (136-145) H 11/10/19 04:00 Potassium 4.1 mmol/L (3.5-5.1) 11/10/19 04:00 Chloride 116 mmol/L (98-107) H 11/10/19 04:00 Carbon Dioxide 30.0 mmol/L (21.0-32.0) 11/10/19 04:00 Anion Gap 4 (5-15) L 11/10/19 04:00 BUN 37 mg/dL (7-18) H 11/10/19 04:00 Creatinine 1.19 mg/dL (0.70-1.30) 11/10/19 04:00 Est GFR (MDRD) Af Amer 80 mL/min (>60) 11/10/19 04:00 Est GFR (MDRD) Non-Af 66 mL/min (>60) 11/10/19 04:00 BUN/Creatinine Ratio 31.1 RATIO (10-20) H 11/10/19 04:00 Glucose 155 mg/dL (74-106) H 11/10/19 04:00 Microbiology: Microbiology 11/09/19 03:35 Sputum, Induced/Lukens Gram Stain - Final 11/09/19 03:35 Sputum, Induced/Lukens Respiratory Culture - Preliminary Staphylococcus aureus 11/08/19 13:00 Urine Catheter - Catheter Urine Culture - Final Culture exhibits no growth. 11/08/19 12:40 Blood Culture (Wb) #2 - Right Forearm Blood Culture - Preliminary No growth in 48 hours. 11/08/19 12:28 Blood Culture (Wb) - Anticubital Left Blood Culture - Preliminary No growth in 48 hours. 11/08/19 13:25 Mucosa - Nasopharyngeal Respiratory Panel (PCR) - Final 11/08/19 13:00 Urine Catheter - Catheter Streptococcus pneumoniae Antigen (M - Final 11/08/19 13:00 Urine Catheter - Catheter Legionella Antigen - Final 11/08/19 10:02 Mucosa - Nose Influenza Types A,B Direct FA (LORI) - Final Goal Trough: 15-20 mcg/mL Pharmacy Plan for Drug Dosing: PLAN/RECOMMENDATIONS 1. Vancomycin 1000mg IV initial dose x1 11/10/19 @1654 2. Vancomycin 750mg IV Q12hr 11/11/19 @0500 3. Trough prior to 4th total dose per protocol 11/12/19 @0430 4. Pharmacy Service will continue to monitor and adjust dosing as required.
[2019-11-10] MEDS: Senna/Docusate Sodium 1 Tablet 2 TABLET PO (22:20)
[2019-11-11] VITALS (38 sets, daily range): BP systolic 145–186; BP diastolic 82–108; PULSE 56–111; RESP 12–25; TEMP 37.1–37.6; O2SAT 95–99
[2019-11-11] MEDS: Insulin Lispro 100 UNIT/ML INSULN.PEN SC ×5 (00:11→23:51)
[2019-11-11] MEDS: Propofol 10MG/Ml 1,000 MG/100 ML Bottle 12.9 MG CONT INF ×2 (00:12→05:46)
[2019-11-11 01:11] LABS: Bedside Glucose 189 mg/dL (70-110)
[2019-11-11] MEDS: fentaNYL drip 100 ML 12.5 MCG IV (02:05)
[2019-11-11] MEDS: Ipratropium/Albuterol Sulfate 3 ML AMPUL.NEB INHALATION ×6 (03:10→23:57)
[2019-11-11 04:25] LABS: Absolute Lymphocyte Count 0.54 X10^3/uL (0.83-4.51); Absolute Neutrophil Count 15.4 X10^3/uL (2.0-7.7); Basophil# 0.02 X10^3/uL; Basophil% 0.1 % (0-1); Lymphocyte # 0.54 X10^3/ul (4.0); Mean Corpuscular Hgb 28.7 pg (27.0-32.0); Mean Corpuscular Volume 95.7 fL (80-94); Mean Platelet Vol. 12.3 fl (6.2-12.0); Monocyte# 1.73 X10^3/uL; Monocyte% 9.5 % (0-10); NRBC Flagged by Analyzer 0 % (0-5); Neutrophil # 15.36 X10^3/uL (2.7-7.7); Neutrophil % 84.6 % (47-70); POSITIVE DIFFERENTIAL YES; Platelet Count 165 K/mm3 (150-450); RBC Distribution Width CV 13.1 % (11.6-14.6); RBC Distribution Width SD 45.9 fl (35.1-43.9); Red Blood Count 4.18 M/mm3 (4.6-6.2); White Blood Count 18.2 K/mm3 (4.4-11.0)
[2019-11-11 04:26] LABS: Differential Indicated SCAN CRITERIA MET
[2019-11-11 04:31] LABS: Anion Gap 4 (5-15); BUN 31 mg/dL (7-18); BUN/Creat Ratio 31.6 RATIO (10-20); Calcium,Total 8.4 mg/dL (8.5-10.1); Chloride 115 mmol/L (98-107); Creatinine, Serum 0.98 mg/dL (0.70-1.30); EST Glomerular Filtration Rate 83 mL/min (>60); Est Glom Filt Rate - Afr Amer 100 mL/min (>60); Estimated Creatinine Clearance 69.73 ml/min; Glucose 176 mg/dL (74-106); Magnesium 2.8 mg/dL (1.6-2.6); Phosphorus 3.3 mg/dL (2.5-4.9); Potassium 4.3 mmol/L (3.5-5.1); Sodium Level 150 mmol/L (136-145)
[2019-11-11] MEDS: Hydrocortisone Sod Succinate 100 MG/2 ML Vial IV ×3 (05:37→21:34)
[2019-11-11 06:01] LABS: Bedside Glucose 158 mg/dL (70-110)
--- NOTE | 2019-11-11 07:59 | PCM.PROGNOTE ---
Patient Problems: Active and Suspected Problems (Last Reviewed 12/17/18 @ 10:[address] Mario Bartholomew MD) Respiratory failure (Acute) Lung metastases (Suspected) Subjective: Patient was seen and examined today, he is sedated and on the ventilator. According to nursing, patient failed his weaning trial today. Patient is running a low-grade fever, his vital signs appear stable. White blood cell count has decreased slightly from yesterday, sodium is still 150. - Physical Exam Vitals/I&O's: Vital Signs Temp Pulse Resp BP Pulse Ox 99.1 F 81 16 158/94 H 96 11/11/19 06:00 11/11/19 06:00 11/11/19 06:00 11/11/19 06:00 11/11/19 06:00 Oxygen Delivery Method Mechanical Ventilator Weight: 74.9 kg Body Mass Index (BMI) 25.6 Finger Stick Blood Glucose 103 Intake and Output for Last 24 Hours 11/09/19 11/10/19 11/11/19 23:59 23:59 23:59 Intake Total 4582.63 / 4890.63 5030.74 / 5152.64 1376.49 / 1376.49 Output Total 975 / 1225 1465 / 1525 520 / 520 Balance 3607.63 / 3665.63 3565.74 / 3627.64 856.49 / 856.49 General: - - Patient is sedated and on the ventilator HEENT: Atraumatic, Normocephalic Neck: Supple, No JVD, Trachea Midline, Thyroid Normal Size and Texture Lungs: Clear to auscultation, Normal air movement, No rhonchi, No wheeze, No rales Cardiovascular: Regular rate, Regular Rhythm, Normal S1, Normal S2, No murmurs, PMI Normal Abdomen: Bowel Sounds Present, Soft, Non Tender, Non-Distended Extremities: No clubbing, No cyanosis, No edema, Capillary Refill Less than 3 Seconds Skin: No rashes Neurological: Cranial nerves II-XII grossly intact, - - Patient is sedated and on the ventilator Psych/Mental Status: - - Patient is sedated and on the ventilator Microbiology Past 72 Hours 11/09/19 03:35 Sputum, Induced/Lukens Gram Stain - Final 11/09/19 03:35 Sputum, Induced/Lukens Respiratory Culture - Preliminary Staphylococcus aureus 11/08/19 13:00 Urine Catheter - Catheter Urine Culture - Final Culture exhibits no growth. 11/08/19 12:40 Blood Culture (Wb) #2 - Right Forearm Blood Culture - Preliminary No growth in 48 hours. 11/08/19 12:28 Blood Culture (Wb) - Anticubital Left Blood Culture - Preliminary No growth in 48 hours. 11/08/19 13:25 Mucosa - Nasopharyngeal Respiratory Panel (PCR) - Final 11/08/19 13:00 Urine Catheter - Catheter Streptococcus pneumoniae Antigen (M - Final 11/08/19 13:00 Urine Catheter - Catheter Legionella Antigen - Final 11/08/19 10:02 Mucosa - Nose Influenza Types A,B Direct FA (LORI) - Final Laboratory Results 11/08/19 09:25: Diff Path Review Reviewed 11/11/19 00:05: POC Glucose 189 H 11/11/19 04:10: WBC 18.2 H, RBC 4.18 L, Hgb 12.0 L, Hct 40.0, MCV 95.7 H, MCH 28.7, MCHC 30.0 L, RDW Std Deviation 45.9 H, RDW Coeff of Willi 13.1, Plt Count 165, MPV 12.3 H, Immature Gran % (Auto) 2.800 H, Neut % (Auto) 84.6 H, Lymph % (Auto) 3.0 L, [place] % (Auto) 9.5, Eos % (Auto) 0.0, Baso % (Auto) 0.1, Absolute Neuts (auto) 15.4 H, Absolute Lymphs (auto) 0.54 L, Nucleated RBC % 0, Differential Comment , Diff Path Review May foll 11/11/19 04:10: Sodium 150 H, Potassium 4.3, Chloride 115 H, Carbon Dioxide 31.0, Anion Gap 4 L, BUN 31 H, Creatinine 0.98, Estim Creat Clear Calc 69.73, Est GFR (MDRD) Af Amer 100, Est GFR (MDRD) Non-Af 83, BUN/Creatinine Ratio 31.6 H, Glucose 176 H, Calcium 8.4 L, Phosphorus 3.3, Magnesium 2.8 H 11/11/19 05:35: POC Glucose 158 H Current Medications Albuterol/Ipratropium (Duoneb) 3 ml INHALATION Q4H.RT ASAEL Last Admin: 11/11/19 06:51 Dose: 3 ml Documented by: Chlorhexidine Gluconate () 15 ml PO BID [facility] Last Admin: 11/10/19 22:20 Dose: 15 ml Documented by: Chlorhexidine Gluconate () 1 each TOPICAL DAILY [facility] Last Admin: 11/10/19 11:20 Dose: 1 each Documented by: Hydrocortisone Sodium Succinate (Solu-Cortef) 100 mg IV Q8 [facility] Last Admin: 11/11/19 05:37 Dose: 100 mg Documented by: Propofol (Diprivan) 1,000 mg in 100 mls @ 4.296 mls/hr CONT INF .Q12H [facility]; Protocol Last Titration: 11/11/19 07:00 Dose: 30 mcg/kg/min, 12.9 mls/hr Documented by: Sodium Chloride () 250 mls @ 15 mls/hr IV .[id number] PRN PRN Reason: Saline Flush Sodium Chloride () 250 mls @ 15 mls/hr IV .[id number] PRN PRN Reason: Additional IVPB Infusion Fentanyl () 100 mls @ 5 mls/hr IV UD [facility]; Protocol Last Titration: 11/11/19 07:00 Dose: 150 mcg/hr, 15 mls/hr Documented by: Pantoprazole Sodium 40 mg/ (Sodium Chloride) 110 mls @ 330 mls/hr IV Q12 [facility] Last Infusion: 11/10/19 22:41 Dose: Infused Documented by: Enteral Nutritional Formula (Vital Af 1.2 Clark Liquid) 1,000 mls @ 60 mls/hr GT .[id number] [facility] Last Admin: 11/11/19 03:01 Dose: Not Given Documented by: Vancomycin IV Pharmacy to Dose (1 ea/ Sodium Chloride) 500 mls @ 250 mls/hr IV PRN PRN; Protocol PRN Reason: Rx to Dose Vancomycin HCl 750 mg/ Sodium (Chloride) 265 mls @ 250 mls/hr IV Q12H [facility] Last Infusion: 11/11/19 06:58 Dose: Infused Documented by: Dexmedetomidine HCl 400 mcg/ (Sodium Chloride) 100 mls @ 8.95 mls/hr CONT INF .[id number] [facility]; Protocol Last Titration: 11/11/19 07:08 Dose: 0.5 mcg/kg/hr, 9 mls/hr Documented by: Insulin Human Lispro (Humalog Kwikpen (Bkc)) 0 unit SC Q6 [facility]; Protocol Last Admin: 11/11/19 05:39 Dose: 1 u Documented by: [place] Carbonate ([place] Carbonate) 450 mg GT DAILY [facility] Last Admin: 11/10/19 10:12 Dose: 450 mg Documented by: Oxcarbazepine (Trileptal) 300 mg GT DAILY [facility] Last Admin: 11/10/19 11:20 Dose: 300 mg Documented by: Senna/Docusate Sodium (Senokot-S, Brittany-Colace) 2 tablet PO BID PRN PRN Reason: Constipation Last Admin: 11/10/19 22:20 Dose: 2 tablet Documented by: Sodium Chloride () 10 - 40 ml IV UD PRN PRN Reason: SALINE FLUSH Last Admin: 11/09/19 11:29 Dose: 40 ml Documented by: Trihexyphenidyl HCl (Trihexyphenidyl Hcl) 2 mg PO TIDCM [facility] Last Admin: 11/10/19 18:00 Dose: 2 mg Documented by: Venlafaxine HCl (Effexor) 75 mg GT BID [facility] Last Admin: 11/10/19 22:24 Dose: 75 mg Documented by: Medical Necessity - Tobacco Use Smoking Status: Former smoker Tobacco Use: Non-smoker Assessment/Plan All Active Problems (Last Reviewed 12/17/18 @ 10:[address] 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
[2019-11-11 09:23] LABS: Pathologist Review Reviewed
[2019-11-11] MEDS: fentaNYL drip 100 ML 15 MCG IV ×3 (09:52→23:49)
--- NOTE | 2019-11-11 10:19 | PN_ITS ---
Subjective: Patient did okay overnight from a hemodynamic standpoint. Patient did not have any fevers, but became significantly agitated with spontaneous awakening trial. [facility] Patient is tolerating tube feeds. Discussed with social work. Patient's fianc? is medical decision maker as previous wishes were documented by staff despite lack of witness on DPOA paperwork. General: - - Intubated and sedated. RASS -3. HEENT: Atraumatic, PERRLA, EOMI, Normocephalic, - - No scleral icterus or injection noted Oral: Moist Mucosa, No Gingival or Mucosal Lesions/ Ulcerations Neck: Supple, No JVD, No Nodes, Trachea Midline Lungs: No wheeze, No rales, Diminished, Rhonchi, - - Symmetric expansion. No dullness to percussion. Cardiovascular: Regular rate, Regular Rhythm, Normal S1, Normal S2, No murmurs, No rub noted, No Gallop Abdomen: Bowel Sounds Present, Soft, Non Tender, Non-Distended Extremities: No clubbing, No cyanosis, No edema, Capillary Refill Less than 3 Seconds Skin: No rashes, No breakdown Musculoskeletal: No Tenderness to Palpation of Joints or Extremities Lymphatic: No Cervical, Supraclavicular, or Inguinal Adenopathy Neurological: Cranial nerves II-XII grossly intact, Neuro grossly intact Psych/Mental Status: Flat Affect, Impulsive Vital Signs Temp Pulse Resp BP Pulse Ox 37.3 C 90 20 H 158/94 H 96 11/11/19 06:00 11/11/19 06:52 11/11/19 06:52 11/11/19 06:00 11/11/19 06:00 Oxygen Delivery Method Mechanical Ventilator Weight: 74.9 kg Body Mass Index (BMI) 25.6 Finger Stick Blood Glucose 103 Intake and Output for Last 24 Hours 11/09/19 11/10/19 11/11/19 23:59 23:59 23:59 Intake Total 4582.63 / 4890.63 5030.74 / 5152.64 1474.39 / 1474.39 Output Total 975 / 1225 1465 / 1525 520 / 520 Balance 3607.63 / 3665.63 3565.74 / 3627.64 954.39 / 954.39 Labs (Last 48 Hours) 11/08/19 11/10/1911/09/20 09:25 04:00 04:00 WBC 20.7 H RBC 4.24 L Hgb 12.3 L Hct 40.3 MCV 95.0 H MCH 29.0 MCHC 30.5 L RDW Std Deviation 44.7 H RDW Coeff of Willi 12.8 Plt Count 178 MPV 12.6 H Immature Gran % (Auto) 0.900 Neut % (Auto) 88.9 H Lymph % (Auto) 2.6 L [place] % (Auto) 7.5 Eos % (Auto) 0.0 Baso % (Auto) 0.1 Absolute Neuts (auto) 18.4 H Absolute Lymphs (auto) 0.54 L Nucleated RBC % 0 Differential Comment Diff Path Review Reviewed Reviewed Sodium 150 H Potassium 4.1 Chloride 116 H Carbon Dioxide 30.0 Anion Gap 4 L BUN 37 H Creatinine 1.19 Estim Creat Clear Calc 57.42 Est GFR (MDRD) Af Amer 80 Est GFR (MDRD) Non-Af 66 BUN/Creatinine Ratio 31.1 H Glucose 155 H Calcium 8.3 L Phosphorus Magnesium POC Glucose 11/11/19 11/11/19 11/11/19 00:05 04:10 04:10 WBC 18.2 H RBC 4.18 L Hgb 12.0 L Hct 40.0 MCV 95.7 H MCH 28.7 MCHC 30.0 L RDW Std Deviation 45.9 H RDW Coeff of Willi 13.1 Plt Count 165 MPV 12.3 H Immature Gran % (Auto) 2.800 H Neut % (Auto) 84.6 H Lymph % (Auto) 3.0 L [place] % (Auto) 9.5 Eos % (Auto) 0.0 Baso % (Auto) 0.1 Absolute Neuts (auto) 15.4 H Absolute Lymphs (auto) 0.54 L Nucleated RBC % 0 Differential Comment Diff Path Review May foll Sodium 150 H Potassium 4.3 Chloride 115 H Carbon Dioxide 31.0 Anion Gap 4 L BUN 31 H Creatinine 0.98 Estim Creat Clear Calc 69.73 Est GFR (MDRD) Af Amer 100 Est GFR (MDRD) Non-Af 83 BUN/Creatinine Ratio 31.6 H Glucose 176 H Calcium 8.4 L Phosphorus 3.3 Magnesium 2.8 H POC Glucose 189 H 11/11/19 05:35 WBC RBC Hgb Hct MCV MCH MCHC RDW Std Deviation RDW Coeff of Willi Plt Count MPV Immature Gran % (Auto) Neut % (Auto) Lymph % (Auto) [place] % (Auto) Eos % (Auto) Baso % (Auto) Absolute Neuts (auto) Absolute Lymphs (auto) Nucleated RBC % Differential Comment Diff Path Review Sodium Potassium Chloride Carbon Dioxide Anion Gap BUN Creatinine Estim Creat Clear Calc Est GFR (MDRD) Af Amer Est GFR (MDRD) Non-Af BUN/Creatinine Ratio Glucose Calcium Phosphorus Magnesium POC Glucose 158 H Microbiology 11/09/19 03:35 Sputum, Induced/Lukens Gram Stain - Final 11/09/19 03:35 Sputum, Induced/Lukens Respiratory Culture - Final Meth. resistant Staph. aureus 11/08/19 13:00 Urine Catheter - Catheter Urine Culture - Final Culture exhibits no growth. 11/08/19 12:40 Blood Culture (Wb) #2 - Right Forearm Blood Culture - Preliminary No growth in 48 hours. 11/08/19 12:28 Blood Culture (Wb) - Anticubital Left Blood Culture - Preliminary No growth in 48 hours. 11/08/19 13:25 Mucosa - Nasopharyngeal Respiratory Panel (PCR) - Final Medical Necessity - Tobacco Use Smoking Status: Former smoker Tobacco Use: Non-smoker Assessment/Plan All Active Problems (Last Reviewed 12/17/18 @ 10:[address] Mario Bartholomew MD) COPD exacerbation (Acute) Respiratory failure (Acute) History of cholecystectomy (Resolved) History of hernia surgery (Resolved) Abnormal stress test (Resolved) RECOMMENDATIONS: 1. Continue vancomycin, steroids and bronchodilators 2. Continue baseline antipsychotic medications. Transition to Precedex to facilitate spontaneous awakening trial 3. Place PICC line if central access is required 4. Discuss with fianc? about goals of therapy 5. Continue increased free water flushes IMPRESSIONS: 1. Acute hypoxic respiratory failure secondary to possible pneumonia Patient does have some rhonchi at the left base initially. Interpretation of the CT scan is difficult given multiple nodules consistent with a non- pulmonary primary malignancy. Patient does not have a PE noted on CT scan. Reasonable to continue healthcare associated antibiotics, steroids and bronchodilators at this time. Continue to wean PEEP as tolerated. Spontaneous awakening and breathing trials per protocol. Patient will be transition to Precedex therapy. Continue with baseline antipsychotic medications. 2. Poorly differentiated adenocarcinoma of the esophagus Patient does have multiple pulmonary nodules in a pattern consistent with metastatic disease. It does not appear that confirmation of metastatic disease may change goals of therapy with discussions with samirDivina, but she is now deemed the power of deputy county attorney. 3. Nonsustained V. tach Patient did have some episodes of nonsustained V. tach following epinephrine in the ER. We will continue with telemetry. Would hold off on amiodarone at this time. Patient does have a cardiac history and has seen Dr. Bartholomew in the past. 4. Probable severe sepsis Patient has been noted to have leukocytosis and tachypnea. Cultures have shown MRSA. Patient has been transitioned to vancomycin, but has only been on therapeutic antibiotics for 24 hours at this time. 5. Hypertension/hyperlipidemia/COPD/possible psychiatric illness Complicates care, management, recovery and prognosis. Patient does have lithium on his outpatient medications indicating possible bipolar disorder. Reinitiate baseline antipsychotic medications. Possibly reinitiate baseline antihypertensive therapy in a stepwise fashion pending response to Precedex therapy TIME: 38 minutes critical care time spent addressing patient's acute hypoxic respiratory failure, possible severe sepsis, review of all data and collaboration with care team (6 AM to 8 AM) Code Visit Inpatient E&M: 24601 Subs Hosp L3
[2019-11-11] MEDS: Venlafaxine HCl 75 MG Tablet GT ×2 (10:51→21:34)
[2019-11-11] MEDS: Lithium Carbonate 150 MG Capsule 450 MG GT (10:51)
[2019-11-11] MEDS: CHLORHEXIDINE GLUC 2% CLOTH 1 EACH TOWELETTE TOPICAL (10:51)
[2019-11-11] MEDS: OXcarbazepine 300 MG Tablet GT (10:52)
[2019-11-11] MEDS: TRIHEXYPHENIDYL HCL 2 MG TABLET PO ×3 (10:52→17:16)
[2019-11-11] MEDS: Vital AF 1.2 Cal Liquid 1,000 ML 60 ML GT (10:53)
[2019-11-11] MEDS: Chlorhexidine 15 ML PO ×2 (10:53→21:33)
[2019-11-11 13:05] LABS: Bedside Glucose 177 mg/dL (70-110)
[2019-11-11 13:09] LABS: Pathologist Review Reviewed
[2019-11-11 19:10] LABS: Bedside Glucose 199 mg/dL (70-110)
[2019-11-11] MEDS: hydrALAZINE 20 MG/ML Vial 10 MG IV (19:37)
[2019-11-11] MEDS: 0.9% Saline Lock 10 ML Syringe IV (19:38)
[2019-11-11] MEDS: Senna/Docusate Sodium 1 Tablet 2 TABLET PO (21:33)
[2019-11-11] MEDS: Propofol 10MG/Ml 1,000 MG/100 ML Bottle 4.3 MG CONT INF (21:44)
[2019-11-12] VITALS (46 sets, daily range): BP systolic 134–183; BP diastolic 10–126; PULSE 63–109; RESP 12–34; TEMP 37.4–38.4; O2SAT 90–99
[2019-11-12 00:06] LABS: Bedside Glucose 192 mg/dL (70-110)
[2019-11-12] MEDS: Dexmedetomidine 1,000 mcg in 0.9% NS 240 mL 28.1 MCG CONT INF (01:02)
[2019-11-12] MEDS: hydrALAZINE 20 MG/ML Vial 10 MG IV ×2 (02:33→11:10)
[2019-11-12] MEDS: Ipratropium/Albuterol Sulfate 3 ML AMPUL.NEB INHALATION ×6 (03:12→22:35)
[2019-11-12 04:38] LABS: Absolute Lymphocyte Count 0.47 X10^3/uL (0.83-4.51); Absolute Neutrophil Count 13.1 X10^3/uL (2.0-7.7); Basophil# 0.03 X10^3/uL; Basophil% 0.2 % (0-1); Eosinophil# 0.14 X10^3/uL; Eosinophils% 0.9 % (0-5); Hematocrit 41.3 % (40-54); Hemoglobin 12.5 g/dL (13.0-16.5); Lymphocyte # 0.47 X10^3/ul (4.0); Lymphocyte % 2.9 % (19-41); Mean Corp Hgb Conc 30.3 g/dL (32-36); Mean Corpuscular Hgb 28.9 pg (27.0-32.0); Mean Corpuscular Volume 95.4 fL (80-94); Mean Platelet Vol. 12.7 fl (6.2-12.0); Monocyte# 1.56 X10^3/uL; Monocyte% 9.8 % (0-10); NRBC Flagged by Analyzer 0 % (0-5); Neutrophil # 13.13 X10^3/uL (2.7-7.7); Neutrophil % 82.2 % (47-70); POSITIVE DIFFERENTIAL YES; Platelet Count 143 K/mm3 (150-450); RBC Distribution Width CV 12.9 % (11.6-14.6); RBC Distribution Width SD 45.1 fl (35.1-43.9); Red Blood Count 4.33 M/mm3 (4.6-6.2)
[2019-11-12 04:41] LABS: Differential Indicated SCAN CRITERIA MET
[2019-11-12 04:51] LABS: Anion Gap 2 (5-15); BUN 29 mg/dL (7-18); Calcium,Total 8.4 mg/dL (8.5-10.1); Chloride 111 mmol/L (98-107); Creatinine, Serum 0.78 mg/dL (0.70-1.30); EST Glomerular Filtration Rate 107 mL/min (>60); Est Glom Filt Rate - Afr Amer 130 mL/min (>60); Estimated Creatinine Clearance 87.61 ml/min; Glucose 189 mg/dL (74-106); Magnesium 2.4 mg/dL (1.6-2.6); Phosphorus 2.6 mg/dL (2.5-4.9); Potassium 4.3 mmol/L (3.5-5.1); Sodium Level 145 mmol/L (136-145)
[2019-11-12 04:55] LABS: Differential Comment SCANNED
[2019-11-12 05:05] LABS: Vancomycin, Trough Level 6.3 ug/mL (5.0-15.0)
--- NOTE | 2019-11-12 05:18 | PCM.RX.CS ---
Consult Pharmacy has been consulted to manage selected antiobiotic: Vancomycin Type of Consult: Follow-up Suspected Infection: Sepsis Prior Doses of Antibiotics Received/Current Regimen: Medications Vancomycin HCl 1,250 mg/ (Sodium Chloride) 275 mls @ 167 mls/hr IV Q12H ASAEL Discontinued Medications Vancomycin HCl 750 mg/ Sodium (Chloride) 265 mls @ 250 mls/hr IV Q12H ASAEL Last Admin: 11/11/19 18:39 Dose: Infused Labs: Sodium 145 mmol/L (136-145) 11/12/19 04:30 Potassium 4.3 mmol/L (3.5-5.1) 11/12/19 04:30 Chloride 111 mmol/L (98-107) H 11/12/19 04:30 Carbon Dioxide 32.0 mmol/L (21.0-32.0) 11/12/19 04:30 Anion Gap 2 (5-15) L 11/12/19 04:30 BUN 29 mg/dL (7-18) H 11/12/19 04:30 Creatinine 0.78 mg/dL (0.70-1.30) 11/12/19 04:30 Est GFR (MDRD) Af Amer 130 mL/min (>60) 11/12/19 04:30 Est GFR (MDRD) Non-Af 107 mL/min (>60) 11/12/19 04:30 BUN/Creatinine Ratio 37.0 RATIO (10-20) H 11/12/19 04:30 Glucose 189 mg/dL (74-106) H 11/12/19 04:30 Vancomycin Trough 6.3 ug/mL (5.0-15.0) 11/12/19 04:30 Microbiology: Microbiology 11/09/19 03:35 Sputum, Induced/Lukens Gram Stain - Final 11/09/19 03:35 Sputum, Induced/Lukens Respiratory Culture - Final Meth. resistant Staph. aureus 11/08/19 13:00 Urine Catheter - Catheter Urine Culture - Final Culture exhibits no growth. 11/08/19 12:40 Blood Culture (Wb) #2 - Right Forearm Blood Culture - Preliminary No growth in 48 hours. 11/08/19 12:28 Blood Culture (Wb) - Anticubital Left Blood Culture - Preliminary No growth in 48 hours. 11/08/19 13:25 Mucosa - Nasopharyngeal Respiratory Panel (PCR) - Final 11/08/19 13:00 Urine Catheter - Catheter Streptococcus pneumoniae Antigen (M - Final 11/08/19 13:00 Urine Catheter - Catheter Legionella Antigen - Final 11/08/19 10:02 Mucosa - Nose Influenza Types A,B Direct FA (LORI) - Final Weight used for dosin.9 kg Estimated Creatinine Clearance: 88 Goal Trough: 15-20 mcg/mL Pharmacy Plan for Drug Dosing: Trough level of 6.3 was low, due presumably to increase in renal function. Dose was increased to 1250mg q12h. Will re-draw trough prior to 4th dose of new regimen. Pharmacy Service will continue to monitor and adjust dosing as required. Follow-Up Labs: Trough Vancomycin Labs to be done on [date and time ordered]: 11/13/19 @1700
[2019-11-12] MEDS: Insulin Lispro 100 UNIT/ML INSULN.PEN SC (05:45)
[2019-11-12] MEDS: Hydrocortisone Sod Succinate 100 MG/2 ML Vial IV ×3 (05:46→21:19)
[2019-11-12 06:51] LABS: Bedside Glucose 163 mg/dL (70-110)
--- NOTE | 2019-11-12 07:58 | PCM.PN.INT ---
Subjective: Patient did okay overnight. Patient did have propofol completely discontinued while on Precedex, but then had significant anxiety, so a spontaneous breathing trial cannot be completed. Patient was unable to really follow commands for me this morning. Patient reportedly is tolerating tube feeds. Objective: Given significant agitation with sedation holiday, patient was placed on a spontaneous breathing trial with 5 of pressure support and 5 of CPAP on fentanyl, propofol and Precedex. Apnea alarms were set to appropriate levels and patient is currently undergoing a spontaneous breathing trial. General: - - Intubated and sedated. Not following commands. Appears comfortable on spontaneous breathing trial. HEENT: Atraumatic, PERRLA, EOMI, Normocephalic, - - Slight scleral injection without icterus Oral: Moist Mucosa, No Gingival or Mucosal Lesions/ Ulcerations Neck: Supple, No JVD, No Nodes, Trachea Midline Lungs: No rhonchi, No wheeze, No rales, Diminished, - - Symmetric expansion. Cardiovascular: Regular rate, Regular Rhythm, Normal S1, Normal S2, No murmurs, No rub noted, No Gallop Abdomen: Bowel Sounds Present, Soft, Non Tender, Non-Distended Extremities: No clubbing, No cyanosis, Edema - Trace to 1+ Skin: No rashes, No breakdown Musculoskeletal: No Tenderness to Palpation of Joints or Extremities Lymphatic: No Cervical, Supraclavicular, or Inguinal Adenopathy Neurological: Cranial nerves II-XII grossly intact, Neuro grossly intact, - - Spontaneous movement of all extremities. Not really following commands for a full neurologic assessment Psych/Mental Status: Flat Affect, Restless Vital Signs Temp Pulse Resp BP Pulse Ox 37.6 C H 76 18 167/10 H 97 11/12/19 06:00 11/12/19 06:00 11/12/19 06:00 11/12/19 06:00 11/12/19 06:00 Oxygen Delivery Method Mechanical Ventilator Weight: 77.3 kg Body Mass Index (BMI) 25.6 Finger Stick Blood Glucose 103 Intake and Output for Last 24 Hours 11/10/19 11/11/19 11/12/19 23:59 23:59 23:59 Intake Total 5030.74 / 5152.64 4202.80 / 4569.65 1232.38 / 1232.38 Output Total 1465 / 1525 1570 / 1720 725 / 725 Balance 3565.74 / 3627.64 2632.80 / 2849.65 507.38 / 507.38 Labs (Last 48 Hours) 11/08/19 11/10/19 11/11/19 09:25 04:00 00:05 WBC RBC Hgb Hct MCV MCH MCHC RDW Std Deviation RDW Coeff of Willi Plt Count MPV Immature Gran % (Auto) Neut % (Auto) Lymph % (Auto) [place] % (Auto) Eos % (Auto) Baso % (Auto) Absolute Neuts (auto) Absolute Lymphs (auto) Nucleated RBC % Differential Comment Diff Path Review Reviewed Reviewed Sodium Potassium Chloride Carbon Dioxide Anion Gap BUN Creatinine Estim Creat Clear Calc Est GFR (MDRD) Af Amer Est GFR (MDRD) Non-Af BUN/Creatinine Ratio Glucose Calcium Phosphorus Magnesium Vancomycin Trough POC Glucose 189 H 11/11/19 11/11/19 11/11/19 04:10 04:10 05:35 WBC 18.2 H RBC 4.18 L Hgb 12.0 L Hct 40.0 MCV 95.7 H MCH 28.7 MCHC 30.0 L RDW Std Deviation 45.9 H RDW Coeff of Willi 13.1 Plt Count 165 MPV 12.3 H Immature Gran % (Auto) 2.800 H Neut % (Auto) 84.6 H Lymph % (Auto) 3.0 L [place] % (Auto) 9.5 Eos % (Auto) 0.0 Baso % (Auto) 0.1 Absolute Neuts (auto) 15.4 H Absolute Lymphs (auto) 0.54 L Nucleated RBC % 0 Differential Comment Diff Path Review Reviewed Sodium 150 H Potassium 4.3 Chloride 115 H Carbon Dioxide 31.0 Anion Gap 4 L BUN 31 H Creatinine 0.98 Estim Creat Clear Calc 69.73 Est GFR (MDRD) Af Amer 100 Est GFR (MDRD) Non-Af 83 BUN/Creatinine Ratio 31.6 H Glucose 176 H Calcium 8.4 L Phosphorus 3.3 Magnesium 2.8 H Vancomycin Trough POC Glucose 158 H 11/11/19 11/11/19 11/11/19 12:51 18:03 23:48 WBC RBC Hgb Hct MCV MCH MCHC RDW Std Deviation RDW Coeff of Willi Plt Count MPV Immature Gran % (Auto) Neut % (Auto) Lymph % (Auto) [place] % (Auto) Eos % (Auto) Baso % (Auto) Absolute Neuts (auto) Absolute Lymphs (auto) Nucleated RBC % Differential Comment Diff Path Review Sodium Potassium Chloride Carbon Dioxide Anion Gap BUN Creatinine Estim Creat Clear Calc Est GFR (MDRD) Af Amer Est GFR (MDRD) Non-Af BUN/Creatinine Ratio Glucose Calcium Phosphorus Magnesium Vancomycin Trough POC Glucose 177 H 199 H 192 H 11/12/19 11/12/19 11/12/19 04:30 04:30 04:30 WBC 16.0 H RBC 4.33 L Hgb 12.5 L Hct 41.3 MCV 95.4 H MCH 28.9 MCHC 30.3 L RDW Std Deviation 45.1 H RDW Coeff of Willi 12.9 Plt Count 143 L MPV 12.7 H Immature Gran % (Auto) 4.000 H Neut % (Auto) 82.2 H Lymph % (Auto) 2.9 L [place] % (Auto) 9.8 Eos % (Auto) 0.9 Baso % (Auto) 0.2 Absolute Neuts (auto) 13.1 H Absolute Lymphs (auto) 0.47 L Nucleated RBC % 0 Differential Comment SCANNED Diff Path Review Sodium 145 Potassium 4.3 Chloride 111 H Carbon Dioxide 32.0 Anion Gap 2 L BUN 29 H Creatinine 0.78 Estim Creat Clear Calc 87.61 Est GFR (MDRD) Af Amer 130 Est GFR (MDRD) Non-Af 107 BUN/Creatinine Ratio 37.0 H Glucose 189 H Calcium 8.4 L Phosphorus 2.6 Magnesium 2.4 Vancomycin Trough 6.3 POC Glucose 11/12/19 05:43 WBC RBC Hgb Hct MCV MCH MCHC RDW Std Deviation RDW Coeff of Willi Plt Count MPV Immature Gran % (Auto) Neut % (Auto) Lymph % (Auto) [place] % (Auto) Eos % (Auto) Baso % (Auto) Absolute Neuts (auto) Absolute Lymphs (auto) Nucleated RBC % Differential Comment Diff Path Review Sodium Potassium Chloride Carbon Dioxide Anion Gap BUN Creatinine Estim Creat Clear Calc Est GFR (MDRD) Af Amer Est GFR (MDRD) Non-Af BUN/Creatinine Ratio Glucose Calcium Phosphorus Magnesium Vancomycin Trough POC Glucose 163 H Microbiology 11/09/19 03:35 Sputum, Induced/Lukens Gram Stain - Final 11/09/19 03:35 Sputum, Induced/Lukens Respiratory Culture - Final Meth. resistant Staph. aureus 11/08/19 13:00 Urine Catheter - Catheter Urine Culture - Final Culture exhibits no growth. 11/08/19 12:40 Blood Culture (Wb) #2 - Right Forearm Blood Culture - Preliminary No growth in 48 hours. 11/08/19 12:28 Blood Culture (Wb) - Anticubital Left Blood Culture - Preliminary No growth in 48 hours. Medical Necessity - Tobacco Use Smoking Status: Former smoker Tobacco Use: Non-smoker Assessment/Plan All Active Problems (Last Reviewed 12/17/18 @ 10:[address] Mario Bartholomew MD) COPD exacerbation (Acute) Respiratory failure (Acute) History of cholecystectomy (Resolved) History of hernia surgery (Resolved) Abnormal stress test (Resolved) RECOMMENDATIONS: 1. Continue vancomycin, steroids and bronchodilators 2. Continue baseline antipsychotic medications. Transition to Precedex to facilitate spontaneous awakening trial 3. Obtain ABG after 1 hour. If acceptable, discontinue sedation and extubate when responsive 4. Discuss with samir? about goals of therapy 5. Administer morning medications early prior to removal of OG if qualifies for extubation IMPRESSIONS: 1. Acute hypoxic respiratory failure secondary to possible pneumonia Patient does have some rhonchi at the left base initially. Interpretation of the CT scan is difficult given multiple nodules consistent with a non-pulmonary primary malignancy. Patient does not have a PE noted on CT scan. Reasonable to continue healthcare associated antibiotics, steroids and bronchodilators at this time. Patient has had difficulty completing spontaneous awakening trial secondary to probable bipolar disorder. Under my direct supervision, patient has been undergoing a spontaneous breathing trial while on sedation. If patient is able to tolerate, anticipate discontinuation of sedation and then extubation once patient is responsive and able to follow commands. 2. Poorly differentiated adenocarcinoma of the esophagus Patient does have multiple pulmonary nodules in a pattern consistent with metastatic disease. It does not appear that confirmation of metastatic disease may change goals of therapy with discussions with fisherrie?, but she is now deemed the power of assistant prosecuting attorney. 3. Nonsustained V. tach Resolved. Patient did have some episodes of nonsustained V. tach following epinephrine in the ER. We will continue with telemetry. Would hold off on amiodarone at this time. Patient does have a cardiac history and has seen Dr. Bartholomew in the past. 4. Probable severe sepsis Patient has been noted to have leukocytosis and tachypnea. Cultures have shown MRSA. Patient has been transitioned to vancomycin, but has only been on therapeutic antibiotics for 48 hours at this time. 5. Hypertension/hyperlipidemia/COPD/possible psychiatric illness Complicates care, management, recovery and prognosis. Patient does have lithium on his outpatient medications indicating possible bipolar disorder. Reinitiate baseline antipsychotic medications. TIME: 45 minutes critical care time spent addressing patient's acute hypoxic respiratory failure, possible severe sepsis, review of all data and collaboration with care team (6:30 AM to 8 AM) [phone]: [id number] Critical care first hour
[2019-11-12] MEDS: Polyethylene Glycol 3350 17 GM PACKET PO (08:07)
[2019-11-12] MEDS: OXcarbazepine 300 MG Tablet GT (08:08)
[2019-11-12] MEDS: TRIHEXYPHENIDYL HCL 2 MG TABLET PO ×2 (08:08→16:17)
[2019-11-12] MEDS: Chlorhexidine 15 ML PO (08:08)
[2019-11-12] MEDS: Venlafaxine HCl 75 MG Tablet GT ×2 (08:08→21:19)
[2019-11-12] MEDS: Lithium Carbonate 150 MG Capsule 450 MG GT (08:08)
[2019-11-12] MEDS: CHLORHEXIDINE GLUC 2% CLOTH 1 EACH TOWELETTE TOPICAL (08:09)
[2019-11-12 08:15] LABS: Base Excess 8 mmol/L (-2 to +2); Bicarbonate 32.4 mmol/L (22-26); Blood Gas Specimen Type ART; FI02 40; Mode CPAP PS; O2 Delivery Device Vent; PEEP 5; PO2 82 mmHG (75-100); PS 5; SITE L Radial; SO2 96 % (95-99); Time Given 811; Total Carbon Dioxide 34 mmol/L; pCO2 49.7 mmHg (35-45); pH 7.42 (7.35-7.45)
--- NOTE | 2019-11-12 09:42 | NURSING ---
patient extubated at 0942 by RT and placed on NC 5L. RN at bedside. Patient in respiratory distress, Dr. Echavarria at bedside. Airvo ordered and applied. Patient respiratory status stabilized and o2 sats increased 95%.
--- NOTE | 2019-11-12 09:47 | PN_ITS ---
Patient Problems: Active and Suspected Problems (Last Reviewed 12/17/18 @ 10:[address] Mario Bartholomew MD) Respiratory failure (Acute) Lung metastases (Suspected) Subjective: Intubated and sedated, has been unable to be successfully weaned and his spontaneous breathing trial was met with significant anxiety on his part. Vitals/I&O's: Vital Signs Temp Pulse Resp BP Pulse Ox 99.7 F H 76 18 167/10 H 97 11/12/19 06:00 11/12/19 06:00 11/12/19 06:00 11/12/19 06:00 11/12/19 06:00 Oxygen Delivery Method Mechanical Ventilator Weight: 170 lb 6.677 oz Body Mass Index (BMI) 25.6 Finger Stick Blood Glucose 103 Intake and Output for Last 24 Hours 11/10/19 11/11/19 11/12/19 23:59 23:59 23:59 Intake Total 5030.74 / 5152.64 4202.80 / 4569.65 1620.44 / 1620.44 Output Total 1465 / 1525 1570 / 1720 725 / 725 Balance 3565.74 / 3627.64 2632.80 / 2849.65 895.44 / 895.44 General: - - Intubated and sedated HEENT: Atraumatic, PERRLA, EOMI, Normocephalic Oral: Dry Mucosa Neck: Supple, No JVD Lungs: Clear to auscultation, Normal air movement, No rhonchi, No wheeze, No rales, Diminished Cardiovascular: Regular rate, Regular Rhythm, Normal S1, Normal S2, No murmurs Abdomen: Soft, Non-Distended, No Hepato-splenomegaly Extremities: No edema, Capillary Refill Less than 3 Seconds Skin: No rashes, No breakdown Neurological: - - Intubated and sedated Psych/Mental Status: - - Intubated and sedated Microbiology Past 72 Hours 11/09/19 03:35 Sputum, Induced/Lukens Gram Stain - Final 11/09/19 03:35 Sputum, Induced/Lukens Respiratory Culture - Final Meth. resistant Staph. aureus 11/08/19 13:00 Urine Catheter - Catheter Urine Culture - Final Culture exhibits no growth. 11/08/19 12:40 Blood Culture (Wb) #2 - Right Forearm Blood Culture - Preliminary No growth in 48 hours. 11/08/19 12:28 Blood Culture (Wb) - Anticubital Left Blood Culture - Preliminary No growth in 48 hours. 11/08/19 13:25 Mucosa - Nasopharyngeal Respiratory Panel (PCR) - Final Laboratory Results 11/11/19 04:10: Diff Path Review Reviewed 11/11/19 12:51: POC Glucose 177 H 11/11/19 18:03: POC Glucose 199 H 11/11/19 23:48: POC Glucose 192 H 11/12/19 04:30: Vancomycin Trough 6.3 11/12/19 04:30: WBC 16.0 H, RBC 4.33 L, Hgb 12.5 L, Hct 41.3, MCV 95.4 H, MCH 28.9, MCHC 30.3 L, RDW Std Deviation 45.1 H, RDW Coeff of Willi 12.9, Plt Count 143 L, MPV 12.7 H, Immature Gran % (Auto) 4.000 H, Neut % (Auto) 82.2 H, Lymph % (Auto) 2.9 L, [place] % (Auto) 9.8, Eos % (Auto) 0.9, Baso % (Auto) 0.2, Absolute Neuts (auto) 13.1 H, Absolute Lymphs (auto) 0.47 L, Nucleated RBC % 0, Differential Comment SCANNED 11/12/19 04:30: Sodium 145, Potassium 4.3, Chloride 111 H, Carbon Dioxide 32.0, Anion Gap 2 L, BUN 29 H, Creatinine 0.78, Estim Creat Clear Calc 87.61, Est GFR (MDRD) Af Amer 130, Est GFR (MDRD) Non-Af 107, BUN/Creatinine Ratio 37.0 H, Glucose 189 H, Calcium 8.4 L, Phosphorus 2.6, Magnesium 2.4 11/12/19 05:43: POC Glucose 163 H 11/12/19 08:11: Specimen Type ART, Sample Site L Radial, pH 7.42, Bicarbonate Actual 32.4 H, POC Total CO2 34, Base Excess 8 H, O2 Saturation 96, O2 % 40, ABG pCO2 49.7 H, ABG pO2 82, [place] Test NA, O2 Delivery Device Vent, Vent Mode CPAP PS, POC PEEP 5, POC Pressure Suppt 5, Blood Gas Notified Whom ICU MD, Blood Gas Notified Time 811 Current Medications Albuterol/Ipratropium (Duoneb) 3 ml INHALATION Q4H.RT [facility] Last Admin: 11/12/19 06:48 Dose: 3 ml Documented by: Chlorhexidine Gluconate () 15 ml PO BID [facility] Last Admin: 11/12/19 08:08 Dose: 15 ml Documented by: Chlorhexidine Gluconate () 1 each TOPICAL DAILY [facility] Last Admin: 11/12/19 08:09 Dose: 1 each Documented by: Hydralazine HCl (Apresoline Iv) 10 mg IV Q6H PRN PRN PRN Reason: SBP>160 Last Admin: 11/12/19 02:33 Dose: 10 mg Documented by: Hydrocortisone Sodium Succinate (Solu-Cortef) 100 mg IV Q8 [facility] Last Admin: 11/12/19 05:46 Dose: 100 mg Documented by: Propofol (Diprivan) 1,000 mg in 100 mls @ 4.638 mls/hr CONT INF .Q12H [facility]; Protocol Last Titration: 11/12/19 08:40 Dose: 0 mcg/kg/min, 0 mls/hr Documented by: Sodium Chloride () 250 mls @ 15 mls/hr IV .[id number] PRN PRN Reason: Saline Flush Sodium Chloride () 250 mls @ 15 mls/hr IV .[id number] PRN PRN Reason: Additional IVPB Infusion Fentanyl () 100 mls @ 5 mls/hr IV UD [facility]; Protocol Last Titration: 11/12/19 07:30 Dose: 125 mcg/hr, 12.5 mls/hr Documented by: Pantoprazole Sodium 40 mg/ (Sodium Chloride) 110 mls @ 330 mls/hr IV Q12 [facility] Last Infusion: 11/11/19 21:52 Dose: Infused Documented by: Enteral Nutritional Formula (Vital Af 1.2 [place] Liquid) 1,000 mls @ 60 mls/hr GT .[id number] [facility] Last Admin: 11/11/19 17:59 Dose: Not Given Documented by: Vancomycin IV Pharmacy to Dose (1 ea/ Sodium Chloride) 500 mls @ 250 mls/hr IV PRN PRN; Protocol PRN Reason: Rx to Dose Dexmedetomidine HCl 1,000 mcg/ (Sodium Chloride) 250 mls @ 9.663 mls/hr CONT INF .[id number] [facility]; Protocol Last Titration: 11/12/19 09:00 Dose: 1.5 mcg/kg/hr, 29 mls/hr Documented by: Vancomycin HCl 1,250 mg/ (Sodium Chloride) 275 mls @ 167 mls/hr IV Q12H [facility] Last Infusion: 11/12/19 08:06 Dose: Infused Documented by: Insulin Human Lispro (Humalog Kwikpen (Bkc)) 0 unit SC Q6 [facility]; Protocol Last Admin: 11/12/19 05:45 Dose: 1 u Documented by: Labetalol HCl (Trandate) 10 mg IV Q6H PRN PRN PRN Reason: SBP>159 Last Admin: 11/12/19 09:10 Dose: 10 mg Documented by: [place] Carbonate ([place] Carbonate) 450 mg GT DAILY [facility] Last Admin: 11/12/19 08:08 Dose: 450 mg Documented by: Oxcarbazepine (Trileptal) 300 mg GT DAILY [facility] Last Admin: 11/12/19 08:08 Dose: 300 mg Documented by: Senna/Docusate Sodium (Senokot-S, Brittany-Colace) 2 tablet PO BID PRN PRN Reason: Constipation Last Admin: 11/11/19 21:33 Dose: 2 tablet Documented by: Sodium Chloride () 10 - 40 ml IV UD PRN PRN Reason: SALINE FLUSH Last Admin: 11/11/19 19:38 Dose: 40 ml Documented by: Trihexyphenidyl HCl (Trihexyphenidyl Hcl) 2 mg PO TIDCM [facility] Last Admin: 11/12/19 08:08 Dose: 2 mg Documented by: Venlafaxine HCl (Effexor) 75 mg GT BID [facility] Last Admin: 11/12/19 08:08 Dose: 75 mg Documented by: STROKE Vital Signs/Narrative: Vital Signs Temp Pulse Resp BP Pulse Ox 11/12/19 06:00 99.7 F H 76 18 167/10 H 97 Medical Necessity - Tobacco Use Smoking Status: Former smoker Tobacco Use: Non-smoker Assessment/Plan All Active Problems (Last Reviewed 12/17/18 @ 10:[address] Mario Bartholomew MD) COPD exacerbation (Acute) Respiratory failure (Acute) History of cholecystectomy (Resolved) History of hernia surgery (Resolved) Abnormal stress test (Resolved) 1. Severe sepsis and acute hypoxic respiratory failure secondary to MRSA pneumonia/metastatic adenocarcinoma of the esophagus/COPD -Has remained intubated and is well on IV fluids -Continue with vancomycin -Given his poorly differentiated adenocarcinoma and the significant metastatic burden in his lungs, will have an extensive discussion with his girlfriend about advanced care planning including CODE STATUS and transitioning to hospice -Continue with inhalers 2. HTN/HLD -Blood pressure stable -Continue with PRN hydralazine we will hold his lisinopril -Also will continue to hold his statin as well as his aspirin 3. Bipolar disorder -We will continue with his lithium as well as his Effexor, continue with Trileptal -We will hold his BuSpar DVT: SCDs Inpatient E&M: [id number] Subs Hosp L2
[2019-11-12 13:01] LABS: Bedside Glucose 101 mg/dL (70-110)
--- NOTE | 2019-11-12 14:40 | CHAPLAIN ---
Type of Pastoral Visit ___ Initial Visit _x__ Follow-up Visit ___ On-call Visit ___ General Patient Visit ___ Spiritual Assessment ___ Family Conference ___ Bereavement ___ Rapid Response ___ Code Blue ___ Other (describe below) Pastoral Care Referral From ___ Patient _x__ Family ___ Nurse ___ Physician ___ Wheel Fitter ___ Board Certified Family Physician ___ Other (describe below) Sacrament/Intervention _x__ Active listening ___ Anointing ___ Presybeterian ___ Bereavement ___ Communion ___ [place] exploration ___ ___ Life review ___ Prayer ___ Reconciliation ___ Sacrament of Sick _x__ Supportive presence ___ Wedding ___ Other (describe below) Pastoral Comments patient is awake and able to speak; 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
[2019-11-12] MEDS: Acetaminophen 325 MG Tablet 650 MG PO (18:25)
[2019-11-13] VITALS (37 sets, daily range): BP systolic 137–174; BP diastolic 70–110; PULSE 82–129; RESP 12–93; TEMP 37.5–38.3; O2SAT 93–100
[2019-11-13] MEDS: Ipratropium/Albuterol Sulfate 3 ML AMPUL.NEB INHALATION ×6 (03:05→22:20)
[2019-11-13] MEDS: Hydrocortisone Sod Succinate 100 MG/2 ML Vial IV ×2 (05:16→21:06)
[2019-11-13] MEDS: 0.9% Saline Lock 10 ML Syringe IV ×6 (05:20→23:51)
--- NOTE | 2019-11-13 07:21 | PCM.PN.INT ---
Subjective: Patient did okay overnight. Patient has been on BiPAP for several hours and was recently taken off to the high flow nasal cannula. Patient reports some dyspnea, but overall feels improved. Pain is controlled. Patient is having a productive cough. General: Alert, Cooperative, No apparent distress, - - No conversational dyspnea. HEENT: Atraumatic, PERRLA, EOMI, Normocephalic, - - No scleral icterus or injection noted Oral: Moist Mucosa, No Gingival or Mucosal Lesions/ Ulcerations Neck: Supple, No JVD, No Nodes, Trachea Midline Lungs: No wheeze, No rales, Diminished, Rhonchi - Scattered, but improved with coughing, - - Symmetric expansion. No dullness to percussion Cardiovascular: Regular rate, Regular Rhythm, Normal S1, Normal S2, No murmurs, No rub noted, No Gallop Abdomen: Bowel Sounds Present, Soft, Non Tender, Non-Distended Extremities: No clubbing, No cyanosis, Capillary Refill Less than 3 Seconds, Edema Skin: No rashes, No breakdown Musculoskeletal: No Tenderness to Palpation of Joints or Extremities Lymphatic: No Cervical, Supraclavicular, or Inguinal Adenopathy Neurological: Cranial nerves II-XII grossly intact, Neuro grossly intact, Motor Exam 5/5 strength throughout Psych/Mental Status: Normal Affect, Appropriate Vital Signs Temp Pulse Resp BP Pulse Ox 37.6 C H 87 23 H 169/84 H 95 11/13/19 07:11 11/13/19 07:11 11/13/19 07:11 11/13/19 07:11 11/13/19 07:11 Oxygen Flow Rate (L/min) 60 Oxygen Delivery Method CPAP Weight: 75.4 kg Body Mass Index (BMI) 25.6 Finger Stick Blood Glucose 103 Intake and Output for Last 24 Hours 11/11/19 11/12/19 11/13/19 23:59 23:59 23:59 Intake Total 4202.80 / 4569.65 2387.64 / 2387.64 125 / 125 Output Total 1570 / 1720 2500 / 2625 625 / 625 Balance 2632.80 / 2849.65 -112.36 / -237.36 -500 / -500 Labs (Last 48 Hours) 11/10/19 11/11/19 11/11/19 04:00 04:10 12:51 WBC RBC Hgb Hct MCV MCH MCHC RDW Std Deviation RDW Coeff of Willi Plt Count MPV Immature Gran % (Auto) Neut % (Auto) Lymph % (Auto) [place] % (Auto) Eos % (Auto) Baso % (Auto) Absolute Neuts (auto) Absolute Lymphs (auto) Nucleated RBC % Differential Comment Diff Path Review Reviewed Reviewed Specimen Type Sample Site pH Bicarbonate Actual POC Total CO2 Base Excess O2 Saturation O2 % ABG pCO2 ABG pO2 [place] Test O2 Delivery Device Vent Mode POC PEEP POC Pressure Suppt Blood Gas Notified Whom Blood Gas Notified Time Sodium Potassium Chloride Carbon Dioxide Anion Gap BUN Creatinine Estim Creat Clear Calc Est GFR (MDRD) Af Amer Est GFR (MDRD) Non-Af BUN/Creatinine Ratio Glucose Calcium Phosphorus Magnesium Vancomycin Trough POC Glucose 177 H 11/11/19 11/11/19 11/12/19 18:03 23:48 04:30 WBC RBC Hgb Hct MCV MCH MCHC RDW Std Deviation RDW Coeff of Willi Plt Count MPV Immature Gran % (Auto) Neut % (Auto) Lymph % (Auto) [place] % (Auto) Eos % (Auto) Baso % (Auto) Absolute Neuts (auto) Absolute Lymphs (auto) Nucleated RBC % Differential Comment Diff Path Review Specimen Type Sample Site pH Bicarbonate Actual POC Total CO2 Base Excess O2 Saturation O2 % ABG pCO2 ABG pO2 [place] Test O2 Delivery Device Vent Mode POC PEEP POC Pressure Suppt Blood Gas Notified Whom Blood Gas Notified Time Sodium Potassium Chloride Carbon Dioxide Anion Gap BUN Creatinine Estim Creat Clear Calc Est GFR (MDRD) Af Amer Est GFR (MDRD) Non-Af BUN/Creatinine Ratio Glucose Calcium Phosphorus Magnesium Vancomycin Trough 6.3 POC Glucose 199 H 192 H 11/12/19 11/12/19 11/12/19 04:30 04:30 05:43 WBC 16.0 H RBC 4.33 L Hgb 12.5 L Hct 41.3 MCV 95.4 H MCH 28.9 MCHC 30.3 L RDW Std Deviation 45.1 H RDW Coeff of Willi 12.9 Plt Count 143 L MPV 12.7 H Immature Gran % (Auto) 4.000 H Neut % (Auto) 82.2 H Lymph % (Auto) 2.9 L [place] % (Auto) 9.8 Eos % (Auto) 0.9 Baso % (Auto) 0.2 Absolute Neuts (auto) 13.1 H Absolute Lymphs (auto) 0.47 L Nucleated RBC % 0 Differential Comment SCANNED Diff Path Review Specimen Type Sample Site pH Bicarbonate Actual POC Total CO2 Base Excess O2 Saturation O2 % ABG pCO2 ABG pO2 [place] Test O2 Delivery Device Vent Mode POC PEEP POC Pressure Suppt Blood Gas Notified Whom Blood Gas Notified Time Sodium 145 Potassium 4.3 Chloride 111 H Carbon Dioxide 32.0 Anion Gap 2 L BUN 29 H Creatinine 0.78 Estim Creat Clear Calc 87.61 Est GFR (MDRD) Af Amer 130 Est GFR (MDRD) Non-Af 107 BUN/Creatinine Ratio 37.0 H Glucose 189 H Calcium 8.4 L Phosphorus 2.6 Magnesium 2.4 Vancomycin Trough POC Glucose 163 H 11/12/19 11/12/19 08:11 12:45 WBC RBC Hgb Hct MCV MCH MCHC RDW Std Deviation RDW Coeff of Willi Plt Count MPV Immature Gran % (Auto) Neut % (Auto) Lymph % (Auto) [place] % (Auto) Eos % (Auto) Baso % (Auto) Absolute Neuts (auto) Absolute Lymphs (auto) Nucleated RBC % Differential Comment Diff Path Review Specimen Type ART Sample Site L Radial pH 7.42 Bicarbonate Actual 32.4 H POC Total CO2 34 Base Excess 8 H O2 Saturation 96 O2 % 40 ABG pCO2 49.7 H ABG pO2 82 [place] Test NA O2 Delivery Device Vent Vent Mode CPAP PS POC PEEP 5 POC Pressure Suppt 5 Blood Gas Notified Whom ICU MD Blood Gas Notified Time 811 Sodium Potassium Chloride Carbon Dioxide Anion Gap BUN Creatinine Estim Creat Clear Calc Est GFR (MDRD) Af Amer Est GFR (MDRD) Non-Af BUN/Creatinine Ratio Glucose Calcium Phosphorus Magnesium Vancomycin Trough POC Glucose 101 Microbiology 11/08/19 12:40 Blood Culture (Wb) #2 - Right Forearm Blood Culture - Final No growth in 5 days. 11/08/19 12:28 Blood Culture (Wb) - Anticubital Left Blood Culture - Final No growth in 5 days. 11/09/19 03:35 Sputum, Induced/Lukens Gram Stain - Final 11/09/19 03:35 Sputum, Induced/Lukens Respiratory Culture - Final Meth. resistant Staph. aureus Medical Necessity - Tobacco Use Smoking Status: Former smoker Tobacco Use: Non-smoker Assessment/Plan All Active Problems (Last Reviewed 12/17/18 @ 10:[address] Mario Bartholomew MD) COPD exacerbation (Acute) Respiratory failure (Acute) History of cholecystectomy (Resolved) History of hernia surgery (Resolved) Abnormal stress test (Resolved) RECOMMENDATIONS: 1. Continue vancomycin and bronchodilators. Wean steroids 2. Continue baseline antipsychotic medications. 3. Await results of palliative care discussion 4. Attempt to wean high flow nasal cannula 5. Possible transfer out of the intensive care unit later today pending palliative discussion IMPRESSIONS: 1. Acute hypoxic respiratory failure secondary to MRSA pneumonia Patient does have some rhonchi at the left base initially. Interpretation of the CT scan is difficult given multiple nodules consistent with a non-pulmonary primary malignancy. Patient does not have a PE noted on CT scan. Patient successfully extubated yesterday. 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 Patient remains on high flow nasal cannula. Will attempt to wean through the day. Possible transfer from the intensive care later today pending clinical course. Anticipate 10 days of antibiotics in total. 2. Poorly differentiated adenocarcinoma of the esophagus Patient does have multiple pulmonary nodules in a pattern consistent with metastatic disease. It does not appear that confirmation of metastatic disease may change goals of therapy with discussions with hakan, but she is now deemed the power of associate attorney. 3. Nonsustained V. tach Resolved. Patient did have some episodes of nonsustained V. tach following epinephrine in the ER. We will continue with telemetry. Would hold off on amiodarone at this time. Patient does have a cardiac history and has seen Dr. Bartholomew in the past. 4. Probable severe sepsis Patient has been noted to have leukocytosis and tachypnea. Cultures have shown MRSA. Patient has been transitioned to vancomycin, but has only been on therapeutic antibiotics for 3 days at this time. 5. Hypertension/hyperlipidemia/COPD/possible psychiatric illness Complicates care, management, recovery and prognosis. On baseline psychiatric medications. Inpatient E&M: [id number] [facility] Hosp L3
[2019-11-13] MEDS: TRIHEXYPHENIDYL HCL 2 MG TABLET PO ×3 (08:04→21:07)
[2019-11-13] MEDS: OXcarbazepine 300 MG Tablet GT (08:04)
[2019-11-13] MEDS: Lithium Carbonate 150 MG Capsule 450 MG GT (08:04)
[2019-11-13] MEDS: Venlafaxine HCl 75 MG Tablet GT ×2 (08:04→21:05)
--- NOTE | 2019-11-13 09:42 | CM.UR ---
Participated in interdisciplinary rounds this am. Patient remains in isolation. On cpap<->bipap. Dr. Dee did talk to patient last evening about palliative/hospice for his terminal condition. Per CHANTALE Carty the patient said hospice is coming in to see patient today. He would like to go home. CHANTALE Carty said that he currently requires total care so she doesn't think he can go home. She recommended SNF first and then potentially home. Case management to continue to follow. Jose L Perla RN, CCM.
--- NOTE | 2019-11-13 10:56 | PN_ITS ---
Patient Problems: Active and Suspected Problems (Last Reviewed 12/17/18 @ 10:[address] Mario Bartholomew MD) Respiratory failure (Acute) Lung metastases (Suspected) Subjective: Tolerated BiPAP overnight, had another discussion with him about DNR status and hospice. Once again he is in agreement with discussing with hospice and not wa nting to be intubated again Vitals/I&O's: Vital Signs Temp Pulse Resp BP Pulse Ox 99.6 F H 87 23 H 169/84 H 95 11/13/19 07:11 11/13/19 07:11 11/13/19 07:11 11/13/19 07:11 11/13/19 07:11 Oxygen Flow Rate (L/min) 60 Oxygen Delivery Method CPAP Weight: 166 lb 3.657 oz Body Mass Index (BMI) 25.6 Finger Stick Blood Glucose 103 Intake and Output for Last 24 Hours 11/11/19 11/12/19 11/13/19 23:59 23:59 23:59 Intake Total 4202.80 / 4569.65 2387.64 / 2387.64 125 / 125 Output Total 1570 / 1720 2500 / 2625 625 / 625 Balance 2632.80 / 2849.65 -112.36 / -237.36 -500 / -500 General: Alert and oriented, currently on high flow nasal cannula HEENT: Atraumatic, PERRLA, EOMI, Normocephalic Oral: Dry Mucosa Neck: Supple, No JVD Lungs: Clear to auscultation, Normal air movement, No rhonchi, No wheeze, No rales, Diminished Cardiovascular: Regular rate, Regular Rhythm, Normal S1, Normal S2, No murmurs Abdomen: Soft, Non-Distended, No Hepato-splenomegaly Extremities: No edema, Capillary Refill Less than 3 Seconds Skin: No rashes, No breakdown Neurological: Neuro is grossly normal with sensation intact Psych/Mental Status: Normal affect, appropriate Microbiology Past 72 Hours 11/08/19 12:40 Blood Culture (Wb) #2 - Right Forearm Blood Culture - Final No growth in 5 days. 11/08/19 12:28 Blood Culture (Wb) - Anticubital Left Blood Culture - Final No growth in 5 days. 11/09/19 03:35 Sputum, Induced/Lukens Gram Stain - Final 11/09/19 03:35 Sputum, Induced/Lukens Respiratory Culture - Final Meth. resistant Staph. aureus 11/08/19 13:00 Urine Catheter - Catheter Urine Culture - Final Culture exhibits no growth. Laboratory Results 11/12/19 12:45: POC Glucose 101 Current Medications Acetaminophen (Tylenol) 650 mg PO Q6H PRN PRN PRN Reason: FEVER Last Admin: 11/12/19 18:25 Dose: 650 mg Documented by: Albuterol/Ipratropium (Duoneb) 3 ml INHALATION Q4H.RT [facility] Last Admin: 11/13/19 06:53 Dose: 3 ml Documented by: Chlorhexidine Gluconate () 1 each TOPICAL DAILY [facility] Last Admin: 11/12/19 08:09 Dose: 1 each Documented by: Hydralazine HCl (Apresoline Iv) 10 mg IV Q6H PRN PRN PRN Reason: SBP>160 Last Admin: 11/12/19 11:10 Dose: 10 mg Documented by: Hydrocortisone Sodium Succinate (Solu-Cortef) 100 mg IV Q12 [facility] Sodium Chloride () 250 mls @ 15 mls/hr IV .[id number] PRN PRN Reason: Saline Flush Sodium Chloride () 250 mls @ 15 mls/hr IV .[id number] PRN PRN Reason: Additional IVPB Infusion Pantoprazole Sodium 40 mg/ (Sodium Chloride) 110 mls @ 330 mls/hr IV Q12 [facility] Last Infusion: 11/12/19 21:41 Dose: Infused Documented by: Vancomycin IV Pharmacy to Dose (1 ea/ Sodium Chloride) 500 mls @ 250 mls/hr IV PRN PRN; Protocol PRN Reason: Rx to Dose Vancomycin HCl 1,250 mg/ (Sodium Chloride) 275 mls @ 167 mls/hr IV Q12H [facility] Last Admin: 11/13/19 05:15 Dose: 167 mls/hr Documented by: Labetalol HCl (Trandate) 10 mg IV Q6H PRN PRN PRN Reason: SBP>159 Last Admin: 11/12/19 09:10 Dose: 10 mg Documented by: [place] Carbonate ([place] Carbonate) 450 mg GT DAILY [facility] Last Admin: 11/13/19 08:04 Dose: 450 mg Documented by: Oxcarbazepine (Trileptal) 300 mg GT DAILY [facility] Last Admin: 11/13/19 08:04 Dose: 300 mg Documented by: Senna/Docusate Sodium (Senokot-S, Brittany-Colace) 2 tablet PO BID PRN PRN Reason: Constipation Last Admin: 11/11/19 21:33 Dose: 2 tablet Documented by: Sodium Chloride () 10 - 40 ml IV UD PRN PRN Reason: SALINE FLUSH Last Admin: 11/13/19 05:20 Dose: 10 ml Documented by: Trihexyphenidyl HCl (Trihexyphenidyl Hcl) 2 mg PO TIDCM [facility] Last Admin: 11/13/19 08:04 Dose: 2 mg Documented by: Venlafaxine HCl (Effexor) 75 mg GT BID [facility] Last Admin: 11/13/19 08:04 Dose: 75 mg Documented by: STROKE Vital Signs/Narrative: Vital Signs Temp Pulse Resp BP Pulse Ox 11/13/19 07:11 99.6 F H 87 23 H 169/84 H 95 Medical Necessity - Tobacco Use Smoking Status: Former smoker Tobacco Use: Non-smoker Assessment/Plan All Active Problems (Last Reviewed 12/17/18 @ 10:[address] Mario Bartholomew MD) COPD exacerbation (Acute) Respiratory failure (Acute) History of cholecystectomy (Resolved) History of hernia surgery (Resolved) Abnormal stress test (Resolved) 1. Severe sepsis and acute hypoxic respiratory failure secondary to MRSA pneumonia/metastatic adenocarcinoma of the esophagus/COPD -extubated and tolerating BiPAP/High flow NC -Continue with vancomycin -Given his poorly differentiated adenocarcinoma and the significant metastatic burden in his lungs, they will meet with hospice today given the significant tumor burden. -Continue with inhalers 2. HTN/HLD -Blood pressure stable -Continue with PRN hydralazine we will hold his lisinopril -Also will continue to hold his statin as well as his aspirin 3. Bipolar disorder -We will continue with his lithium as well as his Effexor, continue with Trileptal -We will hold his BuSpar DVT: SCDs Inpatient E&M: [id number] Subs Hosp L2
[2019-11-13] MEDS: CHLORHEXIDINE GLUC 2% CLOTH 1 EACH TOWELETTE TOPICAL (12:32)
--- NOTE | 2019-11-13 12:35 | CASEMGMT ---
SOCIAL WORK DISCUSSED PATIENT'S STATUS WITH NURSING. MET WITH PATIENT AND SIGNIFICANT OTHER, JEOVANY IN ROOM. INTRODUCED ROLE AND REASON FOR FOLLOW UP. PATIENT A&OX3. DISCUSSED ADVANCED DIRECTIVES AND PATIENT WISHED TO COMPLETE. PATIENT NAMED SIGNIFICANT OTHER, JEOVANY SOLORZANO HPOA. COPY OF ADVANCED DIRECTIVES ADDED TO CHART. ORIGINAL AND COPY GIVEN TO PATIENT. UPON LEAVING, HOSPICE HERE FOR CONSULT. SW WILL REMAIN AVAILABLE FOR NEEDS. Jennifer VAZQEUZ, STRUCTURES MECHANIC, [employer].
[2019-11-13] MEDS: LORazepam 2 MG/ML Syringe 0.5 MG IV (14:41)
[2019-11-13] MEDS: LORazepam 2 MG/ML Syringe 1 MG IV ×2 (16:06→21:07)
--- NOTE | 2019-11-13 17:11 | NURSING ---
education re chronic illness deferred till acute illness resolving
[2019-11-13] MEDS: hydrALAZINE 20 MG/ML Vial 10 MG IV (21:06)
--- NOTE | 2019-11-13 21:40 | NURSING ---
Pt heard grunting thru Bipap from [address], pt disoriented, agitated and severely anxious stating that he can't breathe. Pt retracting, orthopneic and using multiple accessory muscles to breathe. Pt repositioned in bed, begins to make a wretching sound, Bipap removed and nasal cannula Airvo applied at 20L. Pt not following commands but acknowledges that he hears them.
--- NOTE | 2019-11-13 22:05 | NURSING ---
notified of pt's resp status, orders received: 20mg Lasix x1 given IVP and 4mg morphine IVP may be given PRN. Pt's resp efforts are less labored s/p medications; RT increased oxygen flow to Airvo NC. Pt's fiance called, given updates and advised to come in d/t pt's rapid condition change.
--- NOTE | 2019-11-13 22:05 | CPS ---
pt in significant respiratory distress, increased AirVo to 60 l/m of flow
[2019-11-13] MEDS: Furosemide 20 MG/2 ML VIAL IV (22:06)
[2019-11-13] MEDS: Morphine 4 MG/ML Syringe IV (22:07)
[2019-11-13] MEDS: Haloperidol Lactate 5 MG/ML Vial IV (23:50)
[2019-11-14] VITALS (30 sets, daily range): BP systolic 121–175; BP diastolic 72–110; PULSE 92–166; RESP 17–43; TEMP 37.1–37.8; O2SAT 92–96
[2019-11-14] MEDS: Ipratropium/Albuterol Sulfate 3 ML AMPUL.NEB INHALATION ×4 (03:45→15:16)
[2019-11-14 04:57] LABS: Vancomycin, Trough Level 17.2 ug/mL (5.0-15.0)
--- NOTE | 2019-11-14 05:01 | PCM.RX.CS ---
Consult Pharmacy has been consulted to manage selected antiobiotic: Vancomycin Type of Consult: Follow-up Suspected Infection: Sepsis Prior Doses of Antibiotics Received/Current Regimen: Medications Vancomycin HCl 1,250 mg/ (Sodium Chloride) 275 mls @ 167 mls/hr IV Q12H [facility] Last Admin: 11/13/19 19:50 Dose: Infused Labs: Sodium 145 mmol/L (136-145) 11/12/19 04:30 Potassium 4.3 mmol/L (3.5-5.1) 11/12/19 04:30 Chloride 111 mmol/L (98-107) H 11/12/19 04:30 Carbon Dioxide 32.0 mmol/L (21.0-32.0) 11/12/19 04:30 Anion Gap 2 (5-15) L 11/12/19 04:30 BUN 29 mg/dL (7-18) H 11/12/19 04:30 Creatinine 0.78 mg/dL (0.70-1.30) 11/12/19 04:30 Est GFR (MDRD) Af Amer 130 mL/min (>60) 11/12/19 04:30 Est GFR (MDRD) Non-Af 107 mL/min (>60) 11/12/19 04:30 BUN/Creatinine Ratio 37.0 RATIO (10-20) H 11/12/19 04:30 Glucose 189 mg/dL (74-106) H 11/12/19 04:30 Vancomycin Trough 17.2 ug/mL (5.0-15.0) H 11/14/19 04:10 Microbiology: Microbiology 11/08/19 12:40 Blood Culture (Wb) #2 - Right Forearm Blood Culture - Final No growth in 5 days. 11/08/19 12:28 Blood Culture (Wb) - Anticubital Left Blood Culture - Final No growth in 5 days. 11/09/19 03:35 Sputum, Induced/Lukens Gram Stain - Final 11/09/19 03:35 Sputum, Induced/Lukens Respiratory Culture - Final Meth. resistant Staph. aureus 11/08/19 13:00 Urine Catheter - Catheter Urine Culture - Final Culture exhibits no growth. 11/08/19 13:25 Mucosa - Nasopharyngeal Respiratory Panel (PCR) - Final 11/08/19 13:00 Urine Catheter - Catheter Streptococcus pneumoniae Antigen (M - Final 11/08/19 13:00 Urine Catheter - Catheter Legionella Antigen - Final 11/08/19 10:02 Mucosa - Nose Influenza Types A,B Direct FA (LORI) - Final Weight used for dosin.1 kg Estimated Creatinine Clearance: 88 Goal Trough: 15-20 mcg/mL Pharmacy Plan for Drug Dosing: Trough level of 17.2 was within target range of 15-20. Will continue dosing at 1250mg q12h and re-draw trough 11/16/19. Pharmacy Service will continue to monitor and adjust dosing as required. Follow-Up Labs: Trough Vancomycin Labs to be done on [date and time ordered]: 11/16/19 @1708
[2019-11-14] MEDS: 0.9% Saline Lock 10 ML Syringe IV ×5 (05:18→19:59)
[2019-11-14 06:13] LABS: Absolute Lymphocyte Count 0.48 X10^3/uL (0.83-4.51); Absolute Neutrophil Count 17.2 X10^3/uL (2.0-7.7); Basophil# 0.05 X10^3/uL; Basophil% 0.3 % (0-1); Hematocrit 40.9 % (40-54); Hemoglobin 12.7 g/dL (13.0-16.5); Lymphocyte # 0.48 X10^3/ul (4.0); Lymphocyte % 2.5 % (19-41); Mean Corp Hgb Conc 31.1 g/dL (32-36); Mean Corpuscular Hgb 28.7 pg (27.0-32.0); Mean Corpuscular Volume 92.5 fL (80-94); Mean Platelet Vol. 13.3 fl (6.2-12.0); Monocyte% 7.2 % (0-10); NRBC Flagged by Analyzer 0 % (0-5); Neutrophil # 17.22 X10^3/uL (2.7-7.7); Neutrophil % 88.5 % (47-70); POSITIVE DIFFERENTIAL YES; POSITIVE MORPHOLOGY YES; Platelet Count 150 K/mm3 (150-450); Red Blood Count 4.42 M/mm3 (4.6-6.2); White Blood Count 19.4 K/mm3 (4.4-11.0)
--- NOTE | 2019-11-14 06:44 | CPS ---
Heated High Flow Therapy FiO2 decreased to 33% from 38%.
[2019-11-14 06:53] LABS: Differential Indicated SCAN CRITERIA MET
[2019-11-14 07:09] LABS: Anion Gap 6 (5-15); BUN 22 mg/dL (7-18); BUN/Creat Ratio 28.8 RATIO (10-20); Calcium,Total 8.3 mg/dL (8.5-10.1); Chloride 106 mmol/L (98-107); Creatinine, Serum 0.76 mg/dL (0.70-1.30); EST Glomerular Filtration Rate 111 mL/min (>60); Est Glom Filt Rate - Afr Amer 134 mL/min (>60); Estimated Creatinine Clearance 89.91 ml/min; Glucose 128 mg/dL (74-106); Magnesium 2.2 mg/dL (1.6-2.6); Phosphorus 3.7 mg/dL (2.5-4.9); Sodium Level 146 mmol/L (136-145)
--- NOTE | 2019-11-14 07:36 | PN_ITS ---
Subjective: Patient did well for majority of the day yesterday. However, patient got significantly agitated yesterday evening requiring increase in airVo/BiPAP rescue. POA was called in given goals of therapy. Patient appears to be more confused this morning, but respiratory status is much improved. Patient did receive Ativan yesterday prior to the event. General: Alert, Cooperative, Confused, Disoriented HEENT: Atraumatic, PERRLA, EOMI, Normocephalic, - - Slight scleral injection Oral: No Gingival or Mucosal Lesions/ Ulcerations, Dry Mucosa Neck: Supple, No JVD, No Nodes, Trachea Midline Lungs: No rhonchi, No rales, Diminished, Wheezes, - - Symmetric expansion Cardiovascular: Normal S1, Normal S2, No murmurs, No rub noted, No Gallop, Tachycardic Abdomen: Bowel Sounds Present, Soft, Non Tender, Non-Distended Extremities: No clubbing, No cyanosis, No edema, Capillary Refill Less than 3 Seconds Skin: No rashes, No breakdown Musculoskeletal: No Tenderness to Palpation of Joints or Extremities Lymphatic: No Cervical, Supraclavicular, or Inguinal Adenopathy Neurological: Cranial nerves II-XII grossly intact, Neuro grossly intact Psych/Mental Status: Impulsive, Restless Vital Signs Temp Pulse Resp BP Pulse Ox 37.1 C 101 H 33 H 141/85 H 94 11/14/19 06:00 11/14/19 06:45 11/14/19 06:45 11/14/19 06:00 11/14/19 06:45 Oxygen Flow Rate (L/min) 60 Oxygen Delivery Method CPAP Weight: 73.1 kg Body Mass Index (BMI) 25.6 Finger Stick Blood Glucose 103 Intake and Output for Last 24 Hours 11/12/19 11/13/19 11/15/19 23:59 23:59 00:59 Intake Total 2387.64 / 2387.64 2435 / 2435 275 / 275 Output Total 2500 / 2625 4425 / 4425 850 / 850 Balance -112.36 / -237.36 -1989 / -1989 -575 / -575 Labs (Last 48 Hours) 11/12/19 11/12/19 11/12/19 05:43 08:11 12:45 WBC RBC Hgb Hct MCV MCH MCHC RDW Std Deviation RDW Coeff of Willi Plt Count MPV Immature Gran % (Auto) Neut % (Auto) Lymph % (Auto) [place] % (Auto) Eos % (Auto) Baso % (Auto) Absolute Neuts (auto) Absolute Lymphs (auto) Nucleated RBC % Specimen Type ART Sample Site L Radial pH 7.42 Bicarbonate Actual 32.4 H POC Total CO2 34 Base Excess 8 H O2 Saturation 96 O2 % 40 ABG pCO2 49.7 H ABG pO2 82 [place] Test NA O2 Delivery Device Vent Vent Mode CPAP PS POC PEEP 5 POC Pressure Suppt 5 Blood Gas Notified Whom ICU MD Blood Gas Notified Time 811 Sodium Potassium Chloride Carbon Dioxide Anion Gap BUN Creatinine Estim Creat Clear Calc Est GFR (MDRD) Af Amer Est GFR (MDRD) Non-Af BUN/Creatinine Ratio Glucose Calcium Phosphorus Magnesium Vancomycin Trough POC Glucose 163 H 101 11/14/19 11/14/19 11/14/19 04:10 04:10 04:10 WBC 19.4 H RBC 4.42 L Hgb 12.7 L Hct 40.9 MCV 92.5 MCH 28.7 MCHC 31.1 L RDW Std Deviation 44.0 H RDW Coeff of Willi 13.0 Plt Count 150 MPV 13.3 H Immature Gran % (Auto) 1.500 H Neut % (Auto) 88.5 H Lymph % (Auto) 2.5 L [place] % (Auto) 7.2 Eos % (Auto) 0.0 Baso % (Auto) 0.3 Absolute Neuts (auto) 17.2 H Absolute Lymphs (auto) 0.48 L Nucleated RBC % 0 Specimen Type Sample Site pH Bicarbonate Actual POC Total CO2 Base Excess O2 Saturation O2 % ABG pCO2 ABG pO2 [place] Test O2 Delivery Device Vent Mode POC PEEP POC Pressure Suppt Blood Gas Notified Whom Blood Gas Notified Time Sodium 146 H Potassium 3.0 L Chloride 106 Carbon Dioxide 34.0 H Anion Gap 6 BUN 22 H Creatinine 0.76 Estim Creat Clear Calc 89.91 Est GFR (MDRD) Af Amer 134 Est GFR (MDRD) Non-Af 111 BUN/Creatinine Ratio 28.8 H Glucose 128 H Calcium 8.3 L Phosphorus 3.7 Magnesium 2.2 Vancomycin Trough 17.2 H POC Glucose Microbiology 11/08/19 12:40 Blood Culture (Wb) #2 - Right Forearm Blood Culture - Final No growth in 5 days. 11/08/19 12:28 Blood Culture (Wb) - Anticubital Left Blood Culture - Final No growth in 5 days. Medical Necessity - Tobacco Use Smoking Status: Former smoker Tobacco Use: Non-smoker Assessment/Plan All Active Problems (Last Reviewed 12/17/18 @ 10:[address] Mario Bartholomew MD) COPD exacerbation (Acute) Respiratory failure (Acute) History of cholecystectomy (Resolved) History of hernia surgery (Resolved) Abnormal stress test (Resolved) RECOMMENDATIONS: 1. Continue vancomycin and bronchodilators. Discontinue stress dose steroids 2. Continue baseline antipsychotic medications. Avoid Ativan 3. Await results of palliative care discussion 4. Attempt to wean high flow nasal cannula 5. Possible transfer out of the intensive care unit pending palliative discussion IMPRESSIONS: 1. Acute hypoxic respiratory failure secondary to MRSA pneumonia Patient did have some rhonchi at the left base initially. Interpretation of the CT scan is difficult given multiple nodules consistent with a non- pulmonary primary malignancy. Patient does not have a PE noted on CT scan. Patient successfully extubated Friday. 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 Patient remains on high flow nasal cannula. Will attempt to wean through the day. Possible transfer from the intensive care later today pending clinical course. Anticipate 10 days of antibiotics in total. 2. Poorly differentiated adenocarcinoma of the esophagus Patient does have multiple pulmonary nodules in a pattern consistent with metastatic disease. It does not appear that confirmation of metastatic disease may change goals of therapy with discussions with samir?, but she is now deemed the power of criminal defense attorney. Patient appears to be reluctant for hospice therapy, but prognosis is significantly poor 3. Nonsustained V. tach Resolved. Patient did have some episodes of nonsustained V. tach following epinephrine in the ER. We will continue with telemetry. Would hold off on amiodarone at this time. Patient does have a cardiac history and has seen Dr. Bartholomew in the past. 4. Probable severe sepsis Patient has been noted to have leukocytosis and tachypnea. Cultures have shown MRSA. Patient has been transitioned to vancomycin, but has only been on therapeutic antibiotics for 4 days at this time. 5. Hypertension/hyperlipidemia/COPD/possible psychiatric illness Complicates care, management, recovery and prognosis. On baseline psychiatric medications. Avoid Ativan. Haldol if necessary. Inpatient E&M: [id number] [facility] L3
[2019-11-14 07:41] LABS: Platelet Estimate ADEQUATE (ADEQ); Toxic Granulation RARE
[2019-11-14] MEDS: Potassium Chloride 10mEq/100mL 10 MEQ/100 ML IV.SOLN. 100 MEQ IV BOLUS ×4 (08:40→13:00)
[2019-11-14] MEDS: Morphine 4 MG/ML Syringe IV ×3 (08:44→18:10)
--- NOTE | 2019-11-14 09:49 | PN_ITS ---
Patient Problems: Active and Suspected Problems (Last Reviewed 12/17/18 @ 10:[address] Mario Bartholomew MD) Respiratory failure (Acute) Lung metastases (Suspected) Subjective: Had some difficulty overnight with anxiety, received a couple doses of Ativan. He also became dyspneic on his BiPAP and family was called and for further disc ussions. He seems to be doing a little bit better this morning after receiving some Lasix. There is been extensive discussions with him about his CODE STATUS he is still a DNR CCA with no intubation however he now does not want to go hospice. Vitals/I&O's: Vital Signs Temp Pulse Resp BP Pulse Ox 99.4 F H 110 H 17 159/97 H 92 11/14/19 09:00 11/14/19 09:00 11/14/19 09:00 11/14/19 09:00 11/14/19 09:00 Oxygen Flow Rate (L/min) 60 Oxygen Delivery Method CPAP Weight: 161 lb 2.526 oz Body Mass Index (BMI) 25.6 Finger Stick Blood Glucose 103 Intake and Output for Last 24 Hours 11/12/19 11/13/19 11/15/19 23:59 23:59 00:59 Intake Total 2387.64 / 2387.64 2435 / 2435 275 / 275 Output Total 2500 / 2625 4425 / 4425 850 / 850 Balance -112.36 / -237.36 -1989 / -1989 -575 / -575 General: Confused, currently on high flow nasal cannula HEENT: Atraumatic, PERRLA, EOMI, Normocephalic Oral: Dry Mucosa Neck: Supple, No JVD Lungs: Clear to auscultation, Normal air movement, No rhonchi, wheeze, No rales, Diminished Cardiovascular: Regular rate, Regular Rhythm, Normal S1, Normal S2, No murmurs Abdomen: Soft, Non-Distended, No Hepato-splenomegaly Extremities: No edema, Capillary Refill Less than 3 Seconds Skin: No rashes, No breakdown Neurological: Neuro is grossly normal with sensation intact Psych/Mental Status: Restless Microbiology Past 72 Hours 11/08/19 12:40 Blood Culture (Wb) #2 - Right Forearm Blood Culture - Final No growth in 5 days. 11/08/19 12:28 Blood Culture (Wb) - Anticubital Left Blood Culture - Final No growth in 5 days. 11/09/19 03:35 Sputum, Induced/Lukens Gram Stain - Final 11/09/19 03:35 Sputum, Induced/Lukens Respiratory Culture - Final Meth. resistant Staph. aureus Laboratory Results 11/14/19 04:10: Vancomycin Trough 17.2 H 11/14/19 04:10: WBC 19.4 H, RBC 4.42 L, Hgb 12.7 L, Hct 40.9, MCV 92.5, MCH 28.7, MCHC 31.1 L, RDW Std Deviation 44.0 H, RDW Coeff of Willi 13.0, Plt Count 150, MPV 13.3 H, Immature Gran % (Auto) 1.500 H, Neut % (Auto) 88.5 H, Lymph % (Auto) 2.5 L, [place] % (Auto) 7.2, Eos % (Auto) 0.0, Baso % (Auto) 0.3, Absolute Neuts (auto) 17.2 H, Absolute Lymphs (auto) 0.48 L, Nucleated RBC % 0, Differential Comment , Toxic Granulation RARE, Platelet Estimate ADEQUATE 11/14/19 04:10: Sodium 146 H, Potassium 3.0 L, Chloride 106, Carbon Dioxide 34.0 H, Anion Gap 6, BUN 22 H, Creatinine 0.76, Estim Creat Clear Calc 89.91, Est GFR (MDRD) Af Amer 134, Est GFR (MDRD) Non-Af 111, BUN/Creatinine Ratio 28.8 H, Glucose 128 H, Calcium 8.3 L, Phosphorus 3.7, Magnesium 2.2 Current Medications Acetaminophen (Tylenol) 650 mg PO Q6H PRN PRN PRN Reason: FEVER Last Admin: 11/12/19 18:25 Dose: 650 mg Documented by: Albuterol/Ipratropium (Duoneb) 3 ml INHALATION Q4H.RT ASAEL Last Admin: 11/14/19 06:41 Dose: 3 ml Documented by: Chlorhexidine Gluconate () 1 each TOPICAL DAILY ASAEL Last Admin: 11/13/19 12:32 Dose: 1 each Documented by: Haloperidol Lactate (Haldol) 5 mg IV Q4H PRN PRN PRN Reason: AGITATION Last Admin: 11/13/19 23:50 Dose: 5 mg Documented by: Hydralazine HCl (Apresoline Iv) 10 mg IV Q6H PRN PRN PRN Reason: SBP>160 Last Admin: 11/13/19 21:06 Dose: 10 mg Documented by: Sodium Chloride () 250 mls @ 15 mls/hr IV .[id number] PRN PRN Reason: Saline Flush Sodium Chloride () 250 mls @ 15 mls/hr IV .[id number] PRN PRN Reason: Additional IVPB Infusion Pantoprazole Sodium 40 mg/ (Sodium Chloride) 110 mls @ 330 mls/hr IV Q12 [facility] Last Infusion: 11/13/19 21:30 Dose: Infused Documented by: Vancomycin IV Pharmacy to Dose (1 ea/ Sodium Chloride) 500 mls @ 250 mls/hr IV PRN PRN; Protocol PRN Reason: Rx to Dose Vancomycin HCl 1,250 mg/ (Sodium Chloride) 275 mls @ 167 mls/hr IV Q12H [facility] Last Infusion: 11/14/19 07:34 Dose: Infused Documented by: Potassium Chloride () 10 meq in 100 mls @ 100 mls/hr IV BOLUS Q1H [facility] Stop: 11/14/19 11:29 Last Admin: 11/14/19 08:40 Dose: 100 mls/hr Documented by: Labetalol HCl (Trandate) 10 mg IV Q6H PRN PRN PRN Reason: SBP>159 Last Admin: 11/12/19 09:10 Dose: 10 mg Documented by: Taopi Carbonate (Taopi Carbonate) 450 mg GT DAILY [facility] Last Admin: 11/13/19 08:04 Dose: 450 mg Documented by: Morphine Sulfate () 2 mg IV Q2H PRN PRN PRN Reason: Pain Score 1-5/10 Morphine Sulfate () 4 mg IV Q2H PRN PRN PRN Reason: Pain Score 6-10/10 Last Admin: 11/14/19 08:44 Dose: 4 mg Documented by: Oxcarbazepine (Trileptal) 300 mg GT DAILY [facility] Last Admin: 11/13/19 08:04 Dose: 300 mg Documented by: Senna/Docusate Sodium (Senokot-S, Brittany-Colace) 2 tablet PO BID PRN PRN Reason: Constipation Last Admin: 11/11/19 21:33 Dose: 2 tablet Documented by: Sodium Chloride () 10 - 40 ml IV UD PRN PRN Reason: SALINE FLUSH Last Admin: 11/14/19 05:18 Dose: 10 ml Documented by: Trihexyphenidyl HCl (Trihexyphenidyl Hcl) 2 mg PO TIDCM [facility] Last Admin: 11/13/19 21:07 Dose: 2 mg Documented by: Venlafaxine HCl (Effexor) 75 mg GT BID [facility] Last Admin: 11/13/19 21:05 Dose: 75 mg Documented by: STROKE Vital Signs/Narrative: Vital Signs Temp Pulse Resp BP Pulse Ox 11/14/19 09:00 99.4 F H 110 H 17 159/97 H 92 11/14/19 08:45 39 H 94 11/14/19 08:00 98.9 F 95 28 H 158/95 H 93 11/14/19 07:00 98.7 F 93 28 H 163/92 H 94 11/14/19 06:55 95 11/14/19 06:45 101 H 33 H 94 11/14/19 06:37 92 27 H 96 11/14/19 06:00 98.7 F 94 27 H 141/85 H 96 Medical Necessity - Tobacco Use Smoking Status: Former smoker Tobacco Use: Non-smoker Assessment/Plan All Active Problems (Last Reviewed 12/17/18 @ 10:[address] Mario Bartholomew MD) COPD exacerbation (Acute) Respiratory failure (Acute) History of cholecystectomy (Resolved) History of hernia surgery (Resolved) Abnormal stress test (Resolved) 1. Severe sepsis and acute hypoxic respiratory failure secondary to MRSA pneumonia/metastatic adenocarcinoma of the esophagus/COPD -extubated and tolerating BiPAP/High flow NC -Continue with vancomycin -Given his poorly differentiated adenocarcinoma and the significant metastatic burden in his lungs, continue with DNR CCA with no intubation however would like to not go hospice and status can go to a alf facility for rehab -Continue with inhalers 2. HTN/HLD -Blood pressure stable -Continue with PRN hydralazine we will hold his lisinopril -Also will continue to hold his statin as well as his aspirin 3. Bipolar disorder -We will continue with his lithium as well as his Effexor, continue with Trileptal -We will hold his BuSpar DVT: SCDs
[2019-11-14] MEDS: Lithium Carbonate 150 MG Capsule 450 MG GT (09:56)
[2019-11-14] MEDS: TRIHEXYPHENIDYL HCL 2 MG TABLET PO ×2 (09:56→13:01)
[2019-11-14] MEDS: Venlafaxine HCl 75 MG Tablet GT (09:56)
[2019-11-14] MEDS: CHLORHEXIDINE GLUC 2% CLOTH 1 EACH TOWELETTE TOPICAL (09:57)
[2019-11-14] MEDS: OXcarbazepine 300 MG Tablet GT (09:58)
[2019-11-14] MEDS: Haloperidol Lactate 5 MG/ML Vial IV ×2 (09:59→15:53)
[2019-11-14] MEDS: hydrALAZINE 20 MG/ML Vial 10 MG IV (14:05)
[2019-11-14 16:42] LABS: Anion Gap 7 (5-15); BUN 23 mg/dL (7-18); BUN/Creat Ratio 28.4 RATIO (10-20); Calcium,Total 8.9 mg/dL (8.5-10.1); Chloride 112 mmol/L (98-107); Creatinine, Serum 0.81 mg/dL (0.70-1.30); EST Glomerular Filtration Rate 103 mL/min (>60); Est Glom Filt Rate - Afr Amer 125 mL/min (>60); Estimated Creatinine Clearance 84.36 ml/min; Glucose 82 mg/dL (74-106); Magnesium 2.3 mg/dL (1.6-2.6); Phosphorus 2.6 mg/dL (2.5-4.9); Potassium 3.3 mmol/L (3.5-5.1); Sodium Level 151 mmol/L (136-145)
--- NOTE | 2019-11-14 17:28 | NURSING ---
ed ucation re chronic illness deferred till acute illness resolving
[2019-11-14] MEDS: Metoprolol Tartrate 5 MG/5 ML Vial IV (18:15)
[2019-11-14] MEDS: LORazepam 2 MG/ML Syringe IV ×3 (18:30→23:27)
--- NOTE | 2019-11-14 18:30 | NURSING ---
call to Kylee, notified pt now in AFib RVR, disc again prognosis, reviewed previous disc w/Adia Dee/[place], hospice. She now wishes to make pt DNRCC. verified per Symone Lopez RN. Dr. Sandra abraham. orders recd
[2019-11-14] MEDS: Morphine 2 MG/ML Syringe IV ×5 (18:55→20:43)
--- NOTE | 2019-11-14 20:30 | NURSING ---
spoke to Jennifer Dee via MD initiated phone call. Updated on patient condition and that patient is now DNRCC with prn ativan and morphine. KITTYPatricia/[facility]ley is refusing hospice per dayshift RN. Dr. Dee asked that this RN re-approach POPatricia with hospice option but the patient would remain in the hospital if that is what she wishes. Spoke in length to her regarding hospice and the benefits including aftercare follow up for her and his mother. BRAIN continues to refuse hospice stating We are strong and lean on each other. We don't need someone else involved. We will take care of one another.
[2019-11-14] MEDS: morphine 10 MG/ML Syringe IV (23:27)
[2019-11-15] MEDS: Morphine 2 MG/ML Syringe IV (01:02)
[2019-11-15] MEDS: Morphine 4 MG/ML Syringe IV ×5 (06:04→16:15)
[2019-11-15] MEDS: LORazepam 2 MG/ML Syringe IV ×7 (06:04→16:35)
--- NOTE | 2019-11-15 06:30 | PCM.PN.INT ---
Subjective: The patient was seen and examined at the bedside this morning. Events from the last 24 hours have been reviewed. The patient remains febrile, tachycardic and tachypneic. He is maintaining appropriate oxygen saturations on 6 L/min. The patient is currently DNR comfort care with palliative care measures in place. Objective: The patient's most recent lab work, culture data and imaging studies have all been personally reviewed. General: - - Obtunded in bed. HEENT: Atraumatic Oral: Dry Mucosa Neck: Supple, No Nodes, Trachea Midline Lungs: Diminished, Tachypneic Cardiovascular: Normal S1, Normal S2, No murmurs, Tachycardic Abdomen: Bowel Sounds Present, Soft, Non Tender Extremities: No clubbing, No cyanosis, No edema Skin: No breakdown Musculoskeletal: No Tenderness to Palpation of Joints or Extremities Lymphatic: No Cervical, Supraclavicular, or Inguinal Adenopathy Neurological: - - No focal deficits. Psych/Mental Status: Flat Affect Vital Signs Temp Pulse Resp BP Pulse Ox 99.8 F H 166 H 22 H 127/92 H 95 11/14/19 23:38 11/14/19 23:38 11/14/19 23:38 11/14/19 23:38 11/14/19 23:38 Oxygen Flow Rate (L/min) 6 Oxygen Delivery Method Nasal Cannula Weight: 161 lb 2.526 oz Body Mass Index (BMI) 25.6 Finger Stick Blood Glucose 103 Intake and Output for Last 24 Hours 11/13/19 11/14/19 11/15/19 22:59 23:59 23:59 Intake Total Output Total Balance Labs (Last 48 Hours) 11/14/19 11/14/19 11/14/19 04:10 04:10 04:10 WBC 19.4 H RBC 4.42 L Hgb 12.7 L Hct 40.9 MCV 92.5 MCH 28.7 MCHC 31.1 L RDW Std Deviation 44.0 H RDW Coeff of Willi 13.0 Plt Count 150 MPV 13.3 H Immature Gran % (Auto) 1.500 H Neut % (Auto) 88.5 H Lymph % (Auto) 2.5 L [place] % (Auto) 7.2 Eos % (Auto) 0.0 Baso % (Auto) 0.3 Absolute Neuts (auto) 17.2 H Absolute Lymphs (auto) 0.48 L Nucleated RBC % 0 Differential Comment Toxic Granulation RARE Platelet Estimate ADEQUATE Sodium 146 H Potassium 3.0 L Chloride 106 Carbon Dioxide 34.0 H Anion Gap 6 BUN 22 H Creatinine 0.76 Estim Creat Clear Calc 89.91 Est GFR (MDRD) Af Amer 134 Est GFR (MDRD) Non-Af 111 BUN/Creatinine Ratio 28.8 H Glucose 128 H Calcium 8.3 L Phosphorus 3.7 Magnesium 2.2 Vancomycin Trough 17.2 H 11/14/19 16:00 WBC RBC Hgb Hct MCV MCH MCHC RDW Std Deviation RDW Coeff of Willi Plt Count MPV Immature Gran % (Auto) Neut % (Auto) Lymph % (Auto) [place] % (Auto) Eos % (Auto) Baso % (Auto) Absolute Neuts (auto) Absolute Lymphs (auto) Nucleated RBC % Differential Comment Toxic Granulation Platelet Estimate Sodium 151 H Potassium 3.3 L Chloride 112 H Carbon Dioxide 32.0 Anion Gap 7 BUN 23 H Creatinine 0.81 Estim Creat Clear Calc 84.36 Est GFR (MDRD) Af Amer 125 Est GFR (MDRD) Non-Af 103 BUN/Creatinine Ratio 28.4 H Glucose 82 Calcium 8.9 Phosphorus 2.6 Magnesium 2.3 Vancomycin Trough Microbiology 11/08/19 12:40 Blood Culture (Wb) #2 - Right Forearm Blood Culture - Final No growth in 5 days. 11/08/19 12:28 Blood Culture (Wb) - Anticubital Left Blood Culture - Final No growth in 5 days. Clinical Impression(s) from Imaging Studies Chest X-Ray 11/08/19 09:15 IMPRESSION: Stable examination demonstrating multiple bilateral pulmonary nodules as well as a left paraspinal mass. This corresponds to thickening of the esophagus as seen on the recent CT scan of the chest. Electronically Signed: Kenrick Hector, at 9:42 EST , Service support , Chest CTA 11/08/19 09:26 IMPRESSION: Essentially stable examination with diffuse bilateral pulmonary metastasis, mediastinal and right hilar lymphadenopathy. Diffuse circumferential wall thickening of the distal esophagus extending to the gastroesophageal junction suggestive of esophageal carcinoma. Hepatic metastasis. Retroperitoneal lymphadenopathy. Electronically Signed: Kenrick Hector, at 10:06 EST , Service support , Chest X-Ray 11/08/19 11:05 IMPRESSION: The tip of the endotracheal tube is at 3.1 cm proximal to the kylah. The tip of the orogastric tube is inferior to the left hemidiaphragm. Diffuse bilateral pulmonary nodules. Electronically Signed: Kenrick Lovealeksandr, at 11:32 EST , Service support , KUB X-Ray 11/08/19 11:05 IMPRESSION: The tip of the orogastric tube is in the body of the stomach just distal to the gastroesophageal junction. Once again, diffuse bilateral pulmonary nodules. Electronically Signed: Kenrick Krunal, at 11:31 EST , Service support , Medical Necessity - Tobacco Use Smoking Status: Former smoker Tobacco Use: Non-smoker Assessment/Plan All Active Problems (Last Reviewed 12/17/18 @ 10:[address] Mario Bartholomew MD) COPD exacerbation (Acute) Respiratory failure (Acute) History of cholecystectomy (Resolved) History of hernia surgery (Resolved) Abnormal stress test (Resolved) RECOMMENDATIONS: 1. Continue comfort care measures per hospitalist. All nonessential medications have been discontinued. 2. Will sign off from a critical care perspective. IMPRESSIONS: 1. Acute hypoxic respiratory failure secondary to MRSA pneumonia Patient does have MRSA pneumonia complicating multiple metastatic adenocarcinoma in the lungs. Patient remains on high flow nasal cannula. Decision was subsequently made to transition to comfort care measures. 2. Poorly differentiated adenocarcinoma of the esophagus Patient does have multiple pulmonary nodules in a pattern consistent with metastatic disease. 3. Hypertension/hyperlipidemia/COPD/possible psychiatric illness Complicates care, management, recovery and prognosis. This note was generated with Endomedixation software. It may contain incorrect words, spelling, and punctuation that were not noted in checking the note before signing. Inpatient E&M: 25889 [facility] Hosp L2
--- NOTE | 2019-11-15 07:24 | PCM.PN.HOSP ---
Patient Problems: Active and Suspected Problems (Last Reviewed 12/17/18 @ 10:[address] Mario Bartholomew MD) Respiratory failure (Acute) Lung metastases (Suspected) Reason for Visit: Severe sepsis Respiratory failure Subjective: Patient is a 59-year-old gentleman certainly diagnosed with metastatic disease thought to be secondary to an esophageal CA admitted with worsening shortness of breath and assessment of severe sepsis secondary to acute hypoxic respiratory failure with MRSA pneumonia made. Admitted to the intensive care unit where patient was intubated and subsequently extubated Objective: GENERAL: Obtunded HEENT: Atraumatic; EYES; Anicteric, NECK; supple, RESPIRATORY: Diminished to auscultation CARDIOVASCULAR: Regular S1 S2, GI: soft, normoactive bowel sounds, EXTREMITIES: edema, no clubbing, NEURO: Obtunded SKIN: No Rash PSYCH; Obtunded Vitals/I&O's: Vital Signs Temp Pulse Resp BP Pulse Ox 99.8 F H 166 H 22 H 127/92 H 95 11/14/19 23:38 11/14/19 23:38 11/14/19 23:38 11/14/19 23:38 11/14/19 23:38 Oxygen Flow Rate (L/min) 6 Oxygen Delivery Method Nasal Cannula Weight: 73.1 kg Body Mass Index (BMI) 25.6 Finger Stick Blood Glucose 103 Intake and Output for Last 24 Hours 11/13/19 11/14/19 11/15/19 22:59 23:59 23:59 Intake Total Output Total Balance Microbiology Past 72 Hours 11/08/19 12:40 Blood Culture (Wb) #2 - Right Forearm Blood Culture - Final No growth in 5 days. 11/08/19 12:28 Blood Culture (Wb) - Anticubital Left Blood Culture - Final No growth in 5 days. Laboratory Results 11/14/19 04:10: Differential Comment , Toxic Granulation RARE, Platelet Estimate ADEQUATE 11/14/19 16:00: Sodium 151 H, Potassium 3.3 L, Chloride 112 H, Carbon Dioxide 32.0, Anion Gap 7, BUN 23 H, Creatinine 0.81, Estim Creat Clear Calc 84.36, Est GFR (MDRD) Af Amer 125, Est GFR (MDRD) Non-Af 103, BUN/Creatinine Ratio 28.4 H, Glucose 82, Calcium 8.9, Phosphorus 2.6, Magnesium 2.3 Current Medications Lorazepam (Ativan) 2 mg IV Q15M PRN PRN Reason: ANXIETY Last Admin: 11/15/19 06:04 Dose: 2 mg Documented by: Morphine Sulfate () 2 - 10 mg IV Q15M PRN PRN Reason: dyspnea Last Admin: 11/15/19 01:02 Dose: 2 mg Documented by: Morphine Sulfate () 2 - 10 mg IV Q15M PRN PRN Reason: dyspnea Last Admin: 11/14/19 23:27 Dose: 4 mg Documented by: Morphine Sulfate () 2 - 10 mg IV Q15M PRN PRN Reason: dyspnea Last Admin: 11/15/19 06:04 Dose: 4 mg Documented by: Sodium Chloride () 10 - 40 ml IV UD PRN PRN Reason: SALINE FLUSH Last Admin: 11/14/19 19:59 Dose: 40 ml Documented by: Medical Necessity - Tobacco Use Smoking Status: Former smoker Tobacco Use: Non-smoker Assessment/Plan All Active Problems (Last Reviewed 12/17/18 @ 10:[address] Mario Bartholomew MD) COPD exacerbation (Acute) Respiratory failure (Acute) History of cholecystectomy (Resolved) History of hernia surgery (Resolved) Abnormal stress test (Resolved) Patient is a 59-year-old gentleman certainly diagnosed with metastatic disease thought to be secondary to an esophageal CA admitted with worsening shortness of breath and assessment of severe sepsis secondary to acute hypoxic respiratory failure with MRSA pneumonia made. Admitted to the intensive care unit where patient was intubated and subsequently extubated 1. Respiratory failure secondary to MRSA pneumonia 2. Severe sepsis secondary to MRSA pneumonia 3. Metastatic adenocarcinoma of the esophagus with mets to the lungs 4. Dyslipidemia 5. Bipolar disorder Plan; Patient's clinical condition continues to deteriorate. CODE STATUS was changed to DNR comfort care. Patient currently receiving symptomatic management Inpatient E&M: 93516 Subs Hosp L2
[2019-11-15 08:13] VITALS: BP 167/90; PULSE 111; RESP 28; TEMP 38.6; O2SAT 94
[2019-11-15] MEDS: Acetaminophen 650 MG Suppository RECTAL ×2 (08:41→14:33)
[2019-11-15 09:10] VITALS: O2SAT 94
--- NOTE | 2019-11-15 11:45 | CASEMGMT ---
Addendum entered by Dewey Martinez 11/15/19 15:12: Call to to update. S.O. has left for today. Shandra BORGES Original Note: CHANTALE CHAO Note: Pt is DNR CC. Per nursing, no further decisions re: Hospice made by pt's SO. Pt to transfer from ICU to [facility]. Anticipate if Hospice is not agreed upon, pt will need SNF on discharge. Call to CHANTALE Aguilar CM to update re: dc planning for SNF if Hospice is not option. Shandra RUBY
[2019-11-15] MEDS: morphine 10 MG/ML Syringe IV ×2 (12:35→17:20)
--- NOTE | 2019-11-15 16:14 | CASEMGMT ---
Social Work SW met with pt in room. Pt sleeping and not responding to calling of name. LOS met with pt MALA Kylee and Kylee's mother in waiting area. Extensive time spent with Kylee discussing options including SNF, home and inpatient hospice unit. Kylee tearful throughout conversation, LOS explained all three options at length and what would be required of pt and of Kylee at each level of care. After much discussion, Kylee stating that she believes inpatient hospice unit would be best for pt. With Kylee's permission phone call to [facility] and LOS spoke with Nicolle who has been in contact with Kylee throughout the weekend and informed of Kylee's choice for pt. Will await return call from Nicolle to confirm pt can be accepted. MARGO Gaming
--- NOTE | 2019-11-15 16:48 | CASEMGMT ---
Social Work Return call from Nicolle at [facility] and they are able to accept pt today and are able to send their mobile unit to picker box operator pt around 5:30. Nicolle did call ICU nursing staff and notify of this. LOS met with Kylee and informed her and she expresses appreciation for the information and is thankful to take pt to inpatient hospice. Emotional support provided. LOS spoke with CHANTALE Kent and made aware of the above. [employer]GO [employer]
--- NOTE | 2019-11-17 11:04 | PCM.DC.SUM ---
Discharge Date and Diagnosis Date of Admission: 11/08/19 Date of Discharge: 11/17/19 - Primary Discharge Diagnosis Acute respiratory failure - Secondary Discharge Diagnosis Chronic Problems (Last Reviewed 12/17/18 @ 10:[address] Mario Bartholomew MD) Hypertension (Chronic) Depression (Chronic) Hospital Course and Treatment Operations: None Summary of Care Provided: Patient is a 59-year-old gentleman certainly diagnosed with metastatic disease thought to be secondary to an esophageal CA admitted with worsening shortness of breath and assessment of severe sepsis secondary to acute hypoxic respiratory failure with MRSA pneumonia made. Admitted to the intensive care unit where patient was intubated and subsequently extubated Patient was transferred to hospice in the medical facility once bed became available Assessment: 1. Respiratory failure secondary to MRSA pneumonia 2. Severe sepsis secondary to MRSA pneumonia 3. Metastatic adenocarcinoma of the esophagus with mets to the lungs 4. Dyslipidemia 5. Bipolar disorder - Physical Exam Vitals/I&O's: Vital Signs Temp Pulse Resp BP Pulse Ox 101.5 F H 111 H 28 H 167/90 H 94 11/15/19 08:13 11/15/19 08:13 11/15/19 08:13 11/15/19 08:13 11/15/19 09:10 Oxygen Flow Rate (L/min) 6 Oxygen Delivery Method Nasal Cannula Weight: 73.1 kg Body Mass Index (BMI) 25.6 Finger Stick Blood Glucose 103 Intake and Output for Last 24 Hours 11/15/19 11/16/19 11/17/19 23:59 23:59 23:59 Output Total 300 / 300 Balance -300 / -300 Home Medications: Medications to take at Discharge Mometasone/Formoterol [Dulera 200 Mcg-5 Mcg Inhaler] 13 gm IH DAILY 09/18/18 Buspirone HCl 5 mg PO TID 10/03/18 Oxcarbazepine 300 mg PO BID 10/03/18 lithium carbonate 450 mg tablet,extended release 450 mg PO DAILY tab 12/17/18 omeprazole 40 mg capsule,delayed release 40 mg PO BID cap 12/17/18 Albuterol Sulfate [Ventolin Hfa] 1 puff INHALATION Q4H PRN 11/04/19 Atorvastatin Calcium [Lipitor] 40 mg PO QHS 11/04/19 Ipratropium/Albuterol Sulfate [Duoneb] 3 ml INHALATION Q6H 11/04/19 Lisinopril [Zestril] 5 mg PO DAILY 11/04/19 Tiotropium [place] [Spiriva Respimat] 1 puff INHALATION BID 11/04/19 Trihexyphenidyl HCl 2 mg PO TID 11/04/19 Venlafaxine HCl [Venlafaxine HCl ER] 150 mg PO DAILY 11/04/19 Prednisone See Taper PO DAILY #30 tab 11/05/19 Aspirin [Aspirin, Baby] 81 mg PO DAILY@0800 11/08/19 Primary Care Physician: Carlos Asif MD [Primary Care Provider] - Disposition: Hospice Medical Facility Minutes spent on discharge:: 45 Patient Condition:: Stable Medical Necessity - Tobacco Use Smoking Status: Former smoker Tobacco Use: Non-smoker Meaningful Use Info Meaningful Use Diagnoses (Choose all that apply): None applicable Inpatient E&M: 23884 [facility]
== END 2019-11-15 17:20 | disposition hospice, inpatient (51) | DRG 720 ==
LOC: ED 10:54 → ICU 10:54
PROVIDERS: Family Medicine; Internal Medicine Critical Care Medicine; Surgery; Admitting Provider Internal Medicine; Emergency Provider Emergency Medicine; PCP Family Medicine; Visit Provider Internal Medicine
PROC: 0DJ08ZZ Inspection of Upper Intestinal Tract, Via Natural or Artificial Opening Endoscopic (ICD-10-PCS; CPT 43235; principal; 2019-11-09 10:55)
DX: A41.02 Sepsis due to Methicillin resistant Staphylococcus aureus (principal); J96.02 Acute respiratory failure with hypercapnia; J96.01 Acute respiratory failure with hypoxia; R65.20 Severe sepsis without septic shock; I47.2 Ventricular tachycardia; J15.212 Pneumonia due to Methicillin resistant Staphylococcus aureus; C15.9 Malignant neoplasm of esophagus, unspecified; C78.02 Secondary malignant neoplasm of left lung; C78.01 Secondary malignant neoplasm of right lung; Z66 Do not resuscitate; Z51.5 Encounter for palliative care; J44.0 Chronic obstructive pulmonary disease with (acute) lower respiratory infection; K44.9 Diaphragmatic hernia without obstruction or gangrene; I10 Essential (primary) hypertension; F31.9 Bipolar disorder, unspecified; E78.5 Hyperlipidemia, unspecified; Z87.891 Personal history of nicotine dependence
CPT/HCPCS: 31500; 31720; 36600; 51702; 71045; 71275; 74018; 80048; 80076; 80202; 82803; 82962; 83605; 83735; 84100; 84484; 85025; 85379; 87040; 87070; 87077; 87086; 87186; 87205; 87449; 87633; 87641; 87804; 88305; 88331; 88341; 88342; 93005; 94002; 94003; 94640; 94660; 97162; 97167; 97530; 97802; 99251; 99285; J7050; J7120; Q9967; A4216; G0463; J1940